=== PATIENT | female | born 1960 | race African-American/Black ===

== ENCOUNTER 2016-07-14 14:16 | Emergency (ER) | payer OTHER ==
[~2016-07-14] VITALS: Ht 154.9 cm; Wt 131.5 kg
[~2016-07-14 14:16] MED LIST: ACET500T68 PO; AMLO10TA2 PO; AMLO5TAB4 PO; ATOR20TA PO; CHOL10007 PO; CRESTOR5 MG PO; FERR-26 PO; FLUT16SP2 NS; HYDR-2666 PO; HYDR-971 PO; INSU100I17 SQ; INSU100I18 SQ; INSU100V13 SQ; LANS30CA PO; LANS30CA17 PO; LEVO500T38 PO; LORA10TA3 PO; METF500T4 PO; NAPR375T3 PO; NYST1POW5 MC; ONDA4TAB10 SL; OXYB5TAB7 PO; POTA10TA10 PO; SUCR1TAB PO; VALS160T3 PO
[2016-07-14 14:58] VITALS: BP 156/72
--- NOTE | 2016-07-14 15:16 | PHYS DOC ---
Past Medical History Past Medical History: Diabetes-Type II, Hypertension, Other Additional Past Medical Histor: Seasonal allergies Past Surgical History: Other Additional Past Surgical Histo: BLADDER SLING; ablasion to uterus; right knee, L lumpectomy Alcohol Use: None Drug Use: None Adult General Chief Complaint Chief Complaint: UPPER EXTREMITY PAIN [facility] HPI Patient is a 56 year old female presents to the emergency department by EMS with complaint of blurred vision and seeing spots in her eye. She states that she has a history of high blood pressure she does state she took her pressure medicine today. Patient states she has tenderness in her left upper chest area. She denies any shortness of air difficulty breathing. She does state that she has pain down into her left arm and states that she has increased pain with bending and straightening her elbow on the left. Patient states she is left-hand -dominant. Patient has a history of HTN and diabetes. Review of Systems Review of Systems Constitutional: Denies fever or chills [] Eyes: Denies change in visual acuity, redness, or eye pain [] HENT: Denies nasal congestion or sore throat [] Respiratory: Denies cough or shortness of breath [] Cardiovascular: No additional information not addressed in HPI [] GI: Denies abdominal pain, nausea, vomiting, bloody stools or diarrhea [] : Denies dysuria or hematuria [] Musculoskeletal: Denies back pain. C/o left arm and elbow pain Integument: Denies rash or skin lesions [] Neurologic: Denies headache, focal weakness or sensory changes [] Allergies Allergies Allergies Coded Allergies Type Severity Reaction Last Updated Verified Sulfa (Sulfonamide Antibiotics) Allergy Intermediate 01/05/16 No lisinopril Allergy Intermediate 01/05/16 Yes metoclopramide Allergy Intermediate 01/05/16 Yes pantoprazole Allergy Intermediate Unknown 01/05/16 No Physical Exam Physical Exam Constitutional: Well developed, well nourished, no acute distress, non-toxic appearance. [] HENT: Normocephalic, atraumatic, bilateral external ears normal, oropharynx moist, no oral exudates, nose normal. [] Eyes: PERRLA, EOMI, conjunctiva normal, no discharge. [] Neck: Normal range of motion, no tenderness, supple, no stridor. [] Cardiovascular:Heart rate regular rhythm, no murmur [] Lungs & Thorax: Bilateral breath sounds clear to auscultation. Patient with tenderness noted to the left upper chest with palpation. Skin: Warm, dry, no erythema, no rash. [] Back: No tenderness Extremities: Left elbow tenderness on palpation, no cyanosis, no clubbing, ROM intact, no edema. 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 Peripheral pulses 2+ cap refill brisk less than 2 seconds. Neurologic: Alert and oriented X 3, normal motor function, normal sensory function, no focal deficits noted. [] Psychologic: Affect normal, judgement normal, mood normal. [] Current Patient Data Vital Signs Vital Signs Date Time Temp Pulse Resp B/P Pulse Ox O2 Delivery O2 Flow Rate FiO2 07/14/16 14:58 97.9 73 20 100 Room Air 97.9 Lab Values Laboratory Tests Test 07/14/16 16:05 White Blood Count 8.0x10^3/uL (4.0-11.0) Red Blood Count 5.55x10^6/uL (3.50-5.40) H Hemoglobin 13.5g/dL (12.0-15.5) Hematocrit 42.4% (36.0-47.0) Mean Corpuscular Volume 76fL (79-100) L Mean Corpuscular Hemoglobin 24pg (25-35) L Mean Corpuscular Hemoglobin Concent 32g/dL (31-37) Red Cell Distribution Width 16.1% (11.5-14.5) H Platelet Count 340x10^3/uL (140-400) Neutrophils (%) (Auto) 70% (31-73) Lymphocytes (%) (Auto) 23% (24-48) L Monocytes (%) (Auto) 5% (0-9) Eosinophils (%) (Auto) 1% (0-3) Basophils (%) (Auto) 1% (0-3) Neutrophils # (Auto) 5.6x10^3uL (1.8-7.7) Lymphocytes # (Auto) 1.8x10^3/uL (1.0-4.8) Monocytes # (Auto) 0.4x10^3/uL (0.0-1.1) Eosinophils # (Auto) 0.1x10^3/uL (0.0-0.7) Basophils # (Auto) 0.1x10^3/uL (0.0-0.2) Sodium Level 141mmol/L (136-145) Potassium Level 3.9mmol/L (3.5-5.1) Chloride Level 104mmol/L (98-107) Carbon Dioxide Level 28mmol/L (21-32) Anion Gap 9 (6-14) Blood Urea Nitrogen 20mg/dL (7-20) Creatinine 1.0mg/dL (0.6-1.0) Estimated GFR (Cockcroft-Gault) 69.7 BUN/Creatinine Ratio 20 (6-20) Glucose Level 120mg/dL (70-99) H Calcium Level 9.7mg/dL (8.5-10.1) Total Bilirubin 0.4mg/dL (0.2-1.0) Aspartate Amino Transferase (AST) 18U/L (15-37) Alanine Aminotransferase (ALT) 23U/L (14-59) Alkaline Phosphatase 157U/L (46-116) H Troponin I Quantitative < 0.017ng/mL (0.000-0.055) Total Protein 9.0g/dL (6.4-8.2) H Albumin 3.9g/dL (3.4-5.0) Albumin/Globulin Ratio 0.8 (1.0-1.7) L Laboratory Tests 07/14/16 16:05 Laboratory Tests 07/14/16 16:05 EKG EKG EKG completed with a heart rate of 71. EKG was done at 1606 sinus rhythm no STEMI per Dr. Ramos [] Radiology/Procedures Radiology/Procedures [facility] [address] [facility] [place], [place] [id number] IMAGING REPORT Signed PATIENT: RUSLAN CALERO ACCOUNT: [id number] : 1960 LOCATION: ER AGE: 56 SEX: F EXAM STATUS: REG ER ORD. PHYSICIAN: MARIANNE MCCONNELL NP REASON: left upper chest tenderness on palpation PROCEDURE: CHEST PA & LATERAL EXAM: Chest 2 views. HISTORY: Chest tenderness on palpation. COMPARISON: 04/05/2016. FINDINGS: Frontal and lateral views of the chest are obtained. Prominence of the right paratracheal stripe appears to contain calcified lymph nodes. This is more prominent than previously, but there are projectional differences. The inspiration is small. There are no confluent infiltrates. There is no pneumothorax or pleural effusion. The heart is not enlarged. IMPRESSION: 1. Increased prominence of the right paratracheal stripe is likely a projectional difference. A follow-up upright 2 view radiograph is recommended. 2. Small inspiration. No confluent infiltrates. DICTATED and SIGNED BY: CORONA TONY MD DATE: 07/14/161556 CC: CAMILA KIRBY MD; MARIANNE MCCONNELL LINING MACHINE TENDER ~ [] [address] [id number] IMAGING REPORT Signed PATIENT: RUSLAN CALERO ACCOUNT: [id number] : 1960 LOCATION: ER AGE: 56 SEX: F EXAM STATUS: REG ER ORD. PHYSICIAN: MARIANNE MCCONNELL NP REASON: left upper chest tenderness on palpation PROCEDURE: ELBOW LEFT 3V Three-view left elbow radiographs 07/14/2016 Clinical history: Left elbow pain. AP, lateral and oblique digital radiographs of the left elbow were obtained. No fracture or dislocation of the left elbow is seen. Mild degenerative changes are seen involving the left elbow joint. There is no radiographic evidence of a joint effusion. Impression: Mild degenerative changes are seen involving the left elbow. No acute osseous abnormality is seen. DICTATED and SIGNED BY: WENDIE MCDONALD MD DATE: 07/14/161556 CC: CAMILA KIRBY MD; MARIANNE MCCONNELL LINING MACHINE TENDER ~ [address] [id number] IMAGING REPORT Signed PATIENT: RUSLAN CALERO ACCOUNT: [id number] : 1960 LOCATION: ER AGE: 56 SEX: F EXAM STATUS: REG ER ORD. PHYSICIAN: MARIANNE MCCONNELL NP REASON: blurred vison and spots PROCEDURE: HEAD WO CONTRAST CT scan of the head without contrast 07/14/2016 Clinical history: Blurred vision and headaches. Technique: Unenhanced, contiguous, 5 mm axial sections were obtained through the head. One or more of the following individualized dose reduction techniques were utilized for this study: 1. Automated exposure control. 2. Adjustment of the mA and/or kV according to patient size. 3. Use of iterative reconstruction technique. Findings: Comparison study is dated 12/24/2015. The ventricles and sulci are within normal limits in size and configuration. No acute parenchymal abnormality is seen. No extra-axial fluid collection is seen. No skull fracture is noted. Impression: No acute intracranial abnormality is seen. DICTATED and SIGNED BY: WENDIE MCDONALD MD DATE: 07/14/16 1557 CC: CAMILA KIRBY MD; MARIANNE MCCONNELL NP ~ Course & Med Decision Making Course & Med Decision Making Pertinent Labs and Imaging studies reviewed. (See chart for details) CT head, chest x-ray and left elbow x-ray negative for acute abnormality. Chest x-ray showed striking with recommendations for repeat chest x-ray in 1-2 weeks. Lab results negative with troponin negative. Patient with EKG completed and negative. Patient will be discharged home in stable condition. Recommended ibuprofen 600 mg every 8 hours with food stop taking if you develop upset stomach. Signs and symptoms to return to emergency department has been provided. Recommended followup with primary care provider in 5-7 days for repeat chest x-ray. Patient agrees with discharge instructions, treatment regimen and followup recommendations. [] Dragon Disclaimer Dragon Disclaimer This electronic medical record was generated, in whole or in part, using a voice recognition dictation system. Departure Departure Impression: Primary Impression: Left elbow pain Disposition: 01 HOME, SELF-CARE Referrals: CAMILA KIRBY MD (PCP) Patient Instructions: Elbow Injury-Brief Additional Instructions: You x-ray of your chest shows streaking and should be repeated in 1 week Activity as tolerated Ibuprofen 600 mg every 8 hours with food, stop taking if you develop upset stomach Ice packs on 20 minutes and off 20 minutes several times a day Tyler wrap to the left elbow for the next 5-7 days Followup with your primary care provider in 5-7 days for repeat chest x-ray Followup with orthopedic for your elbow pain in 5-7 days Return to emergency department as needed for signs and symptoms that become worse. MARIANNE MCCONNELL NP Jul 14, 2016 15:16
--- NOTE | 2016-07-14 16:01 | RAD ---
EXAM: Chest 2 views. HISTORY: Chest tenderness on palpation. COMPARISON: 04/05/2016. FINDINGS: Frontal and lateral views of the chest are obtained. Prominence of the right paratracheal stripe appears to contain calcified lymph nodes. This is more prominent than previously, but there are projectional differences. The inspiration is small. There are no confluent infiltrates. There is no pneumothorax or pleural effusion. The heart is not enlarged. IMPRESSION: 1. Increased prominence of the right paratracheal stripe is likely a projectional difference. A follow-up upright 2 view radiograph is recommended. 2. Small inspiration. No confluent infiltrates.
--- NOTE | 2016-07-14 16:01 | RAD ---
Three-view left elbow radiographs 07/14/2016 Clinical history: Left elbow pain. AP, lateral and oblique digital radiographs of the left elbow were obtained. No fracture or dislocation of the left elbow is seen. Mild degenerative changes are seen involving the left elbow joint. There is no radiographic evidence of a joint effusion. Impression: Mild degenerative changes are seen involving the left elbow. No acute osseous abnormality is seen.
--- NOTE | 2016-07-14 16:05 | RAD ---
CT scan of the head without contrast 07/14/2016 Clinical history: Blurred vision and headaches. Technique: Unenhanced, contiguous, 5 mm axial sections were obtained through the head. One or more of the following individualized dose reduction techniques were utilized for this study: 1. Automated exposure control. 2. Adjustment of the mA and/or kV according to patient size. 3. Use of iterative reconstruction technique. Findings: Comparison study is dated 12/24/2015. The ventricles and sulci are within normal limits in size and configuration. No acute parenchymal abnormality is seen. No extra-axial fluid collection is seen. No skull fracture is noted. Impression: No acute intracranial abnormality is seen.
[2016-07-14 16:17] LABS: BASO # 0.1 x10^3/uL (0.0-0.2); BASO % 1 % (0-3); EOS % 1 % (0-3); HEMATOCRIT 42.4 % (36.0-47.0); HEMOGLOBIN 13.5 g/dL (12.0-15.5); LYMPH # 1.8 x10^3/uL (1.0-4.8); LYMPH % 23 % (24-48); MEAN CORPUSCULAR HEMOGLOBIN 24 pg (25-35); MEAN CORPUSCULAR HGB CONC 32 g/dL (31-37); MEAN CORPUSCULAR VOLUME 76 fL (79-100); MONO % 5 % (0-9); NEUT % 70 % (31-73); PLATELET COUNT 340 x10^3/uL (140-400); RED BLOOD COUNT 5.55 x10^6/uL (3.50-5.40); RED CELL DISTRIBUTION WIDTH 16.1 % (11.5-14.5)
[2016-07-14 16:29] LABS: CALCIUM 9.7 mg/dL (8.5-10.1); GFR 69.7; POTASSIUM 3.9 mmol/L (3.5-5.1)
[2016-07-14 16:35] LABS: ALBUMIN 3.9 g/dL (3.4-5.0); ALBUMIN/GLOBULIN RATIO 0.8 (1.0-1.7); TOTAL BILIRUBIN 0.4 mg/dL (0.2-1.0)
--- NOTE | 2016-07-15 06:10 | EKG ---
[facility] [address] [place] [address] Test Date: 2016-07-14 Test Time: 16:06:55 Pat Name: RUSLAN CALERO Department: Room: Gender: F Talkback Host: : 1960 Requested By: MARIANNE MCCONNELL Order Number: [id number] Reading MD: Measurements Intervals [place] Rate: 71 P: 36 ND: 172 QRS: 6 QRSD: 80 T: 28 QT: 396 QTc: 435 Interpretive Statements SINUS RHYTHM R-S TRANSITION ZONE IN V LEADS DISPLACED TO THE LEFT OTHERWISE NORMAL ECG RI6.01 Unconfirmed report No previous ECG available for comparison
== END 2016-07-14 17:32 | disposition home or self-care (01) ==
LOC: ER 14:16
DX: M25.522 Pain in left elbow (principal); E11.9 Type 2 diabetes mellitus without complications; I10 Essential (primary) hypertension; Z88.2 Allergy status to sulfonamides; Z88.8 Allergy status to other drugs, medicaments and biological substances
CPT/HCPCS: 36415; 70450; 71020; 73080; 80053; 84484; 85027; 93005; 99285-25

== ENCOUNTER → 2016-08-25 | Outpatient (CLI) | payer OTHER ==
--- NOTE | 2016-08-25 14:52 | RAD ---
DATE: 08/25/2016 EXAM: DIGITAL SCREEN BILAT W/CAD HISTORY: Screening COMPARISON: 02/27/2015 This study was interpreted with the benefit of Computerized Aided Detection (CAD). FINDINGS: The breast parenchyma is primarily fatty replaced. Breast parenchyma level density A.. There has not been a significant change in the appearance of the breasts compared to the previous exam IMPRESSION: Benign findings BI-RADS CATEGORY: 2 BENIGN FINDING(S) RECOMMENDED FOLLOW-UP: 12M 12 MONTH FOLLOW-UP PQRS compliance statement: Patient information was entered into a reminder system with a target due date 08/25/2017 for the next mammogram. Mammography is a sensitive method for finding small breast cancers, but it does not detect them all and is not a substitute for careful clinical examination. A negative mammogram does not negate a clinically suspicious finding and should not result in delay in biopsying a clinically suspicious abnormality. "Our facility is accredited by the [employer] Mammography Program."
== END | disposition home or self-care (01) ==
LOC: MAMMO 13:24
PROVIDERS: ATTEND Family Medicine
DX: Z12.31 Encounter for screening mammogram for malignant neoplasm of breast (principal)
CPT/HCPCS: G0202; 77067

== ENCOUNTER 2016-09-14 12:40 | Emergency (ER) | payer OTHER ==
[~2016-09-14 12:40] MED LIST changes: -POTA10TA10 PO; +POTA10TA12 PO
[2016-09-14] MEDS ORDERED: DIPHTH,PERTUSS(ACELL),TET TOX 0.5 ML DISP.SYRIN. VAX IM ONE (13:15)
[2016-09-14] MEDS ORDERED: IV NORMAL SALINE 1000ML BAG 1,000 ML IV ONE (13:15)
--- NOTE | 2016-09-14 13:15 | PHYS DOC ---
Past Medical History Past Medical History: Diabetes-Type II, Hypertension, Other Additional Past Medical Histor: Seasonal allergies Past Surgical History: Other Additional Past Surgical Histo: BLADDER SLING; ablasion to uterus; right knee, L lumpectomy Alcohol Use: None Drug Use: None Adult General Chief Complaint Chief Complaint: OTHER COMPLAINTS [facility] HPI Patient is a 56 year old female with history of diabetes type 2, hypertension, who presents today with multiple complaints. Patient is complaining of a bite on the left buttock that she believes came from a mice. Patient states 2 weeks ago she was asleep and believes a mice bite her. Patient did not see them ice bite her. She is also complaining of nausea with no vomiting and a cough. She states the nausea with no vomiting and the cough began a couple days ago. She is also complaining of constipation. She states she has history of constipation and is supposed to be taking MiraLAX but does not take it. Patient denies any fever. She states she has noted some intermittent episodes of diarrhea. Denies any chest pain or shortness of breath. Review of Systems Review of Systems Constitutional: Denies fever or chills [] Eyes: Denies change in visual acuity, redness, or eye pain [] HENT: Denies nasal congestion or sore throat [] Respiratory: cough Cardiovascular: No additional information not addressed in HPI [] GI: nausea, and diarrhea [] : Denies dysuria or hematuria [] Musculoskeletal: Denies back pain or joint pain [] Integument: left buttock bite Neurologic: Denies headache, focal weakness or sensory changes [] Endocrine: Denies polyuria or polydipsia [] Current Medications Current Medications Current Medications Medications (Trade) Dose Ordered Sig/Ren Start Time Stop Time Status Last Admin Dose Admin Diphtheria/ Tetanus/Acell Pertussis (Boostrix) 0.5 ml ONCE ONCE 09/14/16 13:15 09/14/16 13:16 DC 09/14/16 13:28 0.5 ML Magnesium Citrate (Citroma) 296 ml 1X ONCE 09/14/16 15:15 09/14/16 15:16 DC Sodium Chloride 1,000 ml @ 1,000 mls/hr 1X ONCE 09/14/16 13:15 09/14/16 14:14 DC 09/14/16 13:26 1,000 MLS/HR Allergies Allergies Allergies Coded Allergies Type Severity Reaction Last Updated Verified Sulfa (Sulfonamide Antibiotics) Allergy Intermediate 01/05/16 No lisinopril Allergy Intermediate 01/05/16 Yes metoclopramide Allergy Intermediate 01/05/16 Yes pantoprazole Allergy Intermediate Unknown 01/05/16 No Physical Exam Physical Exam Constitutional: Well developed, well nourished, no acute distress, non-toxic appearance. [] HENT: Normocephalic, atraumatic, bilateral external ears normal, oropharynx moist, no oral exudates, nose normal. [] Eyes: PERRLA, EOMI, conjunctiva normal, no discharge. [] Neck: Normal range of motion, no tenderness, supple, no stridor. [] Cardiovascular:Heart rate regular rhythm, no murmur [] Lungs & Thorax: Bilateral breath sounds clear to auscultation [] Abdomen: Rounded abdomen. No tenderness on exam. Bowel sounds normal, soft, no masses, no pulsatile masses. [] Skin: No bite dai noted on bilateral buttocks. No erythema. Tenderness on palpation of the left upper mid buttock. Warm, dry, no erythema, no rash. [] Back: No tenderness, no CVA tenderness. [] Extremities: No tenderness, no cyanosis, no clubbing, ROM intact, no edema. [] Neurologic: Alert and oriented X 3, normal motor function, normal sensory function, no focal deficits noted. [] Psychologic: Affect normal, judgement normal, mood normal. [] Current Patient Data Vital Signs Vital Signs Date Time Temp Pulse Resp B/P (MAP) Pulse Ox O2 Delivery O2 Flow Rate FiO2 09/14/16 12:50 98.3 91 16 95 Room Air 98.3 Lab Values Laboratory Tests Test 09/14/16 13:25 09/14/16 13:55 White Blood Count 7.2 x10^3/uL (4.0-11.0) Red Blood Count 4.93 x10^6/uL (3.50-5.40) Hemoglobin 12.0 g/dL (12.0-15.5) Hematocrit 37.7 % (36.0-47.0) Mean Corpuscular Volume 77 fL (79-100) L Mean Corpuscular Hemoglobin 24 pg (25-35) L Mean Corpuscular Hemoglobin Concent 32 g/dL (31-37) Red Cell Distribution Width 16.4 % (11.5-14.5) H Platelet Count 304 x10^3/uL (140-400) Neutrophils (%) (Auto) 63 % (31-73) Lymphocytes (%) (Auto) 26 % (24-48) Monocytes (%) (Auto) 9 % (0-9) Eosinophils (%) (Auto) 1 % (0-3) Basophils (%) (Auto) 1 % (0-3) Neutrophils # (Auto) 4.5 x10^3uL (1.8-7.7) Lymphocytes # (Auto) 1.9 x10^3/uL (1.0-4.8) Monocytes # (Auto) 0.6 x10^3/uL (0.0-1.1) Eosinophils # (Auto) 0.1 x10^3/uL (0.0-0.7) Basophils # (Auto) 0.1 x10^3/uL (0.0-0.2) Sodium Level 140 mmol/L (136-145) Potassium Level 4.4 mmol/L (3.5-5.1) Chloride Level 103 mmol/L (98-107) Carbon Dioxide Level 27 mmol/L (21-32) Anion Gap 10 (6-14) Blood Urea Nitrogen 13 mg/dL (7-20) Creatinine 1.0 mg/dL (0.6-1.0) Estimated GFR (Cockcroft-Gault) 69.7 BUN/Creatinine Ratio 13 (6-20) Glucose Level 152 mg/dL (70-99) H Calcium Level 9.5 mg/dL (8.5-10.1) Total Bilirubin 0.4 mg/dL (0.2-1.0) Aspartate Amino Transferase (AST) 16 U/L (15-37) Alanine Aminotransferase (ALT) 22 U/L (14-59) Alkaline Phosphatase 133 U/L (46-116) H Total Protein 7.8 g/dL (6.4-8.2) Albumin 3.4 g/dL (3.4-5.0) Albumin/Globulin Ratio 0.8 (1.0-1.7) L Lipase 202 U/L (73-393) Urine Collection Type Unknown Urine Color Yellow Urine Clarity Clear Urine pH 6.5 Urine Specific [place] 1.020 Urine Protein Negative mg/dL (NEG-TRACE) Urine Glucose (UA) Negative mg/dL (NEG) Urine Ketones (Stick) Negative mg/dL (NEG) Urine Blood Negative (NEG) Urine Nitrite Negative (NEG) Urine Bilirubin Negative (NEG) Urine Urobilinogen Dipstick 0.2 mg/dL (0.2 mg/dL) Urine Leukocyte Esterase Negative (NEG) Urine RBC 0 /HPF (0-2) Urine WBC Occ /HPF (0-4) Urine Squamous Epithelial Cells Mod /LPF Urine Bacteria Few /HPF (0-FEW) Urine Mucus Mod /LPF Laboratory Tests 09/14/16 13:25 Laboratory Tests 09/14/16 13:25 EKG EKG [] Radiology/Procedures Radiology/Procedures []PROCEDURE: ACUTE ABDOMEN SERIES Indication: Abdominal pain and nausea. Time of exam 1316 hours. The lungs are clear. No free air is identified. The bowel gas pattern demonstrates mild gaseous distention of colonic bowel loops. The small bowel is nondilated. No bowel wall thickening or pneumatosis is seen. No pathologic calcifications are identified. Impression: No acute feature detected. DICTATED and SIGNED BY: CJ HILARIO MD DATE: 09/14/16 1327 CC: CAMILA KIRBY MD; BRENDAN BARNES CARBON CLEANER; NON,STAFF ~ Course & Med Decision Making Course & Med Decision Making Pertinent Labs and Imaging studies reviewed. (See chart for details) Patient is in the ED with multiple complaints including what she believes was a bite on her buttock when she was sleeping 2 weeks ago. There is no evidence of infection or bite dai on her buttocks. She is also complaining of cough, nausea vomiting diarrhea and constipation. She is also complaining of a cough. She was given tetanus injection. CBC CMP lipase with no acute findings. Acute abdominal series was negative for any acute findings but noted for constipation. She was discharged with mag citrate and MiraLAX. We talked about increasing dietary fiber intake. We talked about increasing water intake. I recommended following up with the primary care doctor in a week. Discharged with Franchesca Correa for cough. Dragon Disclaimer Dragon Disclaimer This electronic medical record was generated, in whole or in part, using a voice recognition dictation system. Departure Departure Impression: Primary Impression: Constipation Additional Impressions: Cough Insect bite of buttock Nausea Disposition: 01 HOME, SELF-CARE Condition: STABLE Referrals: CAMILA KIRBY MD (PCP) Follow-up with your own doctor in one week Patient Instructions: Constipation, Adult, Cough, Adult, Insect Bite, Nausea, Adult Additional Instructions: You were seen in the ED with multiple complaints including possibility of being bit by her mice. From the physical exam we did not see any bite dai on the area of concern. We gave you tetanus shot in the emergency room. Keep the area clean and dry. Apply the recommended cream to the area as needed. Your x-ray shows you constipated. Consider using MiraLAX every day. Use magnesium citrate daily until you have a good bowel movement. Come back to the ED at any point symptoms worsen. Take [id number]-ryksytv cough medicines for your cough. Please follow-up with your doctor in the next 7 days. Scripts Benzonatate (TESSALON PERLE) 100 Mg Capsule 1 CAP PO TID, #30 CAP Prov: BRENDAN BARNES APRN 09/14/16 Polyethylene Glycol 3350 (MIRALAX) 17 Gm Powd.pack 1 PACKET PO DAILY, #30 PACKET 3 Refills Prov: BRENDAN BARNES APRN 09/14/16 Triamcinolone Acetonide (TRIAMCINOLONE ACETONIDE 0.1% OINT) 15 Gm Oint...g. 1 PHONG TP BID for WOUND CARE, #1 TUBE MIX WITH EUCERIN DIRECTED BY PHYSICIAN Prov: BRENDAN BARNES APRN 09/14/16 Problem Qualifiers Primary Impression: Constipation Constipation type: unspecified constipation type Qualified Codes: K59.00 - Constipation, unspecified Additional Impressions: Insect bite of buttock Encounter type: initial encounter Qualified Codes: S30.860A - Insect bite ( nonvenomous) of lower back and pelvis, initial encounter; W57.XXXA - Bitten or stung by nonvenomous insect and other nonvenomous arthropods, initial encounter BRENDAN BARNES APRN September 14, 2016 13:15
--- NOTE | 2016-09-14 13:32 | RAD ---
Indication: Abdominal pain and nausea. Time of exam 1316 hours. The lungs are clear. No free air is identified. The bowel gas pattern demonstrates mild gaseous distention of colonic bowel loops. The small bowel is nondilated. No bowel wall thickening or pneumatosis is seen. No pathologic calcifications are identified. Impression: No acute feature detected.
[2016-09-14 13:42] LABS: BASO # 0.1 x10^3/uL (0.0-0.2); BASO % 1 % (0-3); EOS % 1 % (0-3); HEMATOCRIT 37.7 % (36.0-47.0); LYMPH # 1.9 x10^3/uL (1.0-4.8); LYMPH % 26 % (24-48); MEAN CORPUSCULAR HEMOGLOBIN 24 pg (25-35); MEAN CORPUSCULAR HGB CONC 32 g/dL (31-37); MEAN CORPUSCULAR VOLUME 77 fL (79-100); MONO % 9 % (0-9); NEUT % 63 % (31-73); PLATELET COUNT 304 x10^3/uL (140-400); RED BLOOD COUNT 4.93 x10^6/uL (3.50-5.40); RED CELL DISTRIBUTION WIDTH 16.4 % (11.5-14.5); WHITE BLOOD COUNT 7.2 x10^3/uL (4.0-11.0)
[2016-09-14 13:56] LABS: CALCIUM 9.5 mg/dL (8.5-10.1); GFR 69.7; POTASSIUM 4.4 mmol/L (3.5-5.1)
[2016-09-14 14:02] LABS: ALBUMIN 3.4 g/dL (3.4-5.0); ALBUMIN/GLOBULIN RATIO 0.8 (1.0-1.7); TOTAL BILIRUBIN 0.4 mg/dL (0.2-1.0); TOTAL PROTEIN 7.8 g/dL (6.4-8.2)
[2016-09-14 14:06] LABS: BILIRUBIN,URINE NEGATIVE (NEG); GLUCOSE,URINE NEGATIVE (NEG); NITRITE,URINE NEGATIVE (NEG); PH,URINE 6.5; PROTEIN,URINE NEGATIVE (NEG-TRACE); UROBILINOGEN,URINE 0.2 mg/dL (0.2 mg/dL)
[2016-09-14 14:28] VITALS: BP 176/78
[2016-09-14 14:31] LABS: BACTERIA,URINE FEW /HPF (0-FEW); RBC,URINE 0 /HPF (0-2); SQUAMOUS EPITHELIAL CELL,UR MOD /LPF; WBC,URINE OCC /HPF (0-4)
[2016-09-14] MEDS ORDERED: BENZ100C PO (15:07)
[2016-09-14] MEDS ORDERED: TRIA15OI TP (15:07)
[2016-09-14] MEDS ORDERED: POLY17PO29 PO (15:07)
[2016-09-14] MEDS ORDERED: MAGNESIUM CITRATE 296 ML SOLUTION. PO ONE (15:15)
== END 2016-09-14 15:32 | disposition home or self-care (01) ==
LOC: ER 12:40
DX: K59.00 Constipation, unspecified (principal); R05 Cough; S30.860A Insect bite (nonvenomous) of lower back and pelvis, initial encounter; R11.2 Nausea with vomiting, unspecified; I10 Essential (primary) hypertension; E11.9 Type 2 diabetes mellitus without complications; W57.XXXA Bitten or stung by nonvenomous insect and other nonvenomous arthropods, initial encounter; Y93.89 Activity, other specified; Y92.89 Other specified places as the place of occurrence of the external cause; Y99.8 Other external cause status; Z88.2 Allergy status to sulfonamides; Z88.8 Allergy status to other drugs, medicaments and biological substances
CPT/HCPCS: 36415; 74022; 80053; 81001; 83690; 85027; 90471; 90715; 96360; 99285; J7030

== ENCOUNTER 2016-12-22 15:05 | Emergency (ER) | payer OTHER ==
[~2016-12-22] VITALS: Ht 156.2 cm; Wt 131.5 kg
[~2016-12-22 15:05] MED LIST changes: +BENZ100C PO; +CHOL100014 PO; -CHOL10007 PO; -HYDR-2666 PO; +HYDR-2758 PO; -LANS30CA17 PO; +LANS30CA66 PO; -LEVO500T38 PO; +LEVO500T59 PO; +POLY17PO29 PO; +TRIA15OI TP
[2016-12-22 15:58] VITALS: BP 134/73
--- NOTE | 2016-12-22 16:19 | PHYS DOC ---
Past Medical History Past Medical History: Diabetes-Type II, Hypertension, Other Additional Past Medical Histor: Seasonal allergies Past Surgical History: Other Additional Past Surgical Histo: BLADDER SLING; ablasion to uterus; right knee, L lumpectomy Alcohol Use: None Drug Use: None Adult General Chief Complaint Chief Complaint: ANIMAL BITE [facility] HPI Patient is a 56 year old female presents to the emergency department stating that 4 days ago she believes she was bitten or scratched by a mouse or rat. She states that she believes that they're living in her mattress. Patient states that she's been cleaning the areas with soap and water and applying antibiotic ointment. Patient states that her tetanus immunization is not up-to-date. Patient states that she is concerned about rabies however at this incident happened over 4 days ago. Review of Systems Review of Systems Constitutional: Denies fever or chills [] Eyes: Denies change in visual acuity, redness, or eye pain [] HENT: Denies nasal congestion or sore throat [] Respiratory: Denies cough or shortness of breath [] Cardiovascular: No additional information not addressed in HPI [] GI: Denies abdominal pain, nausea, vomiting, bloody stools or diarrhea [] : Denies dysuria or hematuria [] Musculoskeletal: Denies back pain or joint pain [] Integument: Denies rash or skin lesions. Complaint of bites to the left upper buttocks area and right posterior thigh Neurologic: Denies headache, focal weakness or sensory changes [] Endocrine: Denies polyuria or polydipsia [] Allergies Allergies Allergies Coded Allergies Type Severity Reaction Last Updated Verified Sulfa (Sulfonamide Antibiotics) Allergy Intermediate 01/05/16 No lisinopril Allergy Intermediate 01/05/16 Yes metoclopramide Allergy Intermediate 01/05/16 Yes pantoprazole Allergy Intermediate Unknown 01/05/16 No Physical Exam Physical Exam Constitutional: Well developed, well nourished, no acute distress, non-toxic appearance. [] HENT: Normocephalic, atraumatic, bilateral external ears normal, oropharynx moist, no oral exudates, nose normal. [] Eyes: PERRLA, EOMI, conjunctiva normal, no discharge. [] Neck: Normal range of motion, no tenderness, supple, no stridor. [] Cardiovascular:Heart rate regular rhythm, no murmur [] Lungs & Thorax: Bilateral breath sounds clear to auscultation [] Skin: Warm, dry, no erythema, no rash. Left upper buttocks and right posterior thigh with no open wounds noted no redness no drainage no discharge noted. No scratches noted either. Back: No tenderness Extremities: No tenderness, no cyanosis, no clubbing, ROM intact, no edema. [] Neurologic: Alert and oriented X 3, normal motor function, normal sensory function, no focal deficits noted. [] Psychologic: Affect normal, judgement normal, mood normal. [] Current Patient Data Vital Signs Vital Signs Date Time Temp Pulse Resp B/P (MAP) Pulse Ox O2 Delivery O2 Flow Rate FiO2 12/22/16 15:58 98.3 89 20 98 Room Air 98.3 EKG EKG [] Radiology/Procedures Radiology/Procedures [] Course & Med Decision Making Course & Med Decision Making Pertinent Labs and Imaging studies reviewed. (See chart for details) Spoke with patient regards to using Benadryl for the burning and itching. Spoke with her about clean the site with soap and water and applying antibiotic ointment to the area. Patient will be updated with a tetanus immunization she' ll be discharged home in stable condition. Patient was provided with signs and symptoms to return back to emergency department. Recommended following up with her primary care physician within the next 3-5 days. Patient agrees with discharge instructions treatment regimens and follow-up recommendations. [] Dragon Disclaimer Dragon Disclaimer This electronic medical record was generated, in whole or in part, using a voice recognition dictation system. Departure Departure Impression: Primary Impression: Skin irritation Disposition: 01 HOME, SELF-CARE Condition: STABLE Referrals: CAMILA KIRBY MD (PCP) Patient Instructions: Rash, [id number] Additional Instructions: Activity as tolerated. Continue to use soap and water and apply antibiotic ointment to the area. Tylenol or ibuprofen for fever chills or generalized body aches and discomfort. Benadryl 25 mg every 6 hours will help with the itching and irritation. This medication will cause drowsiness do not take any be alert and oriented. Follow-up the primary care physician within the next 3-5 days. Return back to emergency prior signs symptoms of become worse. MARIANNE MCCONNELL APRN Dec 22, 2016 16:19
[2016-12-22] MEDS ORDERED: DIPHTH,PERTUSS(ACELL),TET TOX 0.5 ML DISP.SYRIN. VAX IM ONE (16:30)
== END 2016-12-22 16:40 | disposition home or self-care (01) ==
LOC: ER 15:05
DX: L98.9 Disorder of the skin and subcutaneous tissue, unspecified (principal); E11.9 Type 2 diabetes mellitus without complications; I10 Essential (primary) hypertension; Z88.2 Allergy status to sulfonamides; Z88.8 Allergy status to other drugs, medicaments and biological substances
CPT/HCPCS: 90471; 90715; 99283-25

== ENCOUNTER 2017-01-21 17:26 | Emergency (ER) | payer OTHER ==
[~2017-01-21] VITALS: Ht 152.4 cm; Wt 131.5 kg
[~2017-01-21 17:26] MED LIST changes: +NAPR-695 PO; -NAPR375T3 PO
--- NOTE | 2017-01-21 17:29 | PHYS DOC ---
Past Medical History Past Medical History: Diabetes-Type II, Hypertension, Other Additional Past Medical Histor: Seasonal allergies Past Surgical History: Other Additional Past Surgical Histo: BLADDER SLING; ablasion to uterus; right knee, L lumpectomy Alcohol Use: None Drug Use: None Adult General [facility] HPI Patient is a 56 year old female presenting to the emergency department for evaluation of dizziness and lightheadedness. She says that she was sitting at home on the couch when she felt warm dizzy and lightheaded and nauseated and became very frightened and called the ambulance. She describes it as a sensation as if she is going to pass out and not a room spinning sensation. She says that her bilateral lower extremities have been more swollen and that she thinks she got bit by a rat on her back and on her left leg. She says that she was seen by her primary care provider earlier in the week for this issue. Looking through the records it appears that she was seen on December 22 as well for concerns of being exposed to a rat bite. Patient denies any pain dizziness or nausea to me currently and she is not on any medications. She is in no obvious distress with normal vital signs. Review of Systems Review of Systems Constitutional: Denies fever or chills [] Respiratory: Denies cough or shortness of breath [] Cardiovascular: No additional information not addressed in HPI [] GI: Denies abdominal pain. + nausea. No vomiting, bloody stools or diarrhea [] : Denies dysuria or hematuria [] Musculoskeletal: Denies back pain or joint pain [] Integument: + abrasions Neurologic: Denies headache, focal weakness. + dizziness sensory changes [] Allergies Allergies Allergies Coded Allergies Type Severity Reaction Last Updated Verified Sulfa (Sulfonamide Antibiotics) Allergy Intermediate 01/05/16 No lisinopril Allergy Intermediate 01/05/16 Yes metoclopramide Allergy Intermediate 01/05/16 Yes pantoprazole Allergy Intermediate Unknown 01/05/16 No Physical Exam Physical Exam Constitutional: Well developed, well nourished, no acute distress, non-toxic appearance. [] HENT: Normocephalic, atraumatic, bilateral external ears normal, oropharynx moist, no oral exudates, nose normal. [] Eyes: PERRLA, EOMI, conjunctiva normal, no discharge. [] Neck: Normal range of motion, no tenderness, supple, no stridor. [] Cardiovascular:Heart rate regular rhythm, no murmur [] Lungs & Thorax: Bilateral breath sounds clear to auscultation [] Abdomen: Bowel sounds normal, soft, no tenderness, no masses, no pulsatile masses. [] Skin: Small abrasion to her right lower back that appears more like a scratch than a bite. Left inner mid calf with what appears to be to insect bites but no surrounding redness and tenderness drainage or signs of infection. Back: No tenderness, no CVA tenderness. [] Extremities: No tenderness, no cyanosis, no clubbing, ROM intact, 3+ edema BL. [ ] Neurologic: Alert and oriented X 3, normal motor function, normal sensory function, no focal deficits noted. Patient ambulates with a normal gait with her cane to and from the bathroom with no assistance. Current Patient Data Vital Signs Vital Signs Date Time Temp Pulse Resp B/P (MAP) Pulse Ox O2 Delivery O2 Flow Rate FiO2 01/21/17 17:30 98.2 93 18 187/84 (118) 97 Room Air 98.2 Lab Values Laboratory Tests Test 01/21/17 17:32 White Blood Count 6.8 x10^3/uL (4.0-11.0) Red Blood Count 4.96 x10^6/uL (3.50-5.40) Hemoglobin 12.3 g/dL (12.0-15.5) Hematocrit 38.3 % (36.0-47.0) Mean Corpuscular Volume 77 fL (79-100) L Mean Corpuscular Hemoglobin 25 pg (25-35) Mean Corpuscular Hemoglobin Concent 32 g/dL (31-37) Red Cell Distribution Width 16.0 % (11.5-14.5) H Platelet Count 320 x10^3/uL (140-400) Neutrophils (%) (Auto) 75 % (31-73) H Lymphocytes (%) (Auto) 18 % (24-48) L Monocytes (%) (Auto) 6 % (0-9) Eosinophils (%) (Auto) 1 % (0-3) Basophils (%) (Auto) 1 % (0-3) Neutrophils # (Auto) 5.1 x10^3uL (1.8-7.7) Lymphocytes # (Auto) 1.2 x10^3/uL (1.0-4.8) Monocytes # (Auto) 0.4 x10^3/uL (0.0-1.1) Eosinophils # (Auto) 0.0 x10^3/uL (0.0-0.7) Basophils # (Auto) 0.0 x10^3/uL (0.0-0.2) Urine Collection Type Unknown Urine Color Yellow Urine Clarity Clear Urine pH 7.0 Urine Specific [place] 1.010 Urine Protein Negative mg/dL (NEG-TRACE) Urine Glucose (UA) Negative mg/dL (NEG) Urine Ketones (Stick) Negative mg/dL (NEG) Urine Blood Negative (NEG) Urine Nitrite Negative (NEG) Urine Bilirubin Negative (NEG) Urine Urobilinogen Dipstick 0.2 mg/dL (0.2 mg/dL) Urine Leukocyte Esterase Negative (NEG) Urine RBC 0 /HPF (0-2) Urine WBC 0 /HPF (0-4) Urine Squamous Epithelial Cells Few /LPF Urine Bacteria Few /HPF (0-FEW) Sodium Level 138 mmol/L (136-145) Potassium Level 3.8 mmol/L (3.5-5.1) Chloride Level 103 mmol/L (98-107) Carbon Dioxide Level 28 mmol/L (21-32) Anion Gap 7 (6-14) Blood Urea Nitrogen 15 mg/dL (7-20) Creatinine 0.9 mg/dL (0.6-1.0) Estimated GFR (Cockcroft-Gault) 78.7 BUN/Creatinine Ratio 17 (6-20) Glucose Level 155 mg/dL (70-99) H Calcium Level 9.7 mg/dL (8.5-10.1) Magnesium Level 2.0 mg/dL (1.8-2.4) Total Bilirubin 0.4 mg/dL (0.2-1.0) Aspartate Amino Transferase (AST) 19 U/L (15-37) Alanine Aminotransferase (ALT) 19 U/L (14-59) Alkaline Phosphatase 125 U/L (46-116) H Troponin I Quantitative < 0.017 ng/mL (0.000-0.055) EX-[id number]-[id number]-Type Natriuretic Peptide 14 pg/mL (0-124) Total Protein 8.1 g/dL (6.4-8.2) Albumin 3.4 g/dL (3.4-5.0) Albumin/Globulin Ratio 0.7 (1.0-1.7) L Laboratory Tests 01/21/17 17:32 Laboratory Tests 01/21/17 17:32 EKG EKG Sinus rhythm at 95 beats per minutes with normal axis no obvious ST elevation or depression and normal T waves. Radiology/Procedures Radiology/Procedures Left lower extremity venous Doppler dated 01/21/2017. No comparison available. Clinical indication: Swelling for 2 days. FINDINGS: Grayscale, color-flow and spectral waveform analysis performed to include the deep venous system of the left lower extremity. Normal compressibility, phasicity and augmentation of flow throughout. No filling defects are seen. IMPRESSION: No evidence of left lower extremity deep vein thrombosis. Electronically signed by: Aung Hodge MD (01/21/2017 6:33 PM) [facility] DICTATED and SIGNED BY: AUNG HODGE MD DATE: 01/21/17 183 Course & Med Decision Making Course & Med Decision Making Patient with multiple nonspecific symptoms and now she is asymptomatic. She seems to be fixated on this rat bite that she may been exposed to. The edema she says is worse over the past 2-3 days so will check some screening labs ultrasound and reassess. Labs and ultrasound are normal. Patient is now asymptomatic and looks well with normal vital signs. Given patient appears well and is asking to go home with normal vital signs benign physical exam and workup she'll be discharged with instructions to elevate her legs were compression stockings follow with her primary care provider in the next 2-3 days and come back to the ED sooner with worsening pain shortness of breath or other general concerns. Patient aware and agreeable with plan for discharge and verbalized understanding of the need for short-term follow-up in the strict ED return precautions discussed as above. Dragon Disclaimer Dragon Disclaimer This electronic medical record was generated, in whole or in part, using a voice recognition dictation system. Departure Departure Impression: Primary Impression: Peripheral edema Additional Impressions: Abrasion Dizziness Disposition: 01 HOME, SELF-CARE Condition: STABLE Referrals: CAMILA KIRBY MD (PCP) Patient Instructions: Peripheral Edema Additional Instructions: WEAR COMPRESSION STOCKINGS, ELEVATE YOUR LEGS OFTEN POSSIBLE. FOLLOW WITH YOUR PCP AARTI. THANK YOU! Scripts Furosemide (LASIX) 20 Mg Tablet 1 TAB PO DAILY, #4 TAB 0 Refills Prov: JOSIAH,KULWINDER M DO 01/21/17 Problem Qualifiers KULWINDER RAHMAN DO Jan 21, 2017 17:29
[2017-01-21 18:13] LABS: BASO % 1 % (0-3); BILIRUBIN,URINE NEGATIVE (NEG); EOS % 1 % (0-3); GLUCOSE,URINE NEGATIVE (NEG); HEMATOCRIT 38.3 % (36.0-47.0); HEMOGLOBIN 12.3 g/dL (12.0-15.5); LYMPH # 1.2 x10^3/uL (1.0-4.8); LYMPH % 18 % (24-48); MEAN CORPUSCULAR HEMOGLOBIN 25 pg (25-35); MEAN CORPUSCULAR HGB CONC 32 g/dL (31-37); MEAN CORPUSCULAR VOLUME 77 fL (79-100); MONO % 6 % (0-9); NEUT % 75 % (31-73); NITRITE,URINE NEGATIVE (NEG); PLATELET COUNT 320 x10^3/uL (140-400); PROTEIN,URINE NEGATIVE (NEG-TRACE); RED BLOOD COUNT 4.96 x10^6/uL (3.50-5.40); UROBILINOGEN,URINE 0.2 mg/dL (0.2 mg/dL); WHITE BLOOD COUNT 6.8 x10^3/uL (4.0-11.0)
[2017-01-21 18:27] LABS: BACTERIA,URINE FEW /HPF (0-FEW); RBC,URINE 0 /HPF (0-2); SQUAMOUS EPITHELIAL CELL,UR FEW /LPF; WBC,URINE 0 /HPF (0-4)
[2017-01-21 18:34] LABS: CALCIUM 9.7 mg/dL (8.5-10.1); CREATININE 0.9 mg/dL (0.6-1.0); GFR 78.7; POTASSIUM 3.8 mmol/L (3.5-5.1)
--- NOTE | 2017-01-21 18:36 | RAD ---
Left lower extremity venous Doppler dated 01/21/2017. No comparison available. Clinical indication: Swelling for 2 days. FINDINGS: Grayscale, color-flow and spectral waveform analysis performed to include the deep venous system of the left lower extremity. Normal compressibility, phasicity and augmentation of flow throughout. No filling defects are seen. IMPRESSION: No evidence of left lower extremity deep vein thrombosis. Electronically signed by: Aung Hodge MD (01/21/2017 6:33 PM) [facility]
[2017-01-21 18:40] LABS: ALBUMIN 3.4 g/dL (3.4-5.0); ALBUMIN/GLOBULIN RATIO 0.7 (1.0-1.7); TOTAL BILIRUBIN 0.4 mg/dL (0.2-1.0); TOTAL PROTEIN 8.1 g/dL (6.4-8.2)
[2017-01-21] MEDS ORDERED: FURO-69 PO (19:27)
[2017-01-21] MEDS ORDERED: FUROSEMIDE 40 MG/4 ML VIAL. IVP ONE (19:30)
[2017-01-21 19:53] VITALS: BP 173/76
--- NOTE | 2017-01-22 07:57 | EKG ---
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
== END 2017-01-21 19:57 | disposition home or self-care (01) ==
LOC: ER 17:26
DX: S30.810A Abrasion of lower back and pelvis, initial encounter (principal); R42 Dizziness and giddiness; R11.0 Nausea; I10 Essential (primary) hypertension; R60.0 Localized edema; E11.9 Type 2 diabetes mellitus without complications; Z88.2 Allergy status to sulfonamides; Z88.8 Allergy status to other drugs, medicaments and biological substances; W53.11XA Bitten by rat, initial encounter; Y93.89 Activity, other specified; Y99.8 Other external cause status; Y92.89 Other specified places as the place of occurrence of the external cause
CPT/HCPCS: 36415; 80053; 81001; 83735; 83880; 84484; 85025; 93005; 93971; 96374; 99285; J1940

== ENCOUNTER 2017-03-26 01:08 | Emergency (ER) | payer OTHER ==
[~2017-03-26] VITALS: Ht 152.4 cm; Wt 131.5 kg
[~2017-03-26 01:08] MED LIST changes: +FURO-69 PO
[2017-03-26 01:23] VITALS: BP 147/68
[2017-03-26] MEDS ORDERED: CYCL10TA2 PO (01:46)
--- NOTE | 2017-03-26 01:46 | PHYS DOC ---
Past Medical History Past Medical History: Diabetes-Type II, GERD, Hypertension, Other Additional Past Medical Histor: Seasonal allergies, hiatal hernia Past Surgical History: Other Additional Past Surgical Histo: BLADDER SLING; ablasion to uterus; right knee, L lumpectomy Alcohol Use: None Drug Use: None Adult General Chief Complaint Chief Complaint: UPPER EXTREMITY PAIN [facility] HPI Patient is a 57 year old [f__sex] who presents with [] Review of Systems Review of Systems Constitutional: Denies fever or chills [] Eyes: Denies change in visual acuity, redness, or eye pain [] HENT: Denies nasal congestion or sore throat [] Respiratory: Denies cough or shortness of breath [] Cardiovascular: No additional information not addressed in HPI [] GI: Denies abdominal pain, nausea, vomiting, bloody stools or diarrhea [] : Denies dysuria or hematuria [] Musculoskeletal: Denies back pain or joint pain [] Integument: Denies rash or skin lesions [] Neurologic: Denies headache, focal weakness or sensory changes [] Endocrine: Denies polyuria or polydipsia [] All other systems were reviewed and found to be within normal limits, except as documented in this note. Allergies Allergies Allergies Coded Allergies Type Severity Reaction Last Updated Verified Sulfa (Sulfonamide Antibiotics) Allergy Intermediate 01/05/16 No lisinopril Allergy Intermediate 01/05/16 Yes metoclopramide Allergy Intermediate 01/05/16 Yes pantoprazole Allergy Intermediate Unknown 01/05/16 No Physical Exam Physical Exam Constitutional: Well developed, well nourished, no acute distress, non-toxic appearance. [] HENT: Normocephalic, atraumatic, bilateral external ears normal, oropharynx moist, no oral exudates, nose normal. [] Eyes: PERRLA, EOMI, conjunctiva normal, no discharge. [] Neck: Normal range of motion, no tenderness, supple, no stridor. [] Cardiovascular:Heart rate regular rhythm, no murmur [] Lungs & Thorax: Bilateral breath sounds clear to auscultation [] Abdomen: Bowel sounds normal, soft, no tenderness, no masses, no pulsatile masses. [] Skin: Warm, dry, no erythema, no rash. [] Back: No tenderness, no CVA tenderness. [] Extremities: No tenderness, no cyanosis, no clubbing, ROM intact, no edema. [] Neurologic: Alert and oriented X 3, normal motor function, normal sensory function, no focal deficits noted. [] Psychologic: Affect normal, judgement normal, mood normal. [] EKG EKG [] Radiology/Procedures Radiology/Procedures [] Course & Med Decision Making Course & Med Decision Making Pertinent Labs and Imaging studies reviewed. (See chart for details) [] Dragon Disclaimer Dragon Disclaimer This electronic medical record was generated, in whole or in part, using a voice recognition dictation system. Departure Departure Impression: Primary Impression: Pain, upper back Additional Impression: Strain, dorsal Disposition: HOME, SELF-CARE Condition: GOOD Referrals: CAMILA KIRBY MD (PCP) Patient Instructions: Back Pain, Adult Additional Instructions: The sore muscles of your right upper back are findings consistent with strain of those muscles. U also have some muscle spasm associated with this soreness. Take 800 mg of ibuprofen every 6 hours as needed for pain and Flexeril 3 times a day as needed for spasm. Apply warm compresses and do gentle stretches. Follow -up with your doctor in 1-2 days for reevaluation and further pain control as needed. Scripts Cyclobenzaprine Hcl (CYCLOBENZAPRINE HCL) 10 Mg Tablet 10 MG PO TID for MUSCLE SPASMS, #14 TAB Prov: NICOLE GASTON MD 03/26/17 Problem Qualifiers NICOLE GASTON MD Mar 26, 2017 01:46
[2017-03-26] MEDS ORDERED: KETOROLAC 30 MG/ML INJ. IM ONE (02:00)
== END 2017-03-26 02:34 | disposition home or self-care (01) ==
LOC: ER 01:08
DX: S46.911A Strain of unspecified muscle, fascia and tendon at shoulder and upper arm level, right arm, initial encounter (principal); M54.6 Pain in thoracic spine; I10 Essential (primary) hypertension; K21.9 Gastro-esophageal reflux disease without esophagitis; E11.9 Type 2 diabetes mellitus without complications; Z88.2 Allergy status to sulfonamides; Z88.8 Allergy status to other drugs, medicaments and biological substances; X58.XXXA Exposure to other specified factors, initial encounter; Y93.89 Activity, other specified; Y99.8 Other external cause status; Y92.89 Other specified places as the place of occurrence of the external cause
CPT/HCPCS: 96372; 99283; J1885

== ENCOUNTER 2017-05-22 19:00 | Emergency (ER) | payer OTHER | END 2017-05-22 20:49 | disposition home or self-care (01) | LOC: ER 19:00 | DX: M54.31 Sciatica, right side (principal); E11.40 Type 2 diabetes mellitus with diabetic neuropathy, unspecified; I10 Essential (primary) hypertension; K21.9 Gastro-esophageal reflux disease without esophagitis; Z88.2 Allergy status to sulfonamides; Z88.8 Allergy status to other drugs, medicaments and biological substances | CPT/HCPCS: 99283 ==

== ENCOUNTER 2017-06-23 22:41 | Inpatient (IN) | payer OTHER ==
[2017-06-23 23:24] LABS: ADD MAN DIFF? NO
[2017-06-23 23:28] LABS: BASO % 1 % (0-3); EOS # 0.2 x10^3/uL (0.0-0.7); EOS % 3 % (0-3); HEMATOCRIT 29.4 % (36.0-47.0); HEMOGLOBIN 9.4 g/dL (12.0-15.5); LYMPH # 1.6 x10^3/uL (1.0-4.8); LYMPH % 25 % (24-48); MEAN CORPUSCULAR HEMOGLOBIN 24 pg (25-35); MEAN CORPUSCULAR HGB CONC 32 g/dL (31-37); MEAN CORPUSCULAR VOLUME 74 fL (79-100); MONO # 0.8 x10^3/uL (0.0-1.1); MONO % 12 % (0-9); NEUT # 3.9 x10^3uL (1.8-7.7); NEUT % 61 % (31-73); PLATELET COUNT 340 x10^3/uL (140-400); RED BLOOD COUNT 3.95 x10^6/uL (3.50-5.40); RED CELL DISTRIBUTION WIDTH 16.7 % (11.5-14.5); WHITE BLOOD COUNT 6.4 x10^3/uL (4.0-11.0)
[2017-06-24] LABS: BILIRUBIN,URINE NEGATIVE (NEG); CLARITY,URINE CLEAR; COLOR,URINE YELLOW; GLUCOSE,URINE NEGATIVE (NEG); NITRITE,URINE NEGATIVE (NEG); PROTEIN,URINE NEGATIVE (NEG-TRACE)
[2017-06-24 00:12] LABS: BACTERIA,URINE MANY /HPF (0-FEW); RBC,URINE 0 /HPF (0-2); SQUAMOUS EPITHELIAL CELL,UR MANY /LPF
[2017-06-24 00:22] LABS: ANION GAP 8 (6-14); BLOOD UREA NITROGEN 20 mg/dL (7-20); BUN/CREATININE RATIO 20 (6-20); CALCIUM 9.1 mg/dL (8.5-10.1); CARBON DIOXIDE 30 mmol/L (21-32); CHLORIDE 107 mmol/L (98-107); GFR 69.4; GLUCOSE 129 mg/dL (70-99); POTASSIUM 4.1 mmol/L (3.5-5.1); SODIUM 145 mmol/L (136-145)
[2017-06-24 00:28] LABS: ALBUMIN 3.1 g/dL (3.4-5.0); ALBUMIN/GLOBULIN RATIO 0.7 (1.0-1.7); ALK PHOS 118 U/L (46-116); ALT (SGPT) 23 U/L (14-59); AST (SGOT) 14 U/L (15-37); C-REACTIVE PROTEIN 25.9 mg/L (0-3.3); TOTAL BILIRUBIN 0.3 mg/dL (0.2-1.0); TOTAL PROTEIN 7.5 g/dL (6.4-8.2)
[2017-06-24 00:34] LABS: NT-PRO BNP 86 pg/mL (0-124)
[2017-06-24] MEDS ORDERED: MORPHINE SULFATE 2 MG/ML DISP.SYRIN. IV (01:15)
[2017-06-24] MEDS ORDERED: ONDANSETRON PF 4 MG/2 ML VIAL. IV ×2 (01:15→09:15)
[2017-06-24] MEDS: VANCOMYCIN 2 GM in IV DEXTROSE 5 %-0.2 % NACL 500 ML IV (01:51)
[2017-06-24] MEDS: VANCOMYCIN PER PHARMACY MC ×2 (02:18→21:36)
[2017-06-24] MEDS ORDERED: INFLUENZA VAX SCREEN BY RX. MC (03:15)
[2017-06-24] MEDS: IV NORMAL SALINE 1000ML BAG 1,000 ML IV ×2 (05:32→15:20)
[2017-06-24 08:39] LABS: POC GLUCOSE 143 mg/dL (70-99)
[2017-06-24] MEDS ORDERED: HYDROcodone/APAP 5/325MG 1 TAB TABLET PO ×2 (09:15)
[2017-06-24] MEDS ORDERED: ACETAMINOPHEN 500 MG TABLET PO (09:15)
[2017-06-24] MEDS ORDERED: DEXTROSE 50% 25 GM / 50ML DISP.SYRIN. IV (09:15)
[2017-06-24] MEDS ORDERED: cloNIDine HCL 0.1 MG TABLET PO (09:15)
[2017-06-24] MEDS ORDERED: FUROSEMIDE 20 MG TABLET PO (10:00)
[2017-06-24] MEDS: CYCLOBENZAPRINE 10 MG TABLET. PO ×3 (10:54→21:23)
[2017-06-24] MEDS: BENZONATATE 100 MG CAPSULE. PO ×3 (10:55→21:23)
[2017-06-24] MEDS: SUCRALFATE 1 GM TABLET. PO ×4 (10:55→21:23)
[2017-06-24] MEDS: CHOLECALCIFEROL (VITAMIN D3) 1,000 UNIT TABLET PO (10:55)
[2017-06-24] MEDS: GABAPENTIN 300 MG CAPSULE. PO ×3 (10:55→21:22)
[2017-06-24] MEDS: LOSARTAN POTASSIUM 50 MG TABLET. PO (10:55)
[2017-06-24] MEDS: metFORMIN 500 MG TABLET PO ×2 (10:56→17:26)
[2017-06-24] MEDS: POTASSIUM CHLORIDE 10 MEQ TABLET.ER. PO (10:56)
[2017-06-24] MEDS: POLYETHYLENE GLYCOL 3350 17 GM PACKET. PO (10:56)
[2017-06-24] MEDS: LANSOPRAZOLE 30 MG TAB.RAP.DR PO (10:56)
[2017-06-24] MEDS: FERROUS SULFATE 325 MG TABLET. PO (10:56)
[2017-06-24] MEDS: FUROSEMIDE 40 MG/4 ML VIAL. IVP (10:57)
[2017-06-24] MEDS: NAPROXEN 250 MG TABLET PO ×2 (10:58→21:22)
[2017-06-24] MEDS: FLUTICASONE 50MCG/NASAL SPRAY 16GM BOTTLE. NS (11:00)
[2017-06-24] MEDS: FLU VACC QS2017-18 (36MOS+)/PF 0.5 ML SYRINGE. VAX IM (11:08)
[2017-06-24 11:43] LABS: POC GLUCOSE 182 mg/dL (70-99)
[2017-06-24] MEDS: INSULIN ASPART 300 UNITS/3 ML INSULN.PEN SQ ×2 (12:11→17:30)
[2017-06-24 12:24] LABS: SEDIMENTATION RATE 42 (0-25)
[2017-06-24] MEDS: VANCOMYCIN 1.5 GM in IV DEXTROSE 5 %-0.2 % NACL 500 ML IV (15:23)
[2017-06-24 16:44] LABS: POC GLUCOSE 165 mg/dL (70-99)
[2017-06-24] MEDS ORDERED: NON FORMULARY ITEM (Diclofenac Sodium 1 TAB) PO (21:00)
[2017-06-24] MEDS ORDERED: NYSTATIN MC (21:00)
[2017-06-24] MEDS ORDERED: INSULIN DETEMIR 300 UNITS/3 ML INSULN.PEN. SQ (21:00)
[2017-06-24] MEDS ORDERED: NON FORMULARY ITEM (Rosuvastatin Calcium (Crestor) 5 MG) PO (21:00)
[2017-06-24] MEDS ORDERED: TRIAMCINOLONE ACETONIDE 0.1% TOPICAL OINTMENT 15GM TUBE. TP (21:00)
[2017-06-24 21:13] LABS: POC GLUCOSE 222 mg/dL (70-99)
[2017-06-24] MEDS: ATORVASTATIN CALCIUM 20 MG TABLET PO (21:22)
[2017-06-24] MEDS: LACTOBACILLUS RHAMNOSUS GG 1 CAPSULE. PO (21:22)
[2017-06-24] MEDS: CETIRIZINE HCL 10 MG TABLET. PO (21:23)
[2017-06-24] MEDS: INSULIN DETEMIR 300 UNITS/3 ML INSULN.PEN. SQ (21:41)
[2017-06-25 04:14] LABS: ADD MAN DIFF? NO
[2017-06-25 04:19] LABS: BASO % 0 % (0-3); EOS # 0.3 x10^3/uL (0.0-0.7); EOS % 5 % (0-3); HEMATOCRIT 28.9 % (36.0-47.0); HEMOGLOBIN 9.3 g/dL (12.0-15.5); LYMPH # 1.3 x10^3/uL (1.0-4.8); LYMPH % 23 % (24-48); MEAN CORPUSCULAR HEMOGLOBIN 24 pg (25-35); MEAN CORPUSCULAR HGB CONC 32 g/dL (31-37); MEAN CORPUSCULAR VOLUME 74 fL (79-100); MONO # 0.6 x10^3/uL (0.0-1.1); MONO % 11 % (0-9); NEUT # 3.4 x10^3uL (1.8-7.7); NEUT % 61 % (31-73); PLATELET COUNT 296 x10^3/uL (140-400); RED CELL DISTRIBUTION WIDTH 16.6 % (11.5-14.5); WHITE BLOOD COUNT 5.6 x10^3/uL (4.0-11.0)
[2017-06-25 04:32] LABS: ANION GAP 5 (6-14); BLOOD UREA NITROGEN 18 mg/dL (7-20); CALCIUM 8.5 mg/dL (8.5-10.1); CARBON DIOXIDE 30 mmol/L (21-32); CHLORIDE 108 mmol/L (98-107); CREATININE 1.1 mg/dL (0.6-1.0); GFR 62.2; GLUCOSE 144 mg/dL (70-99); POTASSIUM 3.7 mmol/L (3.5-5.1); SODIUM 143 mmol/L (136-145)
[2017-06-25] MEDS: VANCOMYCIN 1.5 GM in IV DEXTROSE 5 %-0.2 % NACL 500 ML IV (05:32)
[2017-06-25] MEDS: INSULIN ASPART 300 UNITS/3 ML INSULN.PEN SQ ×3 (08:00→17:16)
[2017-06-25] MEDS: POTASSIUM CHLORIDE 10 MEQ TABLET.ER. PO (08:46)
[2017-06-25] MEDS: LANSOPRAZOLE 30 MG TAB.RAP.DR PO (08:46)
[2017-06-25] MEDS: metFORMIN 500 MG TABLET PO ×2 (08:46→17:12)
[2017-06-25] MEDS: GABAPENTIN 300 MG CAPSULE. PO ×3 (08:47→21:26)
[2017-06-25] MEDS: FERROUS SULFATE 325 MG TABLET. PO (08:47)
[2017-06-25] MEDS: SUCRALFATE 1 GM TABLET. PO ×4 (08:48→23:01)
[2017-06-25] MEDS: NAPROXEN 250 MG TABLET PO ×2 (08:48→21:25)
[2017-06-25] MEDS: LOSARTAN POTASSIUM 50 MG TABLET. PO (08:48)
[2017-06-25] MEDS: FLUTICASONE 50MCG/NASAL SPRAY 16GM BOTTLE. NS (08:49)
[2017-06-25] MEDS: FUROSEMIDE 20 MG/2 ML VIAL. IVP ×2 (08:49→14:12)
[2017-06-25] MEDS: LACTOBACILLUS RHAMNOSUS GG 1 CAPSULE. PO ×2 (08:49→21:27)
[2017-06-25] MEDS: CYCLOBENZAPRINE 10 MG TABLET. PO ×3 (08:50→21:27)
[2017-06-25] MEDS: POLYETHYLENE GLYCOL 3350 17 GM PACKET. PO (08:50)
[2017-06-25] MEDS: BENZONATATE 100 MG CAPSULE. PO ×3 (08:51→21:28)
[2017-06-25] MEDS: CHOLECALCIFEROL (VITAMIN D3) 1,000 UNIT TABLET PO (08:55)
[2017-06-25 11:37] LABS: POC GLUCOSE 124 mg/dL (70-99)
[2017-06-25] MEDS: diphenhydrAMINE HCL 25 MG CAPSULE PO (11:39)
[2017-06-25] MEDS: VANCOMYCIN PER PHARMACY MC ×2 (15:37→19:03)
[2017-06-25 16:14] LABS: POC GLUCOSE 151 mg/dL (70-99)
[2017-06-25 18:37] LABS: VANC TR 21.9 mcg/mL (10.0-20.0)
[2017-06-25] MEDS ORDERED: NON FORMULARY ITEM (Brimonidine Tartrate/Timolol (Combigan Eye Drops) 5 ML) OP (21:00)
[2017-06-25] MEDS: TIMOLOL 0.5% OPHTH SOLUTION 5ML BOTTLE. OU (21:00)
[2017-06-25] MEDS: FLUCONAZOLE 100 MG TABLET. PO (21:26)
[2017-06-25] MEDS: ENOXAPARIN 40 MG/0.4 ML SYRINGE. SQ (21:26)
[2017-06-25] MEDS: CETIRIZINE HCL 10 MG TABLET. PO (21:27)
[2017-06-25] MEDS: ATORVASTATIN CALCIUM 20 MG TABLET PO (21:28)
[2017-06-25] MEDS: LATANOPROST 0.005% OPHTH SOLUTION 2.5ML BOTTLE. OU (21:30)
[2017-06-25] MEDS: BRIMONIDINE 0.2% OPHTH SOLUTION 5ML BOTTLE. OU (21:31)
[2017-06-25] MEDS: INSULIN DETEMIR 300 UNITS/3 ML INSULN.PEN. SQ (21:40)
[2017-06-25 21:41] LABS: POC GLUCOSE 137 mg/dL (70-99)
[2017-06-26 06:55] LABS: POC GLUCOSE 140 mg/dL (70-99)
[2017-06-26 07:39] LABS: POC GLUCOSE 91 mg/dL (70-99)
[2017-06-26] MEDS: INSULIN ASPART 300 UNITS/3 ML INSULN.PEN SQ ×2 (08:00→11:43)
[2017-06-26] MEDS: VANCOMYCIN 1 GM in IV 1/2 NORMAL SALINE 250 ML IV (08:00)
[2017-06-26] MEDS: VANCOMYCIN PER PHARMACY MC (08:11)
[2017-06-26] MEDS: FLUTICASONE 50MCG/NASAL SPRAY 16GM BOTTLE. NS (08:48)
[2017-06-26] MEDS: metFORMIN 500 MG TABLET PO (08:49)
[2017-06-26] MEDS: NAPROXEN 250 MG TABLET PO (08:49)
[2017-06-26] MEDS: LANSOPRAZOLE 30 MG TAB.RAP.DR PO (08:50)
[2017-06-26] MEDS: CYCLOBENZAPRINE 10 MG TABLET. PO (08:51)
[2017-06-26] MEDS: LACTOBACILLUS RHAMNOSUS GG 1 CAPSULE. PO (08:51)
[2017-06-26] MEDS: POTASSIUM CHLORIDE 10 MEQ TABLET.ER. PO (08:51)
[2017-06-26] MEDS: FERROUS SULFATE 325 MG TABLET. PO (08:51)
[2017-06-26] MEDS: LOSARTAN POTASSIUM 50 MG TABLET. PO (08:52)
[2017-06-26] MEDS: CHOLECALCIFEROL (VITAMIN D3) 1,000 UNIT TABLET PO (08:52)
[2017-06-26] MEDS: GABAPENTIN 300 MG CAPSULE. PO (08:53)
[2017-06-26] MEDS: POLYETHYLENE GLYCOL 3350 17 GM PACKET. PO (08:54)
[2017-06-26] MEDS: FUROSEMIDE 20 MG/2 ML VIAL. IVP (08:54)
[2017-06-26] MEDS: BENZONATATE 100 MG CAPSULE. PO (08:55)
[2017-06-26] MEDS: BRIMONIDINE 0.2% OPHTH SOLUTION 5ML BOTTLE. OU (08:56)
[2017-06-26] MEDS: TIMOLOL 0.5% OPHTH SOLUTION 5ML BOTTLE. OU (08:56)
[2017-06-26] MEDS: SUCRALFATE 1 GM TABLET. PO (10:56)
[2017-06-26 11:30] LABS: POC GLUCOSE 91 mg/dL (70-99)
== END 2017-06-26 14:00 | disposition home or self-care (01) | DRG 603 ==
LOC: 5 SOUTH 06-24 01:00 → ER 22:41
DX: L03.116 Cellulitis of left lower limb (principal); E66.01 Morbid (severe) obesity due to excess calories; Z68.43 Body mass index [BMI] 50.0-59.9, adult; I89.0 Lymphedema, not elsewhere classified; E11.9 Type 2 diabetes mellitus without complications; E78.5 Hyperlipidemia, unspecified; H40.9 Unspecified glaucoma; I10 Essential (primary) hypertension; I87.302 Chronic venous hypertension (idiopathic) without complications of left lower extremity; F32.9 Major depressive disorder, single episode, unspecified; J30.2 Other seasonal allergic rhinitis; M19.90 Unspecified osteoarthritis, unspecified site; K21.9 Gastro-esophageal reflux disease without esophagitis; Z82.49 Family history of ischemic heart disease and other diseases of the circulatory system; Z83.3 Family history of diabetes mellitus; Z88.2 Allergy status to sulfonamides; Z88.8 Allergy status to other drugs, medicaments and biological substances
CPT/HCPCS: 36415; 80048; 80053; 80202; 81001; 82962; 83880; 85025; 85651; 86140; 87040; 87086; 90471; 90686; 93971; 96365; 96375; 97166-GO; 99285; 99285-25; J1650; J1815; J1940; J3370; J7030; Q0163

== ENCOUNTER 2017-07-22 16:47 | Inpatient (IN) | payer OTHER ==
[2017-07-22 18:24] LABS: ADD MAN DIFF? NO
[2017-07-22 18:27] LABS: BASO # 0.1 x10^3/uL (0.0-0.2); BASO % 1 % (0-3); EOS # 0.3 x10^3/uL (0.0-0.7); EOS % 4 % (0-3); HEMATOCRIT 34.5 % (36.0-47.0); HEMOGLOBIN 10.9 g/dL (12.0-15.5); LYMPH # 1.6 x10^3/uL (1.0-4.8); LYMPH % 23 % (24-48); MEAN CORPUSCULAR HEMOGLOBIN 23 pg (25-35); MEAN CORPUSCULAR HGB CONC 32 g/dL (31-37); MEAN CORPUSCULAR VOLUME 73 fL (79-100); MONO # 0.4 x10^3/uL (0.0-1.1); MONO % 6 % (0-9); NEUT # 4.7 x10^3uL (1.8-7.7); NEUT % 67 % (31-73); PLATELET COUNT 282 x10^3/uL (140-400); RED BLOOD COUNT 4.69 x10^6/uL (3.50-5.40); RED CELL DISTRIBUTION WIDTH 16.6 % (11.5-14.5); WHITE BLOOD COUNT 7.1 x10^3/uL (4.0-11.0)
[2017-07-22 18:44] LABS: ANION GAP 11 (6-14); BLOOD UREA NITROGEN 18 mg/dL (7-20); BUN/CREATININE RATIO 18 (6-20); CALCIUM 9.4 mg/dL (8.5-10.1); CARBON DIOXIDE 27 mmol/L (21-32); CHLORIDE 105 mmol/L (98-107); GFR 69.4; GLUCOSE 192 mg/dL (70-99); POTASSIUM 3.7 mmol/L (3.5-5.1); SODIUM 143 mmol/L (136-145)
[2017-07-22 18:50] LABS: TROPONINI < 0.017 ng/mL (0.000-0.055)
[2017-07-22 18:51] LABS: LACTIC ACID 1.6 mmol/L (0.4-2.0)
[2017-07-22 18:53] LABS: NT-PRO BNP 124 pg/mL (0-124)
[2017-07-22 18:58] LABS: ALBUMIN 3.4 g/dL (3.4-5.0); ALBUMIN/GLOBULIN RATIO 0.7 (1.0-1.7); ALK PHOS 125 U/L (46-116); ALT (SGPT) 44 U/L (14-59); AST (SGOT) 29 U/L (15-37); TOTAL BILIRUBIN 0.4 mg/dL (0.2-1.0); TOTAL PROTEIN 8.2 g/dL (6.4-8.2)
[2017-07-22] MEDS: CLINDAMYCIN 600MG PREMIX 50 ML IV (20:04)
[2017-07-22] MEDS ORDERED: ACETAMINOPHEN 325 MG TABLET. PO (20:15)
[2017-07-22] MEDS ORDERED: MORPHINE SULFATE 4 MG/ML DISP.SYRIN. IV (20:15)
[2017-07-22] MEDS ORDERED: ONDANSETRON PF 4 MG/2 ML VIAL. IV (20:15)
[2017-07-22] MEDS: VANCOMYCIN 2 GM in IV DEXTROSE 5 %-0.2 % NACL 500 ML IV (20:59)
[2017-07-22 21:27] LABS: POC GLUCOSE 162 mg/dL (70-99)
[2017-07-22] MEDS ORDERED: LABETALOL 20 MG/4 ML DISP.SYRIN. IVP (21:45)
[2017-07-22] MEDS: CETIRIZINE HCL 10 MG TABLET. PO ×2 (22:00→22:22)
[2017-07-22] MEDS: guaiFENesin DM 200MG/20MG 10 ML SYRUP PO ×2 (22:21→22:36)
[2017-07-22] MEDS: GABAPENTIN 300 MG CAPSULE. PO (22:22)
[2017-07-22] MEDS: ATORVASTATIN CALCIUM 20 MG TABLET PO (22:22)
[2017-07-22] MEDS: SUCRALFATE 1 GM TABLET. PO (22:22)
[2017-07-22] MEDS: TIMOLOL 0.5% OPHTH SOLUTION 5ML BOTTLE. OU (22:24)
[2017-07-22] MEDS: LATANOPROST 0.005% OPHTH SOLUTION 2.5ML BOTTLE. OU (22:24)
[2017-07-22] MEDS: BRIMONIDINE 0.2% OPHTH SOLUTION 5ML BOTTLE. OU (22:25)
[2017-07-22] MEDS: INSULIN DETEMIR 300 UNITS/3 ML INSULN.PEN. SQ (22:36)
[2017-07-23] MEDS: VANCOMYCIN PER PHARMACY MC (01:13)
[2017-07-23] MEDS ORDERED: C.DIFF MED SCREEN BY RX. MC (01:15)
[2017-07-23 03:23] LABS: POC GLUCOSE 231 mg/dL (70-99)
[2017-07-23] MEDS: CLINDAMYCIN 600MG PREMIX 50 ML IV ×3 (06:24→21:46)
[2017-07-23 08:09] LABS: POC GLUCOSE 185 mg/dL (70-99)
[2017-07-23] MEDS: LACTOBACILLUS RHAMNOSUS GG 1 CAPSULE. PO ×2 (08:51→21:46)
[2017-07-23] MEDS: SUCRALFATE 1 GM TABLET. PO ×4 (08:51→21:46)
[2017-07-23] MEDS: FERROUS SULFATE 325 MG TABLET. PO (08:51)
[2017-07-23] MEDS: VANCOMYCIN 2 GM in IV DEXTROSE 5 %-0.2 % NACL 500 ML IV (08:51)
[2017-07-23] MEDS: GABAPENTIN 300 MG CAPSULE. PO ×3 (08:51→21:47)
[2017-07-23] MEDS: FLUTICASONE 50MCG/NASAL SPRAY 16GM BOTTLE. NS (08:59)
[2017-07-23] MEDS: TIMOLOL 0.5% OPHTH SOLUTION 5ML BOTTLE. OU ×2 (08:59→21:45)
[2017-07-23] MEDS: BRIMONIDINE 0.2% OPHTH SOLUTION 5ML BOTTLE. OU ×2 (08:59→22:10)
[2017-07-23] MEDS ORDERED: DEXTROSE 50% 25 GM / 50ML DISP.SYRIN. IV ×2 (09:15→09:45)
[2017-07-23] MEDS: INSULIN ASPART 300 UNITS/3 ML INSULN.PEN SQ ×3 (09:35→17:15)
[2017-07-23] MEDS ORDERED: cloNIDine HCL 0.1 MG TABLET PO (09:45)
[2017-07-23] MEDS: POLYETHYLENE GLYCOL 3350 17 GM PACKET. PO (10:00)
[2017-07-23] MEDS: LOSARTAN POTASSIUM 50 MG TABLET. PO (10:57)
[2017-07-23] MEDS: POTASSIUM CHLORIDE 10 MEQ TABLET.ER. PO (10:58)
[2017-07-23] MEDS: metFORMIN 500 MG TABLET PO ×2 (10:58→17:09)
[2017-07-23] MEDS: CHOLECALCIFEROL (VITAMIN D3) 1,000 UNIT TABLET PO (10:58)
[2017-07-23] MEDS: LANSOPRAZOLE 30 MG TAB.RAP.DR PO (10:58)
[2017-07-23] MEDS: FUROSEMIDE 40 MG TABLET. PO (10:58)
[2017-07-23 11:28] LABS: POC GLUCOSE 248 mg/dL (70-99)
[2017-07-23] MEDS ORDERED: INSULIN ASPART 300 UNITS/3 ML INSULN.PEN SQ (12:00)
[2017-07-23] MEDS: FUROSEMIDE 40 MG/4 ML VIAL. IVP (12:05)
[2017-07-23] MEDS ORDERED: GABAPENTIN 100 MG CAPSULE. PO (14:00)
[2017-07-23 16:25] LABS: POC GLUCOSE 184 mg/dL (70-99)
[2017-07-23 20:53] LABS: POC GLUCOSE 161 mg/dL (70-99)
[2017-07-23] MEDS ORDERED: NON FORMULARY ITEM (Rosuvastatin Calcium (Crestor) 5 MG) PO (21:00)
[2017-07-23] MEDS: ATORVASTATIN CALCIUM 20 MG TABLET PO (21:46)
[2017-07-23] MEDS: CETIRIZINE HCL 10 MG TABLET. PO (21:47)
[2017-07-23] MEDS: LATANOPROST 0.005% OPHTH SOLUTION 2.5ML BOTTLE. OU (21:52)
[2017-07-23] MEDS: INSULIN DETEMIR 300 UNITS/3 ML INSULN.PEN. SQ (21:54)
[2017-07-23] MEDS: ACETAMINOPHEN 500 MG TABLET PO (22:11)
[2017-07-24] MEDS: CLINDAMYCIN 600MG PREMIX 50 ML IV ×3 (05:24→22:20)
[2017-07-24] MEDS: SUCRALFATE 1 GM TABLET. PO ×4 (07:57→22:16)
[2017-07-24] MEDS: GABAPENTIN 300 MG CAPSULE. PO ×3 (07:57→22:16)
[2017-07-24] MEDS: FERROUS SULFATE 325 MG TABLET. PO (07:57)
[2017-07-24 07:58] LABS: POC GLUCOSE 127 mg/dL (70-99)
[2017-07-24] MEDS: metFORMIN 500 MG TABLET PO ×2 (07:58→17:13)
[2017-07-24] MEDS: LANSOPRAZOLE 30 MG TAB.RAP.DR PO (07:58)
[2017-07-24] MEDS: FUROSEMIDE 40 MG/4 ML VIAL. IVP (07:58)
[2017-07-24] MEDS: LOSARTAN POTASSIUM 50 MG TABLET. PO (07:58)
[2017-07-24] MEDS: CHOLECALCIFEROL (VITAMIN D3) 1,000 UNIT TABLET PO (07:58)
[2017-07-24] MEDS: POTASSIUM CHLORIDE 10 MEQ TABLET.ER. PO (07:58)
[2017-07-24] MEDS: LACTOBACILLUS RHAMNOSUS GG 1 CAPSULE. PO ×2 (07:58→22:16)
[2017-07-24] MEDS: TIMOLOL 0.5% OPHTH SOLUTION 5ML BOTTLE. OU ×2 (08:00→22:16)
[2017-07-24] MEDS: FLUTICASONE 50MCG/NASAL SPRAY 16GM BOTTLE. NS (08:00)
[2017-07-24] MEDS: BRIMONIDINE 0.2% OPHTH SOLUTION 5ML BOTTLE. OU ×2 (08:00→22:15)
[2017-07-24] MEDS: INSULIN ASPART 300 UNITS/3 ML INSULN.PEN SQ ×3 (08:00→17:00)
[2017-07-24] MEDS: POLYETHYLENE GLYCOL 3350 17 GM PACKET. PO (08:01)
[2017-07-24] MEDS: FUROSEMIDE 40 MG TABLET. PO (08:01)
[2017-07-24 09:04] LABS: ANION GAP 9 (6-14); BLOOD UREA NITROGEN 18 mg/dL (7-20); CALCIUM 9.1 mg/dL (8.5-10.1); CARBON DIOXIDE 30 mmol/L (21-32); CHLORIDE 102 mmol/L (98-107); CREATININE 1.2 mg/dL (0.6-1.0); GFR 56.2; GLUCOSE 156 mg/dL (70-99); POTASSIUM 3.4 mmol/L (3.5-5.1); SODIUM 141 mmol/L (136-145)
[2017-07-24] MEDS: POTASSIUM CHLORIDE 20 MEQ TABLET.ER. PO (12:01)
[2017-07-24 12:07] LABS: POC GLUCOSE 224 mg/dL (70-99)
[2017-07-24 16:59] LABS: POC GLUCOSE 139 mg/dL (70-99)
[2017-07-24 21:07] LABS: POC GLUCOSE 196 mg/dL (70-99)
[2017-07-24] MEDS: LATANOPROST 0.005% OPHTH SOLUTION 2.5ML BOTTLE. OU (22:15)
[2017-07-24] MEDS: CETIRIZINE HCL 10 MG TABLET. PO (22:16)
[2017-07-24] MEDS: ATORVASTATIN CALCIUM 20 MG TABLET PO (22:16)
[2017-07-24] MEDS: INSULIN DETEMIR 300 UNITS/3 ML INSULN.PEN. SQ (22:25)
[2017-07-25] MEDS: CLINDAMYCIN 600MG PREMIX 50 ML IV ×3 (05:55→21:06)
[2017-07-25 06:12] LABS: ADD MAN DIFF? NO
[2017-07-25 06:33] LABS: ANION GAP 8 (6-14); BLOOD UREA NITROGEN 16 mg/dL (7-20); CALCIUM 8.6 mg/dL (8.5-10.1); CARBON DIOXIDE 29 mmol/L (21-32); CHLORIDE 103 mmol/L (98-107); GFR 69.4; GLUCOSE 164 mg/dL (70-99); POTASSIUM 3.4 mmol/L (3.5-5.1); SODIUM 140 mmol/L (136-145)
[2017-07-25 07:08] LABS: BASO % 0 % (0-3); EOS # 0.4 x10^3/uL (0.0-0.7); EOS % 6 % (0-3); HEMATOCRIT 30.9 % (36.0-47.0); HEMOGLOBIN 9.8 g/dL (12.0-15.5); LYMPH # 1.2 x10^3/uL (1.0-4.8); LYMPH % 18 % (24-48); MEAN CORPUSCULAR HEMOGLOBIN 23 pg (25-35); MEAN CORPUSCULAR HGB CONC 32 g/dL (31-37); MEAN CORPUSCULAR VOLUME 73 fL (79-100); MONO # 0.6 x10^3/uL (0.0-1.1); MONO % 9 % (0-9); NEUT # 4.3 x10^3uL (1.8-7.7); NEUT % 66 % (31-73); PLATELET COUNT 254 x10^3/uL (140-400); RED BLOOD COUNT 4.26 x10^6/uL (3.50-5.40); RED CELL DISTRIBUTION WIDTH 17.3 % (11.5-14.5); WHITE BLOOD COUNT 6.5 x10^3/uL (4.0-11.0)
[2017-07-25] MEDS: INSULIN ASPART 300 UNITS/3 ML INSULN.PEN SQ ×3 (08:00→17:00)
[2017-07-25 08:23] LABS: POC GLUCOSE 146 mg/dL (70-99)
[2017-07-25] MEDS: TIMOLOL 0.5% OPHTH SOLUTION 5ML BOTTLE. OU ×2 (08:36→21:04)
[2017-07-25] MEDS: metFORMIN 500 MG TABLET PO ×2 (08:36→17:26)
[2017-07-25] MEDS: BRIMONIDINE 0.2% OPHTH SOLUTION 5ML BOTTLE. OU ×2 (08:36→21:04)
[2017-07-25] MEDS: GABAPENTIN 300 MG CAPSULE. PO ×3 (08:37→21:03)
[2017-07-25] MEDS: POTASSIUM CHLORIDE 20 MEQ TABLET.ER. PO ×3 (08:37→17:28)
[2017-07-25] MEDS: CHOLECALCIFEROL (VITAMIN D3) 1,000 UNIT TABLET PO (08:37)
[2017-07-25] MEDS: LANSOPRAZOLE 30 MG TAB.RAP.DR PO (08:37)
[2017-07-25] MEDS: FERROUS SULFATE 325 MG TABLET. PO (08:37)
[2017-07-25] MEDS: SUCRALFATE 1 GM TABLET. PO ×4 (08:37→21:03)
[2017-07-25] MEDS: LACTOBACILLUS RHAMNOSUS GG 1 CAPSULE. PO ×2 (08:37→21:02)
[2017-07-25] MEDS: POLYETHYLENE GLYCOL 3350 17 GM PACKET. PO (08:38)
[2017-07-25] MEDS: LOSARTAN POTASSIUM 50 MG TABLET. PO (08:38)
[2017-07-25] MEDS: FLUTICASONE 50MCG/NASAL SPRAY 16GM BOTTLE. NS (08:38)
[2017-07-25] MEDS: FUROSEMIDE 40 MG/4 ML VIAL. IVP (08:43)
[2017-07-25 08:46] LABS: SEDIMENTATION RATE 49 (0-25)
[2017-07-25 09:42] LABS: HYPOCHROMIA PRESENT; MICROCYTOSIS PRESENT; OVALOCYTES PRESENT; PLT ESTIMATE ADEQUATE (ADEQUATE)
[2017-07-25 11:41] LABS: POC GLUCOSE 171 mg/dL (70-99)
[2017-07-25 17:13] LABS: POC GLUCOSE 150 mg/dL (70-99)
[2017-07-25 20:43] LABS: POC GLUCOSE 207 mg/dL (70-99)
[2017-07-25] MEDS: CETIRIZINE HCL 10 MG TABLET. PO (21:00)
[2017-07-25] MEDS: ATORVASTATIN CALCIUM 20 MG TABLET PO (21:03)
[2017-07-25] MEDS: LATANOPROST 0.005% OPHTH SOLUTION 2.5ML BOTTLE. OU (21:04)
[2017-07-25] MEDS: INSULIN DETEMIR 300 UNITS/3 ML INSULN.PEN. SQ (21:05)
[2017-07-26] MEDS: SUCRALFATE 1 GM TABLET. PO ×4 (05:36→20:22)
[2017-07-26] MEDS: CLINDAMYCIN 600MG PREMIX 50 ML IV ×3 (05:36→20:24)
[2017-07-26] MEDS: LANSOPRAZOLE 30 MG TAB.RAP.DR PO (05:37)
[2017-07-26] MEDS: INSULIN ASPART 300 UNITS/3 ML INSULN.PEN SQ ×3 (08:00→16:37)
[2017-07-26 08:14] LABS: POC GLUCOSE 133 mg/dL (70-99)
[2017-07-26] MEDS: TIMOLOL 0.5% OPHTH SOLUTION 5ML BOTTLE. OU ×2 (08:54→20:23)
[2017-07-26] MEDS: FLUTICASONE 50MCG/NASAL SPRAY 16GM BOTTLE. NS (08:54)
[2017-07-26] MEDS: BRIMONIDINE 0.2% OPHTH SOLUTION 5ML BOTTLE. OU ×2 (08:54→20:23)
[2017-07-26] MEDS: POLYETHYLENE GLYCOL 3350 17 GM PACKET. PO (08:56)
[2017-07-26] MEDS: FUROSEMIDE 40 MG/4 ML VIAL. IVP (08:57)
[2017-07-26] MEDS: FERROUS SULFATE 325 MG TABLET. PO (09:01)
[2017-07-26] MEDS: POTASSIUM CHLORIDE 20 MEQ TABLET.ER. PO ×2 (09:01→16:35)
[2017-07-26] MEDS: LACTOBACILLUS RHAMNOSUS GG 1 CAPSULE. PO ×2 (09:02→20:22)
[2017-07-26] MEDS: metFORMIN 500 MG TABLET PO ×2 (09:02→16:35)
[2017-07-26] MEDS: GABAPENTIN 300 MG CAPSULE. PO ×3 (09:02→20:23)
[2017-07-26] MEDS: CHOLECALCIFEROL (VITAMIN D3) 1,000 UNIT TABLET PO (09:02)
[2017-07-26] MEDS: LOSARTAN POTASSIUM 50 MG TABLET. PO (09:02)
[2017-07-26 11:41] LABS: POC GLUCOSE 174 mg/dL (70-99)
[2017-07-26 16:27] LABS: POC GLUCOSE 133 mg/dL (70-99)
[2017-07-26 16:57] LABS: C-REACTIVE PROTEIN 95.1 mg/L (0-3.3)
[2017-07-26 18:25] LABS: SEDIMENTATION RATE 89 (0-25)
[2017-07-26] MEDS: ATORVASTATIN CALCIUM 20 MG TABLET PO (20:23)
[2017-07-26] MEDS: LATANOPROST 0.005% OPHTH SOLUTION 2.5ML BOTTLE. OU (20:23)
[2017-07-26] MEDS: CETIRIZINE HCL 10 MG TABLET. PO (20:23)
[2017-07-26 20:42] LABS: POC GLUCOSE 167 mg/dL (70-99)
[2017-07-26] MEDS: INSULIN DETEMIR 300 UNITS/3 ML INSULN.PEN. SQ (21:13)
[2017-07-27] MEDS: CLINDAMYCIN 600MG PREMIX 50 ML IV (05:35)
[2017-07-27] MEDS: INSULIN ASPART 300 UNITS/3 ML INSULN.PEN SQ ×3 (08:00→17:43)
[2017-07-27] MEDS: SUCRALFATE 1 GM TABLET. PO ×4 (08:06→20:51)
[2017-07-27] MEDS: LANSOPRAZOLE 30 MG TAB.RAP.DR PO (08:07)
[2017-07-27] MEDS: metFORMIN 500 MG TABLET PO ×2 (08:07→17:26)
[2017-07-27] MEDS: POTASSIUM CHLORIDE 20 MEQ TABLET.ER. PO ×2 (08:07→17:27)
[2017-07-27 08:25] LABS: POC GLUCOSE 125 mg/dL (70-99)
[2017-07-27] MEDS: POLYETHYLENE GLYCOL 3350 17 GM PACKET. PO (09:00)
[2017-07-27 09:25] LABS: ADD MAN DIFF? NO
[2017-07-27] MEDS: FLUTICASONE 50MCG/NASAL SPRAY 16GM BOTTLE. NS (09:28)
[2017-07-27] MEDS: FUROSEMIDE 40 MG/4 ML VIAL. IVP (09:28)
[2017-07-27] MEDS: BRIMONIDINE 0.2% OPHTH SOLUTION 5ML BOTTLE. OU ×2 (09:29→21:58)
[2017-07-27] MEDS: TIMOLOL 0.5% OPHTH SOLUTION 5ML BOTTLE. OU ×2 (09:29→22:11)
[2017-07-27] MEDS: GABAPENTIN 300 MG CAPSULE. PO ×3 (09:29→20:51)
[2017-07-27] MEDS: CHOLECALCIFEROL (VITAMIN D3) 1,000 UNIT TABLET PO (09:29)
[2017-07-27] MEDS: LOSARTAN POTASSIUM 50 MG TABLET. PO (09:30)
[2017-07-27] MEDS: LACTOBACILLUS RHAMNOSUS GG 1 CAPSULE. PO ×2 (09:30→20:51)
[2017-07-27] MEDS: FERROUS SULFATE 325 MG TABLET. PO (09:31)
[2017-07-27 09:35] LABS: BASO % 1 % (0-3); EOS # 0.4 x10^3/uL (0.0-0.7); EOS % 7 % (0-3); HEMATOCRIT 33.6 % (36.0-47.0); HEMOGLOBIN 10.5 g/dL (12.0-15.5); LYMPH # 1.3 x10^3/uL (1.0-4.8); LYMPH % 22 % (24-48); MEAN CORPUSCULAR HEMOGLOBIN 23 pg (25-35); MEAN CORPUSCULAR HGB CONC 31 g/dL (31-37); MEAN CORPUSCULAR VOLUME 73 fL (79-100); MONO # 0.5 x10^3/uL (0.0-1.1); MONO % 9 % (0-9); NEUT # 3.5 x10^3uL (1.8-7.7); NEUT % 62 % (31-73); PLATELET COUNT 357 x10^3/uL (140-400); RED CELL DISTRIBUTION WIDTH 17.6 % (11.5-14.5); WHITE BLOOD COUNT 5.7 x10^3/uL (4.0-11.0)
[2017-07-27 09:41] LABS: ANION GAP 6 (6-14); BLOOD UREA NITROGEN 17 mg/dL (7-20); CALCIUM 9.3 mg/dL (8.5-10.1); CARBON DIOXIDE 32 mmol/L (21-32); CHLORIDE 102 mmol/L (98-107); CREATININE 1.1 mg/dL (0.6-1.0); GFR 62.2; GLUCOSE 173 mg/dL (70-99); POTASSIUM 4.1 mmol/L (3.5-5.1); SODIUM 140 mmol/L (136-145)
[2017-07-27 11:56] LABS: POC GLUCOSE 184 mg/dL (70-99)
[2017-07-27] MEDS ORDERED: ceFAZolin SODIUM 1 GM in IV DEXTROSE 5% 50 ML IV (14:00)
[2017-07-27] MEDS: FLUCONAZOLE 100 MG TABLET. PO (15:57)
[2017-07-27] MEDS: ceFAZolin SODIUM IV Push 1 GM VIAL. IVP ×2 (15:59→22:00)
[2017-07-27 17:16] LABS: POC GLUCOSE 157 mg/dL (70-99)
[2017-07-27 20:25] LABS: POC GLUCOSE 205 mg/dL (70-99)
[2017-07-27] MEDS: ATORVASTATIN CALCIUM 20 MG TABLET PO (20:51)
[2017-07-27] MEDS: CETIRIZINE HCL 10 MG TABLET. PO (20:51)
[2017-07-27] MEDS: INSULIN DETEMIR 300 UNITS/3 ML INSULN.PEN. SQ (20:58)
[2017-07-27] MEDS: LATANOPROST 0.005% OPHTH SOLUTION 2.5ML BOTTLE. OU (22:04)
[2017-07-28 01:14] LABS: HEMOGLOBIN A1C 7.8 % (4.8-5.6)
[2017-07-28] MEDS: LANSOPRAZOLE 30 MG TAB.RAP.DR PO (06:13)
[2017-07-28] MEDS: ceFAZolin SODIUM IV Push 1 GM VIAL. IVP ×3 (06:13→22:08)
[2017-07-28 07:38] LABS: POC GLUCOSE 139 mg/dL (70-99)
[2017-07-28] MEDS: INSULIN ASPART 300 UNITS/3 ML INSULN.PEN SQ ×3 (07:52→17:14)
[2017-07-28] MEDS: POTASSIUM CHLORIDE 20 MEQ TABLET.ER. PO ×2 (07:57→17:10)
[2017-07-28] MEDS: SUCRALFATE 1 GM TABLET. PO ×4 (07:57→20:53)
[2017-07-28] MEDS: metFORMIN 500 MG TABLET PO ×2 (07:57→17:10)
[2017-07-28] MEDS: FERROUS SULFATE 325 MG TABLET. PO (08:59)
[2017-07-28] MEDS: CHOLECALCIFEROL (VITAMIN D3) 1,000 UNIT TABLET PO (08:59)
[2017-07-28] MEDS: LACTOBACILLUS RHAMNOSUS GG 1 CAPSULE. PO ×2 (08:59→20:53)
[2017-07-28] MEDS: LOSARTAN POTASSIUM 50 MG TABLET. PO (08:59)
[2017-07-28] MEDS: FLUCONAZOLE 100 MG TABLET. PO (08:59)
[2017-07-28] MEDS: GABAPENTIN 300 MG CAPSULE. PO ×3 (08:59→20:53)
[2017-07-28] MEDS: BRIMONIDINE 0.2% OPHTH SOLUTION 5ML BOTTLE. OU ×2 (09:00→20:53)
[2017-07-28] MEDS: POLYETHYLENE GLYCOL 3350 17 GM PACKET. PO (09:00)
[2017-07-28] MEDS: TIMOLOL 0.5% OPHTH SOLUTION 5ML BOTTLE. OU ×2 (09:00→21:14)
[2017-07-28] MEDS: FUROSEMIDE 40 MG/4 ML VIAL. IVP (09:00)
[2017-07-28] MEDS: FLUTICASONE 50MCG/NASAL SPRAY 16GM BOTTLE. NS (09:00)
[2017-07-28 11:48] LABS: POC GLUCOSE 178 mg/dL (70-99)
[2017-07-28 16:01] LABS: ADD MAN DIFF? NO
[2017-07-28 16:07] LABS: BASO % 1 % (0-3); EOS # 0.4 x10^3/uL (0.0-0.7); EOS % 7 % (0-3); HEMATOCRIT 32.3 % (36.0-47.0); HEMOGLOBIN 10.3 g/dL (12.0-15.5); LYMPH # 1.5 x10^3/uL (1.0-4.8); LYMPH % 27 % (24-48); MEAN CORPUSCULAR HEMOGLOBIN 23 pg (25-35); MEAN CORPUSCULAR HGB CONC 32 g/dL (31-37); MEAN CORPUSCULAR VOLUME 73 fL (79-100); MONO # 0.4 x10^3/uL (0.0-1.1); MONO % 8 % (0-9); NEUT # 3.4 x10^3uL (1.8-7.7); NEUT % 59 % (31-73); PLATELET COUNT 353 x10^3/uL (140-400); RED BLOOD COUNT 4.44 x10^6/uL (3.50-5.40); RED CELL DISTRIBUTION WIDTH 17.2 % (11.5-14.5); WHITE BLOOD COUNT 5.8 x10^3/uL (4.0-11.0)
[2017-07-28 16:31] LABS: ALBUMIN 2.9 g/dL (3.4-5.0); ALBUMIN/GLOBULIN RATIO 0.6 (1.0-1.7); ALK PHOS 95 U/L (46-116); ALT (SGPT) 22 U/L (14-59); ANION GAP 9 (6-14); AST (SGOT) 15 U/L (15-37); BLOOD UREA NITROGEN 17 mg/dL (7-20); BUN/CREATININE RATIO 13 (6-20); CALCIUM 9.1 mg/dL (8.5-10.1); CARBON DIOXIDE 29 mmol/L (21-32); CHLORIDE 100 mmol/L (98-107); CREATININE 1.3 mg/dL (0.6-1.0); GFR 51.3; GLUCOSE 249 mg/dL (70-99); SODIUM 138 mmol/L (136-145); TOTAL BILIRUBIN 0.3 mg/dL (0.2-1.0)
[2017-07-28 17:02] LABS: POC GLUCOSE 215 mg/dL (70-99)
[2017-07-28 17:09] LABS: SEDIMENTATION RATE 45 (0-25)
[2017-07-28 20:36] LABS: POC GLUCOSE 198 mg/dL (70-99)
[2017-07-28] MEDS: CETIRIZINE HCL 10 MG TABLET. PO (20:53)
[2017-07-28] MEDS: ATORVASTATIN CALCIUM 20 MG TABLET PO (20:53)
[2017-07-28] MEDS: INSULIN DETEMIR 300 UNITS/3 ML INSULN.PEN. SQ (21:06)
[2017-07-28] MEDS: LATANOPROST 0.005% OPHTH SOLUTION 2.5ML BOTTLE. OU (21:14)
[2017-07-29] MEDS: ceFAZolin SODIUM IV Push 1 GM VIAL. IVP (05:53)
[2017-07-29] MEDS: LANSOPRAZOLE 30 MG TAB.RAP.DR PO (05:53)
[2017-07-29 07:57] LABS: POC GLUCOSE 143 mg/dL (70-99)
[2017-07-29] MEDS: SUCRALFATE 1 GM TABLET. PO ×2 (08:38→11:56)
[2017-07-29] MEDS: metFORMIN 500 MG TABLET PO (08:39)
[2017-07-29] MEDS: POTASSIUM CHLORIDE 20 MEQ TABLET.ER. PO (08:39)
[2017-07-29] MEDS: INSULIN ASPART 300 UNITS/3 ML INSULN.PEN SQ ×2 (08:40→12:02)
[2017-07-29] MEDS: FUROSEMIDE 40 MG/4 ML VIAL. IVP (08:41)
[2017-07-29] MEDS: FLUTICASONE 50MCG/NASAL SPRAY 16GM BOTTLE. NS (08:42)
[2017-07-29] MEDS: TIMOLOL 0.5% OPHTH SOLUTION 5ML BOTTLE. OU (08:42)
[2017-07-29] MEDS: BRIMONIDINE 0.2% OPHTH SOLUTION 5ML BOTTLE. OU (08:42)
[2017-07-29] MEDS: LOSARTAN POTASSIUM 50 MG TABLET. PO (08:44)
[2017-07-29] MEDS: LACTOBACILLUS RHAMNOSUS GG 1 CAPSULE. PO (08:47)
[2017-07-29] MEDS: FLUCONAZOLE 100 MG TABLET. PO (08:47)
[2017-07-29] MEDS: CHOLECALCIFEROL (VITAMIN D3) 1,000 UNIT TABLET PO (08:48)
[2017-07-29] MEDS: POLYETHYLENE GLYCOL 3350 17 GM PACKET. PO (08:48)
[2017-07-29] MEDS: GABAPENTIN 300 MG CAPSULE. PO ×2 (08:48→14:43)
[2017-07-29] MEDS: FERROUS SULFATE 325 MG TABLET. PO (08:48)
[2017-07-29 11:38] LABS: POC GLUCOSE 219 mg/dL (70-99)
[2017-07-29] MEDS: CEPHALEXIN 250 MG CAPSULE. PO (14:43)
[2017-08-01 18:12] LABS: ANA INTERP Negative (.)
== END 2017-07-29 15:55 | disposition home or self-care (01) | DRG 872 ==
LOC: ER 16:47 → 5 NORTH 19:48
DX: A41.9 Sepsis, unspecified organism (principal); E11.22 Type 2 diabetes mellitus with diabetic chronic kidney disease; K76.0 Fatty (change of) liver, not elsewhere classified; L03.116 Cellulitis of left lower limb; Z68.43 Body mass index [BMI] 50.0-59.9, adult; E66.01 Morbid (severe) obesity due to excess calories; K21.9 Gastro-esophageal reflux disease without esophagitis; B35.9 Dermatophytosis, unspecified; D50.9 Iron deficiency anemia, unspecified; E78.5 Hyperlipidemia, unspecified; H40.9 Unspecified glaucoma; I12.9 Hypertensive chronic kidney disease with stage 1 through stage 4 chronic kidney disease, or unspecified chronic kidney disease; I87.2 Venous insufficiency (chronic) (peripheral); I89.0 Lymphedema, not elsewhere classified; M17.12 Unilateral primary osteoarthritis, left knee; N18.2 Chronic kidney disease, stage 2 (mild); Z82.49 Family history of ischemic heart disease and other diseases of the circulatory system; Z83.3 Family history of diabetes mellitus; Z98.84 Bariatric surgery status; F32.9 Major depressive disorder, single episode, unspecified; Z88.2 Allergy status to sulfonamides; Z88.8 Allergy status to other drugs, medicaments and biological substances; Z71.89 Other specified counseling
CPT/HCPCS: 36415; 73700; 74018; 80048; 80053; 82962; 83036; 83605; 83880; 84484; 85025; 85379; 85651; 86038; 86140; 87040; 93005; 93306; 93971; 96365; 97110-GO; 97110-GP; 97116-GP; 97161-GP; 97165-GO; 97168-GO; 97530-GO; 97535-GO; 99285; 99285-25; J0690; J1815; J1940; J3370; J3490

== ENCOUNTER 2017-08-28 16:31 | Emergency (ER) | payer OTHER ==
[2017-08-28 18:34] LABS: POC GLUCOSE 53 mg/dL (70-99)
[2017-08-28 19:47] LABS: POC GLUCOSE 126 mg/dL (70-99)
== END 2017-08-28 19:46 | disposition home or self-care (01) ==
LOC: ER 16:31
DX: S46.811A Strain of other muscles, fascia and tendons at shoulder and upper arm level, right arm, initial encounter (principal); K21.9 Gastro-esophageal reflux disease without esophagitis; I10 Essential (primary) hypertension; E11.40 Type 2 diabetes mellitus with diabetic neuropathy, unspecified; Z79.4 Long term (current) use of insulin; Z88.2 Allergy status to sulfonamides; Z88.6 Allergy status to analgesic agent; Z88.8 Allergy status to other drugs, medicaments and biological substances; X58.XXXA Exposure to other specified factors, initial encounter; Y93.89 Activity, other specified; Y99.8 Other external cause status; Y92.89 Other specified places as the place of occurrence of the external cause
CPT/HCPCS: 71045; 73030; 82962; 93005; 99284; 99285

== ENCOUNTER 2017-09-01 20:22 | Emergency (ER) | payer OTHER ==
[2017-09-01] MEDS: IV NORMAL SALINE 1000ML BAG 1,000 ML IV (21:45)
[2017-09-01 22:12] LABS: ADD MAN DIFF? NO
[2017-09-01 22:15] LABS: BASO # 0.1 x10^3/uL (0.0-0.2); BASO % 1 % (0-3); EOS # 0.2 x10^3/uL (0.0-0.7); EOS % 2 % (0-3); HEMATOCRIT 37.2 % (36.0-47.0); LYMPH # 2.3 x10^3/uL (1.0-4.8); LYMPH % 32 % (24-48); MEAN CORPUSCULAR HEMOGLOBIN 24 pg (25-35); MEAN CORPUSCULAR HGB CONC 32 g/dL (31-37); MEAN CORPUSCULAR VOLUME 75 fL (79-100); MONO # 0.5 x10^3/uL (0.0-1.1); MONO % 7 % (0-9); NEUT % 57 % (31-73); PLATELET COUNT 315 x10^3/uL (140-400); RED BLOOD COUNT 4.98 x10^6/uL (3.50-5.40); RED CELL DISTRIBUTION WIDTH 19.3 % (11.5-14.5); WHITE BLOOD COUNT 7.1 x10^3/uL (4.0-11.0)
[2017-09-01 22:23] LABS: ANION GAP 7 (6-14); BLOOD UREA NITROGEN 19 mg/dL (7-20); BUN/CREATININE RATIO 17 (6-20); CALCIUM 9.9 mg/dL (8.5-10.1); CARBON DIOXIDE 29 mmol/L (21-32); CHLORIDE 102 mmol/L (98-107); CREATININE 1.1 mg/dL (0.6-1.0); GFR 62.2; GLUCOSE 178 mg/dL (70-99); POTASSIUM 4.1 mmol/L (3.5-5.1); SODIUM 138 mmol/L (136-145)
[2017-09-01 22:29] LABS: ALBUMIN 3.5 g/dL (3.4-5.0); ALBUMIN/GLOBULIN RATIO 0.7 (1.0-1.7); ALK PHOS 129 U/L (46-116); ALT (SGPT) 24 U/L (14-59); AST (SGOT) 22 U/L (15-37); TOTAL BILIRUBIN 0.5 mg/dL (0.2-1.0); TOTAL PROTEIN 8.7 g/dL (6.4-8.2)
[2017-09-01] MEDS: DOXYCYCLINE HYCLATE 100 MG TABLET PO (23:30)
[2017-09-01] MEDS: CEPHALEXIN 250 MG CAPSULE. PO (23:30)
== END 2017-09-01 23:40 | disposition home or self-care (01) ==
LOC: ER 20:22
DX: L03.116 Cellulitis of left lower limb (principal); E11.39 Type 2 diabetes mellitus with other diabetic ophthalmic complication; H40.9 Unspecified glaucoma; K21.9 Gastro-esophageal reflux disease without esophagitis; I10 Essential (primary) hypertension; Z98.890 Other specified postprocedural states; Z88.2 Allergy status to sulfonamides; Z88.8 Allergy status to other drugs, medicaments and biological substances
CPT/HCPCS: 36415; 80053; 85025; 93971; 96360; 96361; 99285-25; J7030

== ENCOUNTER 2017-10-24 15:45 | Emergency (ER) | payer OTHER ==
[2017-10-24 16:05] LABS: POC GLUCOSE 98 mg/dL (70-99)
[2017-10-24] MEDS: cloNIDine HCL 0.1 MG TABLET PO (16:20)
[2017-10-24] MEDS: ACETAMINOPHEN 500 MG TABLET PO (16:21)
== END 2017-10-24 17:16 | disposition home or self-care (01) ==
LOC: ER 15:45
DX: I10 Essential (primary) hypertension (principal); R51 Headache; R22.31 Localized swelling, mass and lump, right upper limb; E11.9 Type 2 diabetes mellitus without complications; K21.9 Gastro-esophageal reflux disease without esophagitis; Z98.890 Other specified postprocedural states; Z88.2 Allergy status to sulfonamides; Z88.8 Allergy status to other drugs, medicaments and biological substances
CPT/HCPCS: 82962; 99284

== ENCOUNTER → 2017-11-28 | Outpatient (CLI) | payer OTHER | END | disposition home or self-care (01) | LOC: MAMMO 13:30 | DX: Z12.31 Encounter for screening mammogram for malignant neoplasm of breast (principal); I12.9 Hypertensive chronic kidney disease with stage 1 through stage 4 chronic kidney disease, or unspecified chronic kidney disease; E11.22 Type 2 diabetes mellitus with diabetic chronic kidney disease; I50.9 Heart failure, unspecified; N18.2 Chronic kidney disease, stage 2 (mild); E78.5 Hyperlipidemia, unspecified; E78.00 Pure hypercholesterolemia, unspecified; D64.9 Anemia, unspecified; K21.9 Gastro-esophageal reflux disease without esophagitis; Z79.4 Long term (current) use of insulin | CPT/HCPCS: 77067 ==

== ENCOUNTER 2017-12-25 14:47 | Emergency (ER) | payer OTHER ==
[~2017-12-25] VITALS: Ht 154.9 cm; Wt 127.0 kg
[~2017-12-25 14:47] MED LIST changes: +BRIM5DRO2 OP; +CEPH-264 PO; +CLIN300C8 PO; +CYCL10TA2 PO; +DICL50TA4 PO; +DOXY100C2 PO; -FERR-26 PO; +FERR325T14 PO; +FLUC100T4 PO; +FURO-68 PO; +GABA-586 PO; +LACT1CAP19 PO; +LATA2.5D3 EACHEYE; -METF500T4 PO; +METF500T5 PO
--- NOTE | 2017-12-25 15:23 | PHYS DOC ---
Past Medical History Past Medical History: Bronchitis, Diabetes-Type II, GERD, Glaucoma, Hypertension, Other Additional Past Medical Histor: Seasonal allergies, hiatal hernia, LOW KIDNEY FUNCTION, headaches Past Surgical History: , Other Additional Past Surgical Histo: BLADDER SLING; ablasion to uterus; right knee, L lumpectomy Alcohol Use: None Drug Use: None Adult General Chief Complaint Chief Complaint: HEADACHE HPI HPI 57-year-old female presents to ER via POV. She has complaints of 2 week history of intermittent posterior headache. Patient states she has had a history of headaches in the past and she reports this feels similar to previous ones she has had- denying this is the worse ZAMARRIPA she has experienced. She reports ZAMARRIPA usually starts when she wakes up and as the day goes on her ZAMARRIPA improves. She reports she has had intermittent nausea but was able to eat breakfast without increased nausea or vomiting episodes. Pt reports ZAMARRIPA this morning improved after eating breakfast and she currently rates at 4/10. She reports she took an aspirin 325mg this morning but no other OTC medications. Pt denies dizziness/ lightheadedness and reports she drove self to ER. She reports she has had "flashes of light" with mild bilat. eye pain- she reports she has had these sxs with previous HAs. She denies photosensitivity. She denies sore throat, earache/ pressure, or sinus congestion/drainage. She reports she has felt warm but denies fever. She reports she was seen by her integrity specialist on Tuesday and was told "something was going on with her urine" but she denies being started on any medications. She also has c/o rt arm stiffness which has also been going on for past 2 wks- voicing concerns that she may be sleeping in the wrong position. She reports pain increases with movement of rt upper extremity or palp. of upper arm into shoulder. Stating as she is up for awhile her rt arm stiffness/ZAMARRIPA both improve with activity. She denies injury, swelling, or inability to move upper rt extremity. She reports she has intermittent tingling in rt fingers- denying difficulty gripping items. She has hx of DM 1 and this morning her BS was 188 after eating breakfast and then after her morning dose of insulin BS was 148. She does wear corrective lenses and reports hx of Glaucoma. Review of Systems Review of Systems Constitutional: Reports chills denying fever Eyes: Denies change in visual acuity, redness, or photosensitivity. Reports mild bilat. eye pain denying increased pain w/eye movement. HENT: Denies nasal congestion or sore throat. Denies tinnitus, ear ache or pressure. Respiratory: Denies cough or shortness of breath [] Cardiovascular: Denies CP/palpitations GI: Denies abdominal pain, vomiting, bloody stools or diarrhea : Denies dysuria or hematuria. Denies any urinary sxs Musculoskeletal: Denies back pain. Reports rt shoulder pain with increased pain with movement/ROM of shoulder Integument: Denies rash or skin lesions. Denies swelling Neurologic: Denies focal weakness or sensory changes. Reports posterior/frontal headache and intermittent "flashes of light". Denies dizziness/lightheadedness. Denies confusion Endocrine: Denies polyuria or polydipsia [] All other systems were reviewed and found to be within normal limits, except as documented in this note. Current Medications Current Medications Current Medications Medications (Trade) Dose Ordered Sig/Ren Start Time Stop Time Status Last Admin Dose Admin Acetaminophen (Tylenol) 650 mg 1X ONCE 12/25/17 15:30 12/25/17 15:31 DC 12/25/17 15:58 650 MG Ibuprofen (Motrin) 600 mg 1X ONCE 12/25/17 17:00 12/25/17 17:01 DC 12/25/17 16:50 600 MG Allergies Allergies Allergies Coded Allergies Type Severity Reaction Last Updated Verified Sulfa (Sulfonamide Antibiotics) Allergy Intermediate 07/28/17 Yes lisinopril Allergy Intermediate 01/05/16 Yes metoclopramide Allergy Intermediate 01/05/16 Yes pantoprazole Allergy Intermediate 07/28/17 Yes Physical Exam Physical Exam Constitutional: Well developed, well nourished, no acute distress, non-toxic appearance. [] HENT: Normocephalic, atraumatic, bilateral ears normal, mucous membranes pink/ moist, no oral exudates, nose normal. No facial swelling. No sinus tenderness Eyes: 3mm PERRLA, EOMI w/no c/o increased eye pain with movement, no nystagmus conjunctiva normal, no discharge. No temporal tenderness/swelling Neck: Normal range of motion, supple, no stridor. No gross adenopathy. Tender in rt lateral neck which is reproducible with movement/palp. No crepitus/ deformity. Tenderness extends into rt shoulder Cardiovascular:Heart rate regular rhythm, no murmur [] Lungs & Thorax: Bilateral breath sounds clear to auscultation. Resp. equal/ nonlabored Abdomen: Bowel sounds normal, soft, no tenderness, no masses, no pulsatile masses. [] Skin: Warm, dry, no erythema, no rash. [] Back: No tenderness, no CVA tenderness. [] Extremities: Tender to palp. rt lateral shoulder into rt upper arm- no swelling/ full ROM with no visible injury- other extremities NL on exam, no cyanosis, no clubbing, ROM intact, no edema. [] Neurologic: Alert and oriented X 3, normal motor function, normal sensory function, no focal deficits noted. [] Psychologic: Affect normal, judgement normal, mood normal. [] Current Patient Data Vital Signs Vital Signs Date Time Temp Pulse Resp B/P (MAP) Pulse Ox O2 Delivery O2 Flow Rate FiO2 12/25/17 15:01 98.1 74 24 199/89 (125) 98 Room Air 98.1 Lab Values Laboratory Tests Test 12/25/17 15:25 12/25/17 15:50 White Blood Count 6.4 x10^3/uL (4.0-11.0) Red Blood Count 5.06 x10^6/uL (3.50-5.40) Hemoglobin 12.6 g/dL (12.0-15.5) Hematocrit 38.9 % (36.0-47.0) Mean Corpuscular Volume 77 fL (79-100) L Mean Corpuscular Hemoglobin 25 pg (25-35) Mean Corpuscular Hemoglobin Concent 33 g/dL (31-37) Red Cell Distribution Width 15.5 % (11.5-14.5) H Platelet Count 302 x10^3/uL (140-400) Neutrophils (%) (Auto) 62 % (31-73) Lymphocytes (%) (Auto) 28 % (24-48) Monocytes (%) (Auto) 8 % (0-9) Eosinophils (%) (Auto) 1 % (0-3) Basophils (%) (Auto) 1 % (0-3) Neutrophils # (Auto) 4.0 x10^3uL (1.8-7.7) Lymphocytes # (Auto) 1.8 x10^3/uL (1.0-4.8) Monocytes # (Auto) 0.5 x10^3/uL (0.0-1.1) Eosinophils # (Auto) 0.1 x10^3/uL (0.0-0.7) Basophils # (Auto) 0.1 x10^3/uL (0.0-0.2) Sodium Level 143 mmol/L (136-145) Potassium Level 4.2 mmol/L (3.5-5.1) Chloride Level 105 mmol/L (98-107) Carbon Dioxide Level 28 mmol/L (21-32) Anion Gap 10 (6-14) Blood Urea Nitrogen 19 mg/dL (7-20) Creatinine 1.0 mg/dL (0.6-1.0) Estimated GFR (Cockcroft-Gault) 69.4 Glucose Level 95 mg/dL (70-99) Calcium Level 9.5 mg/dL (8.5-10.1) Magnesium Level 1.9 mg/dL (1.8-2.4) Urine Collection Type Unknown Urine Color Yellow Urine Clarity Clear Urine pH 5.5 Urine Specific [place] 1.020 Urine Protein Negative mg/dL (NEG-TRACE) Urine Glucose (UA) Negative mg/dL (NEG) Urine Ketones (Stick) Negative mg/dL (NEG) Urine Blood Negative (NEG) Urine Nitrite Negative (NEG) Urine Bilirubin Negative (NEG) Urine Urobilinogen Dipstick 0.2 mg/dL (0.2 mg/dL) Urine Leukocyte Esterase Negative (NEG) Urine RBC 0 /HPF (0-2) Urine WBC 1-4 /HPF (0-4) Urine Squamous Epithelial Cells Mod /LPF Urine Bacteria Many /HPF (0-FEW) Urine Mucus Slight /LPF Laboratory Tests 12/25/17 15:25 Laboratory Tests 12/25/17 15:25 EKG EKG [] Radiology/Procedures Radiology/Procedures [] Course & Med Decision Making Course & Med Decision Making Pertinent Labs (See chart for details) 1620: On reevaluation patient reports her symptoms have improved since receiving dose of Tylenol and eating snacks. Patient is in no visible distress remained alert and oriented at this time with no focal neuro deficits. Discussed test results with CBC and BMP unremarkable patient's blood glucose was 95 and her renal functions were normal limits. Discussed options for additional treatment as patient had reported she could get a ride if medications were administered. Following discussion patient prefers oral dose of ibuprofen as she is wanting to drive home. UA is pending. 1632: Discussed UA results which was NL. Pt reports she has had improved sxs and at this time feels comfortable with home discharge with plans to keep appt with PCP tomorrow to discuss HAs. During this discussion pt reports she has also been under increased stress as one of her good friends has been actively dying over the past couple of months. Patient denies any anxiety or depression. She denies any SI. She reports she also feels like sxs could be r/t mattress she has at home as it is uncomfortable. Discussed if headaches persist f/u with neurology advised. Pt is in no visible distress at this time. She has been A& Ox3 with no change in MS/neuro exam. Discharge instructions were discussed and education provided on s&s to return to ER for. Pt is agreeable with discharge plan. BP with triage was elevated at 199/89 with hx of HTN- at time of discharge pt had improved BP 158/74. Discussed pt's case and plan of care with Dr. Herrmann. Vladimir Disclaimer Vladimir Disclaimer This electronic medical record was generated, in whole or in part, using a voice recognition dictation system. Departure Departure Impression: Primary Impression: Headache Additional Impression: Shoulder pain, right Disposition: 01 HOME, SELF-CARE Condition: STABLE Referrals: CAMILA KIRBY MD (PCP) Patient Instructions: Cluster Headache, Shoulder Pain Additional Instructions: You should keep your appointment with your primary doctor tomorrow and discuss your Emergency Department visit. Your labs were all normal limits including your renal functions. You received tylenol and ibuprofen. You should eat well balanced meals and drink adequate fluids. Problem Qualifiers LIONEL CASTANEDA PUBLIC AFFAIRS DIRECTOR Dec 25, 2017 15:23
[2017-12-25] MEDS ORDERED: ACETAMINOPHEN 325 MG TABLET. PO ONE (15:30)
[2017-12-25 15:41] LABS: BASO # 0.1 x10^3/uL (0.0-0.2); BASO % 1 % (0-3); EOS # 0.1 x10^3/uL (0.0-0.7); EOS % 1 % (0-3); HEMATOCRIT 38.9 % (36.0-47.0); HEMOGLOBIN 12.6 g/dL (12.0-15.5); LYMPH # 1.8 x10^3/uL (1.0-4.8); LYMPH % 28 % (24-48); MEAN CORPUSCULAR HEMOGLOBIN 25 pg (25-35); MEAN CORPUSCULAR HGB CONC 33 g/dL (31-37); MEAN CORPUSCULAR VOLUME 77 fL (79-100); MONO # 0.5 x10^3/uL (0.0-1.1); MONO % 8 % (0-9); NEUT % 62 % (31-73); PLATELET COUNT 302 x10^3/uL (140-400); RED BLOOD COUNT 5.06 x10^6/uL (3.50-5.40); RED CELL DISTRIBUTION WIDTH 15.5 % (11.5-14.5); WHITE BLOOD COUNT 6.4 x10^3/uL (4.0-11.0)
[2017-12-25 15:48] LABS: CALCIUM 9.5 mg/dL (8.5-10.1); GFR 69.4; POTASSIUM 4.2 mmol/L (3.5-5.1)
[2017-12-25 16:14] LABS: BILIRUBIN,URINE NEGATIVE (NEG); CLARITY,URINE CLEAR; COLOR,URINE YELLOW; NITRITE,URINE NEGATIVE (NEG); PH,URINE 5.5; PROTEIN,URINE NEGATIVE (NEG-TRACE); UROBILINOGEN,URINE 0.2 mg/dL (0.2 mg/dL)
[2017-12-25 16:24] LABS: BACTERIA,URINE MANY /HPF (0-FEW); RBC,URINE 0 /HPF (0-2); SQUAMOUS EPITHELIAL CELL,UR MOD /LPF
[2017-12-25 17:00] VITALS: BP 150/74
[2017-12-25] MEDS ORDERED: IBUPROFEN 600 MG TABLET. PO ONE (17:00)
== END 2017-12-25 17:14 | disposition home or self-care (01) ==
LOC: ER 14:47
DX: R51 Headache (principal); M25.511 Pain in right shoulder; R11.0 Nausea; H92.03 Otalgia, bilateral; E11.39 Type 2 diabetes mellitus with other diabetic ophthalmic complication; I10 Essential (primary) hypertension; H40.9 Unspecified glaucoma; K21.9 Gastro-esophageal reflux disease without esophagitis; Z88.2 Allergy status to sulfonamides; Z88.8 Allergy status to other drugs, medicaments and biological substances
CPT/HCPCS: 36415; 80048; 81001; 83735; 85025; 87086; 99284

== ENCOUNTER 2017-12-29 17:48 | Emergency (ER) | payer OTHER ==
[~2017-12-29] VITALS: Ht 154.9 cm; Wt 125.2 kg
--- NOTE | 2017-12-29 18:35 | PHYS DOC ---
Past Medical History Past Medical History: Bronchitis, Diabetes-Type II, GERD, Glaucoma, Hypertension, Other Additional Past Medical Histor: Seasonal allergies, hiatal hernia, LOW KIDNEY FUNCTION, headaches Past Surgical History: , Other Additional Past Surgical Histo: BLADDER SLING; ablasion to uterus; right knee, L lumpectomy Alcohol Use: None Drug Use: None Adult General Chief Complaint Chief Complaint: HEADACHE HPI HPI Patient is a 57-year-old female who presents via EMS with complaint of headache as well as pain in her right upper back and neck. Patient indicates that she has been having problems with her back for quite some time and thinks that that may be part of the reason for her headache. She also indicates that her blood pressures been elevated recently. She saw her primary care provider on Tuesday who had changed her prescriptions for blood pressure medicine as well as done refills. Patient states that the refills are ready but she just has not gone in to fill them. She states that she has not taken any of her blood pressure medicine today. Patient rates her pain at a 5 out of 10. She denies any nausea, vomiting or photophobia. She describes the pain in her head as an ache. She denies any chest pain or shortness of breath. She states that nothing worsens or improves her symptoms. Review of Systems Review of Systems Constitutional: Denies fever or chills [] Eyes: Denies change in visual acuity [] Respiratory: Denies cough or shortness of breath [] Cardiovascular: Denies chest pain[] GI: Denies abdominal pain, nausea, vomiting or diarrhea [] Musculoskeletal: Complains of neck and upper back pain[] Neurologic: Complaints of headache[] All other systems were reviewed and found to be within normal limits, except as documented in this note. Current Medications Current Medications Current Medications Medications (Trade) Dose Ordered Sig/Ren Start Time Stop Time Status Last Admin Dose Admin Clonidine HCl (Catapres) 0.2 mg 1X ONCE 12/29/17 18:45 12/29/17 18:46 DC 12/29/17 18:55 0.2 MG Allergies Allergies Allergies Coded Allergies Type Severity Reaction Last Updated Verified Sulfa (Sulfonamide Antibiotics) Allergy Intermediate 07/28/17 Yes lisinopril Allergy Intermediate 01/05/16 Yes metoclopramide Allergy Intermediate 01/05/16 Yes pantoprazole Allergy Intermediate 3/22/18 Yes Physical Exam Physical Exam Constitutional: Well developed, well nourished, no acute distress, non-toxic appearance. [] HENT: Normocephalic, atraumatic, bilateral external ears normal, oropharynx moist, no oral exudates, nose normal. [] Eyes: PERRLA, EOMI, conjunctiva normal, no discharge. [] Neck: Normal range of motion, no tenderness, supple, no stridor. [] Cardiovascular:Heart rate regular rhythm [] Lungs & Thorax: Bilateral breath sounds clear to auscultation [] Abdomen: Bowel sounds normal, soft, no tenderness. [] Skin: Warm, dry, no erythema, no rash. [] Back: There is tenderness to palpation in the right levator scapula as well as trapezius musculature. There is also tenderness to palpation in patient's bilateral suboccipital and cervical strap musculature. [] Extremities: No tenderness, no cyanosis, no clubbing, ROM intact, no edema. [] Neurologic: Alert and oriented X 3, normal motor function, normal sensory function, no focal deficits noted. [] Current Patient Data Vital Signs Vital Signs Date Time Temp Pulse Resp B/P (MAP) Pulse Ox O2 Delivery O2 Flow Rate FiO2 12/29/17 18:55 76 164/79 12/29/17 17:48 97.1 18 99 Room Air 97.1 EKG EKG [] Radiology/Procedures Radiology/Procedures [] Course & Med Decision Making Course & Med Decision Making Pertinent Labs and Imaging studies reviewed. (See chart for details) Patient given 0.2 of clonidine and repeat blood pressure approximately 30 minutes later is 164/79. He does report to some improvement in symptoms at this time. Dragon Disclaimer Dragon Disclaimer This electronic medical record was generated, in whole or in part, using a voice recognition dictation system. Departure Departure Impression: Primary Impression: Tension headache Additional Impressions: Pain, upper back Neck pain Hypertension Disposition: 01 HOME, SELF-CARE Condition: STABLE Referrals: CAMILA KIRBY MD (PCP) Patient Instructions: Back Pain, Adult, Hypertension, Tension Headache Additional Instructions: Take prescribed medications as directed and follow-up with your primary care provider in the next few days. Problem Qualifiers Additional Impressions: Hypertension Hypertension type: essential hypertension Qualified Codes: I10 - Essential ( primary) hypertension HEATHER SALEH Jr. DO Dec 29, 2017 18:35
[2017-12-29] MEDS ORDERED: cloNIDine HCL 0.1 MG TABLET PO ONE (18:45)
[2017-12-29 19:15] VITALS: BP 164/79
== END 2017-12-29 19:39 | disposition home or self-care (01) ==
LOC: ER 17:48
DX: G44.209 Tension-type headache, unspecified, not intractable (principal); M54.6 Pain in thoracic spine; M54.2 Cervicalgia; I10 Essential (primary) hypertension; E11.9 Type 2 diabetes mellitus without complications; K21.9 Gastro-esophageal reflux disease without esophagitis; E11.39 Type 2 diabetes mellitus with other diabetic ophthalmic complication; H42 Glaucoma in diseases classified elsewhere; Z98.890 Other specified postprocedural states; Z88.2 Allergy status to sulfonamides; Z88.8 Allergy status to other drugs, medicaments and biological substances
CPT/HCPCS: 99284

== ENCOUNTER 2018-02-06 12:06 | Emergency (ER) | payer OTHER ==
[~2018-02-06] VITALS: Ht 154.9 cm; Wt 125.2 kg
[~2018-02-06 12:06] MED LIST changes: -AMLO10TA2 PO; +AMLO10TA6 PO; +METF500T16 PO; -METF500T5 PO
[2018-02-06 12:34] VITALS: BP 186/89
--- NOTE | 2018-02-06 12:40 | PHYS DOC ---
Past Medical History Past Medical History: Bronchitis, Diabetes-Type II, GERD, Glaucoma, Hypertension, Other Additional Past Medical Histor: Seasonal allergies, hiatal hernia, LOW KIDNEY FUNCTION, headaches Past Surgical History: , Other Additional Past Surgical Histo: BLADDER SLING; ablasion to uterus; right knee, L lumpectomy Alcohol Use: None Drug Use: None Adult General Chief Complaint Chief Complaint: LOWER EXT PAIN HPI HPI Patient is a 58 year old female with history of hypertension, glaucoma, diabetes type 2, who presents today complaining of 9 out of 10 chronic left knee pain and right shoulder pain that has been going on for months. Patient states she went for physical therapy last week and was informed she needs to call the PCP and get x-rays. Patient states she showed up at the PCPs office today for the walk-in clinic and they told her she cannot be seen today. Patient denies any injuries. She is requesting x-rays of her left knee and right shoulder. She states she's had this pain for months. She describes the pain as sharp and constant. Review of Systems Review of Systems Constitutional: Denies fever or chills [] Musculoskeletal: Reports left knee pain and right shoulder pain Integument: Denies rash or skin lesions [] Neurologic: Denies headache, focal weakness or sensory changes [] All other systems were reviewed and found to be within normal limits, except as documented in this note. Allergies Allergies Allergies Coded Allergies Type Severity Reaction Last Updated Verified Sulfa (Sulfonamide Antibiotics) Allergy Intermediate 07/28/17 Yes lisinopril Allergy Intermediate 01/05/16 Yes metoclopramide Allergy Intermediate 01/05/16 Yes pantoprazole Allergy Intermediate 07/28/17 Yes Physical Exam Physical Exam Constitutional: Well developed, well nourished, no acute distress, non-toxic appearance. [] Skin: Warm, dry, no erythema, no rash. [] Back: No tenderness, no CVA tenderness. [] Extremities: Overweight patient. Left knee with no obvious deformity. Limited range of motion to the left knee due to pain. +2 left pedal pulse. Right shoulder with no obvious deformity. Full range of motion to the right shoulder. Adequate radial medial and ulnar sensation to the right upper extremity. +2 right radial pulse. Cap refill less than 2 seconds the right upper extremity. Neurologic: Alert and oriented X 3, normal motor function, normal sensory function, no focal deficits noted. [] Psychologic: Affect normal, judgement normal, mood normal. [] Current Patient Data Vital Signs Vital Signs Date Time Temp Pulse Resp B/P (MAP) Pulse Ox O2 Delivery O2 Flow Rate FiO2 02/06/18 12:34 98.1 100 20 186/89 (121) 97 Room Air 98.1 EKG EKG [] Radiology/Procedures Radiology/Procedures []PROCEDURE: KNEE LEFT 4V EXAM: Left knee, 4 views; left shoulder, 4 views. HISTORY: Pain. COMPARISON: None. FINDINGS: Left knee: 4 views of the left knee are obtained. There is severe medial compartment joint space narrowing with subchondral sclerosis, marginal osteophytosis and bony remodeling. There is associated genu varus. There is moderate lateral and patellofemoral compartment spurring. There is no joint effusion. Left shoulder: 3 views left shoulder obtained. There is no acute fracture, dislocation or subluxation. There is a small ossicle along the greater tuberosity at the rotator cuff insertion. IMPRESSION: 1. Severe medial and moderate lateral and patellofemoral compartment osteoarthritis of the left knee with genu varus and medial compartment bony remodeling. 2. Mild degenerative change at the left rotator cuff insertion. Electronically signed by: Asya Boudreaux MD (02/06/2018 1:30 PM) [id number] DICTATED and SIGNED BY: ASYA BOUDREAUX MD DATE: 02/06/18 1328 Course & Med Decision Making Course & Med Decision Making Pertinent Labs and Imaging studies reviewed. (See chart for details) This is a 58-year-old female patient presenting to the ED today with complaints of left knee pain and right shoulder pain for her chronic. Left knee x-rays and right shoulder x-rays are negative for any acute findings, noted for arthritis. Patient was discharged with Voltaren cream. Ice elevation encouraged. Follow-up with orthopedic doctor in one week. Dragon Disclaimer Dragon Disclaimer This electronic medical record was generated, in whole or in part, using a voice recognition dictation system. Departure Departure Impression: Primary Impression: Left knee DJD Additional Impression: DJD of right shoulder Disposition: 01 HOME, SELF-CARE Condition: STABLE Referrals: CAMILA KIRBY MD (PCP) Follow-up in one week KARTHIKEYAN JAUREGUI II, MD Follow-up in one week Patient Instructions: Arthritis, Degenerative-Brief Additional Instructions: You were evaluated in the emergency room for knee pain and shoulder pain,you were noted to have arthritis in her left knee and right shoulder. Please follow- up with your primary care doctor as well as the orthopedic doctor. Come back to the ED at any point symptoms worsen. Scripts Diclofenac Sodium (DICLOFENAC SODIUM) 50 Mg Tablet.dr 1 TAB PO BID, #20 TAB 0 Refills Prov: BRENDAN BARNES APRN 02/06/18 Problem Qualifiers Primary Impression: Left knee DJD Osteoarthritis type: primary Qualified Codes: M17.12 - Unilateral primary osteoarthritis, left knee Additional Impression: DJD of right shoulder Osteoarthritis type: primary Qualified Codes: M19.011 - Primary osteoarthritis, right shoulder BRENDAN BARNES APRN Feb 06, 2018 12:40
--- NOTE | 2018-02-06 13:33 | RAD ---
EXAM: Left knee, 4 views; left shoulder, 4 views. HISTORY: Pain. COMPARISON: None. FINDINGS: Left knee: 4 views of the left knee are obtained. There is severe medial compartment joint space narrowing with subchondral sclerosis, marginal osteophytosis and bony remodeling. There is associated genu varus. There is moderate lateral and patellofemoral compartment spurring. There is no joint effusion. Left shoulder: 3 views left shoulder obtained. There is no acute fracture, dislocation or subluxation. There is a small ossicle along the greater tuberosity at the rotator cuff insertion. IMPRESSION: 1. Severe medial and moderate lateral and patellofemoral compartment osteoarthritis of the left knee with genu varus and medial compartment bony remodeling. 2. Mild degenerative change at the left rotator cuff insertion. Electronically signed by: Asya Snow MD (02/06/2018 1:30 PM) [id number]
[2018-02-06] MEDS ORDERED: DICL50TA4 PO (14:28)
== END 2018-02-06 14:34 | disposition home or self-care (01) ==
LOC: ER 12:06
DX: M17.12 Unilateral primary osteoarthritis, left knee (principal); M19.011 Primary osteoarthritis, right shoulder; E11.9 Type 2 diabetes mellitus without complications; K21.9 Gastro-esophageal reflux disease without esophagitis; E11.39 Type 2 diabetes mellitus with other diabetic ophthalmic complication; H40.9 Unspecified glaucoma; I10 Essential (primary) hypertension; Z88.2 Allergy status to sulfonamides; Z88.8 Allergy status to other drugs, medicaments and biological substances
CPT/HCPCS: 73030; 73564; 99284

== ENCOUNTER 2018-02-25 10:55 | Emergency (ER) | payer OTHER ==
[~2018-02-25] VITALS: Ht 154.9 cm; Wt 125.2 kg
[2018-02-25] MEDS ORDERED: CARVEDILOL 12.5 MG TABLET. PO ONE (11:30)
--- NOTE | 2018-02-25 11:37 | PHYS DOC ---
Past Medical History Past Medical History: Bronchitis, Diabetes-Type II, GERD, Glaucoma, Hypertension, Other Additional Past Medical Histor: Seasonal allergies, hiatal hernia, LOW KIDNEY FUNCTION, headaches Past Surgical History: , Other Additional Past Surgical Histo: BLADDER SLING; ablasion to uterus; right knee, L lumpectomy, L TIB/FIB FX Alcohol Use: None Drug Use: None Adult General Chief Complaint Chief Complaint: HYPERTENSION HPI HPI Patient is a 58 year old female who presents with concerns about her blood pressure. The patient is known to have high blood pressure. She is supposed to be on dual therapy with Corag and hydralazine but the patient states she is unable tolerate the hydralazine. She has only been taking coronary but did miss her dose today. The patient checked her blood pressure yesterday and found it to be in the 180s. She checked it many additional times in the pressure did not come down. Because of this, the patient states she was anxious all night and did not get any sleep. She denies chest pain or shortness of breath. No orthopnea. No dyspnea with exertion. No lower extremity edema. The patient does state she had a generalized headache yesterday that was short lived lasting only a few minutes and then resolved without intervention. The patient denies any focal neurologic complaints or vision changes. Review of Systems Review of Systems Constitutional: Denies fever or chills Eyes: Denies change in visual acuity, redness, or eye pain HENT: Denies nasal congestion or sore throat Respiratory: Denies cough Cardiovascular: No additional information not addressed in HPI GI: Denies abdominal pain : Denies dysuria Musculoskeletal: Denies back pain Integument: Denies rash Neurologic: Denies focal weakness or sensory changes All other systems were reviewed and found to be within normal limits, except as documented in this note. Current Medications Current Medications Current Medications Medications (Trade) Dose Ordered Sig/Ren Start Time Stop Time Status Last Admin Dose Admin Carvedilol (Coreg) 25 mg 1X ONCE 02/25/18 11:30 02/25/18 11:31 DC 02/25/18 11:40 25 MG Allergies Allergies Allergies Coded Allergies Type Severity Reaction Last Updated Verified Sulfa (Sulfonamide Antibiotics) Allergy Intermediate 07/28/17 Yes lisinopril Allergy Intermediate 01/05/16 Yes metoclopramide Allergy Intermediate 01/05/16 Yes pantoprazole Allergy Intermediate 07/28/17 Yes Physical Exam Physical Exam Constitutional: Well developed, well nourished, no acute distress, non-toxic appearance HENT: Normocephalic, atraumatic, bilateral external ears normal, oropharynx moist Eyes: PERRLA, EOMI, conjunctiva normal Neck: Normal range of motion, no tenderness Cardiovascular:Heart rate regular rhythm, no murmur Lungs & Thorax: Bilateral breath sounds clear to auscultation Skin: Warm, dry, no erythema Extremities: trace edema bilat LE which patient states is normal Neurologic: Alert and oriented X 3 Current Patient Data Vital Signs Vital Signs Date Time Temp Pulse Resp B/P (MAP) Pulse Ox O2 Delivery O2 Flow Rate FiO2 02/25/18 11:40 66 157/77 02/25/18 11:05 97.9 18 97 Room Air 97.9 Lab Values Laboratory Tests Test 02/25/18 11:25 02/25/18 11:30 Urine Collection Type Void Urine Color Yellow Urine Clarity Clear Urine pH 6.5 Urine Specific [place]o 1.015 Urine Protein Negative mg/dL (NEG-TRACE) Urine Glucose (UA) Negative mg/dL (NEG) Urine Ketones (Stick) Negative mg/dL (NEG) Urine Blood Negative (NEG) Urine Nitrite Negative (NEG) Urine Bilirubin Negative (NEG) Urine Urobilinogen Dipstick 0.2 mg/dL (0.2 mg/dL) Urine Leukocyte Esterase Negative (NEG) Urine RBC 0 /HPF (0-2) Urine WBC 5-10 /HPF (0-4) Urine Squamous Epithelial Cells Few /LPF Urine Bacteria Mod /HPF (0-FEW) Urine Mucus Slight /LPF Sodium Level 143 mmol/L (136-145) Potassium Level 3.8 mmol/L (3.5-5.1) Chloride Level 104 mmol/L (98-107) Carbon Dioxide Level 29 mmol/L (21-32) Anion Gap 10 (6-14) Blood Urea Nitrogen 16 mg/dL (7-20) Creatinine 1.0 mg/dL (0.6-1.0) Estimated GFR (Cockcroft-Gault) 69.1 Glucose Level 105 mg/dL (70-99) H Calcium Level 9.5 mg/dL (8.5-10.1) Laboratory Tests 02/25/18 11:30 EKG EKG [] Radiology/Procedures Radiology/Procedures [] Course & Med Decision Making Course & Med Decision Making Pertinent Labs and Imaging studies reviewed. (See chart for details) Patient is seen and examined for concerns about her blood pressure. In the emergency Department her highest systolic blood pressure was in the 150s. Will check urinalysis and BMP. The patient's daily dose of Coreg is also ordered. 12:15: All results are reviewed. There are no acute findings on her urine or BMP. The patient continues to have mild hypertension. She is currently having no additional symptoms. Plan is for discharge home. She is provided a list of [place] physicians to arrange a new PCP per her request. She is discharged home from the ER today with instructions to establish care or follow up with her primary care and to return to the ER for any new or worsening symptoms. Patient is agreeable to the plan of care. Dragon Disclaimer Dragon Disclaimer This electronic medical record was generated, in whole or in part, using a voice recognition dictation system. Departure Departure Referrals: CAMILA KIRBY MD (PCP) GALILEA REES DO Feb 25, 2018 11:37
[2018-02-25 11:53] LABS: BILIRUBIN,URINE NEGATIVE (NEG); CLARITY,URINE CLEAR; COLOR,URINE YELLOW; NITRITE,URINE NEGATIVE (NEG); PH,URINE 6.5; PROTEIN,URINE NEGATIVE (NEG-TRACE); UROBILINOGEN,URINE 0.2 mg/dL (0.2 mg/dL)
[2018-02-25 12:02] VITALS: BP 162/72
[2018-02-25 12:06] LABS: CALCIUM 9.5 mg/dL (8.5-10.1); GFR 69.1; POTASSIUM 3.8 mmol/L (3.5-5.1)
[2018-02-25 12:12] LABS: RBC,URINE 0 /HPF (0-2)
[2018-02-25 12:13] LABS: BACTERIA,URINE MOD /HPF (0-FEW); SQUAMOUS EPITHELIAL CELL,UR FEW /LPF
== END 2018-02-25 12:31 | disposition home or self-care (01) ==
LOC: ER 10:55
DX: I10 Essential (primary) hypertension (principal); K21.9 Gastro-esophageal reflux disease without esophagitis; E11.39 Type 2 diabetes mellitus with other diabetic ophthalmic complication; H42 Glaucoma in diseases classified elsewhere; Z98.890 Other specified postprocedural states; Z88.2 Allergy status to sulfonamides; Z88.8 Allergy status to other drugs, medicaments and biological substances
CPT/HCPCS: 36415; 80048; 81001; 99284

== ENCOUNTER 2018-03-13 11:25 | Emergency (ER) | payer OTHER ==
[~2018-03-13] VITALS: Ht 165.1 cm; Wt 125.2 kg
[2018-03-13] MEDS ORDERED: IBUPROFEN 600 MG TABLET. PO ONE (12:15)
--- NOTE | 2018-03-13 13:07 | EKG ---
[facility] [address] [place] [address] Test Date: 2018-03-13 Test Time: 12:39:07 Pat Name: RUSLAN CALERO Department: Room: Gender: F [employer]: : 1960 Requested By: MARC OH Order Number: [id number] Reading MD: Rafa Ames MD Measurements Intervals [place] Rate: 59 P: 48 ID: [id number] QRS: 6 QRSD: 84 T: 39 QT: 424 QTc: 420 Interpretive Statements SINUS RHYTHM Electronically Signed On 03-13-2018 15:35:16 [employer]MING [employer]ACHINE by Rafa Ames MD
--- NOTE | 2018-03-13 13:12 | RAD ---
4 views right shoulder 03/13/2018 12:47 PM Indication: PAIN RIGHT SHOULDER, NO KNOWN INJURY Comparison: Right shoulder radiographs February 06, 2018 Findings: No fracture or dislocation is identified. Similar degenerative changes of the acromioclavicular joint are seen. Possible degenerative change the insertion of the rotator cuff, humerus again noted. No acute soft tissue changes are noted in the interim. IMPRESSION: Stable degenerative changes of the right shoulder without evidence of acute osseous abnormality. If pain persists consider MRI evaluation. Electronically signed by: Javier Hardin MD (03/13/2018 1:09 PM) [id number]
[2018-03-13 14:00] VITALS: BP 168/77
--- NOTE | 2018-03-13 14:54 | PHYS DOC ---
Past Medical History Past Medical History: Bronchitis, Diabetes-Type II, GERD, Glaucoma, Hypertension, Other Additional Past Medical Histor: Seasonal allergies, hiatal hernia, LOW KIDNEY FUNCTION, headaches Past Surgical History: , Other Additional Past Surgical Histo: BLADDER SLING; ablasion to uterus; right knee, L lumpectomy, L TIB/FIB FX Alcohol Use: None Drug Use: None Adult General Chief Complaint Chief Complaint: MULTIPLE COMPLAINTS HPI HPI Patient is a 58 year old female presenting with chief complaint of shoulder pain. She's had this for 8 days. She does note that there is some swelling to the right trapezius area and some right shoulder area swelling. No fever no direct trauma she said she has had shoulder pain in the past but did seem to flare up over the last week or so she was worried about her heart so she came to the emergency room for evaluation she is not having any chest pain or exertional symptoms it is worse with palpation and she also noticed that her right shoulder did look swelling and she was worried about that. No fever no shortness of breath no pleuritic pain no abdominal pain no vomiting she has been using her usual pain regimen with minimal relief. Review of Systems Review of Systems Constitutional: Denies fever or chills [] Eyes: Denies change in visual acuity, redness, or eye pain [] HENT: Denies nasal congestion or sore throat [] Respiratory: Denies cough or shortness of breath [] Cardiovascular: No additional information not addressed in HPI [] Integument: Denies rash or skin lesions [] Neurologic: Denies headache, focal weakness or sensory changes [] Endocrine: Denies polyuria or polydipsia [] All other systems were reviewed and found to be within normal limits, except as documented in this note. Current Medications Current Medications Current Medications Medications (Trade) Dose Ordered Sig/Ren Start Time Stop Time Status Last Admin Dose Admin Ibuprofen (Motrin) 600 mg 1X ONCE 03/13/18 12:15 03/13/18 12:17 DC 03/13/18 12:52 600 MG Allergies Allergies Allergies Coded Allergies Type Severity Reaction Last Updated Verified Sulfa (Sulfonamide Antibiotics) Allergy Intermediate 07/28/17 Yes lisinopril Allergy Intermediate 01/05/16 Yes metoclopramide Allergy Intermediate 01/05/16 Yes pantoprazole Allergy Intermediate 07/28/17 Yes Physical Exam Physical Exam Constitutional: Well developed, well nourished, obese HENT: Normocephalic, atraumatic, bilateral external ears normal, oropharynx moist, no oral exudates, nose normal. [] Eyes: PERRLA, EOMI, conjunctiva normal, no discharge. [] Neck: Normal range of motion, no tenderness, supple, no stridor. [] Cardiovascular:Heart rate regular rhythm, no murmur [] Lungs & Thorax: Bilateral breath sounds clear to auscultation [] Abdomen: Bowel sounds normal, soft, no tenderness, no masses, no pulsatile masses. [] Skin: Warm, dry, no erythema, no rash. [] Back: No tenderness, no CVA tenderness. [] Extremities: There is mild tenderness to the right shoulder at the right humeral head there is mild swelling in this area potentially there is also tenderness over the right trapezius area. There is no bony tenderness of the cervical spine. There is also some right pectoralis muscle tenderness on the right upper area at his upper lateral insertion that does cause some mild tenderness as well. Neurologic: Alert and oriented X 3, normal motor function, normal sensory function, no focal deficits noted. [] Psychologic: Affect normal, judgement normal, mood normal. [] Current Patient Data Vital Signs Vital Signs Date Time Temp Pulse Resp B/P (MAP) Pulse Ox O2 Delivery O2 Flow Rate FiO2 03/13/18 14:00 56 16 168/77 (107) Room Air 03/13/18 12:09 98.1 98.1 Lab Values Laboratory Tests Test 03/13/18 14:05 POC Troponin I 0.00 ng/ml (<0.08) EKG EKG [] Interpretation Time: EKG shows a normal sinus rhythm with rate of 59 there are no acute ischemic changes noted this is interpreted by me the time of encounter. No STEMI was seen. Radiology/Procedures Radiology/Procedures [] Impressions: Shoulder x-ray was negative acute see final report. Course & Med Decision Making Course & Med Decision Making Pertinent Labs and Imaging studies reviewed. (See chart for details) []58-year-old female presenting with shoulder pain she noticed some subjective swelling. Not much appreciated on examination may be just a little bit there. There is no erythema no fluctuance she is able to range the shoulder with only minimal difficulty there is no fever patient was reassured I suspect this is an acute exacerbation of her chronic shoulder pain recommended follow-up with primary care doctor for further evaluation. EKG was done as well as an i-STAT troponin both of which were within normal limits this does not sound cardiac at all not even in the slightest. Dragon Disclaimer Dragon Disclaimer This electronic medical record was generated, in whole or in part, using a voice recognition dictation system. Departure Departure Impression: Primary Impression: Elevated blood pressure reading Additional Impression: Shoulder pain, right Disposition: 01 HOME, SELF-CARE Condition: STABLE Patient Instructions: Arthralgia Additional Instructions: GET YOUR BLOOD PRESSURE CHECKED WITHIN SEVEN DAYS. Problem Qualifiers MARC OH MD Mar 13, 2018 14:54
== END 2018-03-13 14:32 | disposition home or self-care (01) ==
LOC: ER 11:25
DX: M25.511 Pain in right shoulder (principal); I10 Essential (primary) hypertension; E11.39 Type 2 diabetes mellitus with other diabetic ophthalmic complication; K21.9 Gastro-esophageal reflux disease without esophagitis; Z88.2 Allergy status to sulfonamides; Z88.8 Allergy status to other drugs, medicaments and biological substances
CPT/HCPCS: 73030; 84484; 93005; 99284-25

== ENCOUNTER 2018-07-14 13:44 | Emergency (ER) | payer MEDICAID, OTHER ==
[~2018-07-14] VITALS: Ht 154.9 cm; Wt 126.1 kg
[~2018-07-14 13:44] MED LIST changes: -AMLO10TA6 PO; +AMLO10TA8 PO; -GABA-586 PO; +GABA300C18 PO; -HYDR-2758 PO; +HYDR-2761 PO; +HYDR-3164 PO; -HYDR-971 PO; +METH-38 PO; +NITR100C62 PO; +TRAM50TA PO
[2018-07-14] MEDS ORDERED: KETOROLAC 15 MG/ML VIAL. IV ONE (14:15)
[2018-07-14 14:42] LABS: BASO % 1 % (0-3); EOS # 0.1 x10^3/uL (0.0-0.7); EOS % 2 % (0-3); HEMATOCRIT 40.9 % (36.0-47.0); LYMPH # 1.6 x10^3/uL (1.0-4.8); LYMPH % 26 % (24-48); MEAN CORPUSCULAR HEMOGLOBIN 25 pg (25-35); MEAN CORPUSCULAR HGB CONC 32 g/dL (31-37); MEAN CORPUSCULAR VOLUME 79 fL (79-100); MONO # 0.3 x10^3/uL (0.0-1.1); MONO % 5 % (0-9); NEUT % 66 % (31-73); PLATELET COUNT 294 x10^3/uL (140-400); RED BLOOD COUNT 5.16 x10^6/uL (3.50-5.40); RED CELL DISTRIBUTION WIDTH 15.3 % (11.5-14.5); WHITE BLOOD COUNT 6.1 x10^3/uL (4.0-11.0)
[2018-07-14 14:50] LABS: CALCIUM 9.5 mg/dL (8.5-10.1); GFR 69.1; POTASSIUM 3.9 mmol/L (3.5-5.1)
[2018-07-14 14:55] LABS: PROTHROMBIN TIME PATIENT 13.3 SEC (11.7-14.0)
[2018-07-14 14:56] LABS: ALBUMIN 3.4 g/dL (3.4-5.0); ALBUMIN/GLOBULIN RATIO 0.7 (1.0-1.7); TOTAL BILIRUBIN 0.5 mg/dL (0.2-1.0); TOTAL PROTEIN 8.3 g/dL (6.4-8.2)
[2018-07-14 16:04] VITALS: BP 187/88
--- NOTE | 2018-07-14 16:09 | RAD ---
Ultrasound venous Doppler INDICATION:Right lower extremity pain, swelling and burning sensation. TECHNIQUE: Grayscale, color Doppler and spectral waveform ultrasound images of the right lower extremity deep veins obtained. COMPARISON: None FINDINGS: The interrogated deep veins are compressible and demonstrate evidence of blood flow with normal respiratory variation and response to augmentation. IMPRESSION: No sonographic evidence of acute DVT of the right lower extremity deep veins. Electronically signed by: Thuan Tejada DO (07/14/2018 4:06 PM) [id number]
[2018-07-14] MEDS ORDERED: CLIN150C14 PO (16:48)
[2018-07-14] MEDS ORDERED: HYDR25TA PO (16:48)
[2018-07-14] MEDS ORDERED: MELO7.5T29 PO (16:48)
--- NOTE | 2018-07-14 16:48 | PHYS DOC ---
Past Medical History Past Medical History: Bronchitis, Diabetes-Type II, GERD, Glaucoma, Hypertension, Other Additional Past Medical Histor: Seasonal allergies, hiatal hernia, LOW KIDNEY FUNCTION, headaches Past Surgical History: , Other Additional Past Surgical Histo: BLADDER SLING; ablasion to uterus; right knee, L lumpectomy, L TIB/FIB FX Alcohol Use: None Drug Use: None Adult General Chief Complaint Chief Complaint: LOWER EXTREMITY SWELLING HPI HPI Patient is a 58 year old right lower extremity pain and swelling for the past several days. Patient is concerned that she may have been bitten by insects were rats. Patient was seen at an urgent care facility that does not have ultrasound capability nor laboratory capability so she was sent to the emergency department. She denies any fevers. Denies any drainage. Notes that there is some redness. No relief with topical antibiotic creams. Nothing seems to make the discomfort better or worse. She describes it as a burning sensation. [] Review of Systems Review of Systems Constitutional: Denies fever or chills [] Eyes: Denies change in visual acuity, redness, or eye pain [] HENT: Denies nasal congestion or sore throat [] Respiratory: Denies cough or shortness of breath [] Cardiovascular: No chest pain or palpitations[] GI: Denies abdominal pain, nausea, vomiting, bloody stools or diarrhea [] : Denies dysuria or hematuria [] Musculoskeletal: Denies back pain or joint pain [] Integument: Denies rash or skin lesions [] Neurologic: Denies headache, focal weakness or sensory changes [] Endocrine: Denies polyuria or polydipsia [] All other systems were reviewed and found to be within normal limits, except as documented in this note. Current Medications Current Medications Current Medications Medications (Trade) Dose Ordered Sig/Ren Start Time Stop Time Status Last Admin Dose Admin Ketorolac Tromethamine (Toradol 15mg Vial) 15 mg 1X ONCE 07/14/18 14:15 07/14/18 14:20 DC 07/14/18 14:33 15 MG Allergies Allergies Allergies Coded Allergies Type Severity Reaction Last Updated Verified Sulfa (Sulfonamide Antibiotics) Allergy Intermediate 07/28/17 Yes lisinopril Allergy Intermediate 01/05/16 Yes metoclopramide Allergy Intermediate 01/05/16 Yes pantoprazole Allergy Intermediate 07/28/17 Yes Physical Exam Physical Exam Constitutional: Well developed, well nourished, no acute distress, non-toxic appearance. [] HENT: Normocephalic, atraumatic, bilateral external ears normal, oropharynx moist, no oral exudates, nose normal. [] Eyes: PERRLA, EOMI, conjunctiva normal, no discharge. [] Neck: Normal range of motion, no tenderness, supple, no stridor. [] Cardiovascular:Heart rate regular rhythm, no murmur [] Lungs & Thorax: Bilateral breath sounds clear to auscultation [] Abdomen: Bowel sounds normal, soft, no tenderness, no masses, no pulsatile masses. [] Skin: Warm, dry, questionable erythema in an female of her right lower extremity, no rash. [] Back: No tenderness, no CVA tenderness. [] Extremities: No tenderness, no cyanosis, no clubbing, ROM intact, no edema. [] Neurologic: Alert and oriented X 3, normal motor function, normal sensory function, no focal deficits noted. [] Psychologic: Affect normal, judgement normal, mood normal. [] Current Patient Data Vital Signs Vital Signs Date Time Temp Pulse Resp B/P (MAP) Pulse Ox O2 Delivery O2 Flow Rate FiO2 07/14/18 15:30 72 19 178/91 (120) 98 Room Air 07/14/18 13:50 98.3 98.3 Lab Values Laboratory Tests Test 07/14/18 14:35 White Blood Count 6.1 x10^3/uL (4.0-11.0) Red Blood Count 5.16 x10^6/uL (3.50-5.40) Hemoglobin 13.0 g/dL (12.0-15.5) Hematocrit 40.9 % (36.0-47.0) Mean Corpuscular Volume 79 fL (79-100) Mean Corpuscular Hemoglobin 25 pg (25-35) Mean Corpuscular Hemoglobin Concent 32 g/dL (31-37) Red Cell Distribution Width 15.3 % (11.5-14.5) H Platelet Count 294 x10^3/uL (140-400) Neutrophils (%) (Auto) 66 % (31-73) Lymphocytes (%) (Auto) 26 % (24-48) Monocytes (%) (Auto) 5 % (0-9) Eosinophils (%) (Auto) 2 % (0-3) Basophils (%) (Auto) 1 % (0-3) Neutrophils # (Auto) 4.0 x10^3uL (1.8-7.7) Lymphocytes # (Auto) 1.6 x10^3/uL (1.0-4.8) Monocytes # (Auto) 0.3 x10^3/uL (0.0-1.1) Eosinophils # (Auto) 0.1 x10^3/uL (0.0-0.7) Basophils # (Auto) 0.0 x10^3/uL (0.0-0.2) Prothrombin Time 13.3 SEC (11.7-14.0) Prothrombin Time INR 1.0 (0.8-1.1) Sodium Level 140 mmol/L (136-145) Potassium Level 3.9 mmol/L (3.5-5.1) Chloride Level 103 mmol/L (98-107) Carbon Dioxide Level 30 mmol/L (21-32) Anion Gap 7 (6-14) Blood Urea Nitrogen 12 mg/dL (7-20) Creatinine 1.0 mg/dL (0.6-1.0) Estimated GFR (Cockcroft-Gault) 69.1 BUN/Creatinine Ratio 12 (6-20) Glucose Level 275 mg/dL (70-99) H Calcium Level 9.5 mg/dL (8.5-10.1) Total Bilirubin 0.5 mg/dL (0.2-1.0) Aspartate Amino Transferase (AST) 17 U/L (15-37) Alanine Aminotransferase (ALT) 21 U/L (14-59) Alkaline Phosphatase 130 U/L (46-116) H Total Protein 8.3 g/dL (6.4-8.2) H Albumin 3.4 g/dL (3.4-5.0) Albumin/Globulin Ratio 0.7 (1.0-1.7) L Laboratory Tests 07/14/18 14:35 Laboratory Tests 07/14/18 14:35 EKG EKG [] Radiology/Procedures Radiology/Procedures [] Course & Med Decision Making Course & Med Decision Making Pertinent Labs and Imaging studies reviewed. (See chart for details) Medical decision making: There is no evidence of a DVT, patient's white count is normal, this may be a mild cellulitis. We'll cover her with oral outpatient antibiotics as well as discussion with regards to apply warm compresses. Is no evidence of congestive heart failure, phlegmasia cerulea dolens nor Alba dolens. D course: Patient arrived, was placed in bed, in tolerated exam well. She achieve some relief the discomfort with the medications administered. Patient was discharged after laboratory and imaging findings were discussed with her. All questions were answered. She was discharged in improved condition.[] Dragon Disclaimer Dragon Disclaimer This electronic medical record was generated, in whole or in part, using a voice recognition dictation system. Departure Departure Impression: Primary Impression: Cellulitis of right leg Disposition: HOME, SELF-CARE Condition: IMPROVED Referrals: DAWIT OWENS JR, MD (PCP) Follow-up in 2 days Patient Instructions: Cellulitis Additional Instructions: Follow-up with your regular doctor in 2 days. Apply warm compresses for 15 minutes at a time at least 4 times a day. Take the medication as prescribed. Return to the ER if worsening discomfort, you develop a fever of more than 101 , or any other concerns. Scripts Meloxicam (MELOXICAM) 7.5 Mg Tablet 7.5 MG PO DAILY, #20 TAB Prov: IAN LEONARD DO 07/14/18 Hydroxyzine Hcl (HYDROXYZINE HCL) 25 Mg Tablet 25 MG PO QID, #30 TAB Prov: IAN LEONARD DO 07/14/18 Clindamycin Hcl (CLINDAMYCIN HCL) 150 Mg Capsule 300 MG PO QID for 10 Days, #80 CAP Prov: IAN LEONARD DO 07/14/18 IAN LEONARD DO Jul 14, 2018 16:48
== END 2018-07-14 17:15 | disposition home or self-care (01) ==
LOC: ER 13:44
DX: L03.115 Cellulitis of right lower limb (principal); I10 Essential (primary) hypertension; K21.9 Gastro-esophageal reflux disease without esophagitis; E11.39 Type 2 diabetes mellitus with other diabetic ophthalmic complication; H40.9 Unspecified glaucoma; Z98.890 Other specified postprocedural states; Z88.2 Allergy status to sulfonamides; Z88.8 Allergy status to other drugs, medicaments and biological substances
CPT/HCPCS: 36415; 80053; 85025; 85610; 87040; 93971; 96374; 99284; J1885

== ENCOUNTER 2018-07-16 20:28 | Emergency (ER) | payer OTHER ==
[~2018-07-16 20:28] MED LIST changes: +CLIN150C14 PO; +HYDR25TA PO; +MELO7.5T29 PO
== END 2018-07-16 22:39 | disposition left against medical advice (07) ==
LOC: ER 20:28
DX: R19.7 Diarrhea, unspecified (principal); Z53.21 Procedure and treatment not carried out due to patient leaving prior to being seen by health care provider

== ENCOUNTER 2018-08-23 13:44 | Emergency (ER) | payer OTHER ==
[~2018-08-23] VITALS: Ht 154.9 cm; Wt 126.1 kg
[2018-08-23 13:52] VITALS: BP 127/72
--- NOTE | 2018-08-23 13:58 | PHYS DOC ---
Past Medical History Past Medical History: Bronchitis, Diabetes-Type II, GERD, Glaucoma, Hypertension, Other Additional Past Medical Histor: Seasonal allergies, hiatal hernia, LOW KIDNEY FUNCTION, headaches (BRENDAN BARNES APRN) Past Surgical History: , Other Additional Past Surgical Histo: BLADDER SLING; ablasion to uterus; right knee, L lumpectomy, L TIB/FIB FX (BRENDAN BARNES APRN) Alcohol Use: None Drug Use: None (BRENDAN BARNES APRN) Adult General Chief Complaint Chief Complaint: LOWER EXT PAIN HPI HPI Patient is a 58 year old female with history of diabetes, hypertension, who presents to the ED today complaining of scratch/bite to the right lower extremity, patient states she has moist living in her house and believes he scratched or bit her couple days ago. Patient states her leg feels warm. She states she has previous history of cellulitis from mice bites. (BRENDAN BARNES APRN) Review of Systems Review of Systems Constitutional: Denies fever or chills [] Eyes: Denies change in visual acuity, redness, or eye pain [] HENT: Denies nasal congestion or sore throat [] Respiratory: Denies cough or shortness of breath [] Cardiovascular: No additional information not addressed in HPI [] GI: Denies abdominal pain, nausea, vomiting, bloody stools or diarrhea [] : Denies dysuria or hematuria [] Musculoskeletal: Denies back pain or joint pain [] Integument: Right lower extremity bite/scratch, swelling. Neurologic: Denies headache, focal weakness or sensory changes [] Endocrine: Denies polyuria or polydipsia [] All other systems were reviewed and found to be within normal limits, except as documented in this note. (BRENDAN BARNES APRN) Allergies Allergies Allergies Coded Allergies Type Severity Reaction Last Updated Verified Sulfa (Sulfonamide Antibiotics) Allergy Intermediate 07/28/17 Yes lisinopril Allergy Intermediate 01/05/16 Yes metoclopramide Allergy Intermediate 01/05/16 Yes pantoprazole Allergy Intermediate 07/28/17 Yes (NICOLE CARDENAS DO) Physical Exam Physical Exam Constitutional: Well developed, well nourished, no acute distress, non-toxic appearance. [] HENT: Normocephalic, atraumatic, bilateral external ears normal, oropharynx moist, no oral exudates, nose normal. [] Eyes: PERRLA, EOMI, conjunctiva normal, no discharge. [] Neck: Normal range of motion, no tenderness, supple, no stridor. [] Cardiovascular:Heart rate regular rhythm, no murmur [] Lungs & Thorax: Bilateral breath sounds clear to auscultation [] Abdomen: Bowel sounds normal, soft, no tenderness, no masses, no pulsatile masses. [] Skin: Warm, dry, no erythema, no rash. [] Back: No tenderness, no CVA tenderness. [] Extremities: Obese patient. Chronically edematous BLE. NO redness, no scratches , negative Homans sign bilaterally. Neurologic: Alert and oriented X 3, normal motor function, normal sensory function, no focal deficits noted. [] Psychologic: Affect normal, judgement normal, mood normal. [] (BRENDAN BARNES APRN) Current Patient Data Vital Signs Vital Signs Date Time Temp Pulse Resp B/P (MAP) Pulse Ox O2 Delivery O2 Flow Rate FiO2 08/23/18 13:52 97.9 82 18 127/72 (90) 97 Room Air 97.9 (NICOLE CARDENAS DO) EKG EKG [] (BRENDAN BARNES APRN) Radiology/Procedures Radiology/Procedures [] (BRENDAN BARNES APRN) Course & Med Decision Making Course & Med Decision Making Pertinent Labs and Imaging studies reviewed. (See chart for details) This is a 58 year old female presenting to the Ed with complaints of mice/rat scratch, patient is obese, no obvious scratches noted. She has history of cellulitis. We have seen her in the ED with this similar complaint of multiple times. Venous Doppler of the right lower extremity is negative. We put her on clindamycin. Tetanus is up-to-date. Talked to her to consider cleaning up the house to get rid of the right mice and rats. (BRENDAN BARNES APRN) Dragon Disclaimer Dragon Disclaimer This electronic medical record was generated, in whole or in part, using a voice recognition dictation system. (BRENDAN BARNES APRN) Departure Departure Impression: Primary Impression: Animal bite Disposition: 01 HOME, SELF-CARE Condition: STABLE Referrals: DAWIT OWENS JR, MD (PCP) follow with your doctor in 2 weeks Patient Instructions: Animal Bite, [id number] Additional Instructions: Please consider cleaning your house to get rid of mice/rats, complete your antibiotics. Scripts Clindamycin Hcl (CLINDAMYCIN HCL) 150 Mg Capsule 3 CAP PO TID, #90 CAP Prov: BRENDAN BARNES APRN 08/23/18 Attending Signature Attending Signature I have reviewed the PA/GRAPHIC USER INTERFACE DESIGNER's note and plan of care. I was available for consultation as needed during the patient's visit in the emergency department. I agree with the clinical impression, plan, and disposition. (NICOLE CARDENAS DO) BRENDAN BARNES APRN Aug 23, 2018 13:58 NICOLE CARDENAS DO Aug 24, 2018 10:39
--- NOTE | 2018-08-23 14:58 | RAD ---
Right leg venous Doppler study: Clinical indications: Right leg swelling and pain from a rodent bite. Findings: Duplex sonography (including jensen scale evaluation and color flow and waveform spectral analysis) of the proximal aspect of the greater saphenous vein and proximal aspect of the profunda femoral vein and the entire length of the common femoral and superficial femoral and popliteal veins and the tibioperoneal trunk and the proximal aspect of the posterior tibial and peroneal veins of the right leg was performed. Normal compressibility, augmentation of color Doppler flow after calf compression, and respiratory variation of Doppler flow is seen. Thus, there are no sonographic findings of deep venous thrombosis within these veins. Impression: There are no sonographic findings of deep venous thrombosis within the veins discussed above of the right lower extremity. Electronically signed by: Olivier Brian MD (08/23/2018 2:55 PM) [id number]
[2018-08-23] MEDS ORDERED: CLIN150C14 PO (15:15)
== END 2018-08-23 15:25 | disposition home or self-care (01) ==
LOC: ER 13:44
DX: S80.871A Other superficial bite, right lower leg, initial encounter (principal); S80.811A Abrasion, right lower leg, initial encounter; E11.39 Type 2 diabetes mellitus with other diabetic ophthalmic complication; H42 Glaucoma in diseases classified elsewhere; E66.9 Obesity, unspecified; K21.9 Gastro-esophageal reflux disease without esophagitis; I10 Essential (primary) hypertension; Z98.890 Other specified postprocedural states; Z88.2 Allergy status to sulfonamides; Z88.8 Allergy status to other drugs, medicaments and biological substances; W53.11XA Bitten by rat, initial encounter; Y93.89 Activity, other specified; Y92.89 Other specified places as the place of occurrence of the external cause; Y99.8 Other external cause status
CPT/HCPCS: 93971; 99284-25

== ENCOUNTER 2018-09-11 04:38 | Emergency (ER) | payer OTHER ==
[~2018-09-11] VITALS: Ht 152.4 cm; Wt 126.1 kg
[2018-09-11 05:53] LABS: BASO % 1 % (0-3); EOS # 0.1 x10^3/uL (0.0-0.7); EOS % 2 % (0-3); HEMATOCRIT 34.8 % (36.0-47.0); HEMOGLOBIN 11.3 g/dL (12.0-15.5); LYMPH # 1.9 x10^3/uL (1.0-4.8); LYMPH % 31 % (24-48); MEAN CORPUSCULAR HEMOGLOBIN 26 pg (25-35); MEAN CORPUSCULAR HGB CONC 32 g/dL (31-37); MEAN CORPUSCULAR VOLUME 80 fL (79-100); MONO # 0.5 x10^3/uL (0.0-1.1); MONO % 9 % (0-9); NEUT # 3.5 x10^3uL (1.8-7.7); NEUT % 58 % (31-73); PLATELET COUNT 280 x10^3/uL (140-400); RED BLOOD COUNT 4.35 x10^6/uL (3.50-5.40); RED CELL DISTRIBUTION WIDTH 15.2 % (11.5-14.5); WHITE BLOOD COUNT 6.1 x10^3/uL (4.0-11.0)
--- NOTE | 2018-09-11 05:57 | PHYS DOC ---
Past Medical History Past Medical History: Bronchitis, Diabetes-Type II, GERD, Glaucoma, Hypertension, Other Additional Past Medical Histor: Seasonal allergies, hiatal hernia, LOW KIDNEY FUNCTION, headaches (MARC OH MD) Past Surgical History: , Other Additional Past Surgical Histo: BLADDER SLING; ablasion to uterus; right knee, L lumpectomy, L TIB/FIB FX (MARC OH MD) Alcohol Use: None Drug Use: None (MARC OH MD) Adult General Chief Complaint Chief Complaint: LOWER EXTREMITY EDEMA HPI HPI Patient is a 58 year old f p/w leg swelling. onset a few days. thinks got bit by a mouse some itchiness no chest pain or shortness of breath also felt soem swelling to the trapezius muscle on the left. no fever was on clindamycin in august but did not comlpete the course (MARC OH MD) Review of Systems Review of Systems Constitutional: Denies fever or chills [] Eyes: Denies change in visual acuity, redness, or eye pain [] HENT: Denies nasal congestion or sore throat [] Respiratory: Denies cough or shortness of breath [] Cardiovascular: No additional information not addressed in HPI [] GI: Denies abdominal pain, nausea, vomiting, bloody stools or diarrhea [] : Denies dysuria or hematuria [] Musculoskeletal: Denies back pain or joint pain [] Integument: Denies rash or skin lesions [] Neurologic: Denies headache, focal weakness or sensory changes [] Endocrine: Denies polyuria or polydipsia [] All other systems were reviewed and found to be within normal limits, except as documented in this note. (MARC OH MD) Allergies Allergies Allergies Coded Allergies Type Severity Reaction Last Updated Verified Sulfa (Sulfonamide Antibiotics) Allergy Intermediate 07/28/17 Yes lisinopril Allergy Intermediate 01/05/16 Yes metoclopramide Allergy Intermediate 01/05/16 Yes pantoprazole Allergy Intermediate 07/28/17 Yes (GO DUFFY MD) Physical Exam Physical Exam Constitutional: Well developed, obese, no acute distress, non-toxic appearance. [] HENT: Normocephalic, atraumatic, bilateral external ears normal, oropharynx moist, no oral exudates, nose normal. [] Eyes: PERRLA, EOMI, conjunctiva normal, no discharge. [] Neck: Normal range of motion, no tenderness, supple, no stridor. [] Cardiovascular:Heart rate regular rhythm, no murmur [] Lungs & Thorax: decreased braeth sounds at both bases Abdomen: Bowel sounds normal, soft, no tenderness, no masses, no pulsatile masses. [] Skin: mild erythema noted to the anterior peter Extremities: moderate swelling noted to the left lower ext greater than right. Neurologic: Alert and oriented X 3, normal motor function, normal sensory function, no focal deficits noted. [] Psychologic: Affect normal, judgement normal, mood normal. [] (MARC OH MD) Current Patient Data Vital Signs Vital Signs Date Time Temp Pulse Resp B/P (MAP) Pulse Ox O2 Delivery O2 Flow Rate FiO2 09/11/18 06:15 70 25 141/69 (93) 95 Room Air 09/11/18 04:55 98.0 98.0 (GO DUFFY MD) Lab Values Laboratory Tests Test 09/11/18 05:35 09/11/18 06:10 White Blood Count 6.1 x10^3/uL (4.0-11.0) Red Blood Count 4.35 x10^6/uL (3.50-5.40) Hemoglobin 11.3 g/dL (12.0-15.5) L Hematocrit 34.8 % (36.0-47.0) L Mean Corpuscular Volume 80 fL (79-100) Mean Corpuscular Hemoglobin 26 pg (25-35) Mean Corpuscular Hemoglobin Concent 32 g/dL (31-37) Red Cell Distribution Width 15.2 % (11.5-14.5) H Platelet Count 280 x10^3/uL (140-400) Neutrophils (%) (Auto) 58 % (31-73) Lymphocytes (%) (Auto) 31 % (24-48) Monocytes (%) (Auto) 9 % (0-9) Eosinophils (%) (Auto) 2 % (0-3) Basophils (%) (Auto) 1 % (0-3) Neutrophils # (Auto) 3.5 x10^3uL (1.8-7.7) Lymphocytes # (Auto) 1.9 x10^3/uL (1.0-4.8) Monocytes # (Auto) 0.5 x10^3/uL (0.0-1.1) Eosinophils # (Auto) 0.1 x10^3/uL (0.0-0.7) Basophils # (Auto) 0.0 x10^3/uL (0.0-0.2) Sodium Level 141 mmol/L (136-145) Potassium Level 3.8 mmol/L (3.5-5.1) Chloride Level 105 mmol/L (98-107) Carbon Dioxide Level 27 mmol/L (21-32) Anion Gap 9 (6-14) Blood Urea Nitrogen 19 mg/dL (7-20) Creatinine 1.2 mg/dL (0.6-1.0) H Estimated GFR (Cockcroft-Gault) 56.0 BUN/Creatinine Ratio 16 (6-20) Glucose Level 136 mg/dL (70-99) H Calcium Level 9.4 mg/dL (8.5-10.1) Total Bilirubin 0.3 mg/dL (0.2-1.0) Aspartate Amino Transferase (AST) 15 U/L (15-37) Alanine Aminotransferase (ALT) 19 U/L (14-59) Alkaline Phosphatase 120 U/L (46-116) H Troponin I Quantitative < 0.017 ng/mL (0.000-0.055) PQ-Pvg-J-Type Natriuretic Peptide 25 pg/mL (0-124) Total Protein 7.8 g/dL (6.4-8.2) Albumin 3.4 g/dL (3.4-5.0) Albumin/Globulin Ratio 0.8 (1.0-1.7) L Laboratory Tests 09/11/18 05:35 Laboratory Tests 09/11/18 06:10 (GO DUFFY MD) Lab Values Laboratory Tests Test 09/11/18 05:35 09/11/18 06:10 White Blood Count 6.1 x10^3/uL (4.0-11.0) Red Blood Count 4.35 x10^6/uL (3.50-5.40) Hemoglobin 11.3 g/dL (12.0-15.5) L Hematocrit 34.8 % (36.0-47.0) L Mean Corpuscular Volume 80 fL (79-100) Mean Corpuscular Hemoglobin 26 pg (25-35) Mean Corpuscular Hemoglobin Concent 32 g/dL (31-37) Red Cell Distribution Width 15.2 % (11.5-14.5) H Platelet Count 280 x10^3/uL (140-400) Neutrophils (%) (Auto) 58 % (31-73) Lymphocytes (%) (Auto) 31 % (24-48) Monocytes (%) (Auto) 9 % (0-9) Eosinophils (%) (Auto) 2 % (0-3) Basophils (%) (Auto) 1 % (0-3) Neutrophils # (Auto) 3.5 x10^3uL (1.8-7.7) Lymphocytes # (Auto) 1.9 x10^3/uL (1.0-4.8) Monocytes # (Auto) 0.5 x10^3/uL (0.0-1.1) Eosinophils # (Auto) 0.1 x10^3/uL (0.0-0.7) Basophils # (Auto) 0.0 x10^3/uL (0.0-0.2) Sodium Level 141 mmol/L (136-145) Potassium Level 3.8 mmol/L (3.5-5.1) Chloride Level 105 mmol/L (98-107) Carbon Dioxide Level 27 mmol/L (21-32) Anion Gap 9 (6-14) Blood Urea Nitrogen 19 mg/dL (7-20) Creatinine 1.2 mg/dL (0.6-1.0) H Estimated GFR (Cockcroft-Gault) 56.0 BUN/Creatinine Ratio 16 (6-20) Glucose Level 136 mg/dL (70-99) H Calcium Level 9.4 mg/dL (8.5-10.1) Total Bilirubin 0.3 mg/dL (0.2-1.0) Aspartate Amino Transferase (AST) 15 U/L (15-37) Alanine Aminotransferase (ALT) 19 U/L (14-59) Alkaline Phosphatase 120 U/L (46-116) H Troponin I Quantitative < 0.017 ng/mL (0.000-0.055) ST-Opb-E-Type Natriuretic Peptide 25 pg/mL (0-124) Total Protein 7.8 g/dL (6.4-8.2) Albumin 3.4 g/dL (3.4-5.0) Albumin/Globulin Ratio 0.8 (1.0-1.7) L Laboratory Tests 09/11/18 05:35 Laboratory Tests 09/11/18 06:10 (MARC OH MD) EKG EKG []nsr rate72 no acute ischemic changes noted (MARC OH MD) Radiology/Procedures Radiology/Procedures [] (MARC OH MD) Radiology/Procedures [facility] [address] [place] [address] IMAGING REPORT Signed PATIENT: RUSLAN CALERO ACCOUNT: [id number] : 1960 LOCATION: ER AGE: 58 SEX: F EXAM STATUS: REG ER ORD. PHYSICIAN: MARC OH MD REASON: swelling PROCEDURE: VENOUS LOWER EXTREMITY LEFT Examination: Left Extremity Venous Doppler Ultrasound History: Lower extremity swelling Comparison: None Procedure: Paredes scale, color flow 2D and spectal waveform analysis images are obtained with and without compression in the area of the common femoral vein, superficial femoral vein - femoral vein junction, main femoral vein (superficial femoral vein) and popliteal vein. Veins of the proximal calf are also imaged. Findings: There is normal duplex flow, color flow and compressibility of all visualized vein segments. No evidence of deep venous thrombus is present. Soft tissue edema identified in the left lower leg. Limited visualization of the posterior tibialis vein and peroneal vein due to patient body habitus. Impression: No evidence of DVT in the visualized left lower extremity venous system. Electronically signed by: Ascencion Viveros MD (09/11/2018 6:34 AM) [facility] DICTATED and SIGNED BY: ASCENCION VIVEROS MD DATE: 09/11/18633 (GO DUFFY MD) Course & Med Decision Making Course & Med Decision Making Pertinent Labs and Imaging studies reviewed. (See chart for details) []58 yo f multiple medical problems p/w left greater than right swelling of lower ext ddx mild cellulitis (incomlete clindamycin course in august) v. dvt u/s , labs, cxr pending. reported some mild left upper shoulder area swelling but no obvious deformity identified there s/o to karen pending above workup (MARC OH MD) Course & Med Decision Making Patient had unremarkable labs except for creatinine of 1.2 and mild elevation of blood sugar with history of diabetes. Ultrasound of lower extremity did not show sign of DVT. Patient informed about this result and plan to discharge her home with diagnose of left lower extremity cellulitis and prescription of Augmentin. I've spoken with the patient and/or caregivers. I've explained the patient's condition, diagnosis and treatment plan based on information available to me at this time. I've answered the patient's and/or caregivers questions and addressed any concerns. The patient and/or caregivers have a good understanding the patient's diagnosis, condition and treatment plan as can be expected at this point. Vital signs have been stabilized. The patient's condition is stable for discharge from the emergency department. The patient will pursue further outpatient evaluation with her primary care provider or other designated consulting physician as outlined in the discharge instructions. Patient and/or caregivers are agreeable to this plan of care and follow-up instructions have been explained in detail. The patient and/or caregivers have received these instructions in written format and expressed understanding of these discharge instructions. The patient and her caregivers are aware that if any significant change in condition or worsening of symptoms should prompt him to immediately return to this of the closest emergency department. If an emergent department is not readily available I would encourage him to call 911. (GO DUFFY MD) Dragon Disclaimer Dragon Disclaimer This electronic medical record was generated, in whole or in part, using a voice recognition dictation system. (MARC OH MD) Departure Departure Impression: Primary Impression: Lower extremity cellulitis Disposition: HOME, SELF-CARE (at 0656) Condition: STABLE Referrals: DAWIT OWENS JR, MD (PCP) Patient Instructions: Cellulitis Additional Instructions: Drink plenty of liquids Follow-up with your primary care physician in 3-5 days Return to ER if not getting better Scripts [Percogesic] No Conflict Check 1 TAB PO QID PRN for PAIN, #10 TAB Prov: GO DUFFY MD 09/11/18 Amoxicillin/Potassium Clav (AUGMENTIN 875-125 TABLET) 1 Each Tablet 1 TAB PO Q12HR, #20 TAB Prov: GO DUFFY MD 09/11/18 MARC OH MD September 11, 2018 05:57 GO DUFFY MD September 11, 2018 06:58
[2018-09-11 06:15] VITALS: BP 141/69
[2018-09-11 06:33] LABS: CALCIUM 9.4 mg/dL (8.5-10.1); CREATININE 1.2 mg/dL (0.6-1.0); POTASSIUM 3.8 mmol/L (3.5-5.1)
--- NOTE | 2018-09-11 06:35 | EKG ---
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
--- NOTE | 2018-09-11 06:37 | RAD ---
Examination: Left Extremity Venous Doppler Ultrasound History: Lower extremity swelling Comparison: None Procedure: Paredes scale, color flow 2D and spectal waveform analysis images are obtained with and without compression in the area of the common femoral vein, superficial femoral vein - femoral vein junction, main femoral vein (superficial femoral vein) and popliteal vein. Veins of the proximal calf are also imaged. Findings: There is normal duplex flow, color flow and compressibility of all visualized vein segments. No evidence of deep venous thrombus is present. Soft tissue edema identified in the left lower leg. Limited visualization of the posterior tibialis vein and peroneal vein due to patient body habitus. Impression: No evidence of DVT in the visualized left lower extremity venous system. Electronically signed by: Ascencion West MD (09/11/2018 6:34 AM) [facility]
[2018-09-11 06:39] LABS: ALBUMIN 3.4 g/dL (3.4-5.0); ALBUMIN/GLOBULIN RATIO 0.8 (1.0-1.7); TOTAL BILIRUBIN 0.3 mg/dL (0.2-1.0); TOTAL PROTEIN 7.8 g/dL (6.4-8.2)
[2018-09-11] MEDS ORDERED: Percogesic PO (06:58)
[2018-09-11] MEDS ORDERED: AMOX1TAB61 PO (06:58)
[2018-09-11] MEDS ORDERED: ACETAMINOPHEN 500 MG TABLET PO ONE (07:00)
--- NOTE | 2018-09-11 07:50 | RAD ---
Portable chest, 09/11/2018: HISTORY: Leg swelling Comparison is made to a study from 08/28/2017. The depth of inspiration is suboptimal. The heart is enlarged. No pulmonary infiltrate is seen. There is no evidence of pleural fluid. IMPRESSION: 1. Cardiomegaly. 2. No acute infiltrates. Electronically signed by: Dex Casey MD (09/11/2018 7:47 AM) [facility]
== END 2018-09-11 07:25 | disposition home or self-care (01) ==
LOC: ER 04:38
DX: L03.116 Cellulitis of left lower limb (principal); I51.7 Cardiomegaly; E11.39 Type 2 diabetes mellitus with other diabetic ophthalmic complication; H40.9 Unspecified glaucoma; K21.9 Gastro-esophageal reflux disease without esophagitis; I10 Essential (primary) hypertension; Z88.2 Allergy status to sulfonamides; Z88.8 Allergy status to other drugs, medicaments and biological substances
CPT/HCPCS: 36415; 71045; 80053; 83880; 84484; 85025; 93005; 93971; 99285-25

== ENCOUNTER → 2019-01-10 | Outpatient (CLI) | payer OTHER ==
[~2019-01-10] MED LIST changes: +AMOX1TAB61 PO; +Percogesic PO
--- NOTE | 2019-01-10 16:53 | RAD ---
DATE: 01/10/2019 EXAM: DIGITAL SCREEN BILAT W/CAD HISTORY: Asymptomatic screening mammogram COMPARISON: 11/28/2017 08/25/2016 This study was interpreted with the benefit of Computerized Aided Detection (CAD). Breast Density: FATTY The breast parenchyma is primarily fatty replaced. Breast parenchyma level density A. FINDINGS: 2-D CC and MLO views are provided. Right breast: There are no suspicious microcalcifications, masses or areas of architectural distortion. Left breast: There are no suspicious microcalcifications, masses or areas of architectural distortion. Bilateral mammograms compared to prior examinations and appears unchanged. IMPRESSION: Negative bilateral mammogram. BI-RADS CATEGORY: 1 NEGATIVE RECOMMENDED FOLLOW-UP: 12M 12 MONTH FOLLOW-UP PQRS compliance statement: Patient information was entered into a reminder system with a target due date 01/11/2020 for the next mammogram. Mammography is a sensitive method for finding small breast cancers, but it does not detect them all and is not a substitute for careful clinical examination. A negative mammogram does not negate a clinically suspicious finding and should not result in delay in biopsying a clinically suspicious abnormality. "Our facility is accredited by the [employer] [place] Mammography Program."
== END | disposition home or self-care (01) ==
LOC: MAMMO 11:23
PROVIDERS: ATTEND Family Medicine
DX: N64.89 Other specified disorders of breast (principal); Z12.31 Encounter for screening mammogram for malignant neoplasm of breast
CPT/HCPCS: 77067

== ENCOUNTER 2019-03-16 20:38 | Emergency (ER) | payer OTHER ==
[~2019-03-16] VITALS: Ht 152.4 cm; Wt 127.0 kg
[~2019-03-16 20:38] MED LIST changes: +OXYB5TAB10 PO; -OXYB5TAB7 PO
--- NOTE | 2019-03-16 21:16 | PHYS DOC ---
Past Medical History Past Medical History: Bronchitis, Diabetes-Type II, GERD, Glaucoma, Hypertension, Other Additional Past Medical Histor: Seasonal allergies, hiatal hernia, LOW KIDNEY FUNCTION, headaches Past Surgical History: , Other Additional Past Surgical Histo: BLADDER SLING; ablasion to uterus; right knee, L lumpectomy, L TIB/FIB FX Alcohol Use: None Drug Use: None Adult General Chief Complaint Chief Complaint: HYPERTENSION HPI HPI 59-year-old female presents emergency Department complaints of hypertension. Patient states she took her coreg at a different time than usual. She is currently on clonidine patch as well. She presents to the ER secondary to blood pressure systolically in the 200s. She describes right shoulder swelling however no injury. Patient denies chest pain, SOB, nausea, vomiting, headache or visual changes. Nothing makes her BP worse, nothing makes it better. She was told by her PCP to come to the ER for further evaluation. Review of Systems Review of Systems Constitutional: Denies fever or chills [] Respiratory: Denies cough or shortness of breath [] Cardiovascular: No additional information not addressed in HPI [] GI: Denies abdominal pain, nausea, vomiting, bloody stools or diarrhea [] : Denies dysuria or hematuria [] Integument: Denies rash or skin lesions [] Neurologic: Denies headache, focal weakness or sensory changes [] All other systems were reviewed and found to be within normal limits, except as documented in this note. Current Medications Current Medications Current Medications Medications (Trade) Dose Ordered Sig/Ren Start Time Stop Time Status Last Admin Dose Admin Hydralazine HCl (Apresoline Inj) 10 mg 1X ONCE 03/16/19 21:45 03/16/19 21:46 DC 03/16/19 21:37 10 MG Allergies Allergies Allergies Coded Allergies Type Severity Reaction Last Updated Verified Sulfa (Sulfonamide Antibiotics) Allergy Intermediate 07/28/17 Yes lisinopril Allergy Intermediate 01/05/16 Yes metoclopramide Allergy Intermediate 01/05/16 Yes pantoprazole Allergy Intermediate 07/28/17 Yes Physical Exam Physical Exam Constitutional: Well developed, well nourished, no acute distress, non-toxic appearance. [] HENT: Normocephalic, atraumatic, bilateral external ears normal, oropharynx moist, no oral exudates, nose normal. [] Eyes: PERRLA, EOMI, conjunctiva normal, no discharge. [] Neck: Normal range of motion, no tenderness, supple, no stridor. [] Cardiovascular:Heart rate regular rhythm, no murmur [] Lungs & Thorax: Bilateral breath sounds clear to auscultation [] Abdomen: Bowel sounds normal, soft, no tenderness, no masses, no pulsatile masses. [] Skin: Warm, dry, no erythema, no rash. [] Back: No tenderness, no CVA tenderness. [] Extremities: No tenderness, no cyanosis, no clubbing, ROM intact, no edema. [] Neurologic: Alert and oriented X 3, no focal deficits noted. [] Psychologic: Affect normal, judgement normal, mood normal. [] Current Patient Data Vital Signs Vital Signs Date Time Temp Pulse Resp B/P (MAP) Pulse Ox O2 Delivery O2 Flow Rate FiO2 03/16/19 21:37 66 187/83 03/16/19 20:58 98.1 20 97 Room Air 98.1 Lab Values Laboratory Tests Test 03/16/19 20:48 03/16/19 21:20 Urine Collection Type Unknown Urine Color Yellow Urine Clarity Cloudy Urine pH 6.5 Urine Specific [place] 1.020 Urine Protein Negative mg/dL (NEG-TRACE) Urine Glucose (UA) Negative mg/dL (NEG) Urine Ketones (Stick) Negative mg/dL (NEG) Urine Blood Negative (NEG) Urine Nitrite Negative (NEG) Urine Bilirubin Negative (NEG) Urine Urobilinogen Dipstick 0.2 mg/dL (0.2 mg/dL) Urine Leukocyte Esterase Negative (NEG) Urine RBC 0 /HPF (0-2) Urine WBC 0 /HPF (0-4) Urine Squamous Epithelial Cells Mod /LPF Urine Bacteria Many /HPF (0-FEW) Urine Mucus Mod /LPF White Blood Count 7.6 x10^3/uL (4.0-11.0) Red Blood Count 4.91 x10^6/uL (3.50-5.40) Hemoglobin 12.5 g/dL (12.0-15.5) Hematocrit 38.5 % (36.0-47.0) Mean Corpuscular Volume 79 fL (79-100) Mean Corpuscular Hemoglobin 26 pg (25-35) Mean Corpuscular Hemoglobin Concent 33 g/dL (31-37) Red Cell Distribution Width 15.9 % (11.5-14.5) H Platelet Count 280 x10^3/uL (140-400) Neutrophils (%) (Auto) 51 % (31-73) Lymphocytes (%) (Auto) 36 % (24-48) Monocytes (%) (Auto) 9 % (0-9) Eosinophils (%) (Auto) 3 % (0-3) Basophils (%) (Auto) 1 % (0-3) Neutrophils # (Auto) 3.9 x10^3/uL (1.8-7.7) Lymphocytes # (Auto) 2.8 x10^3/uL (1.0-4.8) Monocytes # (Auto) 0.7 x10^3/uL (0.0-1.1) Eosinophils # (Auto) 0.2 x10^3/uL (0.0-0.7) Basophils # (Auto) 0.1 x10^3/uL (0.0-0.2) Sodium Level 138 mmol/L (136-145) Potassium Level 4.3 mmol/L (3.5-5.1) Chloride Level 103 mmol/L (98-107) Carbon Dioxide Level 28 mmol/L (21-32) Anion Gap 7 (6-14) Blood Urea Nitrogen 18 mg/dL (7-20) Creatinine 1.0 mg/dL (0.6-1.0) Estimated GFR (Cockcroft-Gault) 68.9 BUN/Creatinine Ratio 18 (6-20) Glucose Level 113 mg/dL (70-99) H Calcium Level 9.4 mg/dL (8.5-10.1) Total Bilirubin 0.3 mg/dL (0.2-1.0) Aspartate Amino Transferase (AST) 20 U/L (15-37) Alanine Aminotransferase (ALT) 20 U/L (14-59) Alkaline Phosphatase 130 U/L (46-116) H Total Protein 8.4 g/dL (6.4-8.2) H Albumin 3.5 g/dL (3.4-5.0) Albumin/Globulin Ratio 0.7 (1.0-1.7) L Laboratory Tests 03/16/19 21:20 Laboratory Tests 03/16/19 21:20 EKG EKG EKG reviewed, normal sinus rhythm, heart rate 74, left axis deviation no evidence of acute ST elevation MO appreciated nonurgent EKG interpreted by [id number][] Radiology/Procedures Radiology/Procedures [] Course & Med Decision Making Course & Med Decision Making Pertinent Labs and Imaging studies reviewed. (See chart for details) []59-year-old female presents emergency Department complaints of hypertension. Patient states she took her coreg at a different time than usual. She is currently on clonidine patch as well. She presents to the ER secondary to blood pressure systolically in the 200s. She describes right shoulder swelling however no injury. Patient denies chest pain, SOB, nausea, vomiting, headache or visual changes. Nothing makes her BP worse, nothing makes it better. She was told by her PCP to come to the ER for further evaluation. BP 200/100's upon arrival Hydralazine 10mg IVP x 1 - BP improved 187/83 Repeat Hydralazine 10mg IVP x 1 Plan dc home Abx for insect bite and mild cellulitis appreciated to posterior right leg - no systemic symptoms at this time Dragon Disclaimer Dragon Disclaimer This electronic medical record was generated, in whole or in part, using a voice recognition dictation system. Departure Departure Impression: Primary Impression: Hypertension Additional Impression: Insect bite Disposition: HOME, SELF-CARE Condition: IMPROVED Referrals: DAWIT OWENS JR, MD (PCP) Patient Instructions: Hypertension, Insect Bite Additional Instructions: Recommend follow up with PCP 3 - 5 days Return to the ER with worsening symptoms, intractable pain, fever, altered mental status Tylenol/Motrin as needed for pain Take antibiotics as directed Scripts Cephalexin (KEFLEX) 500 Mg Capsule 2 CAP PO Q12HR for 5 Days, #20 CAP Prov: PEBBLES THOMPSON MD 03/16/19 Problem Qualifiers Primary Impression: Hypertension Hypertension type: essential hypertension Qualified Codes: I10 - Essential (primary) hypertension Additional Impression: Insect bite Encounter type: initial encounter Site of insect bite: lower leg Laterality: right Qualified Codes: S80.861A - Insect bite (nonvenomous), right lower leg, initial encounter; W57.XXXA - Bitten or stung by nonvenomous insect and other nonvenomous arthropods, initial encounter PEBBLES THOMPSON MD Mar 16, 2019 21:15
[2019-03-16 21:28] LABS: BASO # 0.1 x10^3/uL (0.0-0.2); BASO % 1 % (0-3); EOS # 0.2 x10^3/uL (0.0-0.7); EOS % 3 % (0-3); HEMATOCRIT 38.5 % (36.0-47.0); HEMOGLOBIN 12.5 g/dL (12.0-15.5); LYMPH # 2.8 x10^3/uL (1.0-4.8); LYMPH % 36 % (24-48); MEAN CORPUSCULAR HEMOGLOBIN 26 pg (25-35); MEAN CORPUSCULAR HGB CONC 33 g/dL (31-37); MEAN CORPUSCULAR VOLUME 79 fL (79-100); MONO # 0.7 x10^3/uL (0.0-1.1); MONO % 9 % (0-9); NEUT # 3.9 x10^3/uL (1.8-7.7); NEUT % 51 % (31-73); PLATELET COUNT 280 x10^3/uL (140-400); RED BLOOD COUNT 4.91 x10^6/uL (3.50-5.40); RED CELL DISTRIBUTION WIDTH 15.9 % (11.5-14.5); WHITE BLOOD COUNT 7.6 x10^3/uL (4.0-11.0)
[2019-03-16 21:30] LABS: BILIRUBIN,URINE NEGATIVE (NEG); CLARITY,URINE CLOUDY; COLOR,URINE YELLOW; NITRITE,URINE NEGATIVE (NEG); PH,URINE 6.5; PROTEIN,URINE NEGATIVE (NEG-TRACE); UROBILINOGEN,URINE 0.2 mg/dL (0.2 mg/dL)
[2019-03-16 21:36] LABS: CALCIUM 9.4 mg/dL (8.5-10.1); GFR 68.9; POTASSIUM 4.3 mmol/L (3.5-5.1)
[2019-03-16 21:36] LABS: BACTERIA,URINE MANY /HPF (0-FEW); RBC,URINE 0 /HPF (0-2); SQUAMOUS EPITHELIAL CELL,UR MOD /LPF; WBC,URINE 0 /HPF (0-4)
[2019-03-16 21:42] LABS: ALBUMIN 3.5 g/dL (3.4-5.0); ALBUMIN/GLOBULIN RATIO 0.7 (1.0-1.7); TOTAL BILIRUBIN 0.3 mg/dL (0.2-1.0); TOTAL PROTEIN 8.4 g/dL (6.4-8.2)
[2019-03-16] MEDS ORDERED: hydrALAZINE 20 MG/ML VIAL. IVP ONE ×2 (21:45→22:15)
[2019-03-16] MEDS ORDERED: CEPH-264 PO (21:56)
[2019-03-16 22:11] VITALS: BP 170/77
--- NOTE | 2019-03-17 04:32 | EKG ---
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
== END 2019-03-16 22:58 | disposition home or self-care (01) ==
LOC: ER 20:38
DX: S80.861A Insect bite (nonvenomous), right lower leg, initial encounter (principal); I10 Essential (primary) hypertension; E11.39 Type 2 diabetes mellitus with other diabetic ophthalmic complication; H40.9 Unspecified glaucoma; K21.9 Gastro-esophageal reflux disease without esophagitis; Z88.2 Allergy status to sulfonamides; Z88.8 Allergy status to other drugs, medicaments and biological substances; W57.XXXA Bitten or stung by nonvenomous insect and other nonvenomous arthropods, initial encounter; Y93.89 Activity, other specified; Y92.89 Other specified places as the place of occurrence of the external cause; Y99.8 Other external cause status
CPT/HCPCS: 36415; 80053; 81001; 82962; 85025; 87086; 93005; 96374; 96376; 99285; J0360

== ENCOUNTER 2019-07-24 11:30 | Emergency (ER) | payer OTHER ==
[~2019-07-24] VITALS: Ht 154.9 cm; Wt 131.8 kg
[~2019-07-24 11:30] MED LIST changes: -POTA10TA12 PO; +POTASSIUM CHLO10 ME1 PO
[2019-07-24 12:09] VITALS: BP 185/77
[2019-07-24] MEDS ORDERED: NEOMY/BACITR/POLYMYXIN OINT PACKET. TP ONE (12:30)
[2019-07-24] MEDS ORDERED: CEPH-264 PO (12:33)
--- NOTE | 2019-07-24 12:34 | PHYS DOC ---
Past Medical History Past Medical History: Bronchitis, Diabetes-Type II, GERD, Glaucoma, Hyper tension, Other Additional Past Medical Histor: Seasonal allergies, hiatal hernia, LOW KIDNEY FUNCTION, headaches Past Surgical History: , Other Additional Past Surgical Histo: BLADDER SLING; ablasion to uterus; right knee, L TIB/FIB FX Smoking Status: Never Smoker Alcohol Use: None Drug Use: None Adult General Chief Complaint Chief Complaint: CELLULITIS HPI HPI Patient is a 59 year old female who presents with a small micro-abrasion that is on the posterior side of her right ankle. The patient states that she cut herself sometime the last several days and has been burning. The patient is concerned that she might develop cellulitis as she has had this in the past. Patient is afebrile on arrival and has no streaking or redness around the site. Patient does have a history of diabetes. Complete ROS were reviewed and found to be within normal limits, except as documented in the [facility] Allergies Allergies Allergies Coded Allergies Type Severity Reaction Last Updated Verified Sulfa (Sulfonamide Antibiotics) Allergy Intermediate 07/28/17 Yes lisinopril Allergy Intermediate 01/05/16 Yes metoclopramide Allergy Intermediate 01/05/16 Yes pantoprazole Allergy Intermediate 07/28/17 Yes Physical Exam Physical Exam Constitutional: Well developed, well nourished, no acute distress, non-toxic appearance. [] HENT: Normocephalic, atraumatic, bilateral external ears normal, oropharynx moist, no oral exudates, nose normal. [] Skin: small microabrasion posterior R ankle. No erythema or streaking. Neurologic: Alert and oriented X 3, normal motor function, normal sensory function, no focal deficits noted. [] Psychologic: Affect normal, judgement normal, mood normal. [] EKG EKG [] Radiology/Procedures Radiology/Procedures [] Course & Med Decision Making Course & Med Decision Making Pertinent Labs and Imaging studies reviewed. (See chart for details) Will place the patient prophylactically on Keflex. We will also have the nursing staff dressed the wound and put Neosporin on the wound. Dragon Disclaimer Dragon Disclaimer This electronic medical record was generated, in whole or in part, using a voice recognition dictation system. Departure Departure Impression: Primary Impression: Wound of left leg Disposition: 01 HOME, SELF-CARE Condition: STABLE Referrals: DAWIT OWENS JR, MD (PCP) Patient Instructions: Cellulitis Additional Instructions: Thank you for visiting [facility]. We appreciate you trusting us with your care. If any additional problems come up don't hesitate to return to visit us. Please follow up with your primary care provider so they can plan additional care if needed and know about the problem that you had. If symptoms worsen come back to the Emergency Department. Any concerning symptoms that start such as chest pain, shortness of air, weakness or numbness on one side of the body, running high fevers or any other concerning symptoms return to the ER. You have been prescribed an antibiotic today to help fight your infection. Please take all of the antibiotic as directed. If after 48 hours the infection is not improving, please return for more care. If the infection worsens, return to ER for additional care. Scripts Cephalexin (KEFLEX) 500 Mg Capsule 1 CAP PO QID for 5 Days, #20 CAP 0 Refills Prov: NICOLE ARCEO APRN 07/24/19 Problem Qualifiers Primary Impression: Wound of left leg Encounter type: initial encounter Qualified Codes: S81.802A - Unspecified open wound, left lower leg, initial encounter NICOLE ARCEO APRN Jul 24, 2019 12:34
== END 2019-07-24 13:10 | disposition home or self-care (01) ==
LOC: ER 11:30
DX: S90.512A Abrasion, left ankle, initial encounter (principal); K21.9 Gastro-esophageal reflux disease without esophagitis; I10 Essential (primary) hypertension; E11.39 Type 2 diabetes mellitus with other diabetic ophthalmic complication; H40.9 Unspecified glaucoma; Z98.890 Other specified postprocedural states; Z88.2 Allergy status to sulfonamides; Z88.8 Allergy status to other drugs, medicaments and biological substances; X78.8XXA Intentional self-harm by other sharp object, initial encounter; Y93.89 Activity, other specified; Y92.89 Other specified places as the place of occurrence of the external cause; Y99.8 Other external cause status
CPT/HCPCS: 99284

== ENCOUNTER 2019-09-16 13:35 | Emergency (ER) | payer OTHER ==
[~2019-09-16] VITALS: Ht 152.4 cm; Wt 131.0 kg
[2019-09-16 13:42] VITALS: BP 168/79
--- NOTE | 2019-09-16 14:14 | PHYS DOC ---
Past Medical History Past Medical History: Bronchitis, Diabetes-Type II, GERD, Glaucoma, Hyper tension, Other Additional Past Medical Histor: Seasonal allergies,hiatal hernia,LOW KIDNEY FUNCTION,H/A,CELLULITIS Past Surgical History: , Other Additional Past Surgical Histo: BLADDER SLING; ablasion to uterus; right knee, L TIB/FIB FX Smoking Status: Never Smoker Alcohol Use: None Drug Use: None General Adult EDM: Chief Complaint: HAND PROBLEM HPI: HPI: 59-year-old female presents with a variety of complaints most of which she says have improved throughout the day. She states today when she was sitting in a chair she felt some hand numbness. When she moved her arms to a different position that seemed to get better. She also said she had some right shoulder pain this morning which is now resolved she also had some nausea today which is also better. She denies any fever chills or sweats. [] Review of Systems: Review of Systems: Constitutional: Denies fever or chills. [] Eyes: Denies change in visual acuity. [] HENT: Denies nasal congestion or sore throat. [] Respiratory: Denies cough or shortness of breath. [] Cardiovascular: Denies chest pain or edema. [] GI: Per HPI [] : Denies dysuria. [] Musculoskeletal: Per HPI [] Integument: Denies rash. [] Neurologic: Per HPI [] Endocrine: Denies polyuria or polydipsia. [] Lymphatic: Denies swollen glands. [] Psychiatric: Denies depression or anxiety. [] Heart Score: Risk Factors: Risk Factors: DM, Current or recent (<one month) smoker, HTN, HLP, family history of CAD, obesity. Risk Scores: Score 0 - 3: 2.5% MACE over next 6 weeks - Discharge Home Score 4 - 6: 20.3% MACE over next 6 weeks - Admit for Clinical Observation Score 7 - 10: 72.7% MACE over next 6 weeks - Early Invasive Strategies Allergies: Allergies: Allergies Coded Allergies Type Severity Reaction Last Updated Verified Sulfa (Sulfonamide Antibiotics) Allergy Intermediate 07/28/17 Yes lisinopril Allergy Intermediate 01/05/16 Yes metoclopramide Allergy Intermediate 01/05/16 Yes pantoprazole Allergy Intermediate 07/28/17 Yes Physical Exam: PE: Constitutional: Well developed, well nourished, no acute distress, non-toxic appearance. [] HENT: Normocephalic, atraumatic, bilateral external ears normal, oropharynx moist, no oral exudates, nose normal. [] Eyes: PERRLA, EOMI, conjunctiva normal, no discharge. [] Neck: Normal range of motion, no tenderness, supple, no stridor. [] Cardiovascular:Heart rate regular rhythm, no murmur [] Lungs & Thorax: Bilateral breath sounds clear to auscultation [] Abdomen: Morbidly obese otherwise benign bowel sounds normal, soft, no tenderness, no masses, no pulsatile masses. [] Skin: Warm, dry, no erythema, no rash. [] Back: No tenderness, no CVA tenderness. [] Extremities: No tenderness, no cyanosis, no clubbing, ROM intact, no edema. [] Neurologic: Alert and oriented X 3, normal motor function, normal sensory function, no focal deficits noted. [] Psychologic: Depressed affect [] Current Patient Data: Vital Signs: Vital Signs Date Time Temp Pulse Resp B/P (MAP) Pulse Ox O2 Delivery O2 Flow Rate FiO2 09/16/19 13:42 98.2 87 18 168/79 (108) 99 Room Air 98.2 EKG: EKG: [] Radiology/Procedures: Radiology/Procedures: [] Course & Med Decision Making: Course & Med Decision Making Pertinent Labs and Imaging studies reviewed. (See chart for details) [] Dragon Disclaimer: Dragon Disclaimer: This electronic medical record was generated, in whole or in part, using a voice recognition dictation system. Departure Departure Impression: Primary Impression: Paresthesias Disposition: HOME, SELF-CARE Condition: STABLE Referrals: DAWIT OWENS JR, MD (PCP) Patient Instructions: Paresthesia Additional Instructions: You need to follow with your primary care physician this week for recheck. FAROOQ DELGADO DO September 16, 2019 14:14
== END 2019-09-16 14:28 | disposition home or self-care (01) ==
LOC: ER 13:35
DX: R20.0 Anesthesia of skin (principal); R20.2 Paresthesia of skin; M25.511 Pain in right shoulder; R11.0 Nausea; K21.9 Gastro-esophageal reflux disease without esophagitis; I10 Essential (primary) hypertension; J30.2 Other seasonal allergic rhinitis; Z98.890 Other specified postprocedural states; E11.39 Type 2 diabetes mellitus with other diabetic ophthalmic complication; E66.01 Morbid (severe) obesity due to excess calories; Z68.43 Body mass index [BMI] 50.0-59.9, adult; Z88.2 Allergy status to sulfonamides; Z88.8 Allergy status to other drugs, medicaments and biological substances
CPT/HCPCS: 99281

== ENCOUNTER 2020-03-09 20:57 | Inpatient (IN) | payer OTHER ==
[~2020-03-09] VITALS: Ht 152.4 cm; Wt 128.0 kg
[~2020-03-09 20:57] MED LIST changes: +AMLO-187 PO; -AMLO10TA8 PO
--- NOTE | 2020-03-09 21:28 | ED.ADGEN ---
Past Medical History Past Medical History: Bronchitis, Diabetes-Type II, GERD, Glaucoma, Hypertension, Other Additional Past Medical Histor: Seasonal allergies,hiatal hernia,LOW KIDNEY FUNCTION,H/A,CELLULITIS Past Surgical History: , Other Additional Past Surgical Histo: BLADDER SLING; ablasion to uterus; right knee, L TIB/FIB FX Smoking Status: Never Smoker Alcohol Use: None Drug Use: None General Adult EDM: Chief Complaint: SYNCOPE HPI: HPI: Patient is a 60 year old female brought in by EMS after syncopal episode. Patient states that she was feeling unwell and checked her blood sugar which was 73. Patient states her blood sugar usually runs in the 200-300's. Went to try to eat some food and was sitting there went to get up and thinks is when she syncopized. Says when she was on the floor she felt sweaty. Patient also states that she thinks she might had a heart attack 9 days ago but was not seen for it. Patient states she was having chest pain, back pain, jaw pain, right arm and finger tingling. She denies any chest pain at this time. Bit but did have pain in her back and right arm. Denies any prior history of AK, but had a scan that showed some plaques on some of her vessels.. Was alone unsure how long she was passed out. Denies any pain does not think she hit her head on anything. Review of Systems: Review of Systems: Constitutional: Denies fever or chills. [] But states she feels unwell and fatigued Eyes: Denies change in visual acuity. [] HENT: Denies nasal congestion or sore throat. [] Respiratory: Denies cough or shortness of breath. [] Cardiovascular: Denies chest pain or edema. [] GI: Denies abdominal pain, nausea, vomiting, bloody stools or diarrhea. [] : Denies dysuria. [] Musculoskeletal: Denies back pain or joint pain. [] Integument: Denies rash. [] Neurologic: Denies headache, focal weakness or sensory changes. [] Endocrine: Denies polyuria or polydipsia. [] Lymphatic: Denies swollen glands. [] Psychiatric: Denies depression or anxiety. [] Current Medications: Current Medications Medications (Trade) Dose Ordered Sig/Ren Start Time Stop Time Status Last Admin Dose Admin Info (CONTRAST GIVEN -- Rx MONITORING) 1 each PRN DAILY PRN 03/10/20 00:15 03/12/20 00:14 Iohexol (Omnipaque 350 Mg/ml) 75 ml 1X ONCE 03/10/20 00:15 03/10/20 00:16 DC 03/10/20 00:44 75 ML Allergies: Allergies: Allergies Coded Allergies Type Severity Reaction Last Updated Verified Sulfa (Sulfonamide Antibiotics) Allergy Intermediate 07/28/17 Yes lisinopril Allergy Intermediate 01/05/16 Yes metoclopramide Allergy Intermediate 01/05/16 Yes pantoprazole Allergy Intermediate 07/28/17 Yes Physical Exam: PE: Constitutional: Well developed, well nourished, no acute distress, non-toxic appearance. [] HENT: Normocephalic, atraumatic, bilateral external ears normal, oropharynx moist, no oral exudates, nose normal. [] Eyes: PERRLA, EOMI, conjunctiva normal, no discharge. [] Neck: Normal range of motion, no tenderness, supple, no stridor. [] Cardiovascular:Heart rate regular rhythm, no murmur [] Lungs & Thorax: Bilateral breath sounds clear to auscultation [] Abdomen: Bowel sounds normal, soft, no tenderness, no masses, no pulsatile masses. [] Skin: Warm, dry, no erythema, no rash. [] Back: No tenderness, no CVA tenderness. [] Extremities: No tenderness, no cyanosis, no clubbing, ROM intact, bilateral lower extremity edema. [] Neurologic: Alert and oriented X 3, normal motor function, normal sensory function, no focal deficits noted. [] Psychologic: Affect normal, judgement normal, mood normal. [] Current Patient Data: Labs: Laboratory Tests Test 03/09/20 21:26 03/10/20 00:10 White Blood Count 9.9 x10^3/uL (4.0-11.0) Red Blood Count 4.80 x10^6/uL (3.50-5.40) Hemoglobin 11.9 g/dL (12.0-15.5) L Hematocrit 37.0 % (36.0-47.0) Mean Corpuscular Volume 77 fL (79-100) L Mean Corpuscular Hemoglobin 25 pg (25-35) Mean Corpuscular Hemoglobin Concent 32 g/dL (31-37) Red Cell Distribution Width 16.4 % (11.5-14.5) H Platelet Count 297 x10^3/uL (140-400) Neutrophils (%) (Auto) 50 % (31-73) Lymphocytes (%) (Auto) 41 % (24-48) Monocytes (%) (Auto) 8 % (0-9) Eosinophils (%) (Auto) 1 % (0-3) Basophils (%) (Auto) 1 % (0-3) Neutrophils # (Auto) 4.9 x10^3/uL (1.8-7.7) Lymphocytes # (Auto) 4.0 x10^3/uL (1.0-4.8) Monocytes # (Auto) 0.8 x10^3/uL (0.0-1.1) Eosinophils # (Auto) 0.1 x10^3/uL (0.0-0.7) Basophils # (Auto) 0.1 x10^3/uL (0.0-0.2) Prothrombin Time 13.9 SEC (11.7-14.0) Prothrombin Time INR 1.1 (0.8-1.1) D-Dimer (Bernadette) 1.68 ug/mlFEU (0.00-0.50) H Sodium Level 143 mmol/L (136-145) Potassium Level 3.7 mmol/L (3.5-5.1) Chloride Level 107 mmol/L (98-107) Carbon Dioxide Level 28 mmol/L (21-32) Anion Gap 8 (6-14) Blood Urea Nitrogen 25 mg/dL (7-20) H Creatinine 1.2 mg/dL (0.6-1.0) H Estimated GFR (Cockcroft-Gault) 55.6 BUN/Creatinine Ratio 21 (6-20) H Glucose Level 88 mg/dL (70-99) Calcium Level 9.0 mg/dL (8.5-10.1) Magnesium Level 2.3 mg/dL (1.8-2.4) Total Bilirubin 0.3 mg/dL (0.2-1.0) Aspartate Amino Transferase (AST) 23 U/L (15-37) Alanine Aminotransferase (ALT) 40 U/L (14-59) Alkaline Phosphatase 134 U/L (46-116) H Troponin I Quantitative < 0.017 ng/mL (0.000-0.055) YO-Vwl-N-Type Natriuretic Peptide 62 pg/mL (0-124) Total Protein 7.7 g/dL (6.4-8.2) Albumin 3.4 g/dL (3.4-5.0) Albumin/Globulin Ratio 0.8 (1.0-1.7) L Urine Collection Type Unknown Urine Color Yellow Urine Clarity Clear Urine pH 5.5 (<5.0-8.0) Urine Specific [place] 1.025 (1.000-1.030) Urine Protein Negative mg/dL (NEG-TRACE) Urine Glucose (UA) Negative mg/dL (NEG) Urine Ketones (Stick) Negative mg/dL (NEG) Urine Blood Negative (NEG) Urine Nitrite Negative (NEG) Urine Bilirubin Negative (NEG) Urine Urobilinogen Dipstick 0.2 mg/dL (0.2 mg/dL) Urine Leukocyte Esterase Negative (NEG) Urine RBC Occ /HPF (0-2) Urine WBC 5-10 /HPF (0-4) Urine Squamous Epithelial Cells Mod /LPF Urine Bacteria Many /HPF (0-FEW) Urine Hyaline Casts Few /HPF Urine Mucus Marked /LPF Laboratory Tests 03/09/20 21:26 Laboratory Tests 03/09/20 21:26 Vital Signs: Vital Signs Date Time Temp Pulse Resp B/P (MAP) Pulse Ox O2 Delivery O2 Flow Rate FiO2 03/09/20 23:07 18 167/72 (103) 98 Room Air 03/09/20 22:37 56 03/09/20 21:03 97.7 97.7 EKG: EKG: Normal sinus rhythm, heart rate 50 bpm. Normal axis, no ST elevation depression, no ectopy, normal intervals [] Heart Score: Risk Factors: Risk Factors: DM, Current or recent (<one month) smoker, HTN, HLP, family history of CAD, obesity. Risk Scores: Score 0 - 3: 2.5% MACE over next 6 weeks - Discharge Home Score 4 - 6: 20.3% MACE over next 6 weeks - Admit for Clinical Observation Score 7 - 10: 72.7% MACE over next 6 weeks - Early Invasive Strategies Radiology/Procedures: Radiology/Procedures: EXAM: CT Head without IV contrast INDICATION: Reason: fall/syncope / Spl. Instructions: / History: TECHNIQUE: Multi-detector row CT images were obtained of the head without the use of IV contrast. All CT scans performed at this facility utilize dose optimization techniques as appropriate to the exam, including the following: Automated exposure control and adjustment of the mA and/or KV according to patient size (this includes techniques or standardized protocols for targeted exams where dose is indication/reason for exam). COMPARISON: None FINDINGS: BRAIN PARENCHYMA: No evidence of acute intraparenchymal hemorrhage or infarct. There are scattered areas of white matter hypoattenuation compatible chronic ischemic microvascular change. VENTRICLES & EXTRA-AXIAL SPACES: Ventricles are within normal limits. Basilar cisterns are patent. No pathologic extra-axial fluid collection or mass. ORBITS: Orbital contents are unremarkable. SINUSES: Visualized paranasal sinuses and mastoid air cells are clear. OSSEOUS & SOFT TISSUES: Calvarium and skull base are intact. IMPRESSION: No acute intracranial pathology. EXAM: CT Cervical Spine without IV contrast INDICATION: Reason: fall/syncope / Spl. Instructions: / History: TECHNIQUE: Multi-detector row CT images were obtained through the cervical spine without the use of IV contrast. Post-processing sagittal and coronal reconstructed images were obtained for interpretation. All CT scans performed at this facility utilize dose optimization techniques as appropriate to the exam, including the following: Automated exposure control and adjustment of the mA and/or KV according to patient size (this includes techniques or standardized protocols for targeted exams where dose is indication/reason for exam). COMPARISON: Earlier same day chest x-ray FINDINGS: CRANIOCERVICAL JUNCTION: Unremarkable. ALIGNMENT: Alignment is within normal limits. OSSEOUS: No evidence of fracture or bone destruction. DISC SPACES: Unremarkable. FACET JOINTS: Mild hypertrophic change in the left facet joints, most conspicuously at C2-C3 is noted. No malalignment. SPINAL CANAL: Unremarkable. NEUROFORAMINA: Unremarkable. SOFT TISSUES: Included upper chest shows soft tissue fullness in the right paratracheal region only partially imaged that correlates to the area of masslike fullness seen on earlier same day chest x-ray. IMPRESSION: 1. No acute traumatic findings in the cervical spine. 2. Masslike fullness in the right superior paratracheal mediastinum, recommended for additional imaging evaluation with dedicated chest CT, preferably with IV contrast. EXAM: CHEST AP ONLY INDICATION: Reason: syncope / Spl. Instructions: / History: . TECHNIQUE: Single view COMPARISON: None FINDINGS: The heart size is normal. The great vessels appear unremarkable. There is a 5.7 cm right paratracheal mass in the superior mediastinum. No hilar mass or adenopathy is apparent. The lungs are clear. There is no pleural effusion or pneumothorax. There are no significant osseous abnormalities. IMPRESSION: Right superior mediastinal mass. Recommend further evaluation with chest CT preferably with IV contrast. [] Course & Med Decision Making: Course & Med Decision Making Pertinent Labs and Imaging studies reviewed. (See chart for details) [] Dragon Disclaimer: Dragon Disclaimer: This electronic medical record was generated, in whole or in part, using a voice recognition dictation system. Departure Departure Impression: Primary Impression: Syncope Additional Impression: Mediastinal mass Disposition: 09 ADMITTED INPT THIS HOSP Admitting Physician: AKI Condition: STABLE Referrals: DAWIT OWENS JR, MD (PCP) Problem Qualifiers AURORA BAUTISTA MD Mar 09, 2020 21:28
[2020-03-09 21:36] LABS: BASO # 0.1 x10^3/uL (0.0-0.2); BASO % 1 % (0-3); EOS # 0.1 x10^3/uL (0.0-0.7); EOS % 1 % (0-3); HEMOGLOBIN 11.9 g/dL (12.0-15.5); LYMPH % 41 % (24-48); MEAN CORPUSCULAR HEMOGLOBIN 25 pg (25-35); MEAN CORPUSCULAR HGB CONC 32 g/dL (31-37); MEAN CORPUSCULAR VOLUME 77 fL (79-100); MONO # 0.8 x10^3/uL (0.0-1.1); MONO % 8 % (0-9); NEUT # 4.9 x10^3/uL (1.8-7.7); NEUT % 50 % (31-73); PLATELET COUNT 297 x10^3/uL (140-400); RED CELL DISTRIBUTION WIDTH 16.4 % (11.5-14.5); WHITE BLOOD COUNT 9.9 x10^3/uL (4.0-11.0)
[2020-03-09 21:43] LABS: PROTHROMBIN TIME PATIENT 13.9 SEC (11.7-14.0)
[2020-03-09 21:46] LABS: CREATININE 1.2 mg/dL (0.6-1.0); GFR 55.6; POTASSIUM 3.7 mmol/L (3.5-5.1)
[2020-03-09 21:49] LABS: D-DIMER 1.68 ug/mlFEU (0.00-0.50)
--- NOTE | 2020-03-09 21:50 | RAD ---
EXAM: CHEST AP ONLY INDICATION: Reason: syncope / Spl. Instructions: / History: . TECHNIQUE: Single view COMPARISON: None FINDINGS: The heart size is normal. The great vessels appear unremarkable. There is a 5.7 cm right paratracheal mass in the superior mediastinum. No hilar mass or adenopathy is apparent. The lungs are clear. There is no pleural effusion or pneumothorax. There are no significant osseous abnormalities. IMPRESSION: Right superior mediastinal mass. Recommend further evaluation with chest CT preferably with IV contrast. Electronically signed by: Akila Banerjee MD (03/09/2020 9:47 PM) [facility] [place]
[2020-03-09 21:51] LABS: ALBUMIN 3.4 g/dL (3.4-5.0); ALBUMIN/GLOBULIN RATIO 0.8 (1.0-1.7); MAGNESIUM 2.3 mg/dL (1.8-2.4); TOTAL BILIRUBIN 0.3 mg/dL (0.2-1.0); TOTAL PROTEIN 7.7 g/dL (6.4-8.2)
--- NOTE | 2020-03-09 23:46 | RAD ---
EXAM: CT Head without IV contrast INDICATION: Reason: fall/syncope / Spl. Instructions: / History: TECHNIQUE: Multi-detector row CT images were obtained of the head without the use of IV contrast. All CT scans performed at this facility utilize dose optimization techniques as appropriate to the exam, including the following: Automated exposure control and adjustment of the mA and/or KV according to patient size (this includes techniques or standardized protocols for targeted exams where dose is indication/reason for exam). COMPARISON: None FINDINGS: BRAIN PARENCHYMA: No evidence of acute intraparenchymal hemorrhage or infarct. There are scattered areas of white matter hypoattenuation compatible chronic ischemic microvascular change. VENTRICLES & EXTRA-AXIAL SPACES: Ventricles are within normal limits. Basilar cisterns are patent. No pathologic extra-axial fluid collection or mass. ORBITS: Orbital contents are unremarkable. SINUSES: Visualized paranasal sinuses and mastoid air cells are clear. OSSEOUS & SOFT TISSUES: Calvarium and skull base are intact. IMPRESSION: No acute intracranial pathology. EXAM: CT Cervical Spine without IV contrast INDICATION: Reason: fall/syncope / Spl. Instructions: / History: TECHNIQUE: Multi-detector row CT images were obtained through the cervical spine without the use of IV contrast. Post-processing sagittal and coronal reconstructed images were obtained for interpretation. All CT scans performed at this facility utilize dose optimization techniques as appropriate to the exam, including the following: Automated exposure control and adjustment of the mA and/or KV according to patient size (this includes techniques or standardized protocols for targeted exams where dose is indication/reason for exam). COMPARISON: Earlier same day chest x-ray FINDINGS: CRANIOCERVICAL JUNCTION: Unremarkable. ALIGNMENT: Alignment is within normal limits. OSSEOUS: No evidence of fracture or bone destruction. DISC SPACES: Unremarkable. FACET JOINTS: Mild hypertrophic change in the left facet joints, most conspicuously at C2-C3 is noted. No malalignment. SPINAL CANAL: Unremarkable. NEUROFORAMINA: Unremarkable. SOFT TISSUES: Included upper chest shows soft tissue fullness in the right paratracheal region only partially imaged that correlates to the area of masslike fullness seen on earlier same day chest x-ray. IMPRESSION: 1. No acute traumatic findings in the cervical spine. 2. Masslike fullness in the right superior paratracheal mediastinum, recommended for additional imaging evaluation with dedicated chest CT, preferably with IV contrast. Electronically signed by: Akila Banerjee MD (03/09/2020 11:44 PM) [facility] – [place]
[2020-03-10] VITALS (8 sets, daily range): BP systolic 131–220; BP diastolic 56–110
[2020-03-10] MEDS ORDERED: CONTRAST GIVEN. MC PRN (00:15)
[2020-03-10] MEDS ORDERED: IOHEXOL 350 MG/ML 100 ML VIAL. IV ONE (00:15)
[2020-03-10 00:19] LABS: BILIRUBIN,URINE NEGATIVE (NEG); CLARITY,URINE CLEAR; COLOR,URINE YELLOW; NITRITE,URINE NEGATIVE (NEG); PH,URINE 5.5 (<5.0-8.0); PROTEIN,URINE NEGATIVE (NEG-TRACE); UROBILINOGEN,URINE 0.2 mg/dL (0.2 mg/dL)
[2020-03-10 00:26] LABS: RBC,URINE OCC /HPF (0-2)
[2020-03-10 00:27] LABS: BACTERIA,URINE MANY /HPF (0-FEW); HYALINE CASTS, URINE FEW /HPF
--- NOTE | 2020-03-10 01:35 | RAD ---
EXAM: CT ANGIOGRAPHY OF THE CHEST WITH AND WITHOUT CONTRAST. HISTORY: Syncope, elevated d-dimer. TECHNIQUE: Computed tomographic angiography of the chest was performed before and after the intravenous administration of iodinated contrast. 3-D maximum intensity projections were also performed. One or more of the following individualized dose reduction techniques were utilized for this examination: 1. Automated exposure control. 2. Adjustment of the mA and/or kV according to patient size. 3. Use of iterative reconstruction technique. COMPARISON: 12/06/2013. FINDINGS: Images of the upper abdomen reveal no acute abnormality. Bone windows reveal no suspicious lesions. No pulmonary emboli are identified. There is no aortic dissection or aneurysm. There is a normal variant origin of the left vertebral artery directly from the aortic arch. There are bulky calcified lymph nodes throughout the right paratracheal station. An uncalcified soft tissue component has developed along its lateral periphery since the prior study. The entire process now measures 5.8 x 4.6 cm transaxially as compared with 4.7 x 4.3 cm on prior studies. There is no pleural or pericardial effusion. The heart is mildly enlarged. An uncalcified nodule in the right middle lobe measures 12 x 8 mm on image 65. This may represent only atelectasis but is indeterminate. Another calcified granuloma is noted on the right. IMPRESSION: 1. Soft tissue density right paratracheal lymphadenopathy has developed superimposed on pre-existing calcified lymph nodes. Correlate to exclude lymphoma or metastatic disease. 2. 12 mm right middle lobe nodule versus atelectasis. PET/CT or three-month follow-up is suggested. 3. Mild cardiomegaly. 4. No pulmonary embolism. Electronically signed by: Percy Lee MD (03/10/2020 1:32 AM) [facility]
[2020-03-10] MEDS ORDERED: fentaNYL PF VIAL 100 MCG/2 ML VIAL IV PRN (02:00)
[2020-03-10] MEDS ORDERED: ONDANSETRON PF 4 MG/2 ML VIAL. IV PRN (02:00)
[2020-03-10] MEDS ORDERED: IV NORMAL SALINE 1000ML BAG 1,000 ML IV SCH (02:30)
[2020-03-10] MEDS ORDERED: LIRA0.6P2 SQ (03:22)
[2020-03-10] MEDS ORDERED: AMLO-187 PO (03:22)
[2020-03-10] MEDS ORDERED: ALBU2.5V8 IH (03:22)
[2020-03-10] MEDS ORDERED: MELO15TA23 PO (03:22)
[2020-03-10] MEDS ORDERED: CARV6.253 PO (03:22)
[2020-03-10] MEDS ORDERED: CLON0.2T PO (03:22)
--- NOTE | 2020-03-10 11:24 | PDOC2 ---
CARDIAC CONSULT DATE OF CONSULT Date of Consult DATE: 03/10/20 TIME: 11:19 REASON FOR CONSULT Reason for Consult: syncope REFERRING PHYSICIAN Referring Physician: Dr. Hudson SOURCE Source: Chart review, Patient HISTORY OF PRESENT ILLNESS HISTORY OF PRESENT ILLNESS This is a 60 yo female who presented to syncopal episode. Patient reports she was sitting up in the chair and began feeling lightheaded. Blood sugar was 73 so she ate something to bring it up. Reports the next thing she knew she was no the floor. Unsure how long she was out. Reports blood sugar normally runs in the 200-300 ranges. Is feeling well this am. No dizziness, diaphoresis, palpitations, diaphoresis, or nausea/vomiting. Does reports right-sided chest pain lat week. Pain resolved without intervention, but right chest remaned PAST MEDICAL HISTORY Cardiovascular: HTN, Hyperlipidemia CENTRAL NERVOUS SYSTEM: Periperal neuropathy GI: GERD Heme/Onc: Anemia NOS Psych: Anxiety Renal/: Chronic renal insuff Endocrine: Diabetes PAST SURGICAL HISTORY Past Surgical History: Total hip replacement (right), Other (right shoulder surgery, bladder sling) FAMILY HISTORY Family History: Heart Disease SOCIAL HISTORY Smoke: No ALCOHOL: none Drugs: None CURRENT MEDICATIONS CURRENT MEDICATIONS Current Medications Medications (Trade) Dose Ordered Sig/Ren Route PRN Reason Start Time Stop Time Status Last Admin Dose Admin Iohexol (Omnipaque 350 Mg/ml) 75 ml 1X ONCE IV 03/10/20 00:15 03/10/20 00:16 DC 03/10/20 00:44 Sodium Chloride 1,000 ml @ 100 mls/hr Q10H IV 03/10/20 02:30 03/10/20 03:05 ALLERGIES ALLERGIES: Coded Allergies: Sulfa (Sulfonamide Antibiotics) (Verified Allergy, Intermediate, 07/28/17) lisinopril (Verified Allergy, Intermediate, 01/05/16) metoclopramide (Verified Allergy, Intermediate, 01/05/16) pantoprazole (Verified Allergy, Intermediate, 07/28/17) " pt reports I don't know, I'm just supposed to not take it" ROS Review of System 14 point ROS conducted with pertinent positives noted above in HPI PHYSICAL EXAM General: Alert, Oriented X3, Cooperative, No acute distress, Other HEENT: Atraumatic Lungs: Clear to auscultation, Normal air movement Heart: Regular rate Abdomen: Soft, Other (obese) Extremities: Normal pulses, Other (1+ bilateral LE edema ) Skin: No significant lesion Neuro: Sensation intact Psych/Mental Status: Mental status NL, Mood NL MUSCULOSKELETAL: Osteoarthritic changes both hands VITALS/I&O VITALS/I&O: Vital Signs Date Time Temp Pulse Resp B/P (MAP) Pulse Ox O2 Delivery O2 Flow Rate FiO2 03/10/20 11:00 98.1 61 20 151/73 (99) 100 Room Air 98.1 I & O 03/09/20 03/09/20 03/10/20 15:00 23:00 07:00 Intake Total 200 ml Output Total 400 ml Balance -200 ml LABS Lab: Laboratory Tests Test 03/09/20 21:26 03/10/20 00:10 03/10/20 01:40 03/10/20 05:06 White Blood Count 9.9 x10^3/uL (4.0-11.0) Red Blood Count 4.80 x10^6/uL (3.50-5.40) Hemoglobin 11.9 g/dL (12.0-15.5) L Hematocrit 37.0 % (36.0-47.0) Mean Corpuscular Volume 77 fL (79-100) L Mean Corpuscular Hemoglobin 25 pg (25-35) Mean Corpuscular Hemoglobin Concent 32 g/dL (31-37) Red Cell Distribution Width 16.4 % (11.5-14.5) H Platelet Count 297 x10^3/uL (140-400) Neutrophils (%) (Auto) 50 % (31-73) Lymphocytes (%) (Auto) 41 % (24-48) Monocytes (%) (Auto) 8 % (0-9) Eosinophils (%) (Auto) 1 % (0-3) Basophils (%) (Auto) 1 % (0-3) Neutrophils # (Auto) 4.9 x10^3/uL (1.8-7.7) Lymphocytes # (Auto) 4.0 x10^3/uL (1.0-4.8) Monocytes # (Auto) 0.8 x10^3/uL (0.0-1.1) Eosinophils # (Auto) 0.1 x10^3/uL (0.0-0.7) Basophils # (Auto) 0.1 x10^3/uL (0.0-0.2) Prothrombin Time 13.9 SEC (11.7-14.0) Prothrombin Time INR 1.1 (0.8-1.1) D-Dimer (Bernadette) 1.68 ug/mlFEU (0.00-0.50) H Sodium Level 143 mmol/L (136-145) Potassium Level 3.7 mmol/L (3.5-5.1) Chloride Level 107 mmol/L (98-107) Carbon Dioxide Level 28 mmol/L (21-32) Anion Gap 8 (6-14) Blood Urea Nitrogen 25 mg/dL (7-20) H Creatinine 1.2 mg/dL (0.6-1.0) H Estimated GFR (Cockcroft-Gault) 55.6 BUN/Creatinine Ratio 21 (6-20) H Glucose Level 88 mg/dL (70-99) Calcium Level 9.0 mg/dL (8.5-10.1) Magnesium Level 2.3 mg/dL (1.8-2.4) Total Bilirubin 0.3 mg/dL (0.2-1.0) Aspartate Amino Transferase (AST) 23 U/L (15-37) Alanine Aminotransferase (ALT) 40 U/L (14-59) Alkaline Phosphatase 134 U/L (46-116) H Troponin I Quantitative < 0.017 ng/mL (0.000-0.055) < 0.017 ng/mL (0.000-0.055) BC-Vtb-U-Type Natriuretic Peptide 62 pg/mL (0-124) Total Protein 7.7 g/dL (6.4-8.2) Albumin 3.4 g/dL (3.4-5.0) Albumin/Globulin Ratio 0.8 (1.0-1.7) L Urine Collection Type Unknown Urine Color Yellow Urine Clarity Clear Urine pH 5.5 (<5.0-8.0) Urine Specific [place] 1.025 (1.000-1.030) Urine Protein Negative mg/dL (NEG-TRACE) Urine Glucose (UA) Negative mg/dL (NEG) Urine Ketones (Stick) Negative mg/dL (NEG) Urine Blood Negative (NEG) Urine Nitrite Negative (NEG) Urine Bilirubin Negative (NEG) Urine Urobilinogen Dipstick 0.2 mg/dL (0.2 mg/dL) Urine Leukocyte Esterase Negative (NEG) Urine RBC Occ /HPF (0-2) Urine WBC 5-10 /HPF (0-4) Urine Squamous Epithelial Cells Mod /LPF Urine Bacteria Many /HPF (0-FEW) Urine Hyaline Casts Few /HPF Urine Mucus Marked /LPF Lactic Acid Level 2.7 mmol/L (0.4-2.0) H Test 03/10/20 07:45 03/10/20 08:06 Lactic Acid Level 2.3 mmol/L (0.4-2.0) H Troponin I Quantitative < 0.017 ng/mL (0.000-0.055) Glucose (Fingerstick) 235 mg/dL (70-99) H Laboratory Tests 03/09/20 21:26 Laboratory Tests 03/09/20 21:26 ASSESSMENT/PLAN ASSESSMENT/PLAN 1. Syncope; No acute events on tele Most probable secondary to hypoglycemia 2. Chest pain; atypical. AMI rule out. 3. CKD; CR stable 4. Mediastinal mass 5. Hypertension; controlled 5. Hyperlipidemia Recommendations ASA Lipids, TSH Echo to assess LV systolic function Monitor tele Consider outpatient event monitor. JONG ERIC APRN Mar 10, 2020 11:24
--- NOTE | 2020-03-10 11:29 | PDOC1 ---
History and Physical Date of Admission Date of Admission DATE: 03/10/20 TIME: 11:26 Identification/Chief Complaint Chief Complaint seen in er with syncpe 60 year old female brought in by EMS after syncopal episode. Patient states that she was feeling unwell and checked her blood sugar which was 73. Patient states her blood sugar usually runs in the 200-300's. Went to try to eat some food and was sitting there went to get up and thinks is when she syncopized. Says when she was on the floor she felt sweaty. Patient also states that she thinks she might had a heart attack 9 days ago but was not seen for it. Patient states she was having chest pain, back pain, jaw pain, right arm and finger tingling. She denies any chest pain at this time. Bit but did have pain in her back and right arm. Denies any prior history of [place], but had a scan that showed some plaques on some of her vessels.. Was alone unsure how long she was passed out. Past Medical History Past Medical History Past Medical History Past Medical History: Bronchitis, Diabetes-Type II, GERD, Glaucoma, Hypertension, Other Additional Past Medical Histor: Seasonal allergies,hiatal hernia,LOW KIDNEY FUNCTION,H/A,CELLULITIS Past Surgical History: , Other Additional Past Surgical Histo: BLADDER SLING; ablasion to uterus; right knee, L TIB/FIB FX Smoking Status: Never Smoker Alcohol Use: None Drug Use: None fhx obesity Cardiovascular: HTN, Hyperlipidemia Pulmonary: No pertinent hx CENTRAL NERVOUS SYSTEM: Periperal neuropathy GI: GERD Heme/Onc: Anemia NOS Hepatobiliary: No pertinent hx Psych: Anxiety Musculoskeletal: Osteoarthritis, Other Renal/: Chronic renal insuff Endocrine: Diabetes Past Surgical History Past Surgical History: No pertinent history Family History Family History: Diabetes, Hypertension Social History Smoke: No ALCOHOL: none Drugs: None Current Problem List Problem List Problems Medical Problems: (1) Mediastinal mass Status: Acute (2) Syncope Status: Acute Current Medications Current Medications Current Medications Iohexol (Omnipaque 350 Mg/ml) 75 ml 1X ONCE IV Last administered on 03/10/20at 00:44; Start 03/10/20 at 00:15; Stop 03/10/20 at 00:16; Status DC Info (CONTRAST GIVEN -- Rx MONITORING) 1 each PRN DAILY PRN MC SEE COMMENTS; Start 03/10/20 at 00:15; Stop 03/12/20 at 00:14 Ondansetron HCl (Zofran) 4 mg PRN Q8HRS PRN IV NAUSEA/VOMITING; Start 03/10/20 at 02:00; Stop 03/11/20 at 01:59 Fentanyl Citrate (Fentanyl 2ml Vial) 50 mcg PRN Q1HR PRN IV PAIN; Start 03/10/20 at 02:00; Stop 03/11/20 at 01:59 Sodium Chloride 1,000 ml @ 100 mls/hr Q10H IV Last administered on 03/10/20at 03:05; Start 03/10/20 at 02:30 Active Scripts Active Lasix (Furosemide) 40 Mg Tablet 1 Tab PO DAILY 14 Days Miralax (Polyethylene Glycol 3350) 17 Gm Powd.pack 1 Packet PO DAILY Reported Proair Hfa Inhaler (Albuterol Sulfate) 8.5 Gm Hfa.aer.ad 2 Puff IH PRN Q4-6HRS PRN 21 Days Meloxicam 15 Mg Tablet 1 Tab PO DAILY Amlodipine Besylate 10 Mg Tablet 1 Tab PO DAILY Victoza 3-Johnson (Liraglutide) 0.6 Mg/0.1 Ml Pen.injctr 0.6 Mg SQ DAILY Carvedilol 6.25 Mg Tablet 1 Tab PO BID Clonidine Hcl 0.2 Mg Tablet 0.2 Mg PO TID Combigan Eye Drops (Brimonidine Tartrate/Timolol) 5 Ml Drops 5 Ml OP BID Latanoprost 2.5 Ml Drops 1 Drop EACHEYE QHS Levemir (Insulin Detemir) 100 Unit/1 Ml Vial 45 Unit SQ HS Lipitor (Atorvastatin Calcium) 20 Mg Tablet 20 Mg PO HS Potassium Chloride 10 Meq Tablet.er 10 Meq PO DAILY Sucralfate 1 Gm Tablet 1 Gm PO QID Flonase (Fluticasone Propionate) 16 Gm Brohard.susp 2 Brohard NS DAILY Acetaminophen 500 Mg Tablet 500 Mg PO PRN TID PRN Prevacid (Lansoprazole) 30 Mg Capsule.dr 30 Mg PO DAILY Metformin Hcl 500 Mg Tablet 1,000 Mg PO BIDWMEALS Novolog Flexpen (Insulin Aspart) 100 Unit/1 Ml Insuln.pen 8 Unit SQ TIDAC Allergies Allergies: Coded Allergies: Sulfa (Sulfonamide Antibiotics) (Verified Allergy, Intermediate, 07/28/17) lisinopril (Verified Allergy, Intermediate, 01/05/16) metoclopramide (Verified Allergy, Intermediate, 01/05/16) pantoprazole (Verified Allergy, Intermediate, 07/28/17) " pt reports I don't know, I'm just supposed to not take it" ROS Review of System Review of Systems: Review of Systems: Constitutional: Denies fever or chills. [] But states she feels unwell and fatigued Eyes: Denies change in visual acuity. [] HENT: Denies nasal congestion or sore throat. [] Respiratory: Denies cough or shortness of breath. [] Cardiovascular: Denies chest pain or edema. [] GI: Denies abdominal pain, nausea, vomiting, bloody stools or diarrhea. [] : Denies dysuria. [] Musculoskeletal: Denies back pain or joint pain. [] Integument: Denies rash. [] Neurologic: Denies headache, focal weakness or sensory changes. [] Endocrine: Denies polyuria or polydipsia. [] Lymphatic: Denies swollen glands. [] Psychiatric: Denies depression or anxiety. [] 14 PT ROS OTHERWISE NEG General: YES: Fatigue Hematological and Lymphatic: No: Bleeding Problems, Blood Clots, Blood Transfusions, Brusing, Night Sweats, Pallor, Swollen Lymph Nodes, Other Physical Exam Physical Exam Constitutional: Well developed, well nourished, no acute distress, non-toxic appearance. [] HENT: Normocephalic, atraumatic, bilateral external ears normal, oropharynx moist, no oral exudates, nose normal. [] Eyes: PERRLA, EOMI, conjunctiva normal, no discharge. [] Neck: Normal range of motion, no tenderness, supple, no stridor. [] Cardiovascular:Heart rate regular rhythm, no murmur [] Lungs & Thorax: Bilateral breath sounds clear to auscultation [] Abdomen: Bowel sounds normal, soft, no tenderness, no masses, no pulsatile masses. [] Skin: Warm, dry, no erythema, no rash. [] Back: No tenderness, no CVA tenderness. [] Extremities: No tenderness, no cyanosis, no clubbing, ROM intact, bilateral lower extremity edema. [] Neurologic: Alert and oriented X 3, normal motor function, normal sensory function, no focal deficits noted. [] Psychologic: Affect normal, judgment normal, mood normal. [] General: Alert, Oriented X3, Cooperative, No acute distress HEENT: Atraumatic Lungs: Clear to auscultation Heart: RRR, no thrills Breasts: Not examined Abdomen: Normal bowel sounds, Soft Rectal Exam: not examined PELVIC: Examination not indicated Extremities: No cyanosis, No edema Neuro: Normal speech, Cranial nerves 3-12 NL Psych/Mental Status: Mental status NL, Mood NL Vitals Vitals Vital Signs Date Time Temp Pulse Resp B/P (MAP) Pulse Ox O2 Delivery O2 Flow Rate FiO2 03/10/20 11:00 98.1 61 20 151/73 (99) 100 Room Air 98.1 Labs Labs Laboratory Tests Test 03/09/20 21:26 03/10/20 00:10 03/10/20 01:40 03/10/20 05:06 White Blood Count 9.9 x10^3/uL (4.0-11.0) Red Blood Count 4.80 x10^6/uL (3.50-5.40) Hemoglobin 11.9 g/dL (12.0-15.5) Hematocrit 37.0 % (36.0-47.0) Mean Corpuscular Volume 77 fL (79-100) Mean Corpuscular Hemoglobin 25 pg (25-35) Mean Corpuscular Hemoglobin Concent 32 g/dL (31-37) Red Cell Distribution Width 16.4 % (11.5-14.5) Platelet Count 297 x10^3/uL (140-400) Neutrophils (%) (Auto) 50 % (31-73) Lymphocytes (%) (Auto) 41 % (24-48) Monocytes (%) (Auto) 8 % (0-9) Eosinophils (%) (Auto) 1 % (0-3) Basophils (%) (Auto) 1 % (0-3) Neutrophils # (Auto) 4.9 x10^3/uL (1.8-7.7) Lymphocytes # (Auto) 4.0 x10^3/uL (1.0-4.8) Monocytes # (Auto) 0.8 x10^3/uL (0.0-1.1) Eosinophils # (Auto) 0.1 x10^3/uL (0.0-0.7) Basophils # (Auto) 0.1 x10^3/uL (0.0-0.2) Prothrombin Time 13.9 SEC (11.7-14.0) Prothromb Time International Ratio 1.1 (0.8-1.1) D-Dimer (Bernadette) 1.68 ug/mlFEU (0.00-0.50) Sodium Level 143 mmol/L (136-145) Potassium Level 3.7 mmol/L (3.5-5.1) Chloride Level 107 mmol/L (98-107) Carbon Dioxide Level 28 mmol/L (21-32) Anion Gap 8 (6-14) Blood Urea Nitrogen 25 mg/dL (7-20) Creatinine 1.2 mg/dL (0.6-1.0) Estimated GFR (Cockcroft-Gault) 55.6 BUN/Creatinine Ratio 21 (6-20) Glucose Level 88 mg/dL (70-99) Calcium Level 9.0 mg/dL (8.5-10.1) Magnesium Level 2.3 mg/dL (1.8-2.4) Total Bilirubin 0.3 mg/dL (0.2-1.0) Aspartate Amino Transf (AST/SGOT) 23 U/L (15-37) Alanine Aminotransferase (ALT/SGPT) 40 U/L (14-59) Alkaline Phosphatase 134 U/L (46-116) Troponin I Quantitative < 0.017 ng/mL (0.000-0.055) < 0.017 ng/mL (0.000-0.055) KP-Gew-G-Type Natriuretic Peptide 62 pg/mL (0-124) Total Protein 7.7 g/dL (6.4-8.2) Albumin 3.4 g/dL (3.4-5.0) Albumin/Globulin Ratio 0.8 (1.0-1.7) Urine Collection Type Unknown Urine Color Yellow Urine Clarity Clear Urine pH 5.5 (<5.0-8.0) Urine Specific [place] 1.025 (1.000-1.030) Urine Protein Negative mg/dL (NEG-TRACE) Urine Glucose (UA) Negative mg/dL (NEG) Urine Ketones (Stick) Negative mg/dL (NEG) Urine Blood Negative (NEG) Urine Nitrite Negative (NEG) Urine Bilirubin Negative (NEG) Urine Urobilinogen Dipstick 0.2 mg/dL (0.2 mg/dL) Urine Leukocyte Esterase Negative (NEG) Urine RBC Occ /HPF (0-2) Urine WBC 5-10 /HPF (0-4) Urine Squamous Epithelial Cells Mod /LPF Urine Bacteria Many /HPF (0-FEW) Urine Hyaline Casts Few /HPF Urine Mucus Marked /LPF Lactic Acid Level 2.7 mmol/L (0.4-2.0) Test 03/10/20 07:45 03/10/20 08:06 Lactic Acid Level 2.3 mmol/L (0.4-2.0) Troponin I Quantitative < 0.017 ng/mL (0.000-0.055) Glucose (Fingerstick) 235 mg/dL (70-99) Laboratory Tests Test 03/09/20 21:26 03/10/20 00:10 03/10/20 01:40 03/10/20 05:06 White Blood Count 9.9 x10^3/uL (4.0-11.0) Red Blood Count 4.80 x10^6/uL (3.50-5.40) Hemoglobin 11.9 g/dL (12.0-15.5) Hematocrit 37.0 % (36.0-47.0) Mean Corpuscular Volume 77 fL (79-100) Mean Corpuscular Hemoglobin 25 pg (25-35) Mean Corpuscular Hemoglobin Concent 32 g/dL (31-37) Red Cell Distribution Width 16.4 % (11.5-14.5) Platelet Count 297 x10^3/uL (140-400) Neutrophils (%) (Auto) 50 % (31-73) Lymphocytes (%) (Auto) 41 % (24-48) Monocytes (%) (Auto) 8 % (0-9) Eosinophils (%) (Auto) 1 % (0-3) Basophils (%) (Auto) 1 % (0-3) Neutrophils # (Auto) 4.9 x10^3/uL (1.8-7.7) Lymphocytes # (Auto) 4.0 x10^3/uL (1.0-4.8) Monocytes # (Auto) 0.8 x10^3/uL (0.0-1.1) Eosinophils # (Auto) 0.1 x10^3/uL (0.0-0.7) Basophils # (Auto) 0.1 x10^3/uL (0.0-0.2) Prothrombin Time 13.9 SEC (11.7-14.0) Prothromb Time International Ratio 1.1 (0.8-1.1) D-Dimer (Bernadette) 1.68 ug/mlFEU (0.00-0.50) Sodium Level 143 mmol/L (136-145) Potassium Level 3.7 mmol/L (3.5-5.1) Chloride Level 107 mmol/L (98-107) Carbon Dioxide Level 28 mmol/L (21-32) Anion Gap 8 (6-14) Blood Urea Nitrogen 25 mg/dL (7-20) Creatinine 1.2 mg/dL (0.6-1.0) Estimated GFR (Cockcroft-Gault) 55.6 BUN/Creatinine Ratio 21 (6-20) Glucose Level 88 mg/dL (70-99) Calcium Level 9.0 mg/dL (8.5-10.1) Magnesium Level 2.3 mg/dL (1.8-2.4) Total Bilirubin 0.3 mg/dL (0.2-1.0) Aspartate Amino Transf (AST/SGOT) 23 U/L (15-37) Alanine Aminotransferase (ALT/SGPT) 40 U/L (14-59) Alkaline Phosphatase 134 U/L (46-116) Troponin I Quantitative < 0.017 ng/mL (0.000-0.055) < 0.017 ng/mL (0.000-0.055) XA-Qhn-E-Type Natriuretic Peptide 62 pg/mL (0-124) Total Protein 7.7 g/dL (6.4-8.2) Albumin 3.4 g/dL (3.4-5.0) Albumin/Globulin Ratio 0.8 (1.0-1.7) Urine Collection Type Unknown Urine Color Yellow Urine Clarity Clear Urine pH 5.5 (<5.0-8.0) Urine Specific [place] 1.025 (1.000-1.030) Urine Protein Negative mg/dL (NEG-TRACE) Urine Glucose (UA) Negative mg/dL (NEG) Urine Ketones (Stick) Negative mg/dL (NEG) Urine Blood Negative (NEG) Urine Nitrite Negative (NEG) Urine Bilirubin Negative (NEG) Urine Urobilinogen Dipstick 0.2 mg/dL (0.2 mg/dL) Urine Leukocyte Esterase Negative (NEG) Urine RBC Occ /HPF (0-2) Urine WBC 5-10 /HPF (0-4) Urine Squamous Epithelial Cells Mod /LPF Urine Bacteria Many /HPF (0-FEW) Urine Hyaline Casts Few /HPF Urine Mucus Marked /LPF Lactic Acid Level 2.7 mmol/L (0.4-2.0) Test 03/10/20 07:45 03/10/20 08:06 Lactic Acid Level 2.3 mmol/L (0.4-2.0) Troponin I Quantitative < 0.017 ng/mL (0.000-0.055) Glucose (Fingerstick) 235 mg/dL (70-99) Images Images IMPRESSION: No acute intracranial pathology. EXAM: CT Cervical Spine without IV contrast INDICATION: Reason: fall/syncope / Spl. Instructions: / History: TECHNIQUE: Multi-detector row CT images were obtained through the cervical spine without the use of IV contrast. Post-processing sagittal and coronal reconstructed images were obtained for interpretation. All CT scans performed at this facility utilize dose optimization techniques as appropriate to the exam, including the following: Automated exposure control and adjustment of the mA and/or KV according to patient size (this includes techniques or standardized protocols for targeted exams where dose is indication/reason for exam). COMPARISON: Earlier same day chest x-ray FINDINGS: CRANIOCERVICAL JUNCTION: Unremarkable. ALIGNMENT: Alignment is within normal limits. OSSEOUS: No evidence of fracture or bone destruction. DISC SPACES: Unremarkable. FACET JOINTS: Mild hypertrophic change in the left facet joints, most conspicuously at C2-C3 is noted. No malalignment. SPINAL CANAL: Unremarkable. NEUROFORAMINA: Unremarkable. SOFT TISSUES: Included upper chest shows soft tissue fullness in the right paratracheal region only partially imaged that correlates to the area of masslike fullness seen on earlier same day chest x-ray. IMPRESSION: 1. No acute traumatic findings in the cervical spine. 2. Masslike fullness in the right superior paratracheal mediastinum, recommended for additional imaging evaluation with dedicated chest CT, preferably with IV contrast. Electronically signed by: Akila Banerjee MD (03/09/2020 11:44 PM) [facility] EXAM: CT ANGIOGRAPHY OF THE CHEST WITH AND WITHOUT CONTRAST. HISTORY: Syncope, elevated d-dimer. TECHNIQUE: Computed tomographic angiography of the chest was performed before and after the intravenous administration of iodinated contrast. 3-D maximum intensity projections were also performed. One or more of the following individualized dose reduction techniques were utilized for this examination: 1. Automated exposure control. 2. Adjustment of the mA and/or kV according to patient size. 3. Use of iterative reconstruction technique. COMPARISON: 12/06/2013. FINDINGS: Images of the upper abdomen reveal no acute abnormality. Bone windows reveal no suspicious lesions. No pulmonary emboli are identified. There is no aortic dissection or aneurysm. There is a normal variant origin of the left vertebral artery directly from the aortic arch. There are bulky calcified lymph nodes throughout the right paratracheal station. An uncalcified soft tissue component has developed along its lateral periphery since the prior study. The entire process now measures 5.8 x 4.6 cm transaxially as compared with 4.7 x 4.3 cm on prior studies. There is no pleural or pericardial effusion. The heart is mildly enlarged. An uncalcified nodule in the right middle lobe measures 12 x 8 mm on image 65. This may represent only atelectasis but is indeterminate. Another calcified granuloma is noted on the right. IMPRESSION: 1. Soft tissue density right paratracheal lymphadenopathy has developed superimposed on pre-existing calcified lymph nodes. Correlate to exclude lymphoma or metastatic disease. 2. 12 mm right middle lobe nodule versus atelectasis. PET/CT or three-month follow-up is suggested. 3. Mild cardiomegaly. 4. No pulmonary embolism. Electronically signed by: Percy Lee MD (03/10/2020 1:32 AM) [facility] DICTATED and SIGNED BY: CORONA LEE MD VTE Prophylaxis Ordered VTE Prophylaxis Devices: Contraindicated VTE Pharmacological Prophylaxi: Yes Assessment/Plan Assessment/Plan Impression: Syncope, UNWITNESSED No acute intracranial pathology. BY CT HEAD SUPER MORBID OBESITY Mediastinal mass right paratracheal lymphadenopathy has developed superimposed on pre- existing calcified lymph nodes. Correlate to exclude lymphoma or metastatic disease. by CTA CHEST 03-09 plan ADMITTED CVC BED Cardiology consult PULM CONSULT NEUROCHECKS Q 4 HRS DVT prophylaxis ECHO ASA Neurology consult orthostatic bp tid D/W RN Justifications for Admission Other Justification TESFAYE BRUNO MD Mar 10, 2020 11:29
[2020-03-10] MEDS ORDERED: ACETAMINOPHEN 500 MG TABLET PO PRN (12:00)
[2020-03-10] MEDS ORDERED: ALBUTEROL SULFATE 2.5 MG/3 ML NEBU. NEB PRN (12:00)
[2020-03-10 12:32] LABS: CHOLESTEROL/HDL RATIO 2.5
[2020-03-10] MEDS: SUCRALFATE 1 GM TABLET. PO SCH ×3 (13:00→22:06)
--- NOTE | 2020-03-10 14:15 | NUR ---
SS following for discharge planning. SS reviewed pt chart and discussed with pt RN. Pt is from home and is currently on room air. SS will continue to follow for discharge planning
--- NOTE | 2020-03-10 15:18 | PDOC ---
PULMONARY PROGRESS NOTES DATE: 03/10/20 TIME: 15:17 Vitals Vital Signs Date Time Temp Pulse Resp B/P (MAP) Pulse Ox O2 Delivery O2 Flow Rate FiO2 03/10/20 15:00 98.0 69 20 139/56 (83) 98 Room Air 98.0 Lungs: Clear Cardiovascular: S1, S2 Labs Laboratory Tests Test 03/09/20 21:26 03/10/20 00:10 03/10/20 01:40 03/10/20 05:06 White Blood Count 9.9 x10^3/uL (4.0-11.0) Red Blood Count 4.80 x10^6/uL (3.50-5.40) Hemoglobin 11.9 g/dL (12.0-15.5) Hematocrit 37.0 % (36.0-47.0) Mean Corpuscular Volume 77 fL (79-100) Mean Corpuscular Hemoglobin 25 pg (25-35) Mean Corpuscular Hemoglobin Concent 32 g/dL (31-37) Red Cell Distribution Width 16.4 % (11.5-14.5) Platelet Count 297 x10^3/uL (140-400) Neutrophils (%) (Auto) 50 % (31-73) Lymphocytes (%) (Auto) 41 % (24-48) Monocytes (%) (Auto) 8 % (0-9) Eosinophils (%) (Auto) 1 % (0-3) Basophils (%) (Auto) 1 % (0-3) Neutrophils # (Auto) 4.9 x10^3/uL (1.8-7.7) Lymphocytes # (Auto) 4.0 x10^3/uL (1.0-4.8) Monocytes # (Auto) 0.8 x10^3/uL (0.0-1.1) Eosinophils # (Auto) 0.1 x10^3/uL (0.0-0.7) Basophils # (Auto) 0.1 x10^3/uL (0.0-0.2) Prothrombin Time 13.9 SEC (11.7-14.0) Prothromb Time International Ratio 1.1 (0.8-1.1) D-Dimer (Bernadette) 1.68 ug/mlFEU (0.00-0.50) Sodium Level 143 mmol/L (136-145) Potassium Level 3.7 mmol/L (3.5-5.1) Chloride Level 107 mmol/L (98-107) Carbon Dioxide Level 28 mmol/L (21-32) Anion Gap 8 (6-14) Blood Urea Nitrogen 25 mg/dL (7-20) Creatinine 1.2 mg/dL (0.6-1.0) Estimated GFR (Cockcroft-Gault) 55.6 BUN/Creatinine Ratio 21 (6-20) Glucose Level 88 mg/dL (70-99) Calcium Level 9.0 mg/dL (8.5-10.1) Magnesium Level 2.3 mg/dL (1.8-2.4) Total Bilirubin 0.3 mg/dL (0.2-1.0) Aspartate Amino Transf (AST/SGOT) 23 U/L (15-37) Alanine Aminotransferase (ALT/SGPT) 40 U/L (14-59) Alkaline Phosphatase 134 U/L (46-116) Troponin I Quantitative < 0.017 ng/mL (0.000-0.055) < 0.017 ng/mL (0.000-0.055) TJ-Pxx-B-Type Natriuretic Peptide 62 pg/mL (0-124) Total Protein 7.7 g/dL (6.4-8.2) Albumin 3.4 g/dL (3.4-5.0) Albumin/Globulin Ratio 0.8 (1.0-1.7) Urine Collection Type Unknown Urine Color Yellow Urine Clarity Clear Urine pH 5.5 (<5.0-8.0) Urine Specific [place] 1.025 (1.000-1.030) Urine Protein Negative mg/dL (NEG-TRACE) Urine Glucose (UA) Negative mg/dL (NEG) Urine Ketones (Stick) Negative mg/dL (NEG) Urine Blood Negative (NEG) Urine Nitrite Negative (NEG) Urine Bilirubin Negative (NEG) Urine Urobilinogen Dipstick 0.2 mg/dL (0.2 mg/dL) Urine Leukocyte Esterase Negative (NEG) Urine RBC Occ /HPF (0-2) Urine WBC 5-10 /HPF (0-4) Urine Squamous Epithelial Cells Mod /LPF Urine Bacteria Many /HPF (0-FEW) Urine Hyaline Casts Few /HPF Urine Mucus Marked /LPF Lactic Acid Level 2.7 mmol/L (0.4-2.0) Test 03/10/20 07:45 03/10/20 08:06 03/10/20 11:26 Lactic Acid Level 2.3 mmol/L (0.4-2.0) Troponin I Quantitative < 0.017 ng/mL (0.000-0.055) Triglycerides Level 170 mg/dL (0-150) Cholesterol Level 152 mg/dL (0-200) LDL Cholesterol, Calculated 57 mg/dL (0-100) VLDL Cholesterol, Calculated 34 mg/dL (0-40) Non-HDL Cholesterol Calculated 91 mg/dL (0-129) HDL Cholesterol 61 mg/dL (40-60) Cholesterol/HDL Ratio 2.5 Thyroid Stimulating Hormone (TSH) 1.413 uIU/mL (0.358-3.74) Glucose (Fingerstick) 235 mg/dL (70-99) 252 mg/dL (70-99) Laboratory Tests Test 03/09/20 21:26 03/10/20 00:10 03/10/20 01:40 03/10/20 05:06 White Blood Count 9.9 x10^3/uL (4.0-11.0) Red Blood Count 4.80 x10^6/uL (3.50-5.40) Hemoglobin 11.9 g/dL (12.0-15.5) Hematocrit 37.0 % (36.0-47.0) Mean Corpuscular Volume 77 fL (79-100) Mean Corpuscular Hemoglobin 25 pg (25-35) Mean Corpuscular Hemoglobin Concent 32 g/dL (31-37) Red Cell Distribution Width 16.4 % (11.5-14.5) Platelet Count 297 x10^3/uL (140-400) Neutrophils (%) (Auto) 50 % (31-73) Lymphocytes (%) (Auto) 41 % (24-48) Monocytes (%) (Auto) 8 % (0-9) Eosinophils (%) (Auto) 1 % (0-3) Basophils (%) (Auto) 1 % (0-3) Neutrophils # (Auto) 4.9 x10^3/uL (1.8-7.7) Lymphocytes # (Auto) 4.0 x10^3/uL (1.0-4.8) Monocytes # (Auto) 0.8 x10^3/uL (0.0-1.1) Eosinophils # (Auto) 0.1 x10^3/uL (0.0-0.7) Basophils # (Auto) 0.1 x10^3/uL (0.0-0.2) Prothrombin Time 13.9 SEC (11.7-14.0) Prothromb Time International Ratio 1.1 (0.8-1.1) D-Dimer (Bernadette) 1.68 ug/mlFEU (0.00-0.50) Sodium Level 143 mmol/L (136-145) Potassium Level 3.7 mmol/L (3.5-5.1) Chloride Level 107 mmol/L (98-107) Carbon Dioxide Level 28 mmol/L (21-32) Anion Gap 8 (6-14) Blood Urea Nitrogen 25 mg/dL (7-20) Creatinine 1.2 mg/dL (0.6-1.0) Estimated GFR (Cockcroft-Gault) 55.6 BUN/Creatinine Ratio 21 (6-20) Glucose Level 88 mg/dL (70-99) Calcium Level 9.0 mg/dL (8.5-10.1) Magnesium Level 2.3 mg/dL (1.8-2.4) Total Bilirubin 0.3 mg/dL (0.2-1.0) Aspartate Amino Transf (AST/SGOT) 23 U/L (15-37) Alanine Aminotransferase (ALT/SGPT) 40 U/L (14-59) Alkaline Phosphatase 134 U/L (46-116) Troponin I Quantitative < 0.017 ng/mL (0.000-0.055) < 0.017 ng/mL (0.000-0.055) GB-Igp-I-Type Natriuretic Peptide 62 pg/mL (0-124) Total Protein 7.7 g/dL (6.4-8.2) Albumin 3.4 g/dL (3.4-5.0) Albumin/Globulin Ratio 0.8 (1.0-1.7) Urine Collection Type Unknown Urine Color Yellow Urine Clarity Clear Urine pH 5.5 (<5.0-8.0) Urine Specific [place] 1.025 (1.000-1.030) Urine Protein Negative mg/dL (NEG-TRACE) Urine Glucose (UA) Negative mg/dL (NEG) Urine Ketones (Stick) Negative mg/dL (NEG) Urine Blood Negative (NEG) Urine Nitrite Negative (NEG) Urine Bilirubin Negative (NEG) Urine Urobilinogen Dipstick 0.2 mg/dL (0.2 mg/dL) Urine Leukocyte Esterase Negative (NEG) Urine RBC Occ /HPF (0-2) Urine WBC 5-10 /HPF (0-4) Urine Squamous Epithelial Cells Mod /LPF Urine Bacteria Many /HPF (0-FEW) Urine Hyaline Casts Few /HPF Urine Mucus Marked /LPF Lactic Acid Level 2.7 mmol/L (0.4-2.0) Test 03/10/20 07:45 03/10/20 08:06 03/10/20 11:26 Lactic Acid Level 2.3 mmol/L (0.4-2.0) Troponin I Quantitative < 0.017 ng/mL (0.000-0.055) Triglycerides Level 170 mg/dL (0-150) Cholesterol Level 152 mg/dL (0-200) LDL Cholesterol, Calculated 57 mg/dL (0-100) VLDL Cholesterol, Calculated 34 mg/dL (0-40) Non-HDL Cholesterol Calculated 91 mg/dL (0-129) HDL Cholesterol 61 mg/dL (40-60) Cholesterol/HDL Ratio 2.5 Thyroid Stimulating Hormone (TSH) 1.413 uIU/mL (0.358-3.74) Glucose (Fingerstick) 235 mg/dL (70-99) 252 mg/dL (70-99) Medications Active Scripts Medications Dose Route/Sig Max Daily Dose Days Date Category Proair Hfa Inhaler (Albuterol Sulfate) 8.5 Gm Hfa.aer.ad 2 Puff IH PRN Q4-6HRS PRN 21 03/10/20 Reported Meloxicam 15 Mg Tablet 1 Tab PO DAILY 03/10/20 Reported Amlodipine Besylate 10 Mg Tablet 1 Tab PO DAILY 03/10/20 Reported Victoza 3-Johnson (Liraglutide) 0.6 Mg/0.1 Ml Pen.injctr 0.6 Mg SQ DAILY 03/10/20 Reported Carvedilol 6.25 Mg Tablet 1 Tab PO BID 03/10/20 Reported Clonidine Hcl 0.2 Mg Tablet 0.2 Mg PO TID 03/10/20 Reported Lasix (Furosemide) 40 Mg Tablet 1 Tab PO DAILY 14 06/26/17 Rx Combigan Eye Drops (Brimonidine Tartrate/Timolol) 5 Ml Drops 5 Ml OP BID 06/25/17 Reported Latanoprost 2.5 Ml Drops 1 Drop EACHEYE QHS 06/25/17 Reported Miralax (Polyethylene Glycol 3350) 17 Gm Powd.pack 1 Packet PO DAILY 09/14/16 Rx Levemir (Insulin Detemir) 100 Unit/1 Ml Vial 45 Unit SQ HS 01/05/16 Reported Lipitor (Atorvastatin Calcium) 20 Mg Tablet 20 Mg PO HS 01/05/16 Reported Potassium Chloride 10 Meq Tablet.er 10 Meq PO DAILY 12/05/13 Reported Sucralfate 1 Gm Tablet 1 Gm PO QID 12/05/13 Reported Flonase (Fluticasone Propionate) [address] NS DAILY 12/05/13 Reported Acetaminophen 500 Mg Tablet 500 Mg PO PRN TID PRN 12/05/13 Reported Prevacid (Lansoprazole) 30 Mg Capsule.dr 30 Mg PO DAILY 12/05/13 Reported Metformin Hcl 500 Mg Tablet 1,000 Mg PO BIDWMEALS 12/05/13 Reported Novolog Flexpen (Insulin Aspart) 100 Unit/1 Ml Insuln.pen 8 Unit SQ TIDAC 12/05/13 Reported Impression . Full consult dictated CT reviewed, no pulmonary embolism, large Tracheal adenopathy Will discuss with interventional bronchoscopist , may require EBUS as an outpatient JUSTUS GRAYSON MD Mar 10, 2020 15:18
--- NOTE | 2020-03-10 16:31 | PDOC2 ---
NEUROLOGY CONSULT Date of Service DOS: DATE: 03/10/20 TIME: 16:23 Reason for Consult Reason for Consult: Syncope Referring Physician Referring Physician: Dr. Higginbotham PCP: Dr. Singh Source Source: Chart review, Patient History of Present Illness History of Present Illness The patient is a 60-year-old right-handed female who fainted early yesterday evening. She was feeling lightheaded and dizzy and checked her sugar and it was 73, she is used to having sugars in the 200-300 range. She went to the kitchen to get some the eat and then lost consciousness for about 20 minutes. There was no tongue biting, incontinence, soreness, or postictal confusion. She has no history of stroke, seizure, or head injury. She generally gets around with a walker following a tibia/fibula fracture several years ago. She also had some chest pain about a week ago. Past Medical History Cardiovascular: HTN, Hyperlipidemia Pulmonary: Bronchitis CENTRAL NERVOUS SYSTEM: Periperal neuropathy GI: GERD Heme/Onc: Anemia NOS Psych: Anxiety Musculoskeletal: Osteoarthritis ENT: Allergic Rhinitis, Other (glaucoma) Renal/: Chronic renal insuff, Urinary Incontinence Endocrine: Diabetes, Other (Vitamin D deficiency) Dermatology: Cellulitis Past Surgical History Past Surgical History: Other (Breast lumpectomy, bladder sling, leg fracture) Family History Family History: Other (COPD) Social History Social History Single, unemployed, no alcohol or tobacco, lives alone Current Medications Current Medications Current Medications Iohexol (Omnipaque 350 Mg/ml) 75 ml 1X ONCE IV Last administered on 03/10/20at 00:44; Start 03/10/20 at 00:15; Stop 03/10/20 at 00:16; Status DC Info (CONTRAST GIVEN -- Rx MONITORING) 1 each PRN DAILY PRN MC SEE COMMENTS; Start 03/10/20 at 00:15; Stop 03/12/20 at 00:14 Ondansetron HCl (Zofran) 4 mg PRN Q8HRS PRN IV NAUSEA/VOMITING; Start 03/10/20 at 02:00; Stop 03/11/20 at 01:59 Fentanyl Citrate (Fentanyl 2ml Vial) 50 mcg PRN Q1HR PRN IV PAIN; Start 03/10/20 at 02:00; Stop 03/11/20 at 01:59 Sodium Chloride 1,000 ml @ 100 mls/hr Q10H IV Last administered on 03/10/20at 03:05; Start 03/10/20 at 02:30 Aspirin (Ecotrin) 81 mg DAILYWBKFT PO ; Start 03/11/20 at 08:00 Acetaminophen (Tylenol) 500 mg PRN TID PRN PO PAIN; Start 03/10/20 at 12:00 Albuterol Sulfate (Ventolin Neb Soln) 2.5 mg PRN Q4HRS PRN NEB wheezing; Start 03/10/20 at 12:00 Amlodipine Besylate (Norvasc) 10 mg DAILY PO ; Start 03/10/20 at 13:00 Atorvastatin Calcium (Lipitor) 20 mg HS PO ; Start 03/10/20 at 21:00 Carvedilol (Coreg) 6.25 mg BID PO ; Start 03/10/20 at 21:00 Clonidine HCl (Catapres) 0.2 mg TID PO ; Start 03/10/20 at 14:00 Fluticasone Propionate (Flonase) 2 spray DAILY NS ; Start 03/11/20 at 09:00 Furosemide (Lasix) 40 mg DAILY PO ; Start 03/10/20 at 13:00 Latanoprost (Xalatan) 1 drop QHS OU ; Start 03/10/20 at 21:00 Metformin HCl (Glucophage) 1,000 mg BIDWMEALS PO ; Start 03/10/20 at 17:00 Polyethylene Glycol (miraLAX PACKET) 17 gm DAILY PO ; Start 03/10/20 at 13:00 Sucralfate (Carafate) 1 gm QID PO ; Start 03/10/20 at 13:00 Brimonidine Tartrate (Alphagan) 1 drop BID OU ; Start 03/10/20 at 21:00 Insulin Human Lispro (HumaLOG) 8 units TIDWMEALS SQ ; Start 03/10/20 at 17:00 Insulin Glargine (Lantus Syringe) 45 unit QHS SQ ; Start 03/10/20 at 21:00 Lansoprazole (Prevacid) 30 mg DAILY PO ; Start 03/10/20 at 13:00 Potassium Chloride (Klor-Con) 10 meq DAILYWBKFT PO ; Start 03/10/20 at 13:00 Timolol Maleate (Timoptic 0.5% [facility]) 1 drop BID OU ; Start 03/10/20 at 21:00 Active Scripts Active Lasix (Furosemide) 40 Mg Tablet 1 Tab PO DAILY 14 Days Miralax (Polyethylene Glycol 3350) 17 Gm Powd.pack 1 Packet PO DAILY Reported Proair Hfa Inhaler (Albuterol Sulfate) 8.5 Gm Hfa.aer.ad 2 Puff IH PRN Q4-6HRS PRN 21 Days Meloxicam 15 Mg Tablet 1 Tab PO DAILY Amlodipine Besylate 10 Mg Tablet 1 Tab PO DAILY Victoza 3-Johnson (Liraglutide) 0.6 Mg/0.1 Ml Pen.injctr 0.6 Mg SQ DAILY Carvedilol 6.25 Mg Tablet 1 Tab PO BID Clonidine Hcl 0.2 Mg Tablet 0.2 Mg PO TID Combigan Eye Drops (Brimonidine Tartrate/Timolol) 5 Ml Drops 5 Ml OP BID Latanoprost 2.5 Ml Drops 1 Drop EACHEYE QHS Levemir (Insulin Detemir) 100 Unit/1 Ml Vial 45 Unit SQ HS Lipitor (Atorvastatin Calcium) 20 Mg Tablet 20 Mg PO HS Potassium Chloride 10 Meq Tablet.er 10 Meq PO DAILY Sucralfate 1 Gm Tablet 1 Gm PO QID Flonase (Fluticasone Propionate) 16 Gm [place].susp 2 [place] NS DAILY Acetaminophen 500 Mg Tablet 500 Mg PO PRN TID PRN Prevacid (Lansoprazole) 30 Mg Capsule.dr 30 Mg PO DAILY Metformin Hcl 500 Mg Tablet 1,000 Mg PO BIDWMEALS Novolog Flexpen (Insulin Aspart) 100 Unit/1 Ml Insuln.pen 8 Unit SQ TIDAC Allergies Allergies: Coded Allergies: Sulfa (Sulfonamide Antibiotics) (Verified Allergy, Intermediate, 07/28/17) lisinopril (Verified Allergy, Intermediate, 01/05/16) metoclopramide (Verified Allergy, Intermediate, 01/05/16) pantoprazole (Verified Allergy, Intermediate, 07/28/17) " pt reports I don't know, I'm just supposed to not take it" ROS Review of System Negative for fever, chills, weight loss, shortness of breath, chest pain, indigestion, hematochezia, melena, and dysuria. Full 14-point review of systems is negative. Physical Exam Physical Examination General: Well-developed, well-nourished black female in no acute distress HEENT: Normocephalic andatraumatic. Temporal arteriespulsatile and nontender. Neck: Supple without bruit, no meningismus Musculoskeletal: Stability:see neurologic. Gait exam:see neurologic. Tone:see neurologic.Strength:see neurologic. Neurological: Mental Status:intact, orientation, memory, attention span/concentration, language, fund of knowledge normal. Cranial Nerves:Pupils equal and reactive to light, extraocular movements areintact, visual [place] are full to confrontation. Facial sensation is normal. There is no facial asymmetry. Vestibulo-ocular reflex is intact. Palate elevates and tongue protrudes in midline. All other cranial related problems are negative except as mentioned before.Reflexes:1+ and symmetric with flexor plantar responses. Motor:5/5 st rength with normal tone and bulk. Coordination:Finger-nose finger and moxn-ft-finc testing are normal. Rapid alternating movements and fine finger movements are intact. Gait: Not tested. Sensory:Stocking loss. Vitals VITALS Vital Signs Date Time Temp Pulse Resp B/P (MAP) Pulse Ox O2 Delivery O2 Flow Rate FiO2 03/10/20 15:00 98.0 69 20 139/56 (83) 98 Room Air 98.0 Labs Labs Laboratory Tests Test 03/09/20 21:26 03/10/20 00:10 03/10/20 01:40 03/10/20 05:06 White Blood Count 9.9 x10^3/uL (4.0-11.0) Red Blood Count 4.80 x10^6/uL (3.50-5.40) Hemoglobin 11.9 g/dL (12.0-15.5) Hematocrit 37.0 % (36.0-47.0) Mean Corpuscular Volume 77 fL (79-100) Mean Corpuscular Hemoglobin 25 pg (25-35) Mean Corpuscular Hemoglobin Concent 32 g/dL (31-37) Red Cell Distribution Width 16.4 % (11.5-14.5) Platelet Count 297 x10^3/uL (140-400) Neutrophils (%) (Auto) 50 % (31-73) Lymphocytes (%) (Auto) 41 % (24-48) Monocytes (%) (Auto) 8 % (0-9) Eosinophils (%) (Auto) 1 % (0-3) Basophils (%) (Auto) 1 % (0-3) Neutrophils # (Auto) 4.9 x10^3/uL (1.8-7.7) Lymphocytes # (Auto) 4.0 x10^3/uL (1.0-4.8) Monocytes # (Auto) 0.8 x10^3/uL (0.0-1.1) Eosinophils # (Auto) 0.1 x10^3/uL (0.0-0.7) Basophils # (Auto) 0.1 x10^3/uL (0.0-0.2) Prothrombin Time 13.9 SEC (11.7-14.0) Prothromb Time International Ratio 1.1 (0.8-1.1) D-Dimer (Bernadette) 1.68 ug/mlFEU (0.00-0.50) Sodium Level 143 mmol/L (136-145) Potassium Level 3.7 mmol/L (3.5-5.1) Chloride Level 107 mmol/L (98-107) Carbon Dioxide Level 28 mmol/L (21-32) Anion Gap 8 (6-14) Blood Urea Nitrogen 25 mg/dL (7-20) Creatinine 1.2 mg/dL (0.6-1.0) Estimated GFR (Cockcroft-Gault) 55.6 BUN/Creatinine Ratio 21 (6-20) Glucose Level 88 mg/dL (70-99) Calcium Level 9.0 mg/dL (8.5-10.1) Magnesium Level 2.3 mg/dL (1.8-2.4) Total Bilirubin 0.3 mg/dL (0.2-1.0) Aspartate Amino Transf (AST/SGOT) 23 U/L (15-37) Alanine Aminotransferase (ALT/SGPT) 40 U/L (14-59) Alkaline Phosphatase 134 U/L (46-116) Troponin I Quantitative < 0.017 ng/mL (0.000-0.055) < 0.017 ng/mL (0.000-0.055) IB-Dsb-Z-Type Natriuretic Peptide 62 pg/mL (0-124) Total Protein 7.7 g/dL (6.4-8.2) Albumin 3.4 g/dL (3.4-5.0) Albumin/Globulin Ratio 0.8 (1.0-1.7) Urine Collection Type Unknown Urine Color Yellow Urine Clarity Clear Urine pH 5.5 (<5.0-8.0) Urine Specific [place] 1.025 (1.000-1.030) Urine Protein Negative mg/dL (NEG-TRACE) Urine Glucose (UA) Negative mg/dL (NEG) Urine Ketones (Stick) Negative mg/dL (NEG) Urine Blood Negative (NEG) Urine Nitrite Negative (NEG) Urine Bilirubin Negative (NEG) Urine Urobilinogen Dipstick 0.2 mg/dL (0.2 mg/dL) Urine Leukocyte Esterase Negative (NEG) Urine RBC Occ /HPF (0-2) Urine WBC 5-10 /HPF (0-4) Urine Squamous Epithelial Cells Mod /LPF Urine Bacteria Many /HPF (0-FEW) Urine Hyaline Casts Few /HPF Urine Mucus Marked /LPF Lactic Acid Level 2.7 mmol/L (0.4-2.0) Test 03/10/20 07:45 03/10/20 08:06 03/10/20 11:26 Lactic Acid Level 2.3 mmol/L (0.4-2.0) Troponin I Quantitative < 0.017 ng/mL (0.000-0.055) Triglycerides Level 170 mg/dL (0-150) Cholesterol Level 152 mg/dL (0-200) LDL Cholesterol, Calculated 57 mg/dL (0-100) VLDL Cholesterol, Calculated 34 mg/dL (0-40) Non-HDL Cholesterol Calculated 91 mg/dL (0-129) HDL Cholesterol 61 mg/dL (40-60) Cholesterol/HDL Ratio 2.5 Thyroid Stimulating Hormone (TSH) 1.413 uIU/mL (0.358-3.74) Glucose (Fingerstick) 235 mg/dL (70-99) 252 mg/dL (70-99) Laboratory Tests Test 03/09/20 21:26 03/10/20 00:10 03/10/20 01:40 03/10/20 05:06 White Blood Count 9.9 x10^3/uL (4.0-11.0) Red Blood Count 4.80 x10^6/uL (3.50-5.40) Hemoglobin 11.9 g/dL (12.0-15.5) Hematocrit 37.0 % (36.0-47.0) Mean Corpuscular Volume 77 fL (79-100) Mean Corpuscular Hemoglobin 25 pg (25-35) Mean Corpuscular Hemoglobin Concent 32 g/dL (31-37) Red Cell Distribution Width 16.4 % (11.5-14.5) Platelet Count 297 x10^3/uL (140-400) Neutrophils (%) (Auto) 50 % (31-73) Lymphocytes (%) (Auto) 41 % (24-48) Monocytes (%) (Auto) 8 % (0-9) Eosinophils (%) (Auto) 1 % (0-3) Basophils (%) (Auto) 1 % (0-3) Neutrophils # (Auto) 4.9 x10^3/uL (1.8-7.7) Lymphocytes # (Auto) 4.0 x10^3/uL (1.0-4.8) Monocytes # (Auto) 0.8 x10^3/uL (0.0-1.1) Eosinophils # (Auto) 0.1 x10^3/uL (0.0-0.7) Basophils # (Auto) 0.1 x10^3/uL (0.0-0.2) Prothrombin Time 13.9 SEC (11.7-14.0) Prothromb Time International Ratio 1.1 (0.8-1.1) D-Dimer (Bernadette) 1.68 ug/mlFEU (0.00-0.50) Sodium Level 143 mmol/L (136-145) Potassium Level 3.7 mmol/L (3.5-5.1) Chloride Level 107 mmol/L (98-107) Carbon Dioxide Level 28 mmol/L (21-32) Anion Gap 8 (6-14) Blood Urea Nitrogen 25 mg/dL (7-20) Creatinine 1.2 mg/dL (0.6-1.0) Estimated GFR (Cockcroft-Gault) 55.6 BUN/Creatinine Ratio 21 (6-20) Glucose Level 88 mg/dL (70-99) Calcium Level 9.0 mg/dL (8.5-10.1) Magnesium Level 2.3 mg/dL (1.8-2.4) Total Bilirubin 0.3 mg/dL (0.2-1.0) Aspartate Amino Transf (AST/SGOT) 23 U/L (15-37) Alanine Aminotransferase (ALT/SGPT) 40 U/L (14-59) Alkaline Phosphatase 134 U/L (46-116) Troponin I Quantitative < 0.017 ng/mL (0.000-0.055) < 0.017 ng/mL (0.000-0.055) KU-Fqt-G-Type Natriuretic Peptide 62 pg/mL (0-124) Total Protein 7.7 g/dL (6.4-8.2) Albumin 3.4 g/dL (3.4-5.0) Albumin/Globulin Ratio 0.8 (1.0-1.7) Urine Collection Type Unknown Urine Color Yellow Urine Clarity Clear Urine pH 5.5 (<5.0-8.0) Urine Specific [place] 1.025 (1.000-1.030) Urine Protein Negative mg/dL (NEG-TRACE) Urine Glucose (UA) Negative mg/dL (NEG) Urine Ketones (Stick) Negative mg/dL (NEG) Urine Blood Negative (NEG) Urine Nitrite Negative (NEG) Urine Bilirubin Negative (NEG) Urine Urobilinogen Dipstick 0.2 mg/dL (0.2 mg/dL) Urine Leukocyte Esterase Negative (NEG) Urine RBC Occ /HPF (0-2) Urine WBC 5-10 /HPF (0-4) Urine Squamous Epithelial Cells Mod /LPF Urine Bacteria Many /HPF (0-FEW) Urine Hyaline Casts Few /HPF Urine Mucus Marked /LPF Lactic Acid Level 2.7 mmol/L (0.4-2.0) Test 03/10/20 07:45 03/10/20 08:06 03/10/20 11:26 Lactic Acid Level 2.3 mmol/L (0.4-2.0) Troponin I Quantitative < 0.017 ng/mL (0.000-0.055) Triglycerides Level 170 mg/dL (0-150) Cholesterol Level 152 mg/dL (0-200) LDL Cholesterol, Calculated 57 mg/dL (0-100) VLDL Cholesterol, Calculated 34 mg/dL (0-40) Non-HDL Cholesterol Calculated 91 mg/dL (0-129) HDL Cholesterol 61 mg/dL (40-60) Cholesterol/HDL Ratio 2.5 Thyroid Stimulating Hormone (TSH) 1.413 uIU/mL (0.358-3.74) Glucose (Fingerstick) 235 mg/dL (70-99) 252 mg/dL (70-99) Images Images CT Head without IV contrast INDICATION: Reason: fall/syncope / Spl. Instructions: / History: TECHNIQUE: Multi-detector row CT images were obtained of the head without the use of IV contrast. All CT scans performed at this facility utilize dose optimization techniques as appropriate to the exam, including the following: Automated exposure control and adjustment of the mA and/or KV according to patient size (this includes techniques or standardized protocols for targeted exams where dose is indication/reason for exam). COMPARISON: None FINDINGS: BRAIN PARENCHYMA: No evidence of acute intraparenchymal hemorrhage or infarct. There are scattered areas of white matter hypoattenuation compatible chronic ischemic microvascular change. VENTRICLES & EXTRA-AXIAL SPACES: Ventricles are within normal limits. Basilar cisterns are patent. No pathologic extra-axial fluid collection or mass. ORBITS: Orbital contents are unremarkable. SINUSES: Visualized paranasal sinuses and mastoid air cells are clear. OSSEOUS & SOFT TISSUES: Calvarium and skull base are intact. IMPRESSION: No acute intracranial pathology. EXAM: CT Cervical Spine without IV contrast INDICATION: Reason: fall/syncope / Spl. Instructions: / History: TECHNIQUE: Multi-detector row CT images were obtained through the cervical spine without the use of IV contrast. Post-processing sagittal and coronal reconstructed images were obtained for interpretation. All CT scans performed at this facility utilize dose optimization techniques as appropriate to the exam, including the following: Automated exposure control and adjustment of the mA and/or KV according to patient size (this includes techniques or standardized protocols for targeted exams where dose is indication/reason for exam). COMPARISON: Earlier same day chest x-ray FINDINGS: CRANIOCERVICAL JUNCTION: Unremarkable. ALIGNMENT: Alignment is within normal limits. OSSEOUS: No evidence of fracture or bone destruction. DISC SPACES: Unremarkable. FACET JOINTS: Mild hypertrophic change in the left facet joints, most conspicuously at C2-C3 is noted. No malalignment. SPINAL CANAL: Unremarkable. NEUROFORAMINA: Unremarkable. SOFT TISSUES: Included upper chest shows soft tissue fullness in the right paratracheal region only partially imaged that correlates to the area of masslike fullness seen on earlier same day chest x-ray. IMPRESSION: 1. No acute traumatic findings in the cervical spine. 2. Masslike fullness in the right superior paratracheal mediastinum, recommended for additional imaging evaluation with dedicated chest CT, preferably with IV contrast. Assessment/Plan Assessment/Plan Impression: Syncope probably related to relative hypoglycemia, no evidence of a primary neurological issue. Diabetic peripheral neuropathy Longstanding gait disorder New mediastinal mass Recommendations: No additional neurological studies or treatments required Neurology signed off. Thank you for letting me help with the patient's care. RAVINDER PAUL MD Mar 10, 2020 16:31
[2020-03-10] MEDS: metFORMIN 500 MG TABLET PO SCH (16:46)
[2020-03-10] MEDS: amLODIPine BESYLATE 10 MG TABLET PO SCH (16:47)
[2020-03-10] MEDS: POTASSIUM CHLORIDE 10 MEQ TABLET.ER. PO SCH (16:48)
[2020-03-10] MEDS: cloNIDine HCL 0.2 MG TABLET PO SCH ×2 (16:48→22:07)
[2020-03-10] MEDS: POLYETHYLENE GLYCOL 3350 17 GM PACKET. PO SCH (16:48)
[2020-03-10] MEDS: LANSOPRAZOLE 30 MG TAB.RAP.DR PO SCH (16:48)
[2020-03-10] MEDS: FUROSEMIDE 40 MG TABLET. PO SCH (16:49)
[2020-03-10] MEDS: INSULIN LISPRO 300 UNITS/3 ML VIAL. SQ SCH (18:24)
[2020-03-10] MEDS ORDERED: ZOLPIDEM 5 MG TABLET. PO PRN (18:45)
[2020-03-10] MEDS: CARVEDILOL 6.25 MG TABLET. PO SCH (22:06)
[2020-03-10] MEDS: ATORVASTATIN CALCIUM 20 MG TABLET PO SCH (22:06)
[2020-03-10] MEDS: TIMOLOL 0.5% OPHTH SOLUTION 5ML BOTTLE. OU SCH (22:07)
[2020-03-10] MEDS: LATANOPROST 0.005% OPHTH SOLUTION 2.5ML BOTTLE. OU SCH (22:08)
[2020-03-10] MEDS: BRIMONIDINE 0.2% OPHTH SOLUTION 5ML BOTTLE. OU SCH (22:08)
[2020-03-10] MEDS: INSULIN GLARGINE SYRINGE. SQ SCH (22:17)
[2020-03-11 02:51] VITALS: BP 124/62
--- NOTE | 2020-03-11 03:27 | CONS ---
DATE OF CONSULTATION: 03/10/2020 ATTENDING PHYSICIAN: Dr. Jerome. REASON FOR CONSULTATION: The patient is seen in pulmonary consultation at the request of Dr. Higginbotham for abnormal CT chest. HISTORY OF PRESENT ILLNESS: The patient is a 60-year-old that has a history of diabetes, presented with a syncopal episode at home. She thinks it was related to low blood sugar. Part of her workup included CT angiogram for PE protocol. I reviewed the CT. There is no evidence of pulmonary emboli. There were several findings including soft tissue density paratracheal region. There was lymphadenopathy that had developed on superimposed preexisting calcified nodes. There was also a 12 mm right middle lobe nodule. The patient reports no progressive dyspnea, tachypnea. She has never smoked. She denies any hemoptysis. No prior history of sarcoid. No family history of sarcoid. The patient denies having any difficulty with her lungs in the past. She has never seen a radio antenna installer. PAST MEDICAL HISTORY: Type 2 diabetes, gastroesophageal reflux, glaucoma, hypertension, chronic bronchitis, seasonal allergies, chronic cellulitis, morbid obesity. PAST SURGICAL HISTORY: She has had previous bladder surgery, ablation of the uterus, right knee surgery. SOCIAL HISTORY: She has never smoked. Lives on her own. She uses a walker to get around. REVIEW OF SYSTEMS: CONSTITUTIONAL: No fever or chills. No significant weight loss. EYES: No change in visual acuity. HENT: No nasal congestion or sore throat. PULMONARY: As indicated above. CARDIOVASCULAR: No chest pain. No pressure. GASTROINTESTINAL: No nausea, vomiting, diarrhea. GENITOURINARY: No dysuria or frequency. NEUROMUSCULAR: No localized muscle aches or joint pains. SKIN: No new skin rashes. NEUROLOGIC: No headaches, diplopia, or blurred vision. FAMILY HISTORY: No family history of sarcoid. ALLERGIES: No known drug allergies. CURRENT MEDICATION: List was reviewed. PHYSICAL EXAMINATION: VITAL SIGNS: Stable. O2 saturation greater than 92%. Currently, the patient is on room air. HEENT: Eyes: The sclerae were nonicteric. NECK: Jugular venous distention was not elevated. No lymphadenopathy. CHEST: Full expansion. LUNGS: Adequate flow, no wheezes. CARDIOVASCULAR: Regular rate and rhythm with S1, S2, no S3. ABDOMEN: Soft, nontender. EXTREMITIES: No clubbing, cyanosis. Some edema. Some changes compatible with venous insufficiency. LABORATORY DATA: White count was 9.9, hemoglobin 11, hematocrit of 37. Electrolytes were noted. Blood sugar was elevated. BUN was elevated, creatinine was elevated. INR was 1.1. IMPRESSION: 1. Abnormal CT chest revealing calcified paratracheal and mediastinal adenopathy. 2. Right middle lobe pulmonary nodule measuring 12 x 8 mm. 3. Morbid obesity. 4. Type 2 diabetes. 5. Syncopal episode, per primary care physician. 6. Hypertension. 7. Hyperlipidemia. PLAN: We will review films with interventional bronchoscopist, recommend outpatient EBUS versus the possibility of a mediastinoscopy. We will discuss case and make further recommendations. I do appreciate the privilege in sharing the patient's care. JUSTUS GRAYSON MD DR: THAI/gauri JOB#: [id number] / [id number]
[2020-03-11 07:00] VITALS: BP_SYST 127; BP_SYST 132; BP_SYST 133; BP_DIAS 60; BP_DIAS 79; BP_DIAS 93
[2020-03-11 07:36] LABS: BASO # 0.1 x10^3/uL (0.0-0.2); BASO % 1 % (0-3); EOS # 0.3 x10^3/uL (0.0-0.7); EOS % 4 % (0-3); HEMATOCRIT 37.1 % (36.0-47.0); LYMPH # 2.9 x10^3/uL (1.0-4.8); LYMPH % 40 % (24-48); MEAN CORPUSCULAR HEMOGLOBIN 25 pg (25-35); MEAN CORPUSCULAR HGB CONC 32 g/dL (31-37); MEAN CORPUSCULAR VOLUME 77 fL (79-100); MONO # 0.5 x10^3/uL (0.0-1.1); MONO % 7 % (0-9); NEUT # 3.5 x10^3/uL (1.8-7.7); NEUT % 48 % (31-73); PLATELET COUNT 281 x10^3/uL (140-400); RED BLOOD COUNT 4.82 x10^6/uL (3.50-5.40); RED CELL DISTRIBUTION WIDTH 16.5 % (11.5-14.5); WHITE BLOOD COUNT 7.3 x10^3/uL (4.0-11.0)
[2020-03-11 07:58] LABS: CALCIUM 9.1 mg/dL (8.5-10.1); CREATININE 1.1 mg/dL (0.6-1.0); GFR 61.5; POTASSIUM 3.8 mmol/L (3.5-5.1)
--- NOTE | 2020-03-11 08:26 | PDOC ---
PULMONARY PROGRESS NOTES DATE: 03/11/20 TIME: 08:26 Subjective Patient not more short of air. Vitals Vital Signs Date Time Temp Pulse Resp B/P (MAP) Pulse Ox O2 Delivery O2 Flow Rate FiO2 03/11/20 02:51 97.4 62 18 124/62 (82) 96 Room Air 97.4 ROS: No Nausea, No Chest Pain, No Abdominal Pain, No Increase Cough General: Alert Lungs: Clear Cardiovascular: S1, S2 Abdomen: Soft Neuro Exam: Alert Extremities: No Edema Skin: Warm Labs Laboratory Tests Test 03/09/20 21:26 03/10/20 00:10 03/10/20 01:40 03/10/20 05:06 White Blood Count 9.9 x10^3/uL (4.0-11.0) Red Blood Count 4.80 x10^6/uL (3.50-5.40) Hemoglobin 11.9 g/dL (12.0-15.5) Hematocrit 37.0 % (36.0-47.0) Mean Corpuscular Volume 77 fL (79-100) Mean Corpuscular Hemoglobin 25 pg (25-35) Mean Corpuscular Hemoglobin Concent 32 g/dL (31-37) Red Cell Distribution Width 16.4 % (11.5-14.5) Platelet Count 297 x10^3/uL (140-400) Neutrophils (%) (Auto) 50 % (31-73) Lymphocytes (%) (Auto) 41 % (24-48) Monocytes (%) (Auto) 8 % (0-9) Eosinophils (%) (Auto) 1 % (0-3) Basophils (%) (Auto) 1 % (0-3) Neutrophils # (Auto) 4.9 x10^3/uL (1.8-7.7) Lymphocytes # (Auto) 4.0 x10^3/uL (1.0-4.8) Monocytes # (Auto) 0.8 x10^3/uL (0.0-1.1) Eosinophils # (Auto) 0.1 x10^3/uL (0.0-0.7) Basophils # (Auto) 0.1 x10^3/uL (0.0-0.2) Prothrombin Time 13.9 SEC (11.7-14.0) Prothromb Time International Ratio 1.1 (0.8-1.1) D-Dimer (Bernadette) 1.68 ug/mlFEU (0.00-0.50) Sodium Level 143 mmol/L (136-145) Potassium Level 3.7 mmol/L (3.5-5.1) Chloride Level 107 mmol/L (98-107) Carbon Dioxide Level 28 mmol/L (21-32) Anion Gap 8 (6-14) Blood Urea Nitrogen 25 mg/dL (7-20) Creatinine 1.2 mg/dL (0.6-1.0) Estimated GFR (Cockcroft-Gault) 55.6 BUN/Creatinine Ratio 21 (6-20) Glucose Level 88 mg/dL (70-99) Calcium Level 9.0 mg/dL (8.5-10.1) Magnesium Level 2.3 mg/dL (1.8-2.4) Total Bilirubin 0.3 mg/dL (0.2-1.0) Aspartate Amino Transf (AST/SGOT) 23 U/L (15-37) Alanine Aminotransferase (ALT/SGPT) 40 U/L (14-59) Alkaline Phosphatase 134 U/L (46-116) Troponin I Quantitative < 0.017 ng/mL (0.000-0.055) < 0.017 ng/mL (0.000-0.055) YI-Vxt-D-Type Natriuretic Peptide 62 pg/mL (0-124) Total Protein 7.7 g/dL (6.4-8.2) Albumin 3.4 g/dL (3.4-5.0) Albumin/Globulin Ratio 0.8 (1.0-1.7) Urine Collection Type Unknown Urine Color Yellow Urine Clarity Clear Urine pH 5.5 (<5.0-8.0) Urine Specific [place] 1.025 (1.000-1.030) Urine Protein Negative mg/dL (NEG-TRACE) Urine Glucose (UA) Negative mg/dL (NEG) Urine Ketones (Stick) Negative mg/dL (NEG) Urine Blood Negative (NEG) Urine Nitrite Negative (NEG) Urine Bilirubin Negative (NEG) Urine Urobilinogen Dipstick 0.2 mg/dL (0.2 mg/dL) Urine Leukocyte Esterase Negative (NEG) Urine RBC Occ /HPF (0-2) Urine WBC 5-10 /HPF (0-4) Urine Squamous Epithelial Cells Mod /LPF Urine Bacteria Many /HPF (0-FEW) Urine Hyaline Casts Few /HPF Urine Mucus Marked /LPF Lactic Acid Level 2.7 mmol/L (0.4-2.0) Test 03/10/20 07:45 03/10/20 08:06 03/10/20 11:26 03/10/20 16:40 Lactic Acid Level 2.3 mmol/L (0.4-2.0) Troponin I Quantitative < 0.017 ng/mL (0.000-0.055) Triglycerides Level 170 mg/dL (0-150) Cholesterol Level 152 mg/dL (0-200) LDL Cholesterol, Calculated 57 mg/dL (0-100) VLDL Cholesterol, Calculated 34 mg/dL (0-40) Non-HDL Cholesterol Calculated 91 mg/dL (0-129) HDL Cholesterol 61 mg/dL (40-60) Cholesterol/HDL Ratio 2.5 Thyroid Stimulating Hormone (TSH) 1.413 uIU/mL (0.358-3.74) Glucose (Fingerstick) 235 mg/dL (70-99) 252 mg/dL (70-99) 261 mg/dL (70-99) Test 03/10/20 20:53 03/11/20 07:19 03/11/20 07:20 Glucose (Fingerstick) 187 mg/dL (70-99) 147 mg/dL (70-99) White Blood Count 7.3 x10^3/uL (4.0-11.0) Red Blood Count 4.82 x10^6/uL (3.50-5.40) Hemoglobin 12.0 g/dL (12.0-15.5) Hematocrit 37.1 % (36.0-47.0) Mean Corpuscular Volume 77 fL (79-100) Mean Corpuscular Hemoglobin 25 pg (25-35) Mean Corpuscular Hemoglobin Concent 32 g/dL (31-37) Red Cell Distribution Width 16.5 % (11.5-14.5) Platelet Count 281 x10^3/uL (140-400) Neutrophils (%) (Auto) 48 % (31-73) Lymphocytes (%) (Auto) 40 % (24-48) Monocytes (%) (Auto) 7 % (0-9) Eosinophils (%) (Auto) 4 % (0-3) Basophils (%) (Auto) 1 % (0-3) Neutrophils # (Auto) 3.5 x10^3/uL (1.8-7.7) Lymphocytes # (Auto) 2.9 x10^3/uL (1.0-4.8) Monocytes # (Auto) 0.5 x10^3/uL (0.0-1.1) Eosinophils # (Auto) 0.3 x10^3/uL (0.0-0.7) Basophils # (Auto) 0.1 x10^3/uL (0.0-0.2) Sodium Level 143 mmol/L (136-145) Potassium Level 3.8 mmol/L (3.5-5.1) Chloride Level 104 mmol/L (98-107) Carbon Dioxide Level 29 mmol/L (21-32) Anion Gap 10 (6-14) Blood Urea Nitrogen 19 mg/dL (7-20) Creatinine 1.1 mg/dL (0.6-1.0) Estimated GFR (Cockcroft-Gault) 61.5 Glucose Level 146 mg/dL (70-99) Calcium Level 9.1 mg/dL (8.5-10.1) Laboratory Tests Test 03/10/20 11:26 03/10/20 16:40 03/10/20 20:53 03/11/20 07:19 Glucose (Fingerstick) 252 mg/dL (70-99) 261 mg/dL (70-99) 187 mg/dL (70-99) 147 mg/dL (70-99) Test 03/11/20 07:20 White Blood Count 7.3 x10^3/uL (4.0-11.0) Red Blood Count 4.82 x10^6/uL (3.50-5.40) Hemoglobin 12.0 g/dL (12.0-15.5) Hematocrit 37.1 % (36.0-47.0) Mean Corpuscular Volume 77 fL (79-100) Mean Corpuscular Hemoglobin 25 pg (25-35) Mean Corpuscular Hemoglobin Concent 32 g/dL (31-37) Red Cell Distribution Width 16.5 % (11.5-14.5) Platelet Count 281 x10^3/uL (140-400) Neutrophils (%) (Auto) 48 % (31-73) Lymphocytes (%) (Auto) 40 % (24-48) Monocytes (%) (Auto) 7 % (0-9) Eosinophils (%) (Auto) 4 % (0-3) Basophils (%) (Auto) 1 % (0-3) Neutrophils # (Auto) 3.5 x10^3/uL (1.8-7.7) Lymphocytes # (Auto) 2.9 x10^3/uL (1.0-4.8) Monocytes # (Auto) 0.5 x10^3/uL (0.0-1.1) Eosinophils # (Auto) 0.3 x10^3/uL (0.0-0.7) Basophils # (Auto) 0.1 x10^3/uL (0.0-0.2) Sodium Level 143 mmol/L (136-145) Potassium Level 3.8 mmol/L (3.5-5.1) Chloride Level 104 mmol/L (98-107) Carbon Dioxide Level 29 mmol/L (21-32) Anion Gap 10 (6-14) Blood Urea Nitrogen 19 mg/dL (7-20) Creatinine 1.1 mg/dL (0.6-1.0) Estimated GFR (Cockcroft-Gault) 61.5 Glucose Level 146 mg/dL (70-99) Calcium Level 9.1 mg/dL (8.5-10.1) Medications Active Scripts Medications Dose Route/Sig Max Daily Dose Days Date Category Proair Hfa Inhaler (Albuterol Sulfate) 8.5 Gm Hfa.aer.ad 2 Puff IH PRN Q4-6HRS PRN 21 03/10/20 Reported Meloxicam 15 Mg Tablet 1 Tab PO DAILY 03/10/20 Reported Amlodipine Besylate 10 Mg Tablet 1 Tab PO DAILY 03/10/20 Reported Victoza 3-Johnson (Liraglutide) 0.6 Mg/0.1 Ml Pen.injctr 0.6 Mg SQ DAILY 03/10/20 Reported Carvedilol 6.25 Mg Tablet 1 Tab PO BID 03/10/20 Reported Clonidine Hcl 0.2 Mg Tablet 0.2 Mg PO TID 03/10/20 Reported Lasix (Furosemide) 40 Mg Tablet 1 Tab PO DAILY 14 06/26/17 Rx Combigan Eye Drops (Brimonidine Tartrate/Timolol) 5 Ml Drops 5 Ml OP BID 06/25/17 Reported Latanoprost 2.5 Ml Drops 1 Drop EACHEYE QHS 06/25/17 Reported Miralax (Polyethylene Glycol 3350) 17 Gm Powd.pack 1 Packet PO DAILY 09/14/16 Rx Levemir (Insulin Detemir) 100 Unit/1 Ml Vial 45 Unit SQ HS 01/05/16 Reported Lipitor (Atorvastatin Calcium) 20 Mg Tablet 20 Mg PO HS 01/05/16 Reported Potassium Chloride 10 Meq Tablet.er 10 Meq PO DAILY 12/05/13 Reported Sucralfate 1 Gm Tablet 1 Gm PO QID 12/05/13 Reported Flonase (Fluticasone Propionate) 16 Gm [place].susp 2 [place] NS DAILY 12/05/13 Reported Acetaminophen 500 Mg Tablet 500 Mg PO PRN TID PRN 12/05/13 Reported Prevacid (Lansoprazole) 30 Mg Capsule.dr 30 Mg PO DAILY 12/05/13 Reported Metformin Hcl 500 Mg Tablet 1,000 Mg PO BIDWMEALS 12/05/13 Reported Novolog Flexpen (Insulin Aspart) 100 Unit/1 Ml Insuln.pen 8 Unit SQ TIDAC 12/05/13 Reported Impression . IMPRESSION: 1. Abnormal CT chest revealing calcified paratracheal and mediastinal adenopathy. 2. Right middle lobe pulmonary nodule measuring 12 x 8 mm. 3. Morbid obesity. 4. Type 2 diabetes. 5. Syncopal episode, per primary care physician. 6. Hypertension. 7. Hyperlipidemia. Differential diagnosis includes sarcoid, lymphoma, or other malignancy Plan . Awaiting input from Dr. Zee at [facility] From a pulmonary standpoint of view patient could be discharged anytime, follow- up with me in the office, I will arrange further diagnostic testing JUSTUS GRAYSON MD Mar 11, 2020 08:26
[2020-03-11] MEDS: POLYETHYLENE GLYCOL 3350 17 GM PACKET. PO SCH (09:00)
[2020-03-11] MEDS: cloNIDine HCL 0.2 MG TABLET PO SCH ×3 (09:33→21:26)
[2020-03-11] MEDS: ASPIRIN ENTERIC COATED 81 MG TABLET.DR. PO SCH (09:33)
[2020-03-11] MEDS: CARVEDILOL 6.25 MG TABLET. PO SCH ×2 (09:33→21:26)
[2020-03-11] MEDS: metFORMIN 500 MG TABLET PO SCH ×2 (09:34→17:50)
[2020-03-11] MEDS: SUCRALFATE 1 GM TABLET. PO SCH ×4 (09:34→21:27)
[2020-03-11] MEDS: FUROSEMIDE 40 MG TABLET. PO SCH (09:34)
[2020-03-11] MEDS: POTASSIUM CHLORIDE 10 MEQ TABLET.ER. PO SCH (09:34)
[2020-03-11] MEDS: amLODIPine BESYLATE 10 MG TABLET PO SCH (09:34)
[2020-03-11] MEDS: LANSOPRAZOLE 30 MG TAB.RAP.DR PO SCH (09:34)
[2020-03-11] MEDS: TIMOLOL 0.5% OPHTH SOLUTION 5ML BOTTLE. OU SCH ×2 (09:38→21:26)
[2020-03-11] MEDS: BRIMONIDINE 0.2% OPHTH SOLUTION 5ML BOTTLE. OU SCH ×2 (09:38→21:25)
[2020-03-11] MEDS: FLUTICASONE 50MCG/NASAL SPRAY 16GM BOTTLE. NS SCH (09:38)
[2020-03-11] MEDS: INSULIN LISPRO 300 UNITS/3 ML VIAL. SQ SCH ×3 (09:42→17:56)
--- NOTE | 2020-03-11 10:09 | PDOC ---
PROGRESS NOTES Date of Service: DATE: 03/11/20 TIME: 10:09 Chief Complaint Chief Complaint IMPRESSION: 1. Soft tissue density right paratracheal lymphadenopathy has developed superimposed on pre-existing calcified lymph nodes. Correlate to exclude lymphoma or metastatic disease. 2. 12 mm right middle lobe nodule versus atelectasis. PET/CT or three-month follow-up is suggested. 3. Mild cardiomegaly. 4. No pulmonary embolism. Electronically signed by: Percy Lee MD (03/10/2020 1:32 AM) [facility] DICTATED and SIGNED BY: CORONA LEE MD VTE Prophylaxis Ordered VTE Prophylaxis Devices: Contraindicated VTE Pharmacological Prophylaxi: Yes impression Assessment/Plan Impression: Syncope, UNWITNESSED No acute intracranial pathology. BY CT HEAD SUPER MORBID OBESITY Mediastinal mass right paratracheal lymphadenopathy has developed superimposed on pre- existing calcified lymph nodes. Correlate to exclude lymphoma or metastatic disease. by CTA CHEST 03-09 Syncope probably related to relative hypoglycemia, no evidence of a primary neurological issue. Diabetic peripheral neuropathy Longstanding gait disorder New mediastinal mass plan ADMITTED CVC BED Cardiology consult PULM CONSULT NEUROCHECKS Q 4 HRS DVT prophylaxis ECHO ASA Neurology consult orthostatic bp tid PT/OT D/W RN Justifications for Admission Other Justification TESFAYE BRUNO MD Mar 10, 2020 11:29 may require EBUS as an outpatient History of Present Illness History of Present Illness Identification/Chief Complaint Chief Complaint seen in er with syncpe 60 year old female brought in by EMS after syncopal episode. Patient states that she was feeling unwell and checked her blood sugar which was 73. Patient states her blood sugar usually runs in the 200-300's. Went to try to eat some food and was sitting there went to get up and thinks is when she syncopized. Says when she was on the floor she felt sweaty. Patient also states that she thinks she might had a heart attack 9 days ago but was not seen for it. Patient states she was having chest pain, back pain, jaw pain, right arm and finger tingling. She denies any chest pain at this time. Bit but did have pain in her back and right arm. Denies any prior history of [place], but had a scan that showed some plaques on some of her vessels.. Was alone unsure how long she was passed out. Past Medical History Past Medical History Past Medical History Past Medical History: Bronchitis, Diabetes-Type II, GERD, Glaucoma, Hypertension, Other Additional Past Medical Histor: Seasonal allergies,hiatal hernia,LOW KIDNEY FUNCTION,H/A,CELLULITIS Past Surgical History: , Other Additional Past Surgical Histo: BLADDER SLING; ablasion to uterus; right knee, L TIB/FIB FX Smoking Status: Never Smoker Alcohol Use: None Drug Use: None fhx obesity Cardiovascular: HTN, Hyperlipidemia Pulmonary: No pertinent hx CENTRAL NERVOUS SYSTEM: Periperal neuropathy GI: GERD Heme/Onc: Anemia NOS Hepatobiliary: No pertinent hx Psych: Anxiety Musculoskeletal: Osteoarthritis, Other Renal/: Chronic renal insuff Endocrine: Diabetes Past Surgical History Past Surgical History: No pertinent history Family History Family History: Diabetes, Hypertension Social History Smoke: No ALCOHOL: none Drugs: None Current Problem List Problem List Problems Medical Problems: (1) Mediastinal mass Status: Acute (2) Syncope Vitals Vitals Vital Signs Date Time Temp Pulse Resp B/P (MAP) Pulse Ox O2 Delivery O2 Flow Rate FiO2 03/11/20 09:34 76 127/93 03/11/20 07:00 98.0 20 100 Room Air 98.0 Physical Exam General: Alert, Oriented X3, Cooperative, No acute distress, Other Heart: Regular rate, Normal S1 Lungs: Clear Abdomen: Normal bowel sounds, Soft, No tenderness, Other (obese) Extremities: No clubbing, No cyanosis, Normal pulses, Other (1+ bilateral LE edema ) Skin: No significant lesion Labs LABS Laboratory Tests Test 03/10/20 11:26 03/10/20 16:40 03/10/20 20:53 03/11/20 07:19 Glucose (Fingerstick) 252 mg/dL (70-99) 261 mg/dL (70-99) 187 mg/dL (70-99) 147 mg/dL (70-99) Test 03/11/20 07:20 White Blood Count 7.3 x10^3/uL (4.0-11.0) Red Blood Count 4.82 x10^6/uL (3.50-5.40) Hemoglobin 12.0 g/dL (12.0-15.5) Hematocrit 37.1 % (36.0-47.0) Mean Corpuscular Volume 77 fL (79-100) Mean Corpuscular Hemoglobin 25 pg (25-35) Mean Corpuscular Hemoglobin Concent 32 g/dL (31-37) Red Cell Distribution Width 16.5 % (11.5-14.5) Platelet Count 281 x10^3/uL (140-400) Neutrophils (%) (Auto) 48 % (31-73) Lymphocytes (%) (Auto) 40 % (24-48) Monocytes (%) (Auto) 7 % (0-9) Eosinophils (%) (Auto) 4 % (0-3) Basophils (%) (Auto) 1 % (0-3) Neutrophils # (Auto) 3.5 x10^3/uL (1.8-7.7) Lymphocytes # (Auto) 2.9 x10^3/uL (1.0-4.8) Monocytes # (Auto) 0.5 x10^3/uL (0.0-1.1) Eosinophils # (Auto) 0.3 x10^3/uL (0.0-0.7) Basophils # (Auto) 0.1 x10^3/uL (0.0-0.2) Sodium Level 143 mmol/L (136-145) Potassium Level 3.8 mmol/L (3.5-5.1) Chloride Level 104 mmol/L (98-107) Carbon Dioxide Level 29 mmol/L (21-32) Anion Gap 10 (6-14) Blood Urea Nitrogen 19 mg/dL (7-20) Creatinine 1.1 mg/dL (0.6-1.0) Estimated GFR (Cockcroft-Gault) 61.5 Glucose Level 146 mg/dL (70-99) Calcium Level 9.1 mg/dL (8.5-10.1) Assessment and Plan Assessmemt and Plan Problems Medical Problems: (1) Mediastinal mass Status: Acute (2) Syncope Status: Acute Comment Review of Relevant I have reviewed the following items oh (where applicable) has been applied. Labs Laboratory Tests Test 03/09/20 21:26 03/10/20 00:10 03/10/20 01:40 03/10/20 05:06 White Blood Count 9.9 x10^3/uL (4.0-11.0) Red Blood Count 4.80 x10^6/uL (3.50-5.40) Hemoglobin 11.9 g/dL (12.0-15.5) Hematocrit 37.0 % (36.0-47.0) Mean Corpuscular Volume 77 fL (79-100) Mean Corpuscular Hemoglobin 25 pg (25-35) Mean Corpuscular Hemoglobin Concent 32 g/dL (31-37) Red Cell Distribution Width 16.4 % (11.5-14.5) Platelet Count 297 x10^3/uL (140-400) Neutrophils (%) (Auto) 50 % (31-73) Lymphocytes (%) (Auto) 41 % (24-48) Monocytes (%) (Auto) 8 % (0-9) Eosinophils (%) (Auto) 1 % (0-3) Basophils (%) (Auto) 1 % (0-3) Neutrophils # (Auto) 4.9 x10^3/uL (1.8-7.7) Lymphocytes # (Auto) 4.0 x10^3/uL (1.0-4.8) Monocytes # (Auto) 0.8 x10^3/uL (0.0-1.1) Eosinophils # (Auto) 0.1 x10^3/uL (0.0-0.7) Basophils # (Auto) 0.1 x10^3/uL (0.0-0.2) Prothrombin Time 13.9 SEC (11.7-14.0) Prothromb Time International Ratio 1.1 (0.8-1.1) D-Dimer (Bernadette) 1.68 ug/mlFEU (0.00-0.50) Sodium Level 143 mmol/L (136-145) Potassium Level 3.7 mmol/L (3.5-5.1) Chloride Level 107 mmol/L (98-107) Carbon Dioxide Level 28 mmol/L (21-32) Anion Gap 8 (6-14) Blood Urea Nitrogen 25 mg/dL (7-20) Creatinine 1.2 mg/dL (0.6-1.0) Estimated GFR (Cockcroft-Gault) 55.6 BUN/Creatinine Ratio 21 (6-20) Glucose Level 88 mg/dL (70-99) Calcium Level 9.0 mg/dL (8.5-10.1) Magnesium Level 2.3 mg/dL (1.8-2.4) Total Bilirubin 0.3 mg/dL (0.2-1.0) Aspartate Amino Transf (AST/SGOT) 23 U/L (15-37) Alanine Aminotransferase (ALT/SGPT) 40 U/L (14-59) Alkaline Phosphatase 134 U/L (46-116) Troponin I Quantitative < 0.017 ng/mL (0.000-0.055) < 0.017 ng/mL (0.000-0.055) XV-Hzi-K-Type Natriuretic Peptide 62 pg/mL (0-124) Total Protein 7.7 g/dL (6.4-8.2) Albumin 3.4 g/dL (3.4-5.0) Albumin/Globulin Ratio 0.8 (1.0-1.7) Urine Collection Type Unknown Urine Color Yellow Urine Clarity Clear Urine pH 5.5 (<5.0-8.0) Urine Specific [place] 1.025 (1.000-1.030) Urine Protein Negative mg/dL (NEG-TRACE) Urine Glucose (UA) Negative mg/dL (NEG) Urine Ketones (Stick) Negative mg/dL (NEG) Urine Blood Negative (NEG) Urine Nitrite Negative (NEG) Urine Bilirubin Negative (NEG) Urine Urobilinogen Dipstick 0.2 mg/dL (0.2 mg/dL) Urine Leukocyte Esterase Negative (NEG) Urine RBC Occ /HPF (0-2) Urine WBC 5-10 /HPF (0-4) Urine Squamous Epithelial Cells Mod /LPF Urine Bacteria Many /HPF (0-FEW) Urine Hyaline Casts Few /HPF Urine Mucus Marked /LPF Lactic Acid Level 2.7 mmol/L (0.4-2.0) Test 03/10/20 07:45 03/10/20 08:06 03/10/20 11:26 03/10/20 16:40 Lactic Acid Level 2.3 mmol/L (0.4-2.0) Troponin I Quantitative < 0.017 ng/mL (0.000-0.055) Triglycerides Level 170 mg/dL (0-150) Cholesterol Level 152 mg/dL (0-200) LDL Cholesterol, Calculated 57 mg/dL (0-100) VLDL Cholesterol, Calculated 34 mg/dL (0-40) Non-HDL Cholesterol Calculated 91 mg/dL (0-129) HDL Cholesterol 61 mg/dL (40-60) Cholesterol/HDL Ratio 2.5 Thyroid Stimulating Hormone (TSH) 1.413 uIU/mL (0.358-3.74) Glucose (Fingerstick) 235 mg/dL (70-99) 252 mg/dL (70-99) 261 mg/dL (70-99) Test 03/10/20 20:53 03/11/20 07:19 03/11/20 07:20 Glucose (Fingerstick) 187 mg/dL (70-99) 147 mg/dL (70-99) White Blood Count 7.3 x10^3/uL (4.0-11.0) Red Blood Count 4.82 x10^6/uL (3.50-5.40) Hemoglobin 12.0 g/dL (12.0-15.5) Hematocrit 37.1 % (36.0-47.0) Mean Corpuscular Volume 77 fL (79-100) Mean Corpuscular Hemoglobin 25 pg (25-35) Mean Corpuscular Hemoglobin Concent 32 g/dL (31-37) Red Cell Distribution Width 16.5 % (11.5-14.5) Platelet Count 281 x10^3/uL (140-400) Neutrophils (%) (Auto) 48 % (31-73) Lymphocytes (%) (Auto) 40 % (24-48) Monocytes (%) (Auto) 7 % (0-9) Eosinophils (%) (Auto) 4 % (0-3) Basophils (%) (Auto) 1 % (0-3) Neutrophils # (Auto) 3.5 x10^3/uL (1.8-7.7) Lymphocytes # (Auto) 2.9 x10^3/uL (1.0-4.8) Monocytes # (Auto) 0.5 x10^3/uL (0.0-1.1) Eosinophils # (Auto) 0.3 x10^3/uL (0.0-0.7) Basophils # (Auto) 0.1 x10^3/uL (0.0-0.2) Sodium Level 143 mmol/L (136-145) Potassium Level 3.8 mmol/L (3.5-5.1) Chloride Level 104 mmol/L (98-107) Carbon Dioxide Level 29 mmol/L (21-32) Anion Gap 10 (6-14) Blood Urea Nitrogen 19 mg/dL (7-20) Creatinine 1.1 mg/dL (0.6-1.0) Estimated GFR (Cockcroft-Gault) 61.5 Glucose Level 146 mg/dL (70-99) Calcium Level 9.1 mg/dL (8.5-10.1) Laboratory Tests Test 03/10/20 11:26 03/10/20 16:40 03/10/20 20:53 03/11/20 07:19 Glucose (Fingerstick) 252 mg/dL (70-99) 261 mg/dL (70-99) 187 mg/dL (70-99) 147 mg/dL (70-99) Test 03/11/20 07:20 White Blood Count 7.3 x10^3/uL (4.0-11.0) Red Blood Count 4.82 x10^6/uL (3.50-5.40) Hemoglobin 12.0 g/dL (12.0-15.5) Hematocrit 37.1 % (36.0-47.0) Mean Corpuscular Volume 77 fL (79-100) Mean Corpuscular Hemoglobin 25 pg (25-35) Mean Corpuscular Hemoglobin Concent 32 g/dL (31-37) Red Cell Distribution Width 16.5 % (11.5-14.5) Platelet Count 281 x10^3/uL (140-400) Neutrophils (%) (Auto) 48 % (31-73) Lymphocytes (%) (Auto) 40 % (24-48) Monocytes (%) (Auto) 7 % (0-9) Eosinophils (%) (Auto) 4 % (0-3) Basophils (%) (Auto) 1 % (0-3) Neutrophils # (Auto) 3.5 x10^3/uL (1.8-7.7) Lymphocytes # (Auto) 2.9 x10^3/uL (1.0-4.8) Monocytes # (Auto) 0.5 x10^3/uL (0.0-1.1) Eosinophils # (Auto) 0.3 x10^3/uL (0.0-0.7) Basophils # (Auto) 0.1 x10^3/uL (0.0-0.2) Sodium Level 143 mmol/L (136-145) Potassium Level 3.8 mmol/L (3.5-5.1) Chloride Level 104 mmol/L (98-107) Carbon Dioxide Level 29 mmol/L (21-32) Anion Gap 10 (6-14) Blood Urea Nitrogen 19 mg/dL (7-20) Creatinine 1.1 mg/dL (0.6-1.0) Estimated GFR (Cockcroft-Gault) 61.5 Glucose Level 146 mg/dL (70-99) Calcium Level 9.1 mg/dL (8.5-10.1) Microbiology 03/10/20 Urine Culture - Final, Complete Medications Current Medications Iohexol (Omnipaque 350 Mg/ml) 75 ml 1X ONCE IV Last administered on 03/10/20at 00:44; Start 03/10/20 at 00:15; Stop 03/10/20 at 00:16; Status DC Info (CONTRAST GIVEN -- Rx MONITORING) 1 each PRN DAILY PRN MC SEE COMMENTS; Start 03/10/20 at 00:15; Stop 03/12/20 at 00:14 Ondansetron HCl (Zofran) 4 mg PRN Q8HRS PRN IV NAUSEA/VOMITING; Start 03/10/20 at 02:00; Stop 03/11/20 at 01:59; Status DC Fentanyl Citrate (Fentanyl 2ml Vial) 50 mcg PRN Q1HR PRN IV PAIN; Start 03/10/20 at 02:00; Stop 03/11/20 at 01:59; Status DC Sodium Chloride 1,000 ml @ 100 mls/hr Q10H IV Last administered on 03/10/20at 03:05; Start 03/10/20 at 02:30; Stop 03/10/20 at 18:40; Status DC Aspirin (Ecotrin) 81 mg DAILYWBKFT PO Last administered on 03/11/20at 09:33; Start 03/11/20 at 08:00 Acetaminophen (Tylenol) 500 mg PRN TID PRN PO PAIN; Start 03/10/20 at 12:00 Albuterol Sulfate (Ventolin Neb Soln) 2.5 mg PRN Q4HRS PRN NEB wheezing; Start 03/10/20 at 12:00 Amlodipine Besylate (Norvasc) 10 mg DAILY PO Last administered on 03/11/20 09:34; Start 03/10/20 at 13:00 Atorvastatin Calcium (Lipitor) 20 mg HS PO Last administered on 03/10/20 22:06; Start 03/10/20 at 21:00 Carvedilol (Coreg) 6.25 mg BID PO Last administered on 03/11/20 09:33; Start 03/10/20 at 21:00 Clonidine HCl (Catapres) 0.2 mg TID PO Last administered on 03/11/20 09:33; Start 03/10/20 at 14:00 Fluticasone Propionate (Flonase) 2 spray DAILY NS Last administered on 03/11/20 09:38; Start 03/11/20 at 09:00 Furosemide (Lasix) 40 mg DAILY PO Last administered on 03/11/20 09:34; Start 03/10/20 at 13:00 Latanoprost (Xalatan) 1 drop QHS OU Last administered on 03/10/20 22:08; Start 03/10/20 at 21:00 Metformin HCl (Glucophage) 1,000 mg BIDWMEALS PO Last administered on 03/11/20 09:34; Start 03/10/20 at 17:00 Polyethylene Glycol (miraLAX PACKET) 17 gm DAILY PO Last administered on 03/10/20 16:48; Start 03/10/20 at 13:00 Sucralfate (Carafate) 1 gm QID PO Last administered on 03/11/20 09:34; Start 03/10/20 at 13:00 Brimonidine Tartrate (Alphagan) 1 drop BID OU Last administered on 03/11/20 09:38; Start 03/10/20 at 21:00 Insulin Human Lispro (HumaLOG) 8 units TIDWMEALS SQ Last administered on 03/11/20 09:42; Start 03/10/20 at 17:00 Insulin Glargine (Lantus Syringe) 45 unit QHS SQ Last administered on 03/10/20 22:17; Start 03/10/20 at 21:00 Lansoprazole (Prevacid) 30 mg DAILY PO Last administered on 11/3/20at 09:34; Start 03/10/20 at 13:00 Potassium Chloride (Klor-Con) 10 meq DAILYWBKFT PO Last administered on 03/11/20at 09:34; Start 03/10/20 at 13:00 Timolol Maleate (Timoptic 0.5% Ophth) 1 drop BID OU Last administered on 03/11/20at 09:38; Start 03/10/20 at 21:00 Zolpidem Tartrate (Ambien) 5 mg PRN QHS PRN PO INSOMNIA Last administered on 03/10/20at 22:06; Start 03/10/20 at 18:45 Active Scripts Active Lasix (Furosemide) 40 Mg Tablet 1 Tab PO DAILY 14 Days Miralax (Polyethylene Glycol 3350) 17 Gm Powd.pack 1 Packet PO DAILY Reported Proair Hfa Inhaler (Albuterol Sulfate) 8.5 Gm Hfa.aer.ad 2 Puff IH PRN Q4-6HRS PRN 21 Days Meloxicam 15 Mg Tablet 1 Tab PO DAILY Amlodipine Besylate 10 Mg Tablet 1 Tab PO DAILY Victoza 3-Johnson (Liraglutide) 0.6 Mg/0.1 Ml Pen.injctr 0.6 Mg SQ DAILY Carvedilol 6.25 Mg Tablet 1 Tab PO BID Clonidine Hcl 0.2 Mg Tablet 0.2 Mg PO TID Combigan Eye Drops (Brimonidine Tartrate/Timolol) 5 Ml Drops 5 Ml OP BID Latanoprost 2.5 Ml Drops 1 Drop EACHEYE QHS Levemir (Insulin Detemir) 100 Unit/1 Ml Vial 45 Unit SQ HS Lipitor (Atorvastatin Calcium) 20 Mg Tablet 20 Mg PO HS Potassium Chloride 10 Meq Tablet.er 10 Meq PO DAILY Sucralfate 1 Gm Tablet 1 Gm PO QID Flonase (Fluticasone Propionate) 16 Gm Cuney.susp 2 Cuney NS DAILY Acetaminophen 500 Mg Tablet 500 Mg PO PRN TID PRN Prevacid (Lansoprazole) 30 Mg Capsule.dr 30 Mg PO DAILY Metformin Hcl 500 Mg Tablet 1,000 Mg PO BIDWMEALS Novolog Flexpen (Insulin Aspart) 100 Unit/1 Ml Insuln.pen 8 Unit SQ TIDAC Vitals/I & O Vital Sign - Last 24 Hours 03/10/20 03/10/20 03/10/20 03/10/20 11:00 15:00 16:47 16:48 Temp 98.1 98.0 98.1 98.0 Pulse 61 69 69 69 Resp 20 20 B/P (MAP) 151/73 (99) 139/56 (83) 139/56 139/56 Pulse Ox 100 98 O2 Delivery Room Air Room Air 03/10/20 03/10/20 03/10/20 03/10/20 19:40 19:42 19:44 20:00 Temp 97.6 97.6 Pulse 62 80 96 Resp 18 B/P (MAP) 151/68 (95) 148/83 (104) 220/110 (146) Pulse Ox 96 O2 Delivery Room Air Room Air 03/10/20 03/10/20 03/10/20 03/11/20 22:06 22:07 22:52 02:51 Temp 97.5 97.4 97.5 97.4 Pulse 96 96 67 62 Resp 18 18 B/P (MAP) 220/110 220/110 132/62 (85) 124/62 (82) Pulse Ox 98 96 O2 Delivery Room Air Room Air 03/11/20 03/11/20 03/11/20 03/11/20 07:00 07:00 07:00 09:33 Temp 98.0 98.0 Pulse 60 60 76 76 Resp 20 B/P (MAP) 133/79 (97) 132/60 (84) 127/93 (104) 127/93 Pulse Ox 100 O2 Delivery Room Air 03/11/20 03/11/20 09:33 09:34 Pulse 76 76 B/P (MAP) 127/93 127/93 Intake and Output 03/10/20 03/10/20 03/11/20 15:00 23:00 07:00 Intake Total 550 ml 400 ml Output Total 850 ml 850 ml 1200 ml Balance -300 ml -450 ml -1200 ml Justicifation of Admission Dx: Justifications for Admission: Justification of Admission Dx: Yes Altered Mental Status: Altered Mental Status Comments: syncope TESFAYE BRUNO MD Mar 11, 2020 10:09
[2020-03-11 11:00] VITALS: BP 148/64
--- NOTE | 2020-03-11 11:46 | PDOC ---
CARDIO Progress Notes Date and Time Date of Service 03/11/20 Time of Evaluation 1140 Subjective Subjective: No Chest Pain, No shortness of breath, No Palpitations Vitals Vitals Vital Signs Date Time Temp Pulse Resp B/P (MAP) Pulse Ox O2 Delivery O2 Flow Rate FiO2 03/11/20 11:00 98.1 64 20 148/64 (92) 100 Room Air 98.1 Weight Weight [ ] Input and Output Intake and Output Intake and Output 03/11/20 07:00 Intake Total 950 ml Output Total 2900 ml Balance -1950 ml Intake Oral 950 ml Output Urine Total 2900 ml # Bowel Movements 1 Laboratory Labs Laboratory Tests Test 03/10/20 16:40 03/10/20 20:53 03/11/20 07:19 03/11/20 07:20 Glucose (Fingerstick) 261 mg/dL (70-99) 187 mg/dL (70-99) 147 mg/dL (70-99) White Blood Count 7.3 x10^3/uL (4.0-11.0) Red Blood Count 4.82 x10^6/uL (3.50-5.40) Hemoglobin 12.0 g/dL (12.0-15.5) Hematocrit 37.1 % (36.0-47.0) Mean Corpuscular Volume 77 fL (79-100) Mean Corpuscular Hemoglobin 25 pg (25-35) Mean Corpuscular Hemoglobin Concent 32 g/dL (31-37) Red Cell Distribution Width 16.5 % (11.5-14.5) Platelet Count 281 x10^3/uL (140-400) Neutrophils (%) (Auto) 48 % (31-73) Lymphocytes (%) (Auto) 40 % (24-48) Monocytes (%) (Auto) 7 % (0-9) Eosinophils (%) (Auto) 4 % (0-3) Basophils (%) (Auto) 1 % (0-3) Neutrophils # (Auto) 3.5 x10^3/uL (1.8-7.7) Lymphocytes # (Auto) 2.9 x10^3/uL (1.0-4.8) Monocytes # (Auto) 0.5 x10^3/uL (0.0-1.1) Eosinophils # (Auto) 0.3 x10^3/uL (0.0-0.7) Basophils # (Auto) 0.1 x10^3/uL (0.0-0.2) Sodium Level 143 mmol/L (136-145) Potassium Level 3.8 mmol/L (3.5-5.1) Chloride Level 104 mmol/L (98-107) Carbon Dioxide Level 29 mmol/L (21-32) Anion Gap 10 (6-14) Blood Urea Nitrogen 19 mg/dL (7-20) Creatinine 1.1 mg/dL (0.6-1.0) Estimated GFR (Cockcroft-Gault) 61.5 Glucose Level 146 mg/dL (70-99) Calcium Level 9.1 mg/dL (8.5-10.1) Test 03/11/20 11:39 Glucose (Fingerstick) 190 mg/dL (70-99) Microbiology Micro Microbiology 03/10/20 Urine Culture - Final, Complete Physical Exam HEENT: Neck Supple W Full Motion Chest: Symmetric LUNGS: Clear to Auscultation Heart: RRR, no thrills Abdomen: Soft N/T Extremities: No Edema Neurology: alert, oriented, follow commands Assessment Assessment 1. Syncope; No acute events on tele Most probable secondary to hypoglycemia. No acute arrhythmias noted on tele overnight 2. Chest pain; atypical. AMI rule out. Echo with preserved LV systolic function, no WMA. Left atrium is mildly dilated. 3. CKD; CR stable 4. Mediastinal mass; new finding 5. Hypertension; controlled 5. Hyperlipidemia Recommendations ASA, statin, BB Consider outpatient event monitor and ischemic evaluation Outpatient w/u of medialstinal mass Supportive care Justicifation of Admission Dx: Justifications for Admission: Justification of Admission Dx: Yes JONG ERIC APRN Mar 11, 2020 11:46
--- NOTE | 2020-03-11 13:26 | CARD ---
MR#: [id number] Date of Study: 03/11/2020 Ordering Physician: JONG ERIC, Referring Physician: JONG ERIC, Tech: Miesha Da Silva CARMEN APPROVED REPORT EXAM: Two-dimensional and M-mode echocardiogram with Doppler and color Doppler. Other Information Quality : Good INDICATION Syncope Morbid Obesity 2D DIMENSIONS RVDd2.3 (2.9-3.5cm)Left Atrium(2D)4.0 (1.6-4.0cm) IVSd0.9 (0.7-1.1cm)Aortic Root(2D)2.6 (2.0-3.7cm) LVDd4.8 (3.9-5.9cm)LVOT Diameter2.0 (1.8-2.4cm) PWd0.9 (0.7-1.1cm)LVDs3.5 (2.5-4.0cm) FS (%) 27.2 %SV57.6 ml LVEF(%)55.0 (>50%) Aortic Valve AoV Peak Charly.160.3cm/sAoV VTI30.6cm AO Peak GR.10.3mmHgLVOT Peak Charly.101.0cm/s AO Mean GR.6mmHgAVA (VMAX)1.98cm2 RITA (VTI)2.30cm2 Mitral Valve MV E Dcpcfupm40.5cm/sMV DECEL NYMV676mn MV A Pcgpblxi60.8cm/sE/A Ratio0.8 Pulmonary Vein S1 Cytydlbh57.3cm/sD2 Qmqfricr56.9cm/s LEFT VENTRICLE The left ventricle is normal size. There is normal left ventricular wall thickness. The left ventricu lar systolic function is normal and the ejection fraction is within normal range. The Ejection Fracti on is 55-60%. There is normal LV segmental wall motion. Transmitral Doppler flow pattern is Grade I-a bnormal relaxation pattern. RIGHT VENTRICLE The right ventricle is normal size. The right ventricular systolic function is normal. ATRIA The left atrium is mildly dilated. The right atrium size is normal. The interatrial septum is intact with no evidence for an atrial septal defect or patent foramen ovale as noted on 2-D or Doppler imagi ng. AORTIC VALVE The aortic valve is calcified but opens well. Doppler and Color Flow revealed no significant aortic r egurgitation. There is no significant aortic valvular stenosis. MITRAL VALVE The mitral valve is normal in structure and function. There is no evidence of mitral valve prolapse. There is no mitral valve stenosis. Doppler and Color Flow revealed no mitral valve regurgitation note d. TRICUSPID VALVE The tricuspid valve is normal in structure and function. Doppler and Color Flow revealed no tricuspid valve regurgitation noted. There is no tricuspid valve stenosis. PULMONIC VALVE The pulmonic valve is not well visualized. Doppler and Color Flow revealed trace pulmonic valvular re gurgitation. There is no pulmonic valvular stenosis. GREAT VESSELS The aortic root is normal in size. The ascending aorta is not well seen. The IVC was not visualized. PERICARDIAL EFFUSION There is no evidence of significant pericardial effusion. Critical Notification Critical Value: No <Conclusion> The left ventricle is normal size. The left ventricular systolic function is normal and the ejection fraction is within normal range. The Ejection Fraction is 55-60%. Doppler and Color Flow revealed no significant aortic regurgitation. There is no significant aortic valvular stenosis. Doppler and Color Flow revealed no mitral valve regurgitation noted. Doppler and Color Flow revealed no tricuspid valve regurgitation noted. Doppler and Color Flow revealed trace pulmonic valvular regurgitation. Signed by : Denver Yeager MD Electronically Approved : 03/11/2020 13:26:06
[2020-03-11 15:00] VITALS: BP 124/55
--- NOTE | 2020-03-11 15:08 | NUR ---
SS following up with discharge planning. Pt is currently on room air. COVID19 test pending. PT/OT ordered. Possible need for inpatient rehabilitation. SS will continue to follow for discharge planning.
--- NOTE | 2020-03-11 17:04 | NUR ---
Have reviewed and agree with documentation completed by [employer] and made changes as needed
[2020-03-11 19:43] VITALS: BP 122/66
[2020-03-11] MEDS: LATANOPROST 0.005% OPHTH SOLUTION 2.5ML BOTTLE. OU SCH (21:25)
[2020-03-11] MEDS: ATORVASTATIN CALCIUM 20 MG TABLET PO SCH (21:26)
[2020-03-11] MEDS: INSULIN GLARGINE SYRINGE. SQ SCH (21:49)
[2020-03-11 22:57] VITALS: BP 114/64
[2020-03-12 02:57] VITALS: BP 100/43
[2020-03-12 07:28] VITALS: BP 136/55
--- NOTE | 2020-03-12 08:15 | PDOC ---
PULMONARY PROGRESS NOTES DATE: 03/12/20 TIME: 08:15 Subjective No new complaints normal not more short of Vitals Vital Signs Date Time Temp Pulse Resp B/P (MAP) Pulse Ox O2 Delivery O2 Flow Rate FiO2 03/12/20 07:28 98.0 61 18 136/55 (82) 97 Room Air 98.0 ROS: No Nausea, No Chest Pain, No Abdominal Pain, No Increase Cough General: Alert Lungs: Clear Cardiovascular: S1, S2 Abdomen: Soft Neuro Exam: Alert Extremities: No Edema Skin: Warm Labs Laboratory Tests Test 03/10/20 11:26 03/10/20 16:40 03/10/20 20:53 03/11/20 07:19 Glucose (Fingerstick) 252 mg/dL (70-99) 261 mg/dL (70-99) 187 mg/dL (70-99) 147 mg/dL (70-99) Test 03/11/20 07:20 03/11/20 11:39 03/11/20 16:49 03/11/20 18:57 White Blood Count 7.3 x10^3/uL (4.0-11.0) Red Blood Count 4.82 x10^6/uL (3.50-5.40) Hemoglobin 12.0 g/dL (12.0-15.5) Hematocrit 37.1 % (36.0-47.0) Mean Corpuscular Volume 77 fL (79-100) Mean Corpuscular Hemoglobin 25 pg (25-35) Mean Corpuscular Hemoglobin Concent 32 g/dL (31-37) Red Cell Distribution Width 16.5 % (11.5-14.5) Platelet Count 281 x10^3/uL (140-400) Neutrophils (%) (Auto) 48 % (31-73) Lymphocytes (%) (Auto) 40 % (24-48) Monocytes (%) (Auto) 7 % (0-9) Eosinophils (%) (Auto) 4 % (0-3) Basophils (%) (Auto) 1 % (0-3) Neutrophils # (Auto) 3.5 x10^3/uL (1.8-7.7) Lymphocytes # (Auto) 2.9 x10^3/uL (1.0-4.8) Monocytes # (Auto) 0.5 x10^3/uL (0.0-1.1) Eosinophils # (Auto) 0.3 x10^3/uL (0.0-0.7) Basophils # (Auto) 0.1 x10^3/uL (0.0-0.2) Sodium Level 143 mmol/L (136-145) Potassium Level 3.8 mmol/L (3.5-5.1) Chloride Level 104 mmol/L (98-107) Carbon Dioxide Level 29 mmol/L (21-32) Anion Gap 10 (6-14) Blood Urea Nitrogen 19 mg/dL (7-20) Creatinine 1.1 mg/dL (0.6-1.0) Estimated GFR (Cockcroft-Gault) 61.5 Glucose Level 146 mg/dL (70-99) Calcium Level 9.1 mg/dL (8.5-10.1) Glucose (Fingerstick) 190 mg/dL (70-99) 99 mg/dL (70-99) 110 mg/dL (70-99) Test 03/11/20 21:04 03/12/20 07:18 Glucose (Fingerstick) 122 mg/dL (70-99) 136 mg/dL (70-99) Laboratory Tests Test 03/11/20 11:39 03/11/20 16:49 03/11/20 18:57 03/11/20 21:04 Glucose (Fingerstick) 190 mg/dL (70-99) 99 mg/dL (70-99) 110 mg/dL (70-99) 122 mg/dL (70-99) Test 03/12/20 07:18 Glucose (Fingerstick) 136 mg/dL (70-99) Medications Active Scripts Medications Dose Route/Sig Max Daily Dose Days Date Category Proair Hfa Inhaler (Albuterol Sulfate) 8.5 Gm Hfa.aer.ad 2 Puff IH PRN Q4-6HRS PRN 21 03/10/20 Reported Meloxicam 15 Mg Tablet 1 Tab PO DAILY 03/10/20 Reported Amlodipine Besylate 10 Mg Tablet 1 Tab PO DAILY 03/10/20 Reported Victoza 3-Johnson (Liraglutide) 0.6 Mg/0.1 Ml Pen.injctr 0.6 Mg SQ DAILY 03/10/20 Reported Carvedilol 6.25 Mg Tablet 1 Tab PO BID 03/10/20 Reported Clonidine Hcl 0.2 Mg Tablet 0.2 Mg PO TID 03/10/20 Reported Lasix (Furosemide) 40 Mg Tablet 1 Tab PO DAILY 14 06/26/17 Rx Combigan Eye Drops (Brimonidine Tartrate/Timolol) 5 Ml Drops 5 Ml OP BID 06/25/17 Reported Latanoprost 2.5 Ml Drops 1 Drop EACHEYE QHS 06/25/17 Reported Miralax (Polyethylene Glycol 3350) 17 Gm Powd.pack 1 Packet PO DAILY 09/14/16 Rx Levemir (Insulin Detemir) 100 Unit/1 Ml Vial 45 Unit SQ HS 01/05/16 Reported Lipitor (Atorvastatin Calcium) 20 Mg Tablet 20 Mg PO HS 01/05/16 Reported Potassium Chloride 10 Meq Tablet.er 10 Meq PO DAILY 12/05/13 Reported Sucralfate 1 Gm Tablet 1 Gm PO QID 12/05/13 Reported Flonase (Fluticasone Propionate) 16 Gm [place].susp 2 Tripp NS DAILY 12/05/13 Reported Acetaminophen 500 Mg Tablet 500 Mg PO PRN TID PRN 12/05/13 Reported Prevacid (Lansoprazole) 30 Mg Capsule.dr 30 Mg PO DAILY 12/05/13 Reported Metformin Hcl 500 Mg Tablet 1,000 Mg PO BIDWMEALS 12/05/13 Reported Novolog Flexpen (Insulin Aspart) 100 Unit/1 Ml Insuln.pen 8 Unit SQ TIDAC 12/05/13 Reported Impression . IMPRESSION: 1. Abnormal CT chest revealing calcified paratracheal and mediastinal adenopathy. 2. Right middle lobe pulmonary nodule measuring 12 x 8 mm. 3. Morbid obesity. 4. Type 2 diabetes. 5. Syncopal episode, per primary care physician. 6. Hypertension. 7. Hyperlipidemia. Differential diagnosis includes old histoplasmosis, sarcoid, lymphoma, or other malignancy Plan . Reviewed with Dr. Zee, discharge sure he does not recommend biopsy, will p roceed with repeating CT in 2 months More than likely this is old granulomatous disease. JUSTUS GRAYSON MD Mar 12, 2020 08:15
[2020-03-12] MEDS: POLYETHYLENE GLYCOL 3350 17 GM PACKET. PO SCH (08:22)
[2020-03-12] MEDS: SUCRALFATE 1 GM TABLET. PO SCH ×2 (08:23→12:25)
[2020-03-12] MEDS: cloNIDine HCL 0.2 MG TABLET PO SCH ×2 (08:23→14:00)
[2020-03-12] MEDS: metFORMIN 500 MG TABLET PO SCH (08:23)
[2020-03-12] MEDS: FUROSEMIDE 40 MG TABLET. PO SCH (08:24)
[2020-03-12] MEDS: LANSOPRAZOLE 30 MG TAB.RAP.DR PO SCH (08:24)
[2020-03-12] MEDS: ASPIRIN ENTERIC COATED 81 MG TABLET.DR. PO SCH (08:24)
[2020-03-12] MEDS: amLODIPine BESYLATE 10 MG TABLET PO SCH (08:24)
[2020-03-12] MEDS: CARVEDILOL 6.25 MG TABLET. PO SCH (08:24)
[2020-03-12] MEDS: POTASSIUM CHLORIDE 10 MEQ TABLET.ER. PO SCH (08:25)
[2020-03-12] MEDS: BRIMONIDINE 0.2% OPHTH SOLUTION 5ML BOTTLE. OU SCH (08:26)
[2020-03-12] MEDS: TIMOLOL 0.5% OPHTH SOLUTION 5ML BOTTLE. OU SCH (08:26)
[2020-03-12] MEDS: FLUTICASONE 50MCG/NASAL SPRAY 16GM BOTTLE. NS SCH (08:26)
[2020-03-12] MEDS: INSULIN LISPRO 300 UNITS/3 ML VIAL. SQ SCH ×2 (08:35→12:30)
--- NOTE | 2020-03-12 09:44 | PDOC ---
PROGRESS NOTES Date of Service: DATE: 03/12/20 TIME: 09:44 Chief Complaint Chief Complaint IMPRESSION: 1. Soft tissue density right paratracheal lymphadenopathy has developed superimposed on pre-existing calcified lymph nodes. Correlate to exclude lymphoma or metastatic disease. 2. 12 mm right middle lobe nodule versus atelectasis. PET/CT or three-month follow-up is suggested. 3. Mild cardiomegaly. 4. No pulmonary embolism. Electronically signed by: Percy Lee MD (03/10/2020 1:32 AM) [facility] DICTATED and SIGNED BY: CORONA LEE MD VTE Prophylaxis Ordered VTE Prophylaxis Devices: Contraindicated VTE Pharmacological Prophylaxi: Yes DISCHARGE DX Assessment/Plan Impression: Syncope, UNWITNESSED , LIKELY SEC TO HYPOGLYCEMIA No acute intracranial pathology. BY CT HEAD SUPER MORBID OBESITY Mediastinal mass right paratracheal lymphadenopathy has developed superimposed on pre- existing calcified lymph nodes. Correlate to exclude lymphoma or metastatic disease. by CTA CHEST 03-09 Syncope probably related to relative hypoglycemia, no evidence of a primary neurological issue. Diabetic peripheral neuropathy Longstanding gait disorder New mediastinal mass, dr givens with address as out patient plan ADMITTED [facility] BED Cardiology consult PULM CONSULT NEUROCHECKS Q 4 HRS DVT prophylaxis ECHO ASA Neurology consult orthostatic bp tid PT/OT D/W RN D/C WITH [facility] TODAY D/C PLANNING 35 MIN Justifications for Admission Other Justification TESFAYE BRUNO MD Mar 10, 2020 11:29 may require EBUS as an outpatient History of Present Illness History of Present Illness Identification/Chief Complaint Chief Complaint seen in er with syncpe 60 year old female brought in by EMS after syncopal e pisode. Patient states that she was feeling unwell and checked her blood sugar which was 73. Patient states her blood sugar usually runs in the 200-300's. Went to try to eat some food and was sitting there went to get up and thinks is when she syncopized. Says when she was on the floor she felt sweaty. Patient also states that she thinks she might had a heart attack 9 days ago but was not seen for it. Patient states she was having chest pain, back pain, jaw pain, right arm and finger tingling. She denies any chest pain at this time. Bit but did have pain in her back and right arm. Denies any prior history of [place], but had a scan that showed some plaques on some of her vessels.. Was alone unsure how long she was passed out. Past Medical History Past Medical History Past Medical History Past Medical History: Bronchitis, Diabetes-Type II, GERD, Glaucoma, Hypertension, Other Additional Past Medical Histor: Seasonal allergies,hiatal hernia,LOW KIDNEY FUNCTION,H/A,CELLULITIS Past Surgical History: , Other Additional Past Surgical Histo: BLADDER SLING; ablasion to uterus; right knee, L TIB/FIB FX Smoking Status: Never Smoker Alcohol Use: None Drug Use: None fhx obesity Cardiovascular: HTN, Hyperlipidemia Pulmonary: No pertinent hx CENTRAL NERVOUS SYSTEM: Periperal neuropathy GI: GERD Heme/Onc: Anemia NOS Hepatobiliary: No pertinent hx Psych: Anxiety Musculoskeletal: Osteoarthritis, Other Renal/: Chronic renal insuff Endocrine: Diabetes Past Surgical History Past Surgical History: No pertinent history Family History Family History: Diabetes, Hypertension Social History Smoke: No ALCOHOL: none Drugs: None Current Problem List Problem List Problems Medical Problems: (1) Mediastinal mass Status: Acute (2) Syncope Vitals Vitals Vital Signs Date Time Temp Pulse Resp B/P (MAP) Pulse Ox O2 Delivery O2 Flow Rate FiO2 03/12/20 08:24 61 136/55 03/12/20 08:00 Room Air 03/12/20 07:28 98.0 18 97 98.0 Physical Exam General: Alert, Oriented X3, Cooperative, No acute distress, Other Heart: Regular rate, Normal S1 Lungs: Clear Abdomen: Normal bowel sounds, Soft, No tenderness, Other (obese) Extremities: No clubbing, No cyanosis, Normal pulses, Other (1+ bilateral LE edema ) Skin: No significant lesion Labs LABS Laboratory Tests Test 03/11/20 11:39 03/11/20 16:49 03/11/20 18:57 03/11/20 21:04 Glucose (Fingerstick) 190 mg/dL (70-99) 99 mg/dL (70-99) 110 mg/dL (70-99) 122 mg/dL (70-99) Test 03/12/20 07:18 Glucose (Fingerstick) 136 mg/dL (70-99) Assessment and Plan Assessmemt and Plan Problems Medical Problems: (1) Mediastinal mass Status: Acute (2) Syncope Status: Acute Comment Review of Relevant I have reviewed the following items oh (where applicable) has been applied. Labs Laboratory Tests Test 03/10/20 11:26 03/10/20 16:40 03/10/20 20:53 03/11/20 07:19 Glucose (Fingerstick) 252 mg/dL (70-99) 261 mg/dL (70-99) 187 mg/dL (70-99) 147 mg/dL (70-99) Test 03/11/20 07:20 03/11/20 11:39 03/11/20 16:49 03/11/20 18:57 White Blood Count 7.3 x10^3/uL (4.0-11.0) Red Blood Count 4.82 x10^6/uL (3.50-5.40) Hemoglobin 12.0 g/dL (12.0-15.5) Hematocrit 37.1 % (36.0-47.0) Mean Corpuscular Volume 77 fL (79-100) Mean Corpuscular Hemoglobin 25 pg (25-35) Mean Corpuscular Hemoglobin Concent 32 g/dL (31-37) Red Cell Distribution Width 16.5 % (11.5-14.5) Platelet Count 281 x10^3/uL (140-400) Neutrophils (%) (Auto) 48 % (31-73) Lymphocytes (%) (Auto) 40 % (24-48) Monocytes (%) (Auto) 7 % (0-9) Eosinophils (%) (Auto) 4 % (0-3) Basophils (%) (Auto) 1 % (0-3) Neutrophils # (Auto) 3.5 x10^3/uL (1.8-7.7) Lymphocytes # (Auto) 2.9 x10^3/uL (1.0-4.8) Monocytes # (Auto) 0.5 x10^3/uL (0.0-1.1) Eosinophils # (Auto) 0.3 x10^3/uL (0.0-0.7) Basophils # (Auto) 0.1 x10^3/uL (0.0-0.2) Sodium Level 143 mmol/L (136-145) Potassium Level 3.8 mmol/L (3.5-5.1) Chloride Level 104 mmol/L (98-107) Carbon Dioxide Level 29 mmol/L (21-32) Anion Gap 10 (6-14) Blood Urea Nitrogen 19 mg/dL (7-20) Creatinine 1.1 mg/dL (0.6-1.0) Estimated GFR (Cockcroft-Gault) 61.5 Glucose Level 146 mg/dL (70-99) Calcium Level 9.1 mg/dL (8.5-10.1) Glucose (Fingerstick) 190 mg/dL (70-99) 99 mg/dL (70-99) 110 mg/dL (70-99) Test 03/11/20 21:04 03/12/20 07:18 Glucose (Fingerstick) 122 mg/dL (70-99) 136 mg/dL (70-99) Laboratory Tests Test 03/11/20 11:39 03/11/20 16:49 03/11/20 18:57 03/11/20 21:04 Glucose (Fingerstick) 190 mg/dL (70-99) 99 mg/dL (70-99) 110 mg/dL (70-99) 122 mg/dL (70-99) Test 03/12/20 07:18 Glucose (Fingerstick) 136 mg/dL (70-99) Microbiology 03/10/20 Urine Culture - Final, Complete Medications Current Medications Iohexol (Omnipaque 350 Mg/ml) 75 ml 1X ONCE IV Last administered on 03/10/20at 00:44; Start 03/10/20 at 00:15; Stop 03/10/20 at 00:16; Status DC Info (CONTRAST GIVEN -- Rx MONITORING) 1 each PRN DAILY PRN MC SEE COMMENTS; Start 03/10/20 at 00:15; Stop 03/12/20 at 00:14; Status DC Ondansetron HCl (Zofran) 4 mg PRN Q8HRS PRN IV NAUSEA/VOMITING; Start 03/10/20 at 02:00; Stop 03/11/20 at 01:59; Status DC Fentanyl Citrate (Fentanyl 2ml Vial) 50 mcg PRN Q1HR PRN IV PAIN; Start 03/10/20 at 02:00; Stop 03/11/20 at 01:59; Status DC Sodium Chloride 1,000 ml @ 100 mls/hr Q10H IV Last administered on 03/10/20 03:05; Start 03/10/20 at 02:30; Stop 03/10/20 at 18:40; Status DC Aspirin (Ecotrin) 81 mg DAILYWBKFT PO Last administered on 03/12/20 08:24; Start 03/11/20 at 08:00 Acetaminophen (Tylenol) 500 mg PRN TID PRN PO PAIN; Start 03/10/20 at 12:00 Albuterol Sulfate (Ventolin Neb Soln) 2.5 mg PRN Q4HRS PRN NEB wheezing; Start 03/10/20 at 12:00 Amlodipine Besylate (Norvasc) 10 mg DAILY PO Last administered on 03/12/20 08:24; Start 03/10/20 at 13:00 Atorvastatin Calcium (Lipitor) 20 mg HS PO Last administered on 03/11/20 21:26; Start 03/10/20 at 21:00 Carvedilol (Coreg) 6.25 mg BID PO Last administered on 03/12/20 08:24; Start 03/10/20 at 21:00 Clonidine HCl (Catapres) 0.2 mg TID PO Last administered on 03/12/20 08:23; Start 03/10/20 at 14:00 Fluticasone Propionate (Flonase) 2 spray DAILY NS Last administered on 03/12/20 08:26; Start 03/11/20 at 09:00 Furosemide (Lasix) 40 mg DAILY PO Last administered on 03/12/20 08:24; Start 03/10/20 at 13:00 Latanoprost (Xalatan) 1 drop QHS OU Last administered on 03/11/20 21:25; Start 03/10/20 at 21:00 Metformin HCl (Glucophage) 1,000 mg BIDWMEALS PO Last administered on 03/12/20 08:23; Start 03/10/20 at 17:00 Polyethylene Glycol (miraLAX PACKET) 17 gm DAILY PO Last administered on 03/12/20 08:22; Start 03/10/20 at 13:00 Sucralfate (Carafate) 1 gm QID PO Last administered on 03/12/20 08:23; Start 03/10/20 at 13:00 Brimonidine Tartrate (Alphagan) 1 drop BID OU Last administered on 03/12/20 08:26; Start 03/10/20 at 21:00 Insulin Human Lispro (HumaLOG) 8 units TIDWMEALS SQ Last administered on 03/12/20 08:35; Start 03/10/20 at 17:00 Insulin Glargine (Lantus Syringe) 45 unit QHS SQ Last administered on 03/11/20 21:49; Start 03/10/20 at 21:00 Lansoprazole (Prevacid) 30 mg DAILY PO Last administered on 03/12/20 08:24; Start 03/10/20 at 13:00 Potassium Chloride (Klor-Con) 10 meq DAILYWBKFT PO Last administered on 03/12/20 08:25; Start 03/10/20 at 13:00 Timolol Maleate (Timoptic 0.5% [facility]) 1 drop BID OU Last administered on 03/12/20 08:26; Start 03/10/20 at 21:00 Zolpidem Tartrate (Ambien) 5 mg PRN QHS PRN PO INSOMNIA Last administered on 03/10/20 22:06; Start 03/10/20 at 18:45 Active Scripts Active Lasix (Furosemide) 40 Mg Tablet 1 Tab PO DAILY 14 Days Miralax (Polyethylene Glycol 3350) 17 Gm Powd.pack 1 Packet PO DAILY Reported Proair Hfa Inhaler (Albuterol Sulfate) 8.5 Gm Hfa.aer.ad 2 Puff IH PRN Q4-6HRS PRN 21 Days Meloxicam 15 Mg Tablet 1 Tab PO DAILY Amlodipine Besylate 10 Mg Tablet 1 Tab PO DAILY Victoza 3-Johnson (Liraglutide) 0.6 Mg/0.1 Ml Pen.injctr 0.6 Mg SQ DAILY Carvedilol 6.25 Mg Tablet 1 Tab PO BID Clonidine Hcl 0.2 Mg Tablet 0.2 Mg PO TID Combigan Eye Drops (Brimonidine Tartrate/Timolol) 5 Ml Drops 5 Ml OP BID Latanoprost 2.5 Ml Drops 1 Drop EACHEYE QHS Levemir (Insulin Detemir) 100 Unit/1 Ml Vial 45 Unit SQ HS Lipitor (Atorvastatin Calcium) 20 Mg Tablet 20 Mg PO HS Potassium Chloride 10 Meq Tablet.er 10 Meq PO DAILY Sucralfate 1 Gm Tablet 1 Gm PO QID Flonase (Fluticasone Propionate) 16 Gm [place].susp 2 [place] NS DAILY Acetaminophen 500 Mg Tablet 500 Mg PO PRN TID PRN Prevacid (Lansoprazole) 30 Mg Capsule.dr 30 Mg PO DAILY Metformin Hcl 500 Mg Tablet 1,000 Mg PO BIDWMEALS Novolog Flexpen (Insulin Aspart) 100 Unit/1 Ml Insuln.pen 8 Unit SQ TIDAC Vitals/I & O Vital Sign - Last 24 Hours 03/11/20 03/11/20 03/11/20 03/11/20 11:00 14:26 15:00 19:43 Temp 98.1 97.5 97.3 98.1 97.5 97.3 Pulse 64 61 63 65 Resp 20 20 18 B/P (MAP) 148/64 (92) 125/55 124/55 (78) 122/66 (84) Pulse Ox 100 100 97 O2 Delivery Room Air Room Air Room Air 03/11/20 03/11/20 03/11/20 03/11/20 20:05 21:26 21:26 22:57 Temp 97.6 97.6 Pulse 65 65 69 Resp 18 B/P (MAP) 122/66 122/66 114/64 (81) Pulse Ox 93 O2 Delivery Room Air Room Air 03/12/20 03/12/20 03/12/20 03/12/20 02:57 07:28 08:00 08:23 Temp 97.8 98.0 97.8 98.0 Pulse 57 61 61 Resp 18 18 B/P (MAP) 100/43 (62) 136/55 (82) 136/55 Pulse Ox 95 97 O2 Delivery Room Air Room Air Room Air 03/12/20 03/12/20 08:24 08:24 Pulse 61 61 B/P (MAP) 136/55 136/55 Intake and Output 03/11/20 03/11/20 03/12/20 15:00 23:00 07:00 Intake Total 700 ml 0 ml Output Total 450 ml 1000 ml 350 ml Balance -450 ml -300 ml -350 ml Justicifation of Admission Dx: Justifications for Admission: Justification of Admission Dx: Yes Altered Mental Status: Altered Mental Status FULBRIGHT,TESFAYE W MD Mar 12, 2020 09:44
--- NOTE | 2020-03-12 09:52 | PDOC ---
CARDIO Progress Notes Date and Time Date of Service 03/12/20 Time of Evaluation 1045 Subjective Subjective: No Chest Pain, No shortness of breath, No Palpitations Vitals Vitals Vital Signs Date Time Temp Pulse Resp B/P (MAP) Pulse Ox O2 Delivery O2 Flow Rate FiO2 03/12/20 08:24 61 136/55 03/12/20 08:00 Room Air 03/12/20 07:28 98.0 18 97 98.0 Weight Weight [ ] Input and Output Intake and Output Intake and Output 03/12/20 07:00 Intake Total 700 ml Output Total 1800 ml Balance -1100 ml Intake Oral 700 ml Output Urine Total 1800 ml # Bowel Movements 1 Laboratory Labs Laboratory Tests Test 03/11/20 11:39 03/11/20 16:49 03/11/20 18:57 03/11/20 21:04 Glucose (Fingerstick) 190 mg/dL (70-99) 99 mg/dL (70-99) 110 mg/dL (70-99) 122 mg/dL (70-99) Test 03/12/20 07:18 Glucose (Fingerstick) 136 mg/dL (70-99) Microbiology Micro Microbiology 03/10/20 Urine Culture - Final, Complete Physical Exam HEENT: Neck Supple W Full Motion Chest: Symmetric LUNGS: Clear to Auscultation Heart: RRR, no thrills Abdomen: Soft N/T Extremities: No Edema Neurology: alert, oriented, follow commands Assessment Assessment 1. Syncope; No acute events on tele Most probable secondary to hypoglycemia. No acute arrhythmias noted on tele overnight 2. Chest pain; atypical. AMI rule out. Echo with preserved LV systolic function, no WMA. Left atrium is mildly dilated. 3. CKD; CR stable 4. Mediastinal mass; new finding 5. Hypertension; controlled 5. Hyperlipidemia Recommendations ASA, statin, BB Consider outpatient event monitor and ischemic evaluation Outpatient w/u of medialstinal mass Supportive care Justicifation of Admission Dx: Justifications for Admission: Justification of Admission Dx: Yes Altered Mental Status: Altered Mental Status JONG ERIC APRN Mar 12, 2020 09:52
[2020-03-12 10:29] VITALS: BP 123/53
--- NOTE | 2020-03-12 13:50 | NUR ---
SS following up with discharge planning. SS reviewed pt chart and discussed with pt RN. Pt is currently on room air. PT/OT recommended home with home healthcare. COVID19 pending. SS met with pt to discuss home healthcare. Pt reported that she has Adult Services through her Medicaid coming to her home to help her. No other services requested at this time. SS will continue to follow for discharge planning.
[2020-03-12 14:40] VITALS: BP 98/49
--- NOTE | 2020-03-12 14:48 | PDOC3 ---
Discharge Summary Date of Admission: Mar 10, 2020 Date of Discharge: Mar 12, 2020 Follow-Up: 3-5 days Admitting Diagnosis comment: DISCHARGE DX Assessment/Plan Impression: Syncope, UNWITNESSED , LIKELY SEC TO HYPOGLYCEMIA No acute intracranial pathology. BY CT HEAD SUPER MORBID OBESITY Mediastinal mass right paratracheal lymphadenopathy has developed superimposed on pre- existing calcified lymph nodes. Correlate to exclude lymphoma or metastatic disease. by CTA CHEST 03-09 Syncope probably related to relative hypoglycemia, no evidence of a primary neurological issue. Diabetic peripheral neuropathy Longstanding gait disorder New mediastinal mass, dr givens with address as out patient plan ADMITTED [facility] BED Cardiology consult PULM CONSULT NEUROCHECKS Q 4 HRS DVT prophylaxis ECHO ASA Neurology consult orthostatic bp tid PT/OT D/W RN D/C WITH HOME HEALTH TODAY D/C PLANNING 35 MIN Justifications for Admission Other Justification TESFAYE BRUNO MD Mar 10, 2020 11:29 may require EBUS as an outpatient History of Present Illness History of Present Illness Identification/Chief Complaint Chief Complaint seen in er with syncpe 60 year old female brought in by EMS after syncopal episode. Patient states that she was feeling unwell and checked her blood sugar which was 73. Patient states her blood sugar usually runs in the 200-300's. Went to try to eat some food and was sitting there went to get up and thinks is when she syncopized. Says when she was on the floor she felt sweaty. Patient also states that she thinks she might had a heart attack 9 days ago but was not seen for it. Patient states she was having chest pain, back pain, jaw pain, right arm and finger tingling. She denies any chest pain at this time. Bit but did have pain in her back and right arm. Denies any prior history of [place], but had a scan that showed some plaques on some of her vessels.. Was alone unsure how long she was passed out. Past Medical History Past Medical History Past Medical History Past Medical History: Bronchitis, Diabetes-Type II, GERD, Glaucoma, Hypertension, Other Additional Past Medical Histor: Seasonal allergies,hiatal hernia,LOW KIDNEY FUNCTION,H/A,CELLULITIS Past Surgical History: , Other Additional Past Surgical Histo: BLADDER SLING; ablasion to uterus; right knee, L TIB/FIB FX Smoking Status: Never Smoker Alcohol Use: None Drug Use: None fhx obesity Cardiovascular: HTN, Hyperlipidemia Pulmonary: No pertinent hx CENTRAL NERVOUS SYSTEM: Periperal neuropathy GI: GERD Heme/Onc: Anemia NOS Hepatobiliary: No pertinent hx Psych: Anxiety Musculoskeletal: Osteoarthritis, Other Renal/: Chronic renal insuff Endocrine: Diabetes Past Surgical History Past Surgical History: No pertinent history Family History Family History: Diabetes, Hypertension Social History Smoke: No ALCOHOL: none Drugs: None Current Problem List Problem List Problems Medical Problems: (1) Mediastinal mass Status: Acute (2) Syncope Vitals Vitals Vital Signs Date Time Temp Pulse Resp B/P (MAP) Pulse Ox O2 Delivery O2 Flow Rate FiO2 03/12/20 08:24 61 136/55 03/12/20 08:00 Room Air 03/12/20 07:28 98.0 18 97 98.0 Physical Exam General: Alert, Oriented X3, Cooperative, No acute distress, Other Heart: Regular rate, Normal S1 Lungs: Clear Abdomen: Normal bowel sounds, Soft, No tenderness, Other (obese) Extremities: No clubbing, No cyanosis, Normal pulses, Other (1+ bilateral LE edema ) Skin: No significant lesion FINAL DIAGNOSIS Problems Medical Problems: (1) Mediastinal mass Status: Acute (2) Syncope Status: Acute Brief Hospital Course Ms. Nowak is a 60 old [sex] who presented with [SYNCOPE ] CONDITION AT DISCHARGE: Improved Discharge Medications Current Medications Iohexol (Omnipaque 350 Mg/ml) 75 ml 1X ONCE IV Last administered on 03/10/20at 00:44; Start 03/10/20 at 00:15; Stop 03/10/20 at 00:16; Status DC Info (CONTRAST GIVEN -- Rx MONITORING) 1 each PRN DAILY PRN MC SEE COMMENTS; Start 03/10/20 at 00:15; Stop 03/12/20 at 00:14; Status DC Ondansetron HCl (Zofran) 4 mg PRN Q8HRS PRN IV NAUSEA/VOMITING; Start 03/10/20 at 02:00; Stop 03/11/20 at 01:59; Status DC Fentanyl Citrate (Fentanyl 2ml Vial) 50 mcg PRN Q1HR PRN IV PAIN; Start 03/10/20 at 02:00; Stop 03/11/20 at 01:59; Status DC Sodium Chloride 1,000 ml @ 100 mls/hr Q10H IV Last administered on 03/10/20 03:05; Start 03/10/20 at 02:30; Stop 03/10/20 at 18:40; Status DC Aspirin (Ecotrin) 81 mg DAILYWBKFT PO Last administered on 03/12/20 08:24; Start 03/11/20 at 08:00 Acetaminophen (Tylenol) 500 mg PRN TID PRN PO PAIN; Start 03/10/20 at 12:00 Albuterol Sulfate (Ventolin Neb Soln) 2.5 mg PRN Q4HRS PRN NEB wheezing; Start 03/10/20 at 12:00 Amlodipine Besylate (Norvasc) 10 mg DAILY PO Last administered on 03/12/20 08:24; Start 03/10/20 at 13:00 Atorvastatin Calcium (Lipitor) 20 mg HS PO Last administered on 03/11/20 21:26; Start 03/10/20 at 21:00 Carvedilol (Coreg) 6.25 mg BID PO Last administered on 03/12/20 08:24; Start 03/10/20 at 21:00 Clonidine HCl (Catapres) 0.2 mg TID PO Last administered on 03/12/20 08:23; Start 03/10/20 at 14:00 Fluticasone Propionate (Flonase) 2 spray DAILY NS Last administered on 03/12/20 08:26; Start 03/11/20 at 09:00 Furosemide (Lasix) 40 mg DAILY PO Last administered on 03/12/20 08:24; Start 03/10/20 at 13:00 Latanoprost (Xalatan) 1 drop QHS OU Last administered on 03/11/20 21:25; Start 03/10/20 at 21:00 Metformin HCl (Glucophage) 1,000 mg BIDWMEALS PO Last administered on 03/12/20 08:23; Start 03/10/20 at 17:00 Polyethylene Glycol (miraLAX PACKET) 17 gm DAILY PO Last administered on 03/12/20 08:22; Start 03/10/20 at 13:00 Sucralfate (Carafate) 1 gm QID PO Last administered on 03/12/20 12:25; Start 03/10/20 at 13:00 Brimonidine Tartrate (Alphagan) 1 drop BID OU Last administered on 03/12/20 08:26; Start 03/10/20 at 21:00 Insulin Human Lispro (HumaLOG) 8 units TIDWMEALS SQ Last administered on 03/12/20 12:30; Start 03/10/20 at 17:00 Insulin Glargine (Lantus Syringe) 45 unit QHS SQ Last administered on 03/11/20 21:49; Start 03/10/20 at 21:00 Lansoprazole (Prevacid) 30 mg DAILY PO Last administered on 03/12/20 08:24; Start 03/10/20 at 13:00 Potassium Chloride (Klor-Con) 10 meq DAILYWBKFT PO Last administered on 03/12/20 08:25; Start 03/10/20 at 13:00 Timolol Maleate (Timoptic 0.5% [facility]) 1 drop BID OU Last administered on 03/12/20 08:26; Start 03/10/20 at 21:00 Zolpidem Tartrate (Ambien) 5 mg PRN QHS PRN PO INSOMNIA Last administered on 03/10/20 22:06; Start 03/10/20 at 18:45 Active Scripts Active Lasix (Furosemide) 40 Mg Tablet 1 Tab PO DAILY 14 Days Miralax (Polyethylene Glycol 3350) 17 Gm Powd.pack 1 Packet PO DAILY Reported Proair Hfa Inhaler (Albuterol Sulfate) 8.5 Gm Hfa.aer.ad 2 Puff IH PRN Q4-6HRS PRN 21 Days Meloxicam 15 Mg Tablet 1 Tab PO DAILY Amlodipine Besylate 10 Mg Tablet 1 Tab PO DAILY Victoza 3-Johnson (Liraglutide) 0.6 Mg/0.1 Ml Pen.injctr 0.6 Mg SQ DAILY Carvedilol 6.25 Mg Tablet 1 Tab PO BID Clonidine Hcl 0.2 Mg Tablet 0.2 Mg PO TID Combigan Eye Drops (Brimonidine Tartrate/Timolol) 5 Ml Drops 5 Ml OP BID Latanoprost 2.5 Ml Drops 1 Drop EACHEYE QHS Levemir (Insulin Detemir) 100 Unit/1 Ml Vial 45 Unit SQ HS Lipitor (Atorvastatin Calcium) 20 Mg Tablet 20 Mg PO HS Potassium Chloride 10 Meq Tablet.er 10 Meq PO DAILY Sucralfate 1 Gm Tablet 1 Gm PO QID Flonase (Fluticasone Propionate) 16 Gm [place].susp 2 [place] NS DAILY Acetaminophen 500 Mg Tablet 500 Mg PO PRN TID PRN Prevacid (Lansoprazole) 30 Mg Capsule.dr 30 Mg PO DAILY Metformin Hcl 500 Mg Tablet 1,000 Mg PO BIDWMEALS Novolog Flexpen (Insulin Aspart) 100 Unit/1 Ml Insuln.pen 8 Unit SQ TIDAC Vital Signs Vital Signs Date Time Temp Pulse Resp B/P (MAP) Pulse Ox O2 Delivery O2 Flow Rate FiO2 03/12/20 14:40 97.8 66 18 98/49 (65) 98 Room Air 97.8 Labs Laboratory Tests Test 03/10/20 16:40 03/10/20 20:53 03/11/20 07:19 03/11/20 07:20 Glucose (Fingerstick) 261 mg/dL (70-99) 187 mg/dL (70-99) 147 mg/dL (70-99) White Blood Count 7.3 x10^3/uL (4.0-11.0) Red Blood Count 4.82 x10^6/uL (3.50-5.40) Hemoglobin 12.0 g/dL (12.0-15.5) Hematocrit 37.1 % (36.0-47.0) Mean Corpuscular Volume 77 fL (79-100) Mean Corpuscular Hemoglobin 25 pg (25-35) Mean Corpuscular Hemoglobin Concent 32 g/dL (31-37) Red Cell Distribution Width 16.5 % (11.5-14.5) Platelet Count 281 x10^3/uL (140-400) Neutrophils (%) (Auto) 48 % (31-73) Lymphocytes (%) (Auto) 40 % (24-48) Monocytes (%) (Auto) 7 % (0-9) Eosinophils (%) (Auto) 4 % (0-3) Basophils (%) (Auto) 1 % (0-3) Neutrophils # (Auto) 3.5 x10^3/uL (1.8-7.7) Lymphocytes # (Auto) 2.9 x10^3/uL (1.0-4.8) Monocytes # (Auto) 0.5 x10^3/uL (0.0-1.1) Eosinophils # (Auto) 0.3 x10^3/uL (0.0-0.7) Basophils # (Auto) 0.1 x10^3/uL (0.0-0.2) Sodium Level 143 mmol/L (136-145) Potassium Level 3.8 mmol/L (3.5-5.1) Chloride Level 104 mmol/L (98-107) Carbon Dioxide Level 29 mmol/L (21-32) Anion Gap 10 (6-14) Blood Urea Nitrogen 19 mg/dL (7-20) Creatinine 1.1 mg/dL (0.6-1.0) Estimated GFR (Cockcroft-Gault) 61.5 Glucose Level 146 mg/dL (70-99) Calcium Level 9.1 mg/dL (8.5-10.1) Test 03/11/20 11:39 03/11/20 16:49 03/11/20 18:57 03/11/20 21:04 Glucose (Fingerstick) 190 mg/dL (70-99) 99 mg/dL (70-99) 110 mg/dL (70-99) 122 mg/dL (70-99) Test 03/12/20 07:18 03/12/20 11:24 Glucose (Fingerstick) 136 mg/dL (70-99) 164 mg/dL (70-99) Laboratory Tests Test 03/11/20 16:49 03/11/20 18:57 03/11/20 21:04 03/12/20 07:18 Glucose (Fingerstick) 99 mg/dL (70-99) 110 mg/dL (70-99) 122 mg/dL (70-99) 136 mg/dL (70-99) Test 03/12/20 11:24 Glucose (Fingerstick) 164 mg/dL (70-99) Allergies Allergies Coded Allergies Type Severity Reaction Last Updated Verified Sulfa (Sulfonamide Antibiotics) Allergy Intermediate 07/28/17 Yes lisinopril Allergy Intermediate 01/05/16 Yes metoclopramide Allergy Intermediate 01/05/16 Yes pantoprazole Allergy Intermediate 07/28/17 Yes Disposition/Orders: D/C to Home w/ HH Justicifation of Admission Dx: Justifications for Admission: Justification of Admission Dx: Yes Altered Mental Status: Altered Mental Status TESFAYE BRUNO MD Mar 12, 2020 14:48
[2020-03-12] MEDS ORDERED: ASPI-886 PO (14:50)
--- NOTE | 2020-03-12 14:51 | SNU/HH DC ---
DISCHARGE WITH HOME HEALTH DISCHARGE INFORMATION: Final Diagnosis: Problems Medical Problems: (1) Mediastinal mass Status: Acute (2) Syncope Status: Acute Condition on Discharge: Stable CODE STATUS: Code Status: Full HOME HEALTH: Face to Face: I certify this patient is under my care and that I, or a nurse practitioner or physician's assistant store director working with me, had a face to face encounter that meets the physician face to face encounter requirements with this patient on []. Medical Complications: DM, Falls RN For Eval/Treatment: Yes Physical Therapy For: Evalulation/Treatment Occupational Therapy For: Evaluation/Treatment Speech Language Pathology For: Evaluation/Treatment Home Health Aide For: Self-care CERNER ANALYST For: Community Resources Pt Meets Homebound Status: Fatigue w/ amb., Limited distance walking POST DISCHARGE ORDERS: Activity Instructions for Disc: Activity as tolerated DIET AFTER DISCHARGE: ADA CHECKS AFTER DISCHARGE: Checks after discharge: Check blood sugar, ac/hs, Check your Temp as needed FOLLOW-UP: PCP to follow Home Health: OWN PCP TREATMENT/EQUIPMENT ORDERS: Adaptive Equipment Issued: None CERTIFICATION STATEMENT: Certification Statement: Certification Statement: Based on the above finding, I certify that this patient is confined to the home and needs intermittent custodial care, physical therapy and/or speech therapy, or continues to need occupational therapy.~ This patient is under my care, and I have initiated the establishment of the plan of care.~ This patient will be followed by myself or a community physician who will periodically review the plan of care. Home Meds Active Scripts Aspirin (ASPIRIN EC) 81 Mg Tablet., 81 MG PO DAILYWBK for HEART HEALTH for 30 Days, #30 TAB.SR Prov:TESFAYE BRUNO MD 03/12/20 Furosemide (LASIX) 40 Mg Tablet, 1 TAB PO DAILY for 14 Days, #14 TAB 1 Refill Prov:VALENTIN CRUZ MD 06/26/17 Polyethylene Glycol 3350 (MIRALAX) 17 Gm Powd.pack, 1 PACKET PO DAILY, #30 PACKET 3 Refills Prov:BRENDAN BARNES APRN 09/14/16 Reported Medications Albuterol Sulfate (PROAIR HFA INHALER) 8.5 Gm Hfa.aer.ad, 2 PUFF IH PRN Q4-6HRS PRN for wheezing for 21 Days, #1 INHALER 0 Refills 03/10/20 Amlodipine Besylate (AMLODIPINE BESYLATE) 10 Mg Tablet, 1 TAB PO DAILY for HTN 03/10/20 Liraglutide (VICTOZA 3-RYLEY) 0.6 Mg/0.1 Ml Pen.injctr, 0.6 MG SQ DAILY for DM, EACH 03/10/20 Carvedilol (Carvedilol) 6.25 Mg Tablet, 1 TAB PO BID for HTN 03/10/20 Clonidine Hcl (CLONIDINE HCL) 0.2 Mg Tablet, 0.2 MG PO TID for HTN 03/10/20 Brimonidine Tartrate/Timolol (COMBIGAN EYE DROPS) 5 Ml Drops, 5 ML OP BID for Glaucoma, DROP 06/25/17 Latanoprost (LATANOPROST) 2.5 Ml Drops, 1 DROP EACHEYE QHS for Glaucoma, #7.5 ML 3 Refills 06/25/17 Insulin Detemir (LEVEMIR) 100 Unit/1 Ml Vial, 45 UNIT SQ HS for DM, VIAL 01/05/16 Atorvastatin Calcium (LIPITOR) 20 Mg Tablet, 20 MG PO HS for FOR CHOLESTEROL, #30 TAB 0 Refills 01/05/16 Potassium Chloride (POTASSIUM CHLORIDE) 10 Meq Tablet.er, 10 MEQ PO DAILY, TAB 12/05/13 Sucralfate (SUCRALFATE) 1 Gm Tablet, 1 GM PO QID 12/05/13 Fluticasone Propionate (FLONASE) 16 Gm [place].susp, 2 SPRAY NS DAILY, SPRAYS 12/05/13 Acetaminophen (ACETAMINOPHEN) 500 Mg Tablet, 500 MG PO PRN TID PRN for PAIN 12/05/13 Lansoprazole (PREVACID) 30 Mg Capsule.dr, 30 MG PO DAILY, TAB 12/05/13 Metformin Hcl (METFORMIN HCL) 500 Mg Tablet, 1000 MG PO BIDWMEALS for DM, TAB 0 Refills 12/05/13 Insulin Aspart (NOVOLOG FLEXPEN) 100 Unit/1 Ml Insuln.pen, 8 UNIT SQ TIDAC for DM, SYR 12/05/13 Discontinued Reported Medications Meloxicam (MELOXICAM) 15 Mg Tablet, 1 TAB PO DAILY for ARTHRITIS 03/10/20 TESFAYE BRUNO MD Mar 12, 2020 14:51
--- NOTE | 2020-03-12 16:41 | NUR ---
Discharge Note: RUSLAN CALERO Discharge instructions and discharge home medications reviewed with Patient and a copy given. All questions have been answered and understanding verbalized. The following instructions and handouts were given: Syncope and ASA Discontinued IV line Patient discharged to home with self care via private vehicle
== END 2020-03-12 16:49 | disposition home health service (06) | DRG 74 ==
LOC: ER 20:57 → 2 SOUTH 03-10 01:51
PROVIDERS: ADMIT Internal Medicine; ATTEND Internal Medicine
DX: G90.8 Other disorders of autonomic nervous system (principal); Z68.43 Body mass index [BMI] 50.0-59.9, adult; E11.649 Type 2 diabetes mellitus with hypoglycemia without coma; E11.42 Type 2 diabetes mellitus with diabetic polyneuropathy; F41.9 Anxiety disorder, unspecified; H40.9 Unspecified glaucoma; K21.9 Gastro-esophageal reflux disease without esophagitis; M19.90 Unspecified osteoarthritis, unspecified site; E78.5 Hyperlipidemia, unspecified; N18.9 Chronic kidney disease, unspecified; I12.9 Hypertensive chronic kidney disease with stage 1 through stage 4 chronic kidney disease, or unspecified chronic kidney disease; E11.22 Type 2 diabetes mellitus with diabetic chronic kidney disease; E66.01 Morbid (severe) obesity due to excess calories; Z96.641 Presence of right artificial hip joint; J30.9 Allergic rhinitis, unspecified; J42 Unspecified chronic bronchitis; R59.0 Localized enlarged lymph nodes; D86.9 Sarcoidosis, unspecified; I25.2 Old myocardial infarction; Z85.72 Personal history of non-Hodgkin lymphomas; Z88.2 Allergy status to sulfonamides; Z88.8 Allergy status to other drugs, medicaments and biological substances; Z83.3 Family history of diabetes mellitus; Z82.5 Family history of asthma and other chronic lower respiratory diseases; Z82.49 Family history of ischemic heart disease and other diseases of the circulatory system
CPT/HCPCS: 36415; 70450; 71045; 71275; 72125; 80048; 80053; 80061; 81001; 82962; 83605; 83735; 83880; 84443; 84484; 85025; 85379; 85610; 87086; 93005; 93306; 94640; 99285; J1815; J7030; Q9967; U0003; 97110-GP; 97116-GP; 97530-GP; 97535-GO; G0378

== ENCOUNTER → 2020-04-21 | Outpatient (CLI) | payer OTHER ==
[~2020-04-21] MED LIST changes: +ALBU2.5V8 IH; +ASPI-886 PO; +CARV6.253 PO; -CLIN300C8 PO; +CLIN300C9 PO; +CLON0.2T PO; +LIRA0.6P2 SQ; +MELO15TA23 PO
--- NOTE | 2020-04-22 09:51 | RAD ---
CT chest without contrast dated 04/21/2020. Comparison made to 03/10/2020. 12/06/2013. Clinical data indication: Follow-up lymphadenopathy. TECHNIQUE: Continues axial imaging the chest performed without the administration of intravenous contrast. One or more of the following individualized dose reduction techniques were utilized for this examinat ion: 1. Automated exposure control 2. Adjustment of the mA and/or kV according to patient size 3. Use of iterative reconstruction technique. FINDINGS: There is partially calcified soft tissue mass at the upper right mediastinum and right paratracheal r egion that is not significantly changed from prior study. The soft tissue component laterally measure s about 2.2 cm short axis, unchanged. There are also calcified right hilar lymph nodes with additiona l mildly enlarged lymph nodes at the right supraclavicular region and upper mediastinum near the thor acic inlet. No apparent hilar or axillary lymphadenopathy. Thyroid gland is unremarkable. Heart size is mildly enlarged. No pericardial effusion. Coronary artery calcifications. Central airways are patent. Lungs are clear. No consolidation or pleural effusion. There are a few sc attered calcified granuloma. Previously described right middle lobe opacity has nearly completely res olved with some residual linear opacity in the region. Images of the upper abdomen are unremarkable. Multilevel spondylosis. IMPRESSION: 1. Upper mediastinal and right paratracheal lymphadenopathy is stable from the most recent exam, jacinto carver from the 2014 study. Primary malignancy, metastatic disease or lymphoma is still not excluded . PET/CT would better evaluate. 2. Previously described right middle lobe opacity has largely resolved. There is minimal residual sca rring in the region. 3. Old granulomatous disease 4. Coronary artery calcifications. Electronically signed by: Aung Hodge MD (04/22/2020 9:48 AM) [place] [id number]
== END ==
LOC: CT 10:16
PROVIDERS: ATTEND Internal Medicine Pulmonary Disease
DX: J98.4 Other disorders of lung (principal); I51.7 Cardiomegaly; I25.10 Atherosclerotic heart disease of native coronary artery without angina pectoris; R59.9 Enlarged lymph nodes, unspecified
CPT/HCPCS: 71250

== ENCOUNTER → 2020-07-07 | Outpatient (CLI) | payer OTHER ==
[~2020-07-07] MED LIST changes: -CLIN150C14 PO; +CLIN150C15 PO
--- NOTE | 2020-07-07 15:42 | RAD ---
EXAM: CT Chest without IV contrast INDICATION: Reason: SARCOID, ABNORMAL CT / Spl. Instructions: / History: TECHNIQUE: Multi-detector row CT images were acquired from the thoracic inlet through the upper abdo men without the use of IV contrast. Sagittal and coronal images were acquired from the transaxial luke a. All CT scans performed at this facility utilize dose optimization techniques as appropriate to the exam, including the following: Automated exposure control and adjustment of the mA and/or KV accordi ng to patient size (this includes techniques or standardized protocols for targeted exams where dose is indication/reason for exam). COMPARISON: CT chest without IV contrast of 04/21/2020 FINDINGS: The absence of IV contrast limits evaluation of soft tissue pathology. CARDIOVASCULAR: Unremarkable MEDIASTINUM & RJ: Right hilar and paratracheal lymphadenopathy is redemonstrated with calcification s. Largest soft tissue component of this process measures 2.3 cm mediolateral by 2.9 cm anterior-post erior, not significantly changed in the interval and on this examination, this shows subtle periphera l calcifications. LUNGS: Calcified right upper lobe pulmonary nodule measuring 6 mm is noted in the periphery near the minor fissure. Respiratory motion artifact degrades detail but no additional pulmonary nodules are id entified. No pulmonary infiltrate or other focal abnormality otherwise noted. PLEURAL SPACE: No pleural effusions or pneumothorax. OSSEOUS & SOFT TISSUE: Unremarkable ABDOMEN: The visualized portions of the upper abdomen are unremarkable. IMPRESSION: Stable partly calcified right hilar and mediastinal adenopathy, compatible with the clinical diagnosi s of sarcoidosis. No fibrotic changes in the lungs with a calcified granuloma in the right upper lobe noted. Electronically signed by: Akila Banerjee MD (07/07/2020 3:39 PM) [id number]
== END ==
LOC: CT 11:05
PROVIDERS: ATTEND Internal Medicine Pulmonary Disease
DX: R91.1 Solitary pulmonary nodule (principal)
CPT/HCPCS: 71250

== ENCOUNTER 2020-07-20 02:59 | Emergency (ER) | payer OTHER ==
[~2020-07-20] VITALS: Ht 154.9 cm; Wt 127.3 kg
--- NOTE | 2020-07-20 03:36 | PHYS DOC ---
Past Medical History Past Medical History: Bronchitis, Diabetes-Type II, GERD, Glaucoma, High Cholesterol, Hypertension, Other Additional Past Medical Histor: Seasonal allergies,hiatal hernia,LOW KIDNEY FUNCTION,H/A,CELLULITIS Past Surgical History: , Other Additional Past Surgical Histo: BLADDER SLING; ablasion to uterus; right knee, L TIB/FIB FX, L LUMPECTOMY Smoking Status: Never Smoker Alcohol Use: None Drug Use: None General Adult EDM: Chief Complaint: UPPER EXTREMITY PAIN HPI: HPI: Patient is a 60 year old -[place] Citizen female with past medical history of hypertension, hyperlipidemia, and diabetes type 2, presents for bilateral arm pain and burning sensation of the lips. Patient reports that starting from 7 PM last night after dinner she started feeling dull ache in the bicep region of both arms more pronounced in the right side. The pain was localized and was rated as 3 out of 10 in severity. Patient tried some aspirin without symptomatic relief. At the same time with arm pain patient is starting to having burning sensation of the lips and very dry mouth. She drinks some water but it did not help her. Patient reports that she had a similar episode a few days ago, at that time the pain was gone after a few hours. Patient is concerned of an MS and called emergency services. Patient denies any chest pain, shortness of air, abdominal pain, change in lower extremity swelling, or cough. Patient is her own historian. Review of Systems: Review of Systems: Review of systems: Constitutional symptoms- No fever, no chills. Eyes- No Discharge, No Visual Loss Respiratory symptoms- No shortness of breath, No wheezing, No Dyspnea on Exertion Cardiovascular Systems; No chest pain, No Palpitations, No syncope Gastrointestinal symptoms: NO abdominal pain, no nausea, no vomiting or diarrhea. Genitourinary symptoms: No dysuria. Musculoskeletal symptoms: Bilateral arm pain more pronounced in the right side, alongside with right-sided back pain. NEUROLOGICAL Symptoms: No headache, no generalized weakness; No focal Weakness Heart Score: C/O Chest Pain: No HEART Score for Chest Pain: HEART Score for Chest Pain Response (Comments) Value History Slighlty/Non-Suspicious 0 ECG Normal 0 Age >45 - < 65 1 Risk Factors >3 Risk Factors or Hx CAD 2 Troponin < Normal Limit 0 Total 3 Risk Factors: Risk Factors: DM, Current or recent (<one month) smoker, HTN, HLP, family histo ry of CAD, obesity. Risk Scores: Score 0 - 3: 2.5% MACE over next 6 weeks - Discharge Home Score 4 - 6: 20.3% MACE over next 6 weeks - Admit for Clinical Observation Score 7 - 10: 72.7% MACE over next 6 weeks - Early Invasive Strategies Allergies: Allergies: Allergies Coded Allergies Type Severity Reaction Last Updated Verified Sulfa (Sulfonamide Antibiotics) Allergy Intermediate 07/28/17 Yes lisinopril Allergy Intermediate 01/05/16 Yes metoclopramide Allergy Intermediate 01/05/16 Yes pantoprazole Allergy Intermediate 07/28/17 Yes Physical Exam: PE: General: alert, no acute distress. Skin: warm, dry and intact. Head:: Normocephalic, atraumatic. Mouth; oral cavity moist without discharge, no erythema ulcer or other lesion visualized on the lips Neck: Trachea midline. Eyes: EOMI, Normal conjunctiva, No drainage CARDIOVASCULAR: Regular rate and rhythm RESPIRATORY: No respiratory distress Back: Full range of motion. MUSCULOSKELETAL: Increased tenderness in the right and left bicep upon p alpation. GASTROINTESTINAL: Abdomen soft without rebound or guarding. NEUROLOGICAL: Alert and noted to person, place and time. No neurological deficits observed Psychiatric: Cooperative. Normal judgment Current Patient Data: Vital Signs: Vital Signs Date Time Temp Pulse Resp B/P (MAP) Pulse Ox O2 Delivery O2 Flow Rate FiO2 07/20/20 02:59 97.6 60 18 133/63 (86) 95 Room Air 97.6 EKG: EKG: [] EKG performed at 336 hours heart rate [address] elevation no ST depression no acute MS Radiology/Procedures: Radiology/Procedures: [] Course & Med Decision Making: Course & Med Decision Making Pertinent Labs and Imaging studies reviewed. (See chart for details) [] Patient was evaluated for chief complaint. Patient states she is concerned that she might be having a heart attack. EKG within normal limits troponin negative. Patient's exam not consistent with a heart attack. Patient was discharged home with instruction to follow-up with primary care physician. Vladimir Disclaimer: Vladimir Disclaimer: This electronic medical record was generated, in whole or in part, using a voice recognition dictation system. Departure Departure Impression: Primary Impression: Arm pain Disposition: 01 DC HOME SELF CARE/HOMELESS Condition: STABLE Referrals: DAWIT OWENS JR, MD (PCP) Patient Instructions: Musculoskeletal Pain TAO CRUZ DO Jul 20, 2020 03:36
[2020-07-20 04:34] VITALS: BP 166/77
--- NOTE | 2020-07-20 05:05 | EKG ---
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
== END 2020-07-20 04:45 | disposition home or self-care (01) ==
LOC: ER 02:59
DX: M79.601 Pain in right arm (principal); M79.602 Pain in left arm; R20.8 Other disturbances of skin sensation; E11.9 Type 2 diabetes mellitus without complications; K21.9 Gastro-esophageal reflux disease without esophagitis; E78.00 Pure hypercholesterolemia, unspecified; E11.39 Type 2 diabetes mellitus with other diabetic ophthalmic complication; H40.9 Unspecified glaucoma; H42 Glaucoma in diseases classified elsewhere; I10 Essential (primary) hypertension; Z98.890 Other specified postprocedural states; Z88.2 Allergy status to sulfonamides; Z88.8 Allergy status to other drugs, medicaments and biological substances; Z88.6 Allergy status to analgesic agent
CPT/HCPCS: 36415; 84484; 93005; 99284

== ENCOUNTER 2020-11-27 13:11 | Emergency (ER) | payer OTHER ==
[~2020-11-27] VITALS: Ht 154.9 cm; Wt 122.7 kg
[2020-11-27 13:51] LABS: BASO # 0.1 x10^3/uL (0.0-0.2); BASO % 1 % (0-3); EOS # 0.1 x10^3/uL (0.0-0.7); EOS % 2 % (0-3); HEMATOCRIT 36.2 % (36.0-47.0); HEMOGLOBIN 11.7 g/dL (12.0-15.5); LYMPH # 1.6 x10^3/uL (1.0-4.8); LYMPH % 26 % (24-48); MEAN CORPUSCULAR HEMOGLOBIN 25 pg (25-35); MEAN CORPUSCULAR HGB CONC 32 g/dL (31-37); MEAN CORPUSCULAR VOLUME 78 fL (79-100); MONO # 0.5 x10^3/uL (0.0-1.1); MONO % 8 % (0-9); NEUT # 3.8 x10^3/uL (1.8-7.7); NEUT % 63 % (31-73); PLATELET COUNT 286 x10^3/uL (140-400); RED BLOOD COUNT 4.62 x10^6/uL (3.50-5.40); RED CELL DISTRIBUTION WIDTH 15.5 % (11.5-14.5)
--- NOTE | 2020-11-27 14:26 | RAD ---
XR CHEST 1V History: Chest pain Comparison: CT chest 07/07/2020. Chest x-ray 09/11/2018 Technique: Portable AP radiograph of the chest. Findings: The lungs are adequately inflated. No airspace consolidation, pleural effusion or pneumothorax. There is enlarged mediastinal adenopathy consistent with history of sarcoid disease. There is cardiomegaly and cephalization of pulmonary vasculature. Degenerative changes of the shoulders and spine. No acut e osseous abnormalities. Soft tissues are unremarkable. Impression: 1. Cardiomegaly and pulmonary vascular congestion. 2. Calcified adenopathy consistent with history of sarcoid. Electronically signed by: Castro Rios MD (11/27/2020 2:24 PM) [facility]
[2020-11-27 15:25] LABS: BILIRUBIN,URINE NEGATIVE (NEG); CLARITY,URINE CLOUDY; COLOR,URINE YELLOW; NITRITE,URINE NEGATIVE (NEG); PROTEIN,URINE NEGATIVE (NEG-TRACE); UROBILINOGEN,URINE 0.2 mg/dL (0.2 mg/dL)
[2020-11-27 15:40] LABS: BACTERIA,URINE MANY /HPF (0-FEW); WBC,URINE 20-40 /HPF (0-4)
[2020-11-27 15:41] LABS: RBC,URINE 0 /HPF (0-2)
[2020-11-27 17:18] LABS: CALCIUM 9.5 mg/dL (8.5-10.1); GFR 68.7; POTASSIUM 4.2 mmol/L (3.5-5.1)
[2020-11-27 17:26] LABS: ALBUMIN 3.1 g/dL (3.4-5.0); ALBUMIN/GLOBULIN RATIO 0.7 (1.0-1.7); MAGNESIUM 2.2 mg/dL (1.8-2.4); TOTAL BILIRUBIN 0.3 mg/dL (0.2-1.0); TOTAL PROTEIN 7.3 g/dL (6.4-8.2)
[2020-11-27] MEDS ORDERED: CONTRAST GIVEN. MC PRN (17:30)
[2020-11-27] MEDS ORDERED: IOHEXOL 350 MG/ML 100 ML VIAL. IV ONE (17:30)
--- NOTE | 2020-11-27 17:59 | RAD ---
Exam: CT of chest and abdomen with contrast INDICATION: Upper back pain TECHNIQUE: Sequential axial images through the chest and abdomen obtained following the administratio n 100 mL of Omni 350 IV contrast. Sagittal and coronal reformatted images were reconstructed from the axial data and reviewed. Exposure: One or more of the following in the visualized dose reduction techniques were utilized for this examination: 1. Automated exposure control 2. Adjustment of the MA and/or KV according to patient size 3. Use of iterative of reconstructive technique Comparisons: 07/07/2020 FINDINGS: Visualized portions of the thyroid are unremarkable. Enlarged right paratracheal lymph node, is again seen which is partially calcified stable when compared to the prior study. Heart size is normal. No pericardial effusion. Thoracic aorta has a normal course and caliber. Pulmon ventura artery is not enlarged. No pulmonary embolus identified within the main, lobar or segmental pulmo nary Airways are patent. No consolidation or pneumothorax. There is subtle patchy groundglass opacity in t he lungs bilaterally. No suspicious lung nodules. No pleural effusion or thickening. Liver, spleen, pancreas, gallbladder and adrenals are unremarkable. No perinephric inflammation or hydronephrosis. No renal or ureteral calculi are identified within the [id number]. Visualized portions of the large and small bowel are unremarkable. No free intra-abdominal air or flu id. No obstruction. Abdominal aorta has a normal course and caliber. No enlarged intra-abdominal lymph nodes are identified. No suspicious osseous lesions or acute fractures IMPRESSION: 1. Normal appearance of the aorta without evidence for aneurysm or dissection. 2. Stable chronic findings as described above. Electronically signed by: Cece Styles MD (11/27/2020 5:57 PM) [facility]
--- NOTE | 2020-11-27 18:26 | ED.ADGEN ---
Past Medical History Past Medical History: Bronchitis, Diabetes-Type II, GERD, Glaucoma, High Cholesterol, Hypertension, Other Additional Past Medical Histor: Seasonal allergies,hiatal hernia,LOW KIDNEY FUNCTION,H/A,CELLULITIS,obesity Past Surgical History: , Other Additional Past Surgical Histo: BLADDER SLING; ablasion to uterus; right knee, L TIB/FIB FX, L LUMPECTOMY Smoking Status: Never Smoker Alcohol Use: None Drug Use: None General Adult EDM: Chief Complaint: BACK PAIN - NO INJURY HPI: HPI: Patient is a 60 year old AA female who presents emergency department with complaints of upper back pain for the last 3 or 4 days. Patient states her primary care doctor sent her to the ER to have a cardiac work-up. Patient denies any injury or recent fall. She denies any shortness of breath, chest pain, syncope, palpitations, abdominal pain, nausea, vomiting, diarrhea, fever, cough, or body aches. Patient states that her hands have felt tingly and numb intermittently at times. She reports a frontal headache and right ear pain but denies any decreased hearing or vision changes. She reports that her back pain is worse with movement and palpation, it is relieved at rest. Patient reports history of lymphedema in her right lower extremity, she denies any increased swelling. Patient currently denies any pain. Patient states she has received both doses of the Covid immunization made by [employer] and denies any known exposure to COVID-19. Review of Systems: Review of Systems: Complete ROS is negative unless otherwise noted in HPI. Current Medications: Current Medications Medications (Trade) Dose Ordered Sig/Ren Start Time Stop Time Status Last Admin Dose Admin Info (CONTRAST GIVEN -- Rx MONITORING) 1 each PRN DAILY PRN 11/27/20 17:30 11/27/20 20:05 DC Iohexol (Omnipaque 350 Mg/ml) 100 ml 1X ONCE 11/27/20 17:30 11/27/20 17:31 DC 11/27/20 17:34 100 ML Allergies: Allergies: Allergies Coded Allergies Type Severity Reaction Last Updated Verified Sulfa (Sulfonamide Antibiotics) Allergy Intermediate rash 11/27/20 Yes lisinopril Allergy Intermediate 11/27/20 Yes metoclopramide Allergy Intermediate 11/27/20 Yes pantoprazole Allergy Intermediate 11/27/20 Yes Physical Exam: PE: See Above Constitutional: Well developed, well nourished, no acute distress, non-toxic appearance obese. [] HENT: Normocephalic, atraumatic, bilateral external ears normal, nose normal. [] Eyes: PERRLA, EOMI, conjunctiva normal, no discharge. [] Neck: Normal range of motion, no stridor. [] Cardiovascular:Heart rate regular rhythm Lungs & Thorax: Respirations even and unlabored, no retractions, no respiratory distress Abdomen: soft, no tenderness, no palpable mass, no rebound tenderness, no guarding Back: Right thoracic paraspinal tenderness to palpation, no bony tenderness or deformity, no lumbar tenderness Skin: Warm, dry, no erythema, no rash. [] Extremities: No cyanosis, ROM intact, 2+ edema RLE, 1+ edema LLE, sensation intact Neurologic: Alert and oriented X 3, normal motor, normal sensory, no focal deficits noted. [] Psychologic: Affect normal, judgement normal, mood normal. [] Current Patient Data: Labs: Laboratory Tests Test 11/27/20 13:40 11/27/20 15:12 11/27/20 16:50 White Blood Count 6.0 x10^3/uL (4.0-11.0) Red Blood Count 4.62 x10^6/uL (3.50-5.40) Hemoglobin 11.7 g/dL (12.0-15.5) L Hematocrit 36.2 % (36.0-47.0) Mean Corpuscular Volume 78 fL (79-100) L Mean Corpuscular Hemoglobin 25 pg (25-35) Mean Corpuscular Hemoglobin Concent 32 g/dL (31-37) Red Cell Distribution Width 15.5 % (11.5-14.5) H Platelet Count 286 x10^3/uL (140-400) Neutrophils (%) (Auto) 63 % (31-73) Lymphocytes (%) (Auto) 26 % (24-48) Monocytes (%) (Auto) 8 % (0-9) Eosinophils (%) (Auto) 2 % (0-3) Basophils (%) (Auto) 1 % (0-3) Neutrophils # (Auto) 3.8 x10^3/uL (1.8-7.7) Lymphocytes # (Auto) 1.6 x10^3/uL (1.0-4.8) Monocytes # (Auto) 0.5 x10^3/uL (0.0-1.1) Eosinophils # (Auto) 0.1 x10^3/uL (0.0-0.7) Basophils # (Auto) 0.1 x10^3/uL (0.0-0.2) Urine Collection Type Void Urine Color Yellow Urine Clarity Cloudy Urine pH 6.0 (<5.0-8.0) Urine Specific Delia 1.020 (1.000-1.030) Urine Protein Negative mg/dL (NEG-TRACE) Urine Glucose (UA) Negative mg/dL (NEG) Urine Ketones (Stick) Negative mg/dL (NEG) Urine Blood Negative (NEG) Urine Nitrite Negative (NEG) Urine Bilirubin Negative (NEG) Urine Urobilinogen Dipstick 0.2 mg/dL (0.2 mg/dL) Urine Leukocyte Esterase Trace (NEG) Urine RBC 0 /HPF (0-2) Urine WBC 20-40 /HPF (0-4) Urine Squamous Epithelial Cells Mod /LPF Urine Bacteria Many /HPF (0-FEW) Sodium Level 142 mmol/L (136-145) Potassium Level 4.2 mmol/L (3.5-5.1) Chloride Level 104 mmol/L (98-107) Carbon Dioxide Level 29 mmol/L (21-32) Anion Gap 9 (6-14) Blood Urea Nitrogen 18 mg/dL (7-20) Creatinine 1.0 mg/dL (0.6-1.0) Estimated GFR (Cockcroft-Gault) 68.7 BUN/Creatinine Ratio 18 (6-20) Glucose Level 89 mg/dL (70-99) Calcium Level 9.5 mg/dL (8.5-10.1) Magnesium Level 2.2 mg/dL (1.8-2.4) Total Bilirubin 0.3 mg/dL (0.2-1.0) Aspartate Amino Transferase (AST) 12 U/L (15-37) L Alanine Aminotransferase (ALT) 23 U/L (14-59) Alkaline Phosphatase 148 U/L (46-116) H Creatine Kinase 94 U/L (26-192) Creatine Kinase MB (Mass) 1.1 ng/mL (0.0-3.6) Creatine Kinase MB Relative Index 1.2 % (0-4) Troponin I Quantitative < 0.017 ng/mL (0.000-0.055) Total Protein 7.3 g/dL (6.4-8.2) Albumin 3.1 g/dL (3.4-5.0) L Albumin/Globulin Ratio 0.7 (1.0-1.7) L Lipase 164 U/L (73-393) Laboratory Tests 11/27/20 13:40 Laboratory Tests 11/27/20 16:50 Vital Signs: Vital Signs Date Time Temp Pulse Resp B/P (MAP) Pulse Ox O2 Delivery O2 Flow Rate FiO2 11/27/20 18:30 62 119/59 (79) 100 Room Air 11/27/20 16:00 20 11/27/20 13:28 98.1 98.1 EKG: EK-sinus rhythm with leftward axis, rate 69, no STEMI, read by Dr. Tony[] Heart Score: C/O Chest Pain: No Radiology/Procedures: Radiology/Procedures: PROCEDURE: CT ANGIOGRAPHY CHEST ABDOMEN Exam: CT of chest and abdomen with contrast INDICATION: Upper back pain TECHNIQUE: Sequential axial images through the chest and abdomen obtained following the administration 100 mL of Omni 350 IV contrast. Sagittal and c oronal reformatted images were reconstructed from the axial data and reviewed. Exposure: One or more of the following in the visualized dose reduction techniques were utilized for this examination: 1. Automated exposure control 2. Adjustment of the MA and/or KV according to patient size 3. Use of iterative of reconstructive technique Comparisons: 07/07/2020 FINDINGS: Visualized portions of the thyroid are unremarkable. Enlarged right paratracheal lymph node, is again seen which is partially calcified stable when compared to the prior study. Heart size is normal. No pericardial effusion. Thoracic aorta has a normal course and caliber. Pulmonary artery is not enlarged. No pulmonary embolus identified within the main, lobar or segmental pulmonary Airways are patent. No consolidation or pneumothorax. There is subtle patchy groundglass opacity in the lungs bilaterally. No suspicious lung nodules. No pleural effusion or thickening. Liver, spleen, pancreas, gallbladder and adrenals are unremarkable. No perinephric inflammation or hydronephrosis. No renal or ureteral calculi are identified within the [id number]. Visualized portions of the large and small bowel are unremarkable. No free intra-abdominal air or fluid. No obstruction. Abdominal aorta has a normal course and caliber. No enlarged intra-abdominal lymph nodes are identified. No suspicious osseous lesions or acute fractures IMPRESSION: 1. Normal appearance of the aorta without evidence for aneurysm or dissec tion.[] PROCEDURE: CHEST AP ONLY XR CHEST 1V History: Chest pain Comparison: CT chest 07/07/2020. Chest x-ray 09/11/2018 Technique: Portable AP radiograph of the chest. Findings: The lungs are adequately inflated. No airspace consolidation, pleural effusion or pneumothorax. There is enlarged mediastinal adenopathy consistent with history of sarcoid disease. There is cardiomegaly and cephalization of pulmonary vasculature. Degenerative changes of the shoulders and spine. No acute osseous abnormalities. Soft tissues are unremarkable. Impression: 1. Cardiomegaly and pulmonary vascular congestion. 2. Calcified adenopathy consistent with history of sarcoid. Electronically signed by: Castro Rios MD (11/27/2020 2:24 PM) [facility] Course & Med Decision Making: Course & Med Decision Making Pertinent Labs and Imaging studies reviewed. (See chart for details) 60-year-old female sent by her primary care doctor for evaluation after calling him in reporting upper back pain. EKG revealed no acute findings. Chest x-ray revealed a Calcified adenopathy consistent with history of sarcoid, CT angio of the patient's chest/abdomen was secondary to her diarrhea almost resolved. CT angio failed to review any abnormal findings in the patient's any acute process. CBC is unremarkable; CMP is unremarkable. Troponin is not elevated. UA r evealed 20-40 white blood cells and many bacteria moderate squamous cells, moderate for urinary tract infection with Keflex. Prescription was written for Flexeril and Keflex. I encouraged patient to follow-up with her primary care doctor in 1 to 2 days for reevaluation, return to the ER if symptoms worsen or fever develop. Her vital signs are stable throughout her emergency department stay. Patient verbalized an understanding of home care, medications, follow-up, and return to ED instructions and was in agreement with the plan of care. Royaon Disclaimer: Vladimir Disclaimer: This electronic medical record was generated, in whole or in part, using a voice recognition dictation system. Departure Departure Impression: Primary Impression: Pain, upper back Additional Impression: UTI (urinary tract infection) Disposition: HOME / SELF CARE / HOMELESS Condition: STABLE Referrals: BURES JR,DAWIT J MD (PCP) Patient Instructions: Back Pain, Adult, Lamz-cu-Subg, Urinary Tract Infection, [id number]-[id number] Additional Instructions: Fill prescription(s) and take as directed. Avoid bladder irritants such as caffeine, carbonation, and spicy foods. Increase clear fluids. Follow up with your primary care doctor in 1-2 days, return to the ER if symptoms worsen or fever develops. Scripts Cephalexin (CEPHALEXIN) 500 Mg Tablet 1 TAB PO BID for 7 Days, #14 TAB 0 Refills Prov: DANNY AYOUB APRN 11/27/20 Cyclobenzaprine Hcl (CYCLOBENZAPRINE HCL) 10 Mg Tablet 1 TAB PO TID PRN for PAIN for 7 Days, #21 TAB 0 Refills Prov: DANNY AYOUB APRN 11/27/20 Problem Qualifiers Additional Impression: UTI (urinary tract infection) Urinary tract infection type: site unspecified Hematuria presence: without hematuria Qualified Codes: N39.0 - Urinary tract infection, site not specified DANNY AYOUB PSYCHOLOGY PROFESSOR Nov 27, 2020 18:26
[2020-11-27 18:30] VITALS: BP 119/59
[2020-11-27] MEDS ORDERED: CYCL10TA2 PO (18:44)
[2020-11-27] MEDS ORDERED: CEPH500T PO (18:46)
== END 2020-11-27 19:55 | disposition home or self-care (01) ==
LOC: ER 13:11
DX: N39.0 Urinary tract infection, site not specified (principal); K21.9 Gastro-esophageal reflux disease without esophagitis; E78.00 Pure hypercholesterolemia, unspecified; I10 Essential (primary) hypertension; E11.39 Type 2 diabetes mellitus with other diabetic ophthalmic complication; H40.9 Unspecified glaucoma; R07.89 Other chest pain; Z98.890 Other specified postprocedural states; Z88.1 Allergy status to other antibiotic agents; Z88.2 Allergy status to sulfonamides; Z88.6 Allergy status to analgesic agent; Z88.8 Allergy status to other drugs, medicaments and biological substances
CPT/HCPCS: 36415; 71045; 71275; 74175; 80053; 81001; 82553; 83690; 83735; 84484; 85025; 87086; 93005; 99285; Q9967

== ENCOUNTER 2021-01-24 12:22 | Emergency (ER) | payer OTHER ==
[~2021-01-24] VITALS: Ht 154.9 cm; Wt 122.0 kg
[~2021-01-24 12:22] MED LIST changes: +CEPH500T PO; -CLIN150C15 PO; +CLIN150C16 PO; -DOXY100C2 PO; +DOXY100C3 PO
[2021-01-24] MEDS ORDERED: fentaNYL PF VIAL 100 MCG/2 ML VIAL IVP ONE (12:45)
[2021-01-24] MEDS ORDERED: IV NORMAL SALINE 500ML BAG 500 ML IV ONE (12:45)
--- NOTE | 2021-01-24 12:53 | PHYS DOC ---
Past Medical History Past Medical History: Bronchitis, Diabetes-Type II, GERD, Glaucoma, High Cholesterol, Hypertension, Other Additional Past Medical Histor: Seasonal allergies,hiatal hernia,LOW KIDNEY FUNCTION,H/A,CELLULITIS,obesity (MARIANNE JACOBSEN CHIEF LIFESTYLE OFFICER) Past Surgical History: , Other Additional Past Surgical Histo: BLADDER SLING; ablasion to uterus; right knee, L TIB/FIB FX, L LUMPECTOMY (MARIANNE JACOBSEN CHIEF LIFESTYLE OFFICER) Smoking Status: Never Smoker Alcohol Use: None Drug Use: None (MARIANNE JACOBSEN CHIEF LIFESTYLE OFFICER) General Adult EDM: Chief Complaint: URINARY FREQUENCY HPI: HPI: Patient is a 60 year old female who presents with 1 week of urinary frequency and left flank pain. She states she was here on November 27 and diagnosed with a urinary tract infection and given Keflex. She states she finished that antibiotic. She denies fever, nausea, vomiting, diarrhea, abdominal pain, chest pain, shortness of breath, cough, headache, dizziness, fall, injury to her back. Patient has a history of obesity, hiatal hernia, diabetes, hypertension, high cholesterol, glaucoma, low kidney function, cellulitis. She rates her pain a 5 out of 10. (MARIANNE JACOBSEN CHIEF LIFESTYLE OFFICER) Review of Systems: Review of Systems: Constitutional: Denies fever or chills. [] Eyes: Denies change in visual acuity. [] HENT: Denies nasal congestion or sore throat. [] Respiratory: Denies cough or shortness of breath. [] Cardiovascular: Denies chest pain or edema. [] GI: Left side of abdominal pain, denies nausea, vomiting, bloody stools or diarrhea. [] : Denies dysuria. + Urinary frequency [] Musculoskeletal: + Left flank back pain or denies joint pain. [] Integument: Denies rash. [] Neurologic: Denies headache, focal weakness or sensory changes. [] Endocrine: Denies polyuria or polydipsia. [] Lymphatic: Denies swollen glands. [] Psychiatric: Denies depression or anxiety. [] (MARIANNE JACOBSEN CHIEF LIFESTYLE OFFICER) Heart Score: C/O Chest Pain: No Risk Factors: Risk Factors: DM, Current or recent (<one month) smoker, HTN, HLP, family history of CAD, obesity. Risk Scores: Score 0 - 3: 2.5% MACE over next 6 weeks - Discharge Home Score 4 - 6: 20.3% MACE over next 6 weeks - Admit for Clinical Observation Score 7 - 10: 72.7% MACE over next 6 weeks - Early Invasive Strategies (MARIANNE JACOBSEN APRN) Current Medications: Current Medications Medications (Trade) Dose Ordered Sig/Ren Start Time Stop Time Status Last Admin Dose Admin Fentanyl Citrate (Fentanyl 2ml Vial) 25 mcg 1X ONCE 01/24/21 12:45 01/24/21 12:51 DC Sodium Chloride 500 ml @ 500 mls/hr 1X ONCE 01/24/21 12:45 01/24/21 13:44 (MARIANNE JACOBSEN APRN) Allergies: Allergies: Allergies Coded Allergies Type Severity Reaction Last Updated Verified Sulfa (Sulfonamide Antibiotics) Allergy Intermediate rash 11/27/20 Yes lisinopril Allergy Intermediate 11/27/20 Yes metoclopramide Allergy Intermediate 11/27/20 Yes pantoprazole Allergy Intermediate 11/27/20 Yes (MARIANNE JACOBSEN APRN) Physical Exam: PE: Constitutional: Well developed, well nourished, no acute distress, non-toxic appearance. [] HENT: Normocephalic, atraumatic, bilateral external ears normal, oropharynx moist, no oral exudates, nose normal. [] Eyes: PERRLA, EOMI, conjunctiva normal, no discharge. [] Neck: Normal range of motion, no tenderness, supple, no stridor. [] Cardiovascular:Heart rate regular rhythm, no murmur [] Lungs & Thorax: Bilateral breath sounds clear to auscultation [] Abdomen: Bowel sounds normal, soft, no tenderness, no masses, no pulsatile masses. [] Skin: Warm, dry, no erythema, no rash. [] Back: No tenderness, no CVA tenderness. [] Extremities: No tenderness, no cyanosis, no clubbing, ROM intact, no edema. [] Neurologic: Alert and oriented X 3, normal motor function, normal sensory function, no focal deficits noted. [] Psychologic: Affect normal, judgement normal, mood normal. [] Normal physical exam (MARIANNE JACOBSEN APRN) Current Patient Data: Vital Signs: Vital Signs Date Time Temp Pulse Resp B/P (MAP) Pulse Ox O2 Delivery O2 Flow Rate FiO2 01/24/21 14:11 76 158/71 (100) 96 Room Air 01/24/21 13:41 84 149/70 (96) 97 Room Air 01/24/21 13:32 90 136/65 (88) 98 Room Air 01/24/21 13:11 88 139/65 (89) 97 Room Air 01/24/21 12:49 98.7 100 16 133/67 (89) 95 Room Air 98.7 (MARC GUAN DO) EKG: EKG: [] (MARIANNE JACOBSEN APRN) Radiology/Procedures: Radiology/Procedures: [] Impression: [facility] [address] [place] [address] IMAGING REPORT Signed PATIENT: RUSLAN CALERO ACCOUNT: [id number] : 1960 LOCATION: ER AGE: 60 SEX: F EXAM STATUS: REG ER ORD. PHYSICIAN: MARIANNE JACOBSEN APRN REASON: urinary frequency with left flank pain PROCEDURE: CT ABDOMEN PELVIS WO CONTRAST CT ABDOMEN+PELVIS WO INDICATION: Reason: urinary frequency with left flank pain / Spl. Instructions: / History: EXAM: Noncontrast CT of the abdomen and pelvis. Coronal and sagittal reformatted images were performed. PQRS compliance statement: One or more of the following individualized dose reduction techniques were utilized for this examination: 1. Automated exposure control 2. Adjustment of the mA and/or kV according to patient size 3. Use of iterative reconstruction technique COMPARISON: None FINDINGS: No free air, free fluid, or fluid collection. Lower chest: The visualized lower lungs are aerated. No pleural or pericardial effusion. ABDOMEN: Liver: The noncontrast liver is homogeneous in attenuation. Gallbladder and biliary: Normal gallbladder without radiopaque stone. Normal caliber bile ducts. Spleen: Normal spleen. Pancreas: The noncontrast pancreas is homogeneous in attenuation without peripancreatic inflammatory changes. Adrenal glands: Normal adrenal glands. Kidneys and ureters: No opaque urinary calculi. No hydronephrosis. GI tract: The stomach is decompressed and poorly evaluated. Normal caliber small bowel and colon. Normal appendix. Vascular structures: Normal caliber abdominal aorta. Mild aortoiliac atherosclerotic disease. Lymph nodes: No lymphadenopathy in the abdomen or pelvis. PELVIS: Genitourinary system: Normal bladder. Uterus is present. SKELETAL STRUCTURES AND SOFT TISSUES: Degenerative changes of the spine. Grade 1 anterolisthesis at L4-5 due to severe facet arthropathy. Large fat-containing umbilical hernia IMPRESSION: No acute findings. No hydronephrosis or opaque urinary calculi. Electronically signed by: Milly Quan MD (01/24/2021 2:01 PM) [facility] DICTATED and SIGNED BY: MILLY QUAN MD DATE: 01/24/21 [id number] (MARIANNE JACOBSEN APRN) Course & Med Decision Making: Course & Med Decision Making Pertinent Labs and Imaging studies reviewed. (See chart for details) See HPI. Alert and oriented x4. Walks with a walker. Speaks in full clear sentences. No CVA tenderness. Abdomen soft and nontender. Morbidly obese. Blood work unremarkable. Urine shows no signs of infection. CT shows no acute findings. Patient to follow-up with primary care provider. [] (MARIANNE JACOBSEN APRN) Course & Med Decision Making I was available in the emergency department and agree with plan, vitals improved. (MARC GUAN DO) Dragon Disclaimer: Dragon Disclaimer: This electronic medical record was generated, in whole or in part, using a voice recognition dictation system. (MARIANNE JACOBSEN APRN) Departure Departure Impression: Primary Impression: Urinary symptom or sign Disposition: HOME / SELF CARE / HOMELESS Condition: STABLE Referrals: DAWIT OWENS JR, MD (PCP) Patient Instructions: Urinary Frequency Additional Instructions: Follow-up with your primary care provider soon as possible. Continue taking all your medications as prescribed. Take antibiotic as prescribed and with food. If your pain worsens or you develop a fever or vomiting return to emergency room. Scripts Nitrofurantoin Monohyd/M-Cryst (MACROBID 100 MG CAPSULE) 100 Mg Capsule 1 CAP PO BID for 7 Days, #14 CAP 0 Refills Prov: MARIANNE JACOBSEN APRN 01/24/21 MARIANNE JACOBSEN APRN Jan 24, 2021 12:53 MARC GUAN DO Jan 25, 2021 06:08
[2021-01-24 12:56] LABS: BILIRUBIN,URINE NEGATIVE (NEG); CLARITY,URINE CLEAR; COLOR,URINE YELLOW; NITRITE,URINE NEGATIVE (NEG); PROTEIN,URINE NEGATIVE (NEG-TRACE); UROBILINOGEN,URINE 0.2 mg/dL (0.2 mg/dL)
[2021-01-24 13:09] LABS: BACTERIA,URINE MANY /HPF (0-FEW); RBC,URINE OCC /HPF (0-2)
[2021-01-24 13:19] LABS: BASO # 0.1 x10^3/uL (0.0-0.2); BASO % 1 % (0-3); EOS # 0.1 x10^3/uL (0.0-0.7); EOS % 2 % (0-3); HEMATOCRIT 35.6 % (36.0-47.0); HEMOGLOBIN 11.8 g/dL (12.0-15.5); LYMPH % 28 % (24-48); MEAN CORPUSCULAR HEMOGLOBIN 26 pg (25-35); MEAN CORPUSCULAR HGB CONC 33 g/dL (31-37); MEAN CORPUSCULAR VOLUME 78 fL (79-100); MONO # 0.6 x10^3/uL (0.0-1.1); MONO % 8 % (0-9); NEUT # 4.4 x10^3/uL (1.8-7.7); NEUT % 61 % (31-73); PLATELET COUNT 294 x10^3/uL (140-400); RED BLOOD COUNT 4.59 x10^6/uL (3.50-5.40); RED CELL DISTRIBUTION WIDTH 15.5 % (11.5-14.5); WHITE BLOOD COUNT 7.1 x10^3/uL (4.0-11.0)
[2021-01-24 13:28] LABS: CALCIUM 9.3 mg/dL (8.5-10.1); CREATININE 1.1 mg/dL (0.6-1.0); GFR 61.5; POTASSIUM 3.9 mmol/L (3.5-5.1)
[2021-01-24 13:33] LABS: ALBUMIN 3.1 g/dL (3.4-5.0); ALBUMIN/GLOBULIN RATIO 0.7 (1.0-1.7); TOTAL BILIRUBIN 0.4 mg/dL (0.2-1.0); TOTAL PROTEIN 7.6 g/dL (6.4-8.2)
--- NOTE | 2021-01-24 14:03 | RAD ---
CT ABDOMEN+PELVIS WO INDICATION: Reason: urinary frequency with left flank pain / Spl. Instructions: / History: EXAM: Noncontrast CT of the abdomen and pelvis. Coronal and sagittal reformatted images were perform ed. PQRS compliance statement: One or more of the following individualized dose reduction techniques were utilized for this examinat ion: 1. Automated exposure control 2. Adjustment of the mA and/or kV according to patient size 3. Use of iterative reconstruction technique COMPARISON: None FINDINGS: No free air, free fluid, or fluid collection. Lower chest: The visualized lower lungs are aerated. No pleural or pericardial effusion. ABDOMEN: Liver: The noncontrast liver is homogeneous in attenuation. Gallbladder and biliary: Normal gallbladder without radiopaque stone. Normal caliber bile ducts. Spleen: Normal spleen. Pancreas: The noncontrast pancreas is homogeneous in attenuation without peripancreatic inflammatory changes. Adrenal glands: Normal adrenal glands. Kidneys and ureters: No opaque urinary calculi. No hydronephrosis. GI tract: The stomach is decompressed and poorly evaluated. Normal caliber small bowel and colon. Nor mal appendix. Vascular structures: Normal caliber abdominal aorta. Mild aortoiliac atherosclerotic disease. Lymph nodes: No lymphadenopathy in the abdomen or pelvis. PELVIS: Genitourinary system: Normal bladder. Uterus is present. SKELETAL STRUCTURES AND SOFT TISSUES: Degenerative changes of the spine. Grade 1 anterolisthesis at L 4-5 due to severe facet arthropathy. Large fat-containing umbilical hernia IMPRESSION: No acute findings. No hydronephrosis or opaque urinary calculi. Electronically signed by: Ben Quan MD (01/24/2021 2:01 PM) [facility]
[2021-01-24 14:11] VITALS: BP 158/71
[2021-01-24] MEDS ORDERED: NITR100C62 PO (14:15)
== END 2021-01-24 14:52 | disposition home or self-care (01) ==
LOC: ER 12:22
DX: R35.0 Frequency of micturition (principal); R10.9 Unspecified abdominal pain; E11.39 Type 2 diabetes mellitus with other diabetic ophthalmic complication; H40.9 Unspecified glaucoma; K21.9 Gastro-esophageal reflux disease without esophagitis; E78.00 Pure hypercholesterolemia, unspecified; I10 Essential (primary) hypertension; Z88.1 Allergy status to other antibiotic agents; Z88.2 Allergy status to sulfonamides; Z88.6 Allergy status to analgesic agent; Z88.8 Allergy status to other drugs, medicaments and biological substances
CPT/HCPCS: 36415; 74176; 80053; 81001; 83880; 85025; 87086; 96361; 96374; 99284; J3010; J7040; 99285-25

== ENCOUNTER 2021-08-26 00:05 | Inpatient (IN) | payer OTHER ==
[~2021-08-26] VITALS: Ht 152.4 cm; Wt 121.0 kg
[~2021-08-26 00:05] MED LIST changes: +CLIN-94 PO; -CLIN300C9 PO; +CYCL10TA19 PO; -CYCL10TA2 PO; -FLUC100T4 PO; +FLUC100T6 PO
[2021-08-26] MEDS ORDERED: IV NORMAL SALINE 500ML BAG 500 ML IV ONE (00:30)
[2021-08-26 00:34] LABS: BASO # 0.1 x10^3/uL (0.0-0.2); BASO % 1 % (0-3); EOS # 0.1 x10^3/uL (0.0-0.7); EOS % 2 % (0-3); HEMATOCRIT 35.9 % (36.0-47.0); HEMOGLOBIN 12.2 g/dL (12.0-15.5); LYMPH # 3.1 x10^3/uL (1.0-4.8); LYMPH % 35 % (24-48); MEAN CORPUSCULAR HEMOGLOBIN 27 pg (25-35); MEAN CORPUSCULAR HGB CONC 34 g/dL (31-37); MEAN CORPUSCULAR VOLUME 80 fL (79-100); MONO # 0.7 x10^3/uL (0.0-1.1); MONO % 8 % (0-9); NEUT # 4.7 x10^3/uL (1.8-7.7); NEUT % 54 % (31-73); PLATELET COUNT 264 x10^3/uL (140-400); RED CELL DISTRIBUTION WIDTH 15.2 % (11.5-14.5); WHITE BLOOD COUNT 8.8 x10^3/uL (4.0-11.0)
[2021-08-26 00:45] LABS: CALCIUM 9.2 mg/dL (8.5-10.1); CREATININE 1.2 mg/dL (0.6-1.0); GFR 55.4; POTASSIUM 3.8 mmol/L (3.5-5.1)
[2021-08-26 00:50] LABS: ALBUMIN 3.5 g/dL (3.4-5.0); ALBUMIN/GLOBULIN RATIO 0.8 (1.0-1.7); TOTAL BILIRUBIN 0.2 mg/dL (0.2-1.0)
--- NOTE | 2021-08-26 00:59 | RAD ---
AP chest x-ray COMPARISON: CTA chest November 27, 2020: HISTORY: Syncope. FINDINGS: Cardiomegaly stable. Masslike enlargement and right paratracheal mediastinum stable prior C T imaging which corresponded to a large partially calcified mass or bulky adenopathy on prior CT imag ing. No pneumothorax, pulmonary opacities or pleural effusions. Lateral right upper lobe calcified gr anuloma stable. Bones unremarkable. IMPRESSION: No acute process. Prominence of the right paratracheal mediastinum stable prior CT imagin g as described above. Electronically signed by: Luís Young MD (08/26/2021 12:57 AM) [facility]
--- NOTE | 2021-08-26 01:54 | PHYS DOC ---
Past Medical History Past Medical History: Bronchitis, Diabetes-Type II, GERD, Glaucoma, High Cholesterol, Hypertension, Other Additional Past Medical Histor: Seasonal allergies,hiatal hernia,LOW KIDNEY FUNCTION,H/A,CELLULITIS,obesity Past Surgical History: No Surgical History Additional Past Surgical Histo: BLADDER SLING; ablation to uterus; right knee, L TIB/FIB FX, L LUMPECTOMY Smoking Status: Never Smoker Alcohol Use: None Drug Use: None Adult General Chief Complaint Chief Complaint: SYNCOPE HPI HPI The patient is a 61-year-old female with a history of morbid obesity, hypertension, hyperlipidemia and insulin-dependent diabetes. She presents for evaluation of an apparent brief syncopal episode occurring prior to arrival at home. Patient reports that she took 32 units of Lantus instead of 30 units of Lantus (her typical home dose) and thereafter began feeling a little bit lightheaded. She was concerned her blood sugar was low and ate some chips but that did not help. She then had a brief syncopal episode. She woke up on the ground and called EMS. Upon EMS arrival they got her up and moved her to their cot and measured a bradycardic heart rate (they reported a heart rate of 25). Rhythm strips reviewed and show sinus bradycardia. Over the course of a couple of minutes the bradycardia resolved and upon arrival patient's heart rate is in the 60s. Patient states she was feeling well earlier today. She specifically denies fev ers, nausea or vomiting, upper respiratory congestion/rhinorrhea, cough, sore throat, shortness of breath or chest pain of any kind prior to, during or after the episode in question, abdominal pain of any kind, flank pain, midline back pain, dysuria, hematuria, polyuria or oliguria, changes in bowel habits, pain or swelling to arms or legs. Patient notes a mild headache. She does not believe she hit her head during her syncopal episode. She denies focal or lateralizing weakness, numbness or tingling, neck stiffness/pain/meningismus, vision changes. Patient is alert, pleasantly and appropriately interactive and in no acute distress, moving all extremities, with appropriate vital signs upon initial evaluation here in the emergency department. Triage EKG is unremarkable and nonischemic. Review of Systems Review of Systems A 12 point review of systems was completed and was negative except where noted in HPI above. Current Medications Current Medications Current Medications Medications (Trade) Dose Ordered Sig/Ren Start Time Stop Time Status Last Admin Dose Admin Sodium Chloride 500 ml @ 500 mls/hr 1X ONCE 08/26/21 00:30 08/26/21 01:29 DC 08/26/21 01:11 500 MLS/HR Allergies Allergies Allergies Coded Allergies Type Severity Reaction Last Updated Verified Sulfa (Sulfonamide Antibiotics) Allergy Intermediate rash 11/27/20 Yes lisinopril Allergy Intermediate 11/27/20 Yes metoclopramide Allergy Intermediate 11/27/20 Yes pantoprazole Allergy Intermediate 11/27/20 Yes Physical Exam Physical Exam 61-year-old female appearing nontoxic and in no acute distress. Head is normocephalic and atraumatic. Neck is supple and nontender. Oropharynx is moist. Lungs are clear to auscultation at all stations. There is a normal S1 and S2 without rubs or gallops and capillary refill is appropriate globally. Abdomen is soft, nontender and nondistended. Skin is warm and dry without cyanosis, clubbing or edema. Psychiatrically, the patient demonstrates appropriate mood and affect and is alert. Evaluation of the extremities reveals BUEs and BLEs neurovascularly intact distally with strength out of 5, sensation intact light touch in all nerve distributions, radial, DP and PT pulses 2+ bilaterally, capillary refill less than 2 seconds, hands and feet warm and well-perfused. No dependent peripheral edema distally. No calf tenderness or swelling bilaterally. Homans test is negative bilaterally. Neurologically, cranial nerves II through XII are intact and there are no lateralizing deficits seen. Speech is normal. Language is normal. Coordination is normal. There is no dysmetria [id number] or [id number] bilaterally. Strength is 5 out of 5 at all joints of bilateral upper and lower extremities. Sensation is intact light touch in bilateral upper and lower extremities. Patient ambulates with a narrow, steady, non-ataxic gait here in the emergency department and is alert and oriented x4. Current Patient Data Vital Signs Vital Signs Date Time Temp Pulse Resp B/P (MAP) Pulse Ox O2 Delivery O2 Flow Rate FiO2 08/26/21 00:10 97.4 64 16 134/65 (88) 100 Room Air 97.4 Lab Values Laboratory Tests Test 08/26/21 00:20 08/26/21 00:33 White Blood Count 8.8 x10^3/uL (4.0-11.0) Red Blood Count 4.50 x10^6/uL (3.50-5.40) Hemoglobin 12.2 g/dL (12.0-15.5) Hematocrit 35.9 % (36.0-47.0) L Mean Corpuscular Volume 80 fL (79-100) Mean Corpuscular Hemoglobin 27 pg (25-35) Mean Corpuscular Hemoglobin Concent 34 g/dL (31-37) Red Cell Distribution Width 15.2 % (11.5-14.5) H Platelet Count 264 x10^3/uL (140-400) Neutrophils (%) (Auto) 54 % (31-73) Lymphocytes (%) (Auto) 35 % (24-48) Monocytes (%) (Auto) 8 % (0-9) Eosinophils (%) (Auto) 2 % (0-3) Basophils (%) (Auto) 1 % (0-3) Neutrophils # (Auto) 4.7 x10^3/uL (1.8-7.7) Lymphocytes # (Auto) 3.1 x10^3/uL (1.0-4.8) Monocytes # (Auto) 0.7 x10^3/uL (0.0-1.1) Eosinophils # (Auto) 0.1 x10^3/uL (0.0-0.7) Basophils # (Auto) 0.1 x10^3/uL (0.0-0.2) Sodium Level 139 mmol/L (136-145) Potassium Level 3.8 mmol/L (3.5-5.1) Chloride Level 104 mmol/L (98-107) Carbon Dioxide Level 27 mmol/L (21-32) Anion Gap 8 (6-14) Blood Urea Nitrogen 23 mg/dL (7-20) H Creatinine 1.2 mg/dL (0.6-1.0) H Estimated GFR (Cockcroft-Gault) 55.4 BUN/Creatinine Ratio 19 (6-20) Glucose Level 117 mg/dL (70-99) H Calcium Level 9.2 mg/dL (8.5-10.1) Total Bilirubin 0.2 mg/dL (0.2-1.0) Aspartate Amino Transferase (AST) 19 U/L (15-37) Alanine Aminotransferase (ALT) 35 U/L (14-59) Alkaline Phosphatase 149 U/L (46-116) H Troponin I High Sensitivity 7 ng/L (4-50) XZ-Uos-A-Type Natriuretic Peptide 81 pg/mL (0-124) Total Protein 8.0 g/dL (6.4-8.2) Albumin 3.5 g/dL (3.4-5.0) Albumin/Globulin Ratio 0.8 (1.0-1.7) L Glucose (Fingerstick) 114 mg/dL (70-99) H Laboratory Tests 08/26/21 00:20 Laboratory Tests 08/26/21 00:20 EKG EKG Sinus rhythm, rate 77, no acute ST elevation or depression, SC 196, QRS 86, QTc 461, EP interpretation. Nonischemic tracing, intervals appropriate. Radiology/Procedures Radiology/Procedures AP chest x-ray COMPARISON: CTA chest November 27, 2020: HISTORY: Syncope. FINDINGS: Cardiomegaly stable. Masslike enlargement and right paratracheal mediastinum stable prior CT imaging which corresponded to a large partially c alcified mass or bulky adenopathy on prior CT imaging. No pneumothorax, pulmonary opacities or pleural effusions. Lateral right upper lobe calcified granuloma stable. Bones unremarkable. IMPRESSION: No acute process. Prominence of the right paratracheal mediastinum stable prior CT imaging as described above. Electronically signed by: Wilbur Young MD (08/26/2021 12:57 AM) [facility] DICTATED and SIGNED BY: WILBUR YOUNG MD DATE: 08/26/21 0054 Course & Med Decision Making Course & Med Decision Making Work-up unremarkable. Patient resting comfortably in no acute distress on reassessment. Vital signs appropriate on the monitor. No recurrence of bradycardia. Suspect that the patient had a vasovagal episode when she was raised up off the ground by EMS. In view of elderly comorbid female with a syncopal episode prehospital and reported somewhat protracted sinus bradycardia during EMS transport, will bring in for further care, to include telemetry monitoring and cardiology consultation. Review of records does show that the patient had a similar admission for syncopal episode in 2019. Unclear if she had any bradycardia at that time. Dr. Llanes graciously accepts for telemetry admission. Urinalysis still pending at time of admission. Dragon Disclaimer Dragon Disclaimer This electronic medical record was generated, in whole or in part, using a voice recognition dictation system. Departure Departure Impression: Primary Impression: Syncope and collapse Additional Impression: Bradycardia with less than 30 beats per minute Disposition: ADMITTED INPATIENT Condition: STABLE Referrals: DAWIT OWENS JR, MD (PCP) Problem Qualifiers WENDIE JALLOH MD Aug 26, 2021 01:54
[2021-08-26] MEDS ORDERED: IV NORMAL SALINE 1000ML BAG 1,000 ML IV SCH (02:00)
[2021-08-26] MEDS ORDERED: ONDANSETRON PF 4 MG/2 ML VIAL. IVP PRN (02:00)
[2021-08-26 03:36] LABS: BACTERIA,URINE MODERATE /HPF (0-FEW); RBC,URINE 0 /HPF (0-2)
[2021-08-26 05:10] VITALS: BP 145/69
--- NOTE | 2021-08-26 05:27 | RAD ---
CT head without contrast PQRS statement: CT scans at this facility use dose reduction including either automated exposure cont rol, iterative reconstructions, and /or weight based radiation dosing via mA and kV modification when appropriate to reduce radiation dose to as low as reasonably achievable. HISTORY: Syncope, fall, head injury. FINDINGS: No intracranial hemorrhage, mass or hydrocephalus. Dense calcifications of the anterior fal x cerebri. Several subcentimeter hypodense lesions in the bilateral basal ganglia and right thalamus may represent age-indeterminate lacunar ischemic infarcts, stable. There are scattered hypoattenuatin g lesions of the cerebral periventricular white matter which could represent areas of age-indetermina te microvascular ischemic injury, stable. Changes of demyelinating disease is also a consideration. O rbits, mastoids and bones are unremarkable. IMPRESSION: No acute traumatic intracranial CT abnormality. Stable exam. Electronically signed by: Luís Young MD (08/26/2021 5:24 AM) [facility]
--- NOTE | 2021-08-26 06:00 | NUR ---
Pt arrived to unit per cart pt assisted to bed with minimal assistance. Tele monitor applied to pt pt denied pain at this time assessment completed call light placed in reach bed alarm set will resume care and continue to monitor pt.
[2021-08-26] MEDS ORDERED: INSU100I13 SQ (06:25)
[2021-08-26 07:00] VITALS: BP 135/64
[2021-08-26] MEDS: ASPIRIN ENTERIC COATED 81 MG TABLET.DR. PO SCH (10:01)
[2021-08-26] MEDS: TIMOLOL 0.5% OPHTH SOLUTION 5ML BOTTLE. OU SCH ×3 (10:01→21:18)
[2021-08-26] MEDS: metFORMIN 500 MG TABLET PO SCH ×2 (10:01→16:43)
[2021-08-26] MEDS: BRIMONIDINE 0.2% OPHTH SOLUTION 5ML BOTTLE. OU SCH ×2 (10:01→21:16)
[2021-08-26] MEDS: LANSOPRAZOLE 30 MG TAB.RAP.DR PO SCH (10:01)
[2021-08-26] MEDS: POLYETHYLENE GLYCOL 3350 17 GM PACKET. PO SCH (10:02)
--- NOTE | 2021-08-26 10:05 | PDOC2 ---
JONG ERIC MARINE ENGINEER 08/26/21 1005: CARDIAC CONSULT DATE OF CONSULT Date of Consult DATE: 08/26/21 TIME: 09:50 REASON FOR CONSULT Reason for Consult: syncope, bradycardia REFERRING PHYSICIAN Referring Physician: Dr. Gamble SOURCE Source: Chart review, Patient HISTORY OF PRESENT ILLNESS HISTORY OF PRESENT ILLNESS This is a 61 yo female who presented secondary to brief syncopal episode at home. Patient has a history of diabetes, hypertension, hyperlipidemia. Reports that her blood sugar was 90, but though it would go up so she took 32 units of Lantus rather than her usual 30 units of Lantus yesterday evening. Did not eat much following. Got in the shower. After the shower, she began feeling lightheaded. Was concerned that her blood sugar was low so she ate some chips and sat down on a stool. This did not improved her symptoms and she subsequently has brief syncopal episode. She woke up on the ground and called EMS. EMS noted HR reportedly of 25. This bradycardia was very brief and HR improve to 60 ranged. HR continued to be in the 60's upon arrival to the ED. EKG by EMS shows SR with HR 60 and 62. Patient reports no injury and does not think she hit her head. Reports feeling well yesterday and denies any recent dizziness, diaphoresis, shortness of breath, chest pain, nausea/vomiting, or fatigue. HR lowest 48 overnight. Presently nearr 60. HR does increase to mid 70's with activity. BB has been held. Was seen by our service for similar episode in 2019. Cardiac workup was unrevealing. Episode felt to be due to hypoglycemia. PAST MEDICAL HISTORY Past Medical History Cardiovascular: HTN, Hyperlipidemia CENTRAL NERVOUS SYSTEM: Periperal neuropathy GI: GERD Heme/Onc: Anemia NOS Psych: Anxiety Renal/: Chronic renal insuff Endocrine: Diabetes PAST SURGICAL HISTORY Past Surgical History Total hip replacement (right), Other (right shoulder surgery, bladder sling) FAMILY HISTORY Family History: Heart Disease SOCIAL HISTORY Social History Smoke: No ALCOHOL: none Drugs: None Lives; alone CURRENT MEDICATIONS CURRENT MEDICATIONS Current Medications Medications (Trade) Dose Ordered Sig/Ren Route PRN Reason Start Time Stop Time Status Last Admin Dose Admin Sodium Chloride 500 ml @ 500 mls/hr 1X ONCE IV 08/26/21 00:30 08/26/21 01:29 DC 08/26/21 01:11 Sodium Chloride 1,000 ml @ 75 mls/hr [id number] IV 08/26/21 02:00 08/27/21 01:59 08/26/21 02:00 ALLERGIES ALLERGIES: Coded Allergies: Sulfa (Sulfonamide Antibiotics) (Verified Allergy, Intermediate, rash, 11/27/20) lisinopril (Verified Allergy, Intermediate, 11/27/20) metoclopramide (Verified Allergy, Intermediate, 11/27/20) pantoprazole (Verified Allergy, Intermediate, 11/27/20) " pt reports I don't know, I'm just supposed to not take it" ROS Review of System 14 point ROS conducted with pertinent positive noted above in HPI PHYSICAL EXAM PHYSICAL EXAM General: Alert, Oriented X3, Cooperative, No acute distress, Other HEENT: Atraumatic Lungs: Clear to auscultation, Normal air movement Heart: Regular rate (SR/SB) Abdomen: Soft, Other (obese) Extremities: Normal pulses, Other (1+ bilateral LE edema ) Skin: No significant lesion Neuro: Sensation intact Psych/Mental Status: Mental status NL, Mood NL MUSCULOSKELETAL: Osteoarthritic changes both hands VITALS/I&O VITALS/I&O: Vital Signs Date Time Temp Pulse Resp B/P (MAP) Pulse Ox O2 Delivery O2 Flow Rate FiO2 08/26/21 07:36 Room Air 08/26/21 07:00 97.2 53 19 135/64 (87) 98 97.2 I & O 08/25/21 08/25/21 08/26/21 15:00 23:00 07:00 Output Total 400 ml Balance -400 ml LABS Lab: Laboratory Tests Test 08/26/21 00:20 08/26/21 00:33 08/26/21 02:50 08/26/21 03:05 White Blood Count 8.8 x10^3/uL (4.0-11.0) Red Blood Count 4.50 x10^6/uL (3.50-5.40) Hemoglobin 12.2 g/dL (12.0-15.5) Hematocrit 35.9 % (36.0-47.0) L Mean Corpuscular Volume 80 fL (79-100) Mean Corpuscular Hemoglobin 27 pg (25-35) Mean Corpuscular Hemoglobin Concent 34 g/dL (31-37) Red Cell Distribution Width 15.2 % (11.5-14.5) H Platelet Count 264 x10^3/uL (140-400) Neutrophils (%) (Auto) 54 % (31-73) Lymphocytes (%) (Auto) 35 % (24-48) Monocytes (%) (Auto) 8 % (0-9) Eosinophils (%) (Auto) 2 % (0-3) Basophils (%) (Auto) 1 % (0-3) Neutrophils # (Auto) 4.7 x10^3/uL (1.8-7.7) Lymphocytes # (Auto) 3.1 x10^3/uL (1.0-4.8) Monocytes # (Auto) 0.7 x10^3/uL (0.0-1.1) Eosinophils # (Auto) 0.1 x10^3/uL (0.0-0.7) Basophils # (Auto) 0.1 x10^3/uL (0.0-0.2) Sodium Level 139 mmol/L (136-145) Potassium Level 3.8 mmol/L (3.5-5.1) Chloride Level 104 mmol/L (98-107) Carbon Dioxide Level 27 mmol/L (21-32) Anion Gap 8 (6-14) Blood Urea Nitrogen 23 mg/dL (7-20) H Creatinine 1.2 mg/dL (0.6-1.0) H Estimated GFR (Cockcroft-Gault) 55.4 BUN/Creatinine Ratio 19 (6-20) Glucose Level 117 mg/dL (70-99) H Calcium Level 9.2 mg/dL (8.5-10.1) Total Bilirubin 0.2 mg/dL (0.2-1.0) Aspartate Amino Transferase (AST) 19 U/L (15-37) Alanine Aminotransferase (ALT) 35 U/L (14-59) Alkaline Phosphatase 149 U/L (46-116) H Troponin I High Sensitivity 7 ng/L (4-50) 7 ng/L (4-50) NU-Tez-S-Type Natriuretic Peptide 81 pg/mL (0-124) Total Protein 8.0 g/dL (6.4-8.2) Albumin 3.5 g/dL (3.4-5.0) Albumin/Globulin Ratio 0.8 (1.0-1.7) L Glucose (Fingerstick) 114 mg/dL (70-99) H Urine Collection Type Unknown Urine Color (Auto) Light yellow Urine Turbidity Clear Urine pH (Auto) 5.5 (<5.0-8.0) Urine Specific [place] 1.015 (1.000-1.030) Urine Protein (Auto) Negative mg/dL (Negative) Urine Glucose (Auto)(UA) Negative mg/dL (Negative) Urine Ketones (Auto) Negative mg/dL (Negative) Urine Blood (Auto) Negative (Negative) Urine Nitrite Negative (Negative) Urine Bilirubin (Auto) Negative (Negative) Urine Urobilinogen (Auto) Normal mg/dL (Normal) Urine Leukocyte Esterase (Auto) Negative (Negative) Urine RBC 0 /HPF (0-2) Urine WBC 5-10 /HPF (0-4) Urine Squamous Epithelial Cells Many /LPF Urine Bacteria Moderate /HPF (0-FEW) Urine Mucus Marked /LPF Test 08/26/21 06:30 08/26/21 07:43 Troponin I High Sensitivity 7 ng/L (4-50) Glucose (Fingerstick) 184 mg/dL (70-99) H Laboratory Tests 08/26/21 00:20 Laboratory Tests 08/26/21 00:20 ECHOCARDIOGRAM ECHOCARDIOGRAM <Conclusion> The left ventricle is normal size. The left ventricular systolic function is normal and the ejection fraction is within normal range. The Ejection Fraction is 55-60%. Doppler and Color Flow revealed no significant aortic regurgitation. There is no significant aortic valvular stenosis. Doppler and Color Flow revealed no mitral valve regurgitation noted. Doppler and Color Flow revealed no tricuspid valve regurgitation noted. Doppler and Color Flow revealed trace pulmonic valvular regurgitation. DATE: 03/11/20 1247 ASSESSMENT/PLAN ASSESSMENT/PLAN 1. Syncope; hypoglycemia vs bradyarrhythmia. Similar episode 03/28. Cardiac workup unrevealing. [place] to be due to hypoglycemia 2. Diabetes, II with hypoglycemia 3. Sinus bradycardia; HR reportedly 25 upon EMS arrival for brief period. EMS EKG shows SR with HR 60. Lowest 48 overnight on tele. Presently near 60. Appro priate chronotropic response with activity. Echo 03/28 with preserved LV systolic function, no WMA 4. CKD; CR stable 5. Hypertension; controlled 6. Hyperlipidemia Recommendations Hold Coreg, clonidine Avoid AV missy blocking agents Monitor tele Add hydralazine ASA, statin Outpatient event monitor and ischemic evaluation Supportive care DESHAUN PETE MD 08/28/21 1255: CARDIAC CONSULT ASSESSMENT/PLAN ASSESSMENT/PLAN Late entry for 08/26/2021 Patient seen and examined. Agree with above nurse practitioner note JONG ERIC APRN Aug 26, 2021 10:05 DESHAUN PETE MD Aug 28, 2021 12:55
--- NOTE | 2021-08-26 10:06 | PDOC1 ---
History and Physical Date of Service: DOS: DATE: 08/26/21 TIME: 09:56 Chief Complaint: Chief Complain: syncope History of Present Illness: HPI: Patient is a 61-year-old -N[place]ian female presented to the emergency room overnight due to syncopal episode at home. Patient reports she was doing well yesterday took her blood sugar and she thought it was a little bit elevated so she took 32 units of insulin instead of her usual 30. She took a shower after that and after getting out of the shower is feeling very dizzy and lightheaded. Was concerned it was her sugar so she went to her kitchen doing some chips. Had no improvement in her dizziness thus try to get back to her kitchen for more food and said she got dizzy and everything went black and she had a syncopal episode. Denies hitting her head. When she awoke she thinks it was just a few minutes later unable to get up off the floor so she contacted EMS. When EMS arrived they left her to the stretcher and upon taking vitals he was noted to have a heart rate of only 25. This did resolve up into the 60s heart rate on transport here. Patient says she thinks she had a similar episode like this before and was caused by taking too much insulin. Work-up in emergency room pretty unremarkable Past Medical/Surgical History: PMH/PSH: Past Medical History: Bronchitis, Diabetes-Type II, GERD, Glaucoma, High Cholesterol, Hypertension Additional Past Medical Histor: Seasonal allergies,hiatal hernia,LOW KIDNEY FUNCTION,H/A,CELLULITIS,obesity Additional Past Surgical Histo: BLADDER SLING; ablation to uterus; right knee, L TIB/FIB FX, L LUMPECTOMY Smoking Status: Never Smoker Alcohol Use: None Drug Use: None Allergies: Allergies: Coded Allergies: Sulfa (Sulfonamide Antibiotics) (Verified Allergy, Intermediate, rash, 11/27/20) lisinopril (Verified Allergy, Intermediate, 11/27/20) metoclopramide (Verified Allergy, Intermediate, 11/27/20) pantoprazole (Verified Allergy, Intermediate, 11/27/20) " pt reports I don't know, I'm just supposed to not take it" Family History: Family History: Diabetes Current Medications: Current Medications Current Medications Sodium Chloride 500 ml @ 500 mls/hr 1X ONCE IV Last administered on 08/26/21at 01:11; Start 08/26/21 at 00:30; Stop 08/26/21 at 01:29; Status DC Ondansetron HCl (Zofran) 4 mg PRN Q8HRS PRN IVP NAUSEA/VOMITING; Start 08/26/21 at 02:00; Stop 08/27/21 at 01:59 Sodium Chloride 1,000 ml @ 75 mls/hr [id number] IV Last administered on 08/26/21at 02:00; Start 08/26/21 at 02:00; Stop 08/27/21 at 01:59 Amlodipine Besylate (Norvasc) 10 mg DAILY PO ; Start 08/26/21 at 10:30 Aspirin (Ecotrin) 81 mg DAILYWBKFT PO ; Start 08/26/21 at 10:30 Atorvastatin Calcium (Lipitor) 20 mg HS PO ; Start 08/26/21 at 21:00 Clonidine HCl (Catapres) 0.2 mg TID PO ; Start 08/26/21 at 14:00 Latanoprost (Xalatan) 1 drop QHS OU ; Start 08/26/21 at 21:00 Metformin HCl (Glucophage) 1,000 mg BIDWMEALS PO ; Start 08/26/21 at 10:30 Polyethylene Glycol (miraLAX PACKET) 17 gm DAILY PO ; Start 08/26/21 at 10:30 Sucralfate (Carafate) 1 gm QID PO ; Start 08/26/21 at 13:00 Non-Formulary Medication (Brimonidine Tartrate/Timolol (Combigan Eye Drops)) 5 ml BID OP ; Start 08/26/21 at 21:00; Status UNV Insulin Human Lispro (HumaLOG) 10 units TIDWMEALS SQ ; Start 08/26/21 at 12:00 Insulin Glargine (Lantus Syringe) 30 unit QHS SQ ; Start 08/26/21 at 21:00 Lansoprazole (Prevacid) 30 mg DAILYAC PO ; Start 08/26/21 at 10:30 Brimonidine Tartrate (Alphagan) 1 drop BID OU ; Start 08/26/21 at 10:30 Timolol Maleate (Timoptic 0.5% Oph) 1 drop BID OU ; Start 08/26/21 at 10:30 Active Scripts Active Cyclobenzaprine Hcl 10 Mg Tablet 1 Tab PO TID PRN 7 Days Aspirin Ec (Aspirin) 81 Mg Tablet.dr 81 Mg PO DAILYWBKFT 30 Days Lasix (Furosemide) 40 Mg Tablet 1 Tab PO DAILY 14 Days Miralax (Polyethylene Glycol 3350) 17 Gm Powd.pack 1 Packet PO DAILY Reported Lantus Solostar (Insulin Glargine,Hum.rec.anlog) 100 Unit/1 Ml Insuln.pen 30 Unit SQ QHS Proair Hfa Inhaler (Albuterol Sulfate) 8.5 Gm Hfa.aer.ad 2 Puff IH PRN Q4-6HRS PRN 21 Days Amlodipine Besylate 10 Mg Tablet 1 Tab PO DAILY Victoza 3-Johnson (Liraglutide) 0.6 Mg/0.1 Ml Pen.injctr 0.6 Mg SQ DAILY Carvedilol 6.25 Mg Tablet 1 Tab PO BID Clonidine Hcl 0.2 Mg Tablet 0.2 Mg PO TID Combigan Eye Drops (Brimonidine Tartrate/Timolol) 5 Ml Drops 5 Ml OP BID Latanoprost 2.5 Ml Drops 1 Drop EACHEYE QHS Lipitor (Atorvastatin Calcium) 20 Mg Tablet 20 Mg PO HS Sucralfate 1 Gm Tablet 1 Gm PO QID Acetaminophen 500 Mg Tablet 500 Mg PO PRN TID PRN Prevacid (Lansoprazole) 30 Mg Capsule.dr 30 Mg PO DAILY Metformin Hcl 500 Mg Tablet 1,000 Mg PO BIDWMEALS Novolog Flexpen (Insulin Aspart) 100 Unit/1 Ml Insuln.pen 10 Unit SQ TIDAC ROS: Review of Systems Review of System Listed in HPI 14 point review of systems was negative Physical Exam: Vital Signs: Vital Signs Date Time Temp Pulse Resp B/P (MAP) Pulse Ox O2 Delivery O2 Flow Rate FiO2 08/26/21 07:36 Room Air 08/26/21 07:00 97.2 53 19 135/64 (87) 98 97.2 Physcial Exam: GEN: No apparent distress. Alert and oriented obese HEENT: Normal cephalic, atraumatic, external auditory canals are patent EYES: Extraocular muscles are intact, pupil are equally round and reactive to light and accommodation MUSCULOSKELETAL: Well developed , well nourished, range of motion limited by habitus ENDOCRINE: No thyromegaly was palpated LYMPHATICS: No cervical chain or axillary nodes were noted HEMATOPOIETIC: No bruising NECK: Supple, no JVD, no thyromegaly was noted LUNGS: Clear to auscultation in all lung [place] without rhonchi or wheezing HEART: RRR, S!, S2 present. Peripheral pulses intact, no obvious murmurs noted ABDOMEN: Soft, nontender. Positive bowel sounds, no organomegaly, normal bowel sounds EXTREMITIES: Without clubbing, cyanosis, or edema. Pedal pulses intact. Negative Homans sign NEUROLOGIC: Normal speech and tone. A&O x 3, moves all extremities, no obvious focal deficits PSYCHIATRIC: Normal affect, normal mood. Stable SKIN: No ulcerations or rashes, good skin turgor, no jaundice VASCULAR: Good capillary refill, neurovascular bundle appears to be intact Labs: Labs: Laboratory Tests Test 08/26/21 00:20 08/26/21 00:33 08/26/21 02:50 08/26/21 03:05 White Blood Count 8.8 x10^3/uL (4.0-11.0) Red Blood Count 4.50 x10^6/uL (3.50-5.40) Hemoglobin 12.2 g/dL (12.0-15.5) Hematocrit 35.9 % (36.0-47.0) Mean Corpuscular Volume 80 fL (79-100) Mean Corpuscular Hemoglobin 27 pg (25-35) Mean Corpuscular Hemoglobin Concent 34 g/dL (31-37) Red Cell Distribution Width 15.2 % (11.5-14.5) Platelet Count 264 x10^3/uL (140-400) Neutrophils (%) (Auto) 54 % (31-73) Lymphocytes (%) (Auto) 35 % (24-48) Monocytes (%) (Auto) 8 % (0-9) Eosinophils (%) (Auto) 2 % (0-3) Basophils (%) (Auto) 1 % (0-3) Neutrophils # (Auto) 4.7 x10^3/uL (1.8-7.7) Lymphocytes # (Auto) 3.1 x10^3/uL (1.0-4.8) Monocytes # (Auto) 0.7 x10^3/uL (0.0-1.1) Eosinophils # (Auto) 0.1 x10^3/uL (0.0-0.7) Basophils # (Auto) 0.1 x10^3/uL (0.0-0.2) Sodium Level 139 mmol/L (136-145) Potassium Level 3.8 mmol/L (3.5-5.1) Chloride Level 104 mmol/L (98-107) Carbon Dioxide Level 27 mmol/L (21-32) Anion Gap 8 (6-14) Blood Urea Nitrogen 23 mg/dL (7-20) Creatinine 1.2 mg/dL (0.6-1.0) Estimated GFR (Cockcroft-Gault) 55.4 BUN/Creatinine Ratio 19 (6-20) Glucose Level 117 mg/dL (70-99) Calcium Level 9.2 mg/dL (8.5-10.1) Total Bilirubin 0.2 mg/dL (0.2-1.0) Aspartate Amino Transf (AST/SGOT) 19 U/L (15-37) Alanine Aminotransferase (ALT/SGPT) 35 U/L (14-59) Alkaline Phosphatase 149 U/L (46-116) Troponin I High Sensitivity 7 ng/L (4-50) 7 ng/L (4-50) IR-Puh-J-Type Natriuretic Peptide 81 pg/mL (0-124) Total Protein 8.0 g/dL (6.4-8.2) Albumin 3.5 g/dL (3.4-5.0) Albumin/Globulin Ratio 0.8 (1.0-1.7) Glucose (Fingerstick) 114 mg/dL (70-99) Urine Collection Type Unknown Urine Color (Auto) Light yellow Urine Turbidity Clear Urine pH (Auto) 5.5 (<5.0-8.0) Urine Specific [place] 1.015 (1.000-1.030) Urine Protein (Auto) Negative mg/dL (Negative) Urine Glucose (Auto)(UA) Negative mg/dL (Negative) Urine Ketones (Auto) Negative mg/dL (Negative) Urine Blood (Auto) Negative (Negative) Urine Nitrite Negative (Negative) Urine Bilirubin (Auto) Negative (Negative) Urine Urobilinogen (Auto) Normal mg/dL (Normal) Urine Leukocyte Esterase (Auto) Negative (Negative) Urine RBC 0 /HPF (0-2) Urine WBC 5-10 /HPF (0-4) Urine Squamous Epithelial Cells Many /LPF Urine Bacteria Moderate /HPF (0-FEW) Urine Mucus Marked /LPF Test 08/26/21 06:30 08/26/21 07:43 Troponin I High Sensitivity 7 ng/L (4-50) Glucose (Fingerstick) 184 mg/dL (70-99) Laboratory Tests Test 08/26/21 00:20 08/26/21 00:33 08/26/21 02:50 08/26/21 03:05 White Blood Count 8.8 x10^3/uL (4.0-11.0) Red Blood Count 4.50 x10^6/uL (3.50-5.40) Hemoglobin 12.2 g/dL (12.0-15.5) Hematocrit 35.9 % (36.0-47.0) Mean Corpuscular Volume 80 fL (79-100) Mean Corpuscular Hemoglobin 27 pg (25-35) Mean Corpuscular Hemoglobin Concent 34 g/dL (31-37) Red Cell Distribution Width 15.2 % (11.5-14.5) Platelet Count 264 x10^3/uL (140-400) Neutrophils (%) (Auto) 54 % (31-73) Lymphocytes (%) (Auto) 35 % (24-48) Monocytes (%) (Auto) 8 % (0-9) Eosinophils (%) (Auto) 2 % (0-3) Basophils (%) (Auto) 1 % (0-3) Neutrophils # (Auto) 4.7 x10^3/uL (1.8-7.7) Lymphocytes # (Auto) 3.1 x10^3/uL (1.0-4.8) Monocytes # (Auto) 0.7 x10^3/uL (0.0-1.1) Eosinophils # (Auto) 0.1 x10^3/uL (0.0-0.7) Basophils # (Auto) 0.1 x10^3/uL (0.0-0.2) Sodium Level 139 mmol/L (136-145) Potassium Level 3.8 mmol/L (3.5-5.1) Chloride Level 104 mmol/L (98-107) Carbon Dioxide Level 27 mmol/L (21-32) Anion Gap 8 (6-14) Blood Urea Nitrogen 23 mg/dL (7-20) Creatinine 1.2 mg/dL (0.6-1.0) Estimated GFR (Cockcroft-Gault) 55.4 BUN/Creatinine Ratio 19 (6-20) Glucose Level 117 mg/dL (70-99) Calcium Level 9.2 mg/dL (8.5-10.1) Total Bilirubin 0.2 mg/dL (0.2-1.0) Aspartate Amino Transf (AST/SGOT) 19 U/L (15-37) Alanine Aminotransferase (ALT/SGPT) 35 U/L (14-59) Alkaline Phosphatase 149 U/L (46-116) Troponin I High Sensitivity 7 ng/L (4-50) 7 ng/L (4-50) GR-Acf-E-Type Natriuretic Peptide 81 pg/mL (0-124) Total Protein 8.0 g/dL (6.4-8.2) Albumin 3.5 g/dL (3.4-5.0) Albumin/Globulin Ratio 0.8 (1.0-1.7) Glucose (Fingerstick) 114 mg/dL (70-99) Urine Collection Type Unknown Urine Color (Auto) Light yellow Urine Turbidity Clear Urine pH (Auto) 5.5 (<5.0-8.0) Urine Specific [place] 1.015 (1.000-1.030) Urine Protein (Auto) Negative mg/dL (Negative) Urine Glucose (Auto)(UA) Negative mg/dL (Negative) Urine Ketones (Auto) Negative mg/dL (Negative) Urine Blood (Auto) Negative (Negative) Urine Nitrite Negative (Negative) Urine Bilirubin (Auto) Negative (Negative) Urine Urobilinogen (Auto) Normal mg/dL (Normal) Urine Leukocyte Esterase (Auto) Negative (Negative) Urine RBC 0 /HPF (0-2) Urine WBC 5-10 /HPF (0-4) Urine Squamous Epithelial Cells Many /LPF Urine Bacteria Moderate /HPF (0-FEW) Urine Mucus Marked /LPF Test 08/26/21 06:30 08/26/21 07:43 Troponin I High Sensitivity 7 ng/L (4-50) Glucose (Fingerstick) 184 mg/dL (70-99) Assessment/Plan Assessment/Plan Syncopal episode likely secondary to hypoglycemia due to overdose of insulin, symptomatic bradycardia, history GERD hypertension hyperlipidemia -Presented after syncopal episode at home after seemingly too much insulin. Notable bradycardia in the 20s -Work-up in ER including lab work and imaging pretty unremarkable -Given symptomatic bradycardia cardiology consulted in emergency room -Uses walker at home says she gets around just fine with that -With bradycardia hold home Coreg -Other home meds as indicated -Close management of blood glucose -DVT prophylaxis -Diabetic diet Justifications for Admission Other Justification BENJY ROMERO MD Aug 26, 2021 10:06
[2021-08-26 10:59] VITALS: BP 144/70
[2021-08-26] MEDS: SUCRALFATE 1 GM TABLET. PO SCH ×3 (12:11→21:16)
[2021-08-26] MEDS: INSULIN LISPRO 300 UNITS/3 ML VIAL. SQ SCH ×2 (12:13→16:47)
[2021-08-26] MEDS ORDERED: cloNIDine HCL 0.2 MG TABLET PO SCH (14:00)
[2021-08-26 15:00] VITALS: BP 138/66
[2021-08-26] MEDS ORDERED: ACETAMINOPHEN 325 MG TABLET. PO PRN (15:00)
[2021-08-26 19:37] VITALS: BP 140/53
--- NOTE | 2021-08-26 19:50 | NUR ---
Pt in bed assessment completed vss pt denied pain at this time but c/o itching will resume care and continue to monitor pt. Call light i n reach.
[2021-08-26] MEDS ORDERED: NON FORMULARY ITEM (Brimonidine Tartrate/Timolol (Combigan Eye Drops) 5 ML) OP SCH (21:00)
[2021-08-26] MEDS ORDERED: ATORVASTATIN CALCIUM 20 MG TABLET PO SCH (21:00)
[2021-08-26] MEDS ORDERED: INSULIN GLARGINE SYRINGE. SQ SCH (21:00)
[2021-08-26] MEDS: LATANOPROST 0.005% OPHTH SOLUTION 2.5ML BOTTLE. OU SCH ×2 (21:18→22:50)
[2021-08-26 22:07] VITALS: BP 142/62
[2021-08-26] MEDS ORDERED: diphenhydrAMINE HCL 25 MG CAPSULE PO PRN (23:15)
[2021-08-26] MEDS ORDERED: MICONAZOLE NITRATE 2% TOPICAL CREAM 30GM TUBE. TP PRN (23:15)
[2021-08-27 02:11] VITALS: BP 135/69
[2021-08-27] MEDS: LANSOPRAZOLE 30 MG TAB.RAP.DR PO SCH (06:16)
[2021-08-27 06:23] LABS: CALCIUM 9.7 mg/dL (8.5-10.1); GFR 68.4; POTASSIUM 3.9 mmol/L (3.5-5.1)
[2021-08-27 06:24] LABS: BASO % 1 % (0-3); EOS # 0.1 x10^3/uL (0.0-0.7); EOS % 2 % (0-3); HEMOGLOBIN 13.6 g/dL (12.0-15.5); LYMPH # 1.8 x10^3/uL (1.0-4.8); LYMPH % 27 % (24-48); MEAN CORPUSCULAR HEMOGLOBIN 26 pg (25-35); MEAN CORPUSCULAR HGB CONC 32 g/dL (31-37); MEAN CORPUSCULAR VOLUME 80 fL (79-100); MONO # 0.4 x10^3/uL (0.0-1.1); MONO % 7 % (0-9); NEUT # 4.2 x10^3/uL (1.8-7.7); NEUT % 64 % (31-73); PLATELET COUNT 315 x10^3/uL (140-400); RED BLOOD COUNT 5.27 x10^6/uL (3.50-5.40); RED CELL DISTRIBUTION WIDTH 15.5 % (11.5-14.5); WHITE BLOOD COUNT 6.6 x10^3/uL (4.0-11.0)
[2021-08-27 07:00] VITALS: BP 156/76
[2021-08-27] MEDS: INSULIN LISPRO 300 UNITS/3 ML VIAL. SQ SCH ×2 (08:00→11:32)
[2021-08-27] MEDS: BRIMONIDINE 0.2% OPHTH SOLUTION 5ML BOTTLE. OU SCH (09:00)
[2021-08-27] MEDS: POLYETHYLENE GLYCOL 3350 17 GM PACKET. PO SCH (09:00)
[2021-08-27] MEDS: TIMOLOL 0.5% OPHTH SOLUTION 5ML BOTTLE. OU SCH (09:00)
[2021-08-27] MEDS: ASPIRIN ENTERIC COATED 81 MG TABLET.DR. PO SCH (09:03)
[2021-08-27] MEDS: SUCRALFATE 1 GM TABLET. PO SCH ×2 (09:03→11:31)
[2021-08-27] MEDS: metFORMIN 500 MG TABLET PO SCH (09:03)
--- NOTE | 2021-08-27 10:32 | EKG ---
[facility] [address] [place] [address] Test Date: 2021-08-26 Test Time: 01:16:18 Pat Name: RUSLAN CALERO Department: Room: Gender: F Manager Wireless: : 1960 Requested By: WENDIE JALLOH Order Number: [id number] Reading MD: Measurements Intervals [place] Rate: 77 P: 59 VA: 196 QRS: 10 QRSD: 86 T: 26 QT: 406 QTc: 461 Interpretive Statements SINUS RHYTHM NORMAL ECG RI6.02 No previous ECG available for comparison
[2021-08-27 11:00] VITALS: BP 169/94
--- NOTE | 2021-08-27 11:22 | PDOC ---
JONG ERIC FISH ROD MAKER 08/27/21 1122: CARDIO Progress Notes Date and Time Date of Service 08/27/21 Time of Evaluation 1120 Subjective Subjective: No Chest Pain, No shortness of breath, No Palpitations, No Dizziness Vitals Vitals Vital Signs Date Time Temp Pulse Resp B/P (MAP) Pulse Ox O2 Delivery O2 Flow Rate FiO2 08/27/21 09:05 65 156/76 08/27/21 08:00 Room Air 08/27/21 07:00 98.2 19 100 98.2 Weight Weight [ ] Input and Output Intake and Output Intake and Output 08/27/21 07:00 Intake Total 2170 ml Output Total 2950 ml Balance -780 ml Intake Oral 1420 ml IV Total 750 ml Output Urine Total 2950 ml # Voids 1 Laboratory Labs Laboratory Tests Test 08/26/21 11:50 08/26/21 16:44 08/26/21 19:39 08/27/21 02:05 Glucose (Fingerstick) 112 mg/dL (70-99) 84 mg/dL (70-99) 77 mg/dL (70-99) 142 mg/dL (70-99) Test 08/27/21 05:50 08/27/21 07:48 08/27/21 11:09 White Blood Count 6.6 x10^3/uL (4.0-11.0) Red Blood Count 5.27 x10^6/uL (3.50-5.40) Hemoglobin 13.6 g/dL (12.0-15.5) Hematocrit 42.0 % (36.0-47.0) Mean Corpuscular Volume 80 fL (79-100) Mean Corpuscular Hemoglobin 26 pg (25-35) Mean Corpuscular Hemoglobin Concent 32 g/dL (31-37) Red Cell Distribution Width 15.5 % (11.5-14.5) Platelet Count 315 x10^3/uL (140-400) Neutrophils (%) (Auto) 64 % (31-73) Lymphocytes (%) (Auto) 27 % (24-48) Monocytes (%) (Auto) 7 % (0-9) Eosinophils (%) (Auto) 2 % (0-3) Basophils (%) (Auto) 1 % (0-3) Neutrophils # (Auto) 4.2 x10^3/uL (1.8-7.7) Lymphocytes # (Auto) 1.8 x10^3/uL (1.0-4.8) Monocytes # (Auto) 0.4 x10^3/uL (0.0-1.1) Eosinophils # (Auto) 0.1 x10^3/uL (0.0-0.7) Basophils # (Auto) 0.0 x10^3/uL (0.0-0.2) Sodium Level 140 mmol/L (136-145) Potassium Level 3.9 mmol/L (3.5-5.1) Chloride Level 102 mmol/L (98-107) Carbon Dioxide Level 28 mmol/L (21-32) Anion Gap 10 (6-14) Blood Urea Nitrogen 14 mg/dL (7-20) Creatinine 1.0 mg/dL (0.6-1.0) Estimated GFR (Cockcroft-Gault) 68.4 Glucose Level 148 mg/dL (70-99) Calcium Level 9.7 mg/dL (8.5-10.1) Glucose (Fingerstick) 141 mg/dL (70-99) 174 mg/dL (70-99) Microbiology Micro Microbiology 08/26/21 Urine Culture - Final, Complete Physical Exam HEENT: Neck Supple W Full Motion Chest: Symmetric LUNGS: Clear to Auscultation Heart: RRR Abdomen: Soft N/T, Other (obese) Extremities: No Edema Neurology: alert, oriented, follow commands Assessment Assessment 1. Syncope; hypoglycemia vs bradyarrhythmia. Similar episode 03/28. Cardiac workup unrevealing. [place] to be due to hypoglycemia 2. Diabetes, II with hypoglycemia 3. Sinus bradycardia; HR reportedly 25 upon EMS arrival for brief period. EMS EKG shows SR with HR 60. Lowest 47 overnight on tele. No pauses. Presently near 60. Echo 03/28 with preserved LV systolic function, no WMA 4. CKD; CR stable 5. Hypertension; controlled 6. Hyperlipidemia Recommendations Avoid AV missy blocking agents ASA, statin therapy Outpatient event monitor and ischemic evaluation as arranged Supportive care Follow up in our office with Dr. Ames as scheduled Justicifation of Admission Dx: Justifications for Admission: Justification of Admission Dx: Yes Altered Mental Status: Altered Mental Status DESHAUN AMES MD 08/28/21 1259: CARDIO Progress Notes Plan Plan Late entry for 08/27/2021 Patient seen and examined. I agree with above nurse practitioner note. JONG ERIC APRN Aug 27, 2021 11:22 DESHAUN AMES MD Aug 28, 2021 12:59
[2021-08-27] MEDS ORDERED: HYDR-2869 PO (12:31)
--- NOTE | 2021-08-27 13:08 | NUR ---
SS following for discharge planning. SS reviewed pt chart and discussed with pt RN. Pt is from home and is currently on room air. Cardiology following. Discharge order on the chart for home with self care.
--- NOTE | 2021-08-27 19:03 | PDOC3 ---
[facility]-Discharge Summary Date of Admission: Date of Admission: Aug 26, 2021 Date of Discharge: Date of Discharge: Aug 27, 2021 Admission Diagnosis: Admitting Diagnosis: Syncope Discharge Diagnosis: Discharge Diagnosis: Same Consults: Consults: Cardiology Hospital Course: Hospital Course: Patient is a 61-year-old -Wallis[place] female presented to the emergency room overnight due to syncopal episode at home. Patient reports she was doing well yesterday took her blood sugar and she thought it was a little bit elevated so she took 32 units of insulin instead of her usual 30. She took a shower after that and after getting out of the shower is feeling very dizzy and lightheaded. Was concerned it was her sugar so she went to her kitchen doing some chips. Had no improvement in her dizziness thus try to get back to her kitchen for more food and said she got dizzy and everything went black and she had a syncopal episode. Denies hitting her head. When she awoke she thinks it was just a few minutes later unable to get up off the floor so she contacted EMS. When EMS arrived they left her to the stretcher and upon taking vitals he was noted to have a heart rate of only 25. This did resolve up into the 60s heart rate on transport here. Patient says she thinks she had a similar episode like this before and was caused by taking too much insulin. Work-up in emergency room pretty unremarkable 08/27 Patient evaluated examined at bedside. Resting in bed said symptoms much improved. No dizziness. Sinus rhythm. Discussed cardiology team. Okay to discharge home today. Greater than 30 minutes spent on discharge. 20 minutes advance care planning. Disposition: Disposition/Orders: D/C to Home Activity: Activity: Resume previous activity Diet: Diet: Cardiac Medications: Home Meds Active Scripts Hydralazine Hcl (HYDRALAZINE HCL) 50 Mg Tablet, 100 MG PO BID for htn for 60 Days, #240 TAB Prov:BENJY ROMERO MD 08/27/21 Cyclobenzaprine Hcl (CYCLOBENZAPRINE HCL) 10 Mg Tablet, 1 TAB PO TID PRN for PAIN for 7 Days, #21 TAB 0 Refills Prov:DANNY AYOUB TRAINS SERVICE CONDUCTOR 11/27/20 Aspirin (ASPIRIN EC) 81 Mg Tablet., 81 MG PO DAILYWBK for HEART HEALTH for 30 Days, #30 TAB.SR Prov:TESFAYE BRUNO MD 03/12/20 Furosemide (LASIX) 40 Mg Tablet, 1 TAB PO DAILY for 14 Days, #14 TAB 1 Refill Prov:VALENTIN CRUZ MD 06/26/17 Polyethylene Glycol 3350 (MIRALAX) 17 Gm Powd.pack, 1 PACKET PO DAILY, #30 PACKET 3 Refills Prov:MIKEDoraBRENDAN TRAINS SERVICE CONDUCTOR 09/14/16 Reported Medications Insulin Glargine,Hum.rec.anlog (LANTUS SOLOSTAR) 100 Unit/1 Ml Insuln.pen, 30 UNIT SQ QHS for , #15 ML 3 Refills 08/26/21 Albuterol Sulfate (PROAIR HFA INHALER) 8.5 Gm Hfa.aer.ad, 2 PUFF IH PRN Q4-6HRS PRN for wheezing for 21 Days, #1 INHALER 0 Refills 03/10/20 Amlodipine Besylate (AMLODIPINE BESYLATE) 10 Mg Tablet, 1 TAB PO DAILY for HTN 03/10/20 Liraglutide (VICTOZA 3-JOHNSON) 0.6 Mg/0.1 Ml Pen.injctr, 0.6 MG SQ DAILY for DM, EACH 03/10/20 Brimonidine Tartrate/Timolol (COMBIGAN EYE DROPS) 5 Ml Drops, 5 ML OP BID for Glaucoma, DROP 06/25/17 Latanoprost (LATANOPROST) 2.5 Ml Drops, 1 DROP EACHEYE QHS for Glaucoma, #7.5 ML 3 Refills 06/25/17 Atorvastatin Calcium (LIPITOR) 20 Mg Tablet, 20 MG PO HS for FOR CHOLESTEROL, #30 TAB 0 Refills 01/05/16 Sucralfate (SUCRALFATE) 1 Gm Tablet, 1 GM PO QID 12/05/13 Acetaminophen (ACETAMINOPHEN) 500 Mg Tablet, 500 MG PO PRN TID PRN for PAIN 12/05/13 Lansoprazole (PREVACID) 30 Mg Capsule.dr, 30 MG PO DAILY, TAB 12/05/13 Metformin Hcl (METFORMIN HCL) 500 Mg Tablet, 1000 MG PO BIDWMEALS for DM, TAB 0 Refills 12/05/13 Insulin Aspart (NOVOLOG FLEXPEN) 100 Unit/1 Ml Insuln.pen, 10 UNIT SQ TIDAC for DM, SYR 12/05/13 Discontinued Reported Medications Carvedilol (Carvedilol) 6.25 Mg Tablet, 1 TAB PO BID for HTN 03/10/20 Clonidine Hcl (CLONIDINE HCL) 0.2 Mg Tablet, 0.2 MG PO TID for HTN 03/10/20 Potassium Chloride (POTASSIUM CHLORIDE) 10 Meq Tablet.er, 10 MEQ PO DAILY, TAB 12/05/13 Fluticasone Propionate (FLONASE) 16 Gm [place].susp, 2 SPRAY NS DAILY, SPRAYS 12/05/13 Scheduled Amlodipine Besylate (Amlodipine Besylate), 1 TAB PO DAILY, (Reported) Aspirin (Aspirin Ec), 81 MG PO DAILYWBKFT Atorvastatin Calcium (Lipitor), 20 MG PO HS, (Reported) Brimonidine Tartrate/Timolol (Combigan Eye Drops), 5 ML OP BID, (Reported) Furosemide (Lasix), 1 TAB PO DAILY Hydralazine Hcl (Hydralazine Hcl), 100 MG PO BID Insulin Aspart (Novolog Flexpen), 10 UNIT SQ TIDAC, (Reported) Insulin Glargine,Hum.rec.anlog (Lantus Solostar), 30 UNIT SQ QHS, (Reported) Lansoprazole (Prevacid), 30 MG PO DAILY, (Reported) Latanoprost (Latanoprost), 1 DROP EACHEYE QHS, (Reported) Liraglutide (Victoza 3-Johnson), 0.6 MG SQ DAILY, (Reported) Metformin Hcl (Metformin Hcl), 1,000 MG PO BIDWMEALS, (Reported) Polyethylene Glycol 3350 (Miralax), 1 PACKET PO DAILY Sucralfate (Sucralfate), 1 GM PO QID, (Reported) Scheduled PRN Acetaminophen (Acetaminophen), 500 MG PO PRN TID PRN for PAIN, (Reported) Albuterol Sulfate (Proair Hfa Inhaler), 2 PUFF IH PRN Q4-6HRS PRN for wheezing, (Reported) Cyclobenzaprine Hcl (Cyclobenzaprine Hcl), 1 TAB PO TID PRN for PAIN Discontinued Medications Carvedilol (Carvedilol), 1 TAB PO BID, (Reported) Clonidine Hcl (Clonidine Hcl), 0.2 MG PO TID, (Reported) Fluticasone Propionate (Flonase), 2 SPRAY NS DAILY, (Reported) Potassium Chloride (Potassium Chloride), 10 MEQ PO DAILY, (Reported) Justicifation of Admission Dx: Justifications for Admission: Justification of Admission Dx: Yes Altered Mental Status: Altered Mental Status BENJY ROMERO MD Aug 27, 2021 19:03
== END 2021-08-27 14:18 | disposition home or self-care (01) | DRG 918 ==
LOC: ER 00:05 → 6 SOUTH 01:55
PROVIDERS: ADMIT Internal Medicine; ATTEND Internal Medicine
DX: T38.3X1A Poisoning by insulin and oral hypoglycemic [antidiabetic] drugs, accidental (unintentional), initial encounter (principal); Z68.43 Body mass index [BMI] 50.0-59.9, adult; E11.649 Type 2 diabetes mellitus with hypoglycemia without coma; E11.22 Type 2 diabetes mellitus with diabetic chronic kidney disease; E78.00 Pure hypercholesterolemia, unspecified; E78.5 Hyperlipidemia, unspecified; I12.9 Hypertensive chronic kidney disease with stage 1 through stage 4 chronic kidney disease, or unspecified chronic kidney disease; N18.9 Chronic kidney disease, unspecified; Z79.4 Long term (current) use of insulin; Z83.3 Family history of diabetes mellitus; Z96.641 Presence of right artificial hip joint; E66.01 Morbid (severe) obesity due to excess calories; F41.9 Anxiety disorder, unspecified; K21.9 Gastro-esophageal reflux disease without esophagitis; R00.1 Bradycardia, unspecified; Z88.8 Allergy status to other drugs, medicaments and biological substances
CPT/HCPCS: 36415; 70450; 71045; 80048; 80053; 81001; 82962; 83880; 84443; 84484; 85025; 87086; 93005; 96360; 96361; J1815; J7030; J7040; 99285-25; G0378; Q0163

== ENCOUNTER 2021-08-31 21:03 | Inpatient (IN) | payer OTHER ==
[~2021-08-31] VITALS: Ht 152.4 cm; Wt 117.5 kg
[~2021-08-31 21:03] MED LIST changes: +HYDR-2869 PO; +INSU100I13 SQ
--- NOTE | 2021-08-31 21:51 | EKG ---
[facility] [address] [place] [address] Test Date: 2021-08-31 Test Time: 21:26:26 Pat Name: RUSLAN CALERO Department: Room: Gender: F Rippler: : 1960 Requested By: BENITA DAWKINS Order Number: [id number] Reading MD: Denver Yeager Measurements Intervals [place] Rate: 113 P: 48 OR: 120 QRS: -10 QRSD: 74 T: 31 QT: 352 QTc: 489 Interpretive Statements SINUS TACHYCARDIA LEFT ATRIAL ABNORMALITY Electronically Signed On 09-02-2021 16:50:05 CDT by Denver Yeager
[2021-08-31 22:07] LABS: BASO # 0.1 x10^3/uL (0.0-0.2); BASO % 1 % (0-3); EOS # 0.1 x10^3/uL (0.0-0.7); EOS % 1 % (0-3); HEMATOCRIT 35.8 % (36.0-47.0); HEMOGLOBIN 11.7 g/dL (12.0-15.5); LYMPH # 1.7 x10^3/uL (1.0-4.8); LYMPH % 20 % (24-48); MEAN CORPUSCULAR HEMOGLOBIN 26 pg (25-35); MEAN CORPUSCULAR HGB CONC 33 g/dL (31-37); MEAN CORPUSCULAR VOLUME 79 fL (79-100); MONO # 0.8 x10^3/uL (0.0-1.1); MONO % 9 % (0-9); NEUT # 5.9 x10^3/uL (1.8-7.7); NEUT % 69 % (31-73); PLATELET COUNT 270 x10^3/uL (140-400); RED BLOOD COUNT 4.52 x10^6/uL (3.50-5.40); RED CELL DISTRIBUTION WIDTH 15.3 % (11.5-14.5); WHITE BLOOD COUNT 8.6 x10^3/uL (4.0-11.0)
--- NOTE | 2021-08-31 22:12 | PHYS DOC ---
Past Medical History Past Medical History: Bronchitis, Diabetes-Type II, GERD, Glaucoma, High Cholesterol, Hypertension, Other Additional Past Medical Histor: Seasonal allergies,hiatal hernia,LOW KIDNEY FUNCTION,H/A,CELLULITIS,obesity Past Surgical History: No Surgical History Additional Past Surgical Histo: BLADDER SLING; ablation to uterus; right knee, L TIB/FIB FX, L LUMPECTOMY Smoking Status: Never Smoker Alcohol Use: None Drug Use: None General Adult HPI: HPI: Patient is a 61-year-old female that presented today via [facility] with complaint of right arm, right chest, and right back pain that started earlier today. Patient states that she was here 5 days ago and admitted for bradycardia, she states that the bradycardia was related to hypoglycemia that she was experiencing, they changed her medications on her DC'd a beta-joseluis started some hydralazine for blood pressure control, she stated that she was discharged a few days later and she stated today starting earlier she is unsure of what time she started having some right arm right chest wall pain. Patient denies shortness of breath or fever and chills. Review of Systems: Review of Systems: Constitutional: Denies fever or chills. [] Eyes: Denies change in visual acuity. [] HENT: Denies nasal congestion or sore throat. [] Respiratory: Denies cough or shortness of breath. [] Cardiovascular: Right chest pain denies edema. [] GI: Denies abdominal pain, nausea, vomiting, bloody stools or diarrhea. [] : Denies dysuria. [] Musculoskeletal: Right arm right back pain Integument: Denies rash. [] Neurologic: Denies headache, focal weakness or sensory changes. [] Endocrine: Denies polyuria or polydipsia. [] Lymphatic: Denies swollen glands. [] Psychiatric: Denies depression or anxiety. [] Heart Score: C/O Chest Pain: Yes HEART Score for Chest Pain: HEART Score for Chest Pain Response (Comments) Value History Highly Suspicious 2 ECG Normal 0 Age >45 - < 65 1 Risk Factors >3 Risk Factors or Hx CAD 2 Troponin < Normal Limit 0 Total 5 Risk Factors: Risk Factors: DM, Current or recent (<one month) smoker, HTN, HLP, family history of CAD, obesity. Risk Scores: Score 0 - 3: 2.5% MACE over next 6 weeks - Discharge Home Score 4 - 6: 20.3% MACE over next 6 weeks - Admit for Clinical Observation Score 7 - 10: 72.7% MACE over next 6 weeks - Early Invasive Strategies Allergies: Allergies: Allergies Coded Allergies Type Severity Reaction Last Updated Verified Sulfa (Sulfonamide Antibiotics) Allergy Intermediate rash 11/27/20 Yes lisinopril Allergy Intermediate 11/27/20 Yes metoclopramide Allergy Intermediate 11/27/20 Yes pantoprazole Allergy Intermediate 11/27/20 Yes Physical Exam: PE: Constitutional: Obese female and moderate distress nontoxic in appearance HENT: Normocephalic, atraumatic, bilateral external ears normal, oropharynx moist, no oral exudates, nose normal. [] Eyes: PERRLA, EOMI, conjunctiva normal, no discharge. [] Neck: Normal range of motion, no tenderness, supple, no stridor. [] Cardiovascular:Heart rate regular rhythm, no murmur [] Lungs & Thorax: Bilateral breath sounds clear to auscultation [] Abdomen: Bowel sounds normal, soft, no tenderness, no masses, no pulsatile masses. [] Skin: Warm, dry, no erythema, no rash. [] Back: No tenderness, no CVA tenderness. [] Extremities: Patient has 4+ edema in her legs due to lymphedema, peripheral pulses are 2+ in all 4 extremities, right arm appears more swollen than left, she is pretty tender when touching the arm and palpating the arm radial pulse in that arm is 2+ with sensory intact distal to the pain Neurologic: Alert and oriented X 3, normal motor function, normal sensory function, no focal deficits noted. [] Psychologic: Affect normal, judgement normal, mood normal. [] Current Patient Data: Labs: Laboratory Tests Test 08/31/21 21:54 White Blood Count 8.6 x10^3/uL Red Blood Count 4.52 x10^6/uL Hemoglobin 11.7 g/dL Hematocrit 35.8 % Mean Corpuscular Volume 79 fL Mean Corpuscular Hemoglobin 26 pg Mean Corpuscular Hemoglobin Concent 33 g/dL Red Cell Distribution Width 15.3 % Platelet Count 270 x10^3/uL Neutrophils (%) (Auto) 69 % Lymphocytes (%) (Auto) 20 % Monocytes (%) (Auto) 9 % Eosinophils (%) (Auto) 1 % Basophils (%) (Auto) 1 % Neutrophils # (Auto) 5.9 x10^3/uL Lymphocytes # (Auto) 1.7 x10^3/uL Monocytes # (Auto) 0.8 x10^3/uL Eosinophils # (Auto) 0.1 x10^3/uL Basophils # (Auto) 0.1 x10^3/uL Prothrombin Time 13.9 SEC Prothromb Time International Ratio 1.1 Activated Partial Thromboplast Time 30 SEC D-Dimer (Bernadette) 0.49 ug/mlFEU Sodium Level 141 mmol/L Potassium Level 3.8 mmol/L Chloride Level 103 mmol/L Carbon Dioxide Level 24 mmol/L Anion Gap 14 Blood Urea Nitrogen 23 mg/dL Creatinine 1.1 mg/dL Estimated GFR (Cockcroft-Gault) 61.3 BUN/Creatinine Ratio 21 Glucose Level 164 mg/dL Lactic Acid Level 1.5 mmol/L Calcium Level 8.8 mg/dL Phosphorus Level 4.1 mg/dL Magnesium Level 1.6 mg/dL Total Bilirubin 0.4 mg/dL Aspartate Amino Transf (AST/SGOT) 23 U/L Alanine Aminotransferase (ALT/SGPT) 39 U/L Alkaline Phosphatase 129 U/L Troponin I High Sensitivity 11 ng/L VK-Lgd-B-Type Natriuretic Peptide 36 pg/mL Total Protein 7.3 g/dL Albumin 3.5 g/dL Albumin/Globulin Ratio 0.9 Lipase 228 U/L Current Medications Medications (Trade) Dose Ordered Sig/Ren Route PRN Reason Start Time Stop Time Status Last Admin Dose Admin Iohexol (Omnipaque 350 Mg/ml) 100 ml 1X ONCE IV 08/31/21 23:00 08/31/21 23:01 DC 08/31/21 22:43 Info (CONTRAST GIVEN -- Rx MONITORING) 1 each PRN DAILY PRN MC SEE COMMENTS 08/31/21 22:45 09/02/21 22:44 Magnesium Oxide (Magnesium Oxide) 2,000 mg 1X ONCE PO 08/31/21 23:00 08/31/21 23:01 DC 08/31/21 23:45 Vital Signs: Vital Signs Date Time Temp Pulse Resp B/P (MAP) Pulse Ox O2 Delivery O2 Flow Rate FiO2 08/31/21 21:37 112 24 150/73 (98) 97 Room Air 4/25/22 21:24 112 33 158/73 (101) 98 Room Air 08/31/21 21:09 112 17 155/66 (95) 98 Room Air 08/31/21 21:05 97.7 113 22 144/110 (121) 97 Room Air 97.7 EKG: EKG: EKG done at [address] Torres at 2127 shows sinus tachycardia at a rate of 113 with a SC interval of 120 ms with a QTC of 489 ms no STEMI [] Radiology/Procedures: Radiology/Procedures: REASON: SOA;OMNI 350,100ML-PT UNCOOPERATIVE-EXAM LIMITED PROCEDURE: CT ANGIOGRAPHY CHEST CTA Chest with and without contrast: Clinical History: Reason: SOA;OMNI 350,100ML-PT UNCOOPERATIVE-EXAM LIMITED / Spl. Instructions: / History: Shortness of breath. Axial helical images of the chest were obtained before and after the administration of 100 cc of IV Optiray 350 and timed appropriately for a pulmonary arterial study. Conventional axial reconstruction was performed in addition to coronal, sagittal and bilateral oblique MIP (maximum intensity projection). This study was ordered to detect possible pulmonary embolism. COMPARISON: November 27, 2020 FINDINGS: There is poor opacification of the segmental and subsegmental pulmonary arteries. There is no central embolism. There is a large calcified paratracheal lymph node on the right seen previously. The lungs and pleural margins are clear. The thoracic aorta appears normal. Impression: 1. Large partially calcified right peritracheal lymph node seen previously. 2. Poorly opacified pulmonary arteries limits sensitivity for a possible pulmonary embolism. End of impression PQRS Compliance Statement: One or more of the following individualized dose reduction techniques were utilized for this examination: 1. Automated exposure control 2. Adjustment of the mA and/or kV according to patient size 3. Use of iterative reconstruction technique Electronically signed by: Lopez Desai III, MD (08/31/2021 10:49 PM) [facility] REASON: pain and swelling in arm PROCEDURE: VENOUS UPPER EXTREMITY RIGHT Right upper Extremity Venous Doppler Ultrasound History: Reason: pain and swelling in arm / Spl. Instructions: / History: Comparison: None Procedure: Color flow, duplex, spectral analysis and 2D images are obtained with and without compression in the area of the deep and superficial venous structures of the upper , specifically the axillary, brachials, radial and ulnar deep veins and the superficial basilic and cephalic veins. Color Doppler and venous waveform analysis was also applied to the left jugular and subclavian vein. Findings: There is normal duplex flow, color flow and compressibility of all visualized vein segments. No evidence of deep venous thrombus is present. Impression: Normal venous Doppler ultrasound with no evidence of DVT. Electronically signed by: Lopez Desai III, MD (08/31/2021 11:30 PM) [facility] REASON: SOA PROCEDURE: PORTABLE CHEST 1V Exam: Chest one view INDICATION: Short of air TECHNIQUE: Frontal view of the chest Comparisons: 08/26/2021 FINDINGS: The cardiomediastinal silhouette and pulmonary vessels are within normal limits. Stable appearance of the mediastinum The lung and pleural spaces are clear. IMPRESSION: No acute cardiopulmonary process. Electronically signed by: Cece Styles MD (08/31/2021 10:32 PM) [facility] [] Course & Med Decision Making: Course & Med Decision Making Pertinent Labs and Imaging studies reviewed. (See chart for details) 0002 I reviewed case with Dr torres and he thinks it is safer to admit the patient due to low magnesium the patient continues to have chest pain, I have spoken to patient regarding this and she is agreeable to admitting for observation overnight for further evaluation by the medical staff in the morning. Patient will be placed on telemetry and will have magnesium replaced with troponin serially to be done. Dragon Disclaimer: Dragjenna Disclaimer: This electronic medical record was generated, in whole or in part, using a voice recognition dictation system. Departure Departure Impression: Primary Impression: Hypomagnesemia Additional Impression: Chest pain Qualified Codes: R07.9 - Chest pain, unspecified Disposition: ADMITTED INPATIENT Admitting Physician: AKI Condition: STABLE Referrals: DAWIT OWENS JR, MD (PCP) BENITA DAWKINS APRN Aug 31, 2021 22:12
[2021-08-31 22:15] LABS: PROTHROMBIN TIME PATIENT 13.9 SEC (11.7-14.0)
[2021-08-31 22:18] LABS: CALCIUM 8.8 mg/dL (8.5-10.1); CREATININE 1.1 mg/dL (0.6-1.0); GFR 61.3; POTASSIUM 3.8 mmol/L (3.5-5.1)
[2021-08-31 22:33] LABS: ALBUMIN 3.5 g/dL (3.4-5.0); ALBUMIN/GLOBULIN RATIO 0.9 (1.0-1.7); MAGNESIUM 1.6 mg/dL (1.8-2.4); TOTAL BILIRUBIN 0.4 mg/dL (0.2-1.0); TOTAL PROTEIN 7.3 g/dL (6.4-8.2)
--- NOTE | 2021-08-31 22:35 | RAD ---
Exam: Chest one view INDICATION: Short of air TECHNIQUE: Frontal view of the chest Comparisons: 08/26/2021 FINDINGS: The cardiomediastinal silhouette and pulmonary vessels are within normal limits. Stable appearance of the mediastinum The lung and pleural spaces are clear. IMPRESSION: No acute cardiopulmonary process. Electronically signed by: Cece Styles MD (08/31/2021 10:32 PM) LOI
[2021-08-31] MEDS ORDERED: CONTRAST GIVEN. MC PRN (22:45)
--- NOTE | 2021-08-31 22:52 | RAD ---
CTA Chest with and without contrast: Clinical History: Reason: SOA;OMNI 350,100ML-PT UNCOOPERATIVE-EXAM LIMITED / Spl. Instructions: / Hi story: Shortness of breath. Axial helical images of the chest were obtained before and after the administration of 100 cc of IV O ptiray 350 and timed appropriately for a pulmonary arterial study. Conventional axial reconstruction was performed in addition to coronal, sagittal and bilateral oblique MIP (maximum intensity projecti on). This study was ordered to detect possible pulmonary embolism. COMPARISON: November 27, 2020 FINDINGS: There is poor opacification of the segmental and subsegmental pulmonary arteries. There is no central embolism. There is a large calcified paratracheal lymph node on the right seen previously. The lungs and pleural margins are clear. The thoracic aorta appears normal. Impression: 1. Large partially calcified right peritracheal lymph node seen previously. 2. Poorly opacified pulmonary arteries limits sensitivity for a possible pulmonary embolism. End of impression PQRS Compliance Statement: One or more of the following individualized dose reduction techniques were utilized for this examinat ion: 1. Automated exposure control 2. Adjustment of the mA and/or kV according to patient size 3. Use of iterative reconstruction technique Electronically signed by: Lopez Desai III, MD (08/31/2021 10:49 PM) [facility]
[2021-08-31] MEDS ORDERED: MAGNESIUM OXIDE 400 MG TABLET PO ONE (23:00)
[2021-08-31] MEDS ORDERED: IOHEXOL 350 MG/ML 100 ML VIAL. IV ONE (23:00)
--- NOTE | 2021-08-31 23:33 | RAD ---
Right upper Extremity Venous Doppler Ultrasound History: Reason: pain and swelling in arm / Spl. Instructions: / History: Comparison: None Procedure: Color flow, duplex, spectral analysis and 2D images are obtained with and without compress ion in the area of the deep and superficial venous structures of the upper , specifically the axillar y, brachials, radial and ulnar deep veins and the superficial basilic and cephalic veins. Color Doppl er and venous waveform analysis was also applied to the left jugular and subclavian vein. Findings: There is normal duplex flow, color flow and compressibility of all visualized vein segments. No evide nce of deep venous thrombus is present. Impression: Normal venous Doppler ultrasound with no evidence of DVT. Electronically signed by: Lopez Desai III, MD (08/31/2021 11:30 PM) [facility]
[2021-09-01 00:03] LABS: D-DIMER 0.49 ug/mlFEU (0.00-0.50)
[2021-09-01] MEDS ORDERED: fentaNYL PF VIAL 100 MCG/2 ML VIAL IVP PRN (00:15)
[2021-09-01 00:16] LABS: BACTERIA,URINE MOD /HPF (0-FEW); RBC,URINE OCC /HPF (0-2)
[2021-09-01] MEDS ORDERED: IV NORMAL SALINE 1000ML BAG 1,000 ML IV ONE (00:30)
[2021-09-01] MEDS ORDERED: fentaNYL PF VIAL 100 MCG/2 ML VIAL IVP ONE (00:30)
[2021-09-01 02:15] VITALS: BP 146/78
[2021-09-01] MEDS ORDERED: IOHEXOL 350 MG/ML 100 ML VIAL. ONE (04:47)
[2021-09-01 07:00] VITALS: BP 166/75
[2021-09-01] MEDS ORDERED: IV DEXTROSE 5% 250 ML BAG. IV PRN (07:00)
[2021-09-01] MEDS ORDERED: DEXTROSE 50% 25 GM / 50ML DISP.SYRIN. IV PRN (07:00)
[2021-09-01] MEDS ORDERED: ACETAMINOPHEN 325 MG TABLET. PO PRN ×2 (07:00→11:00)
[2021-09-01] MEDS ORDERED: guaiFENesin DM 200MG/20MG 10 ML SYRUP PO PRN (07:00)
[2021-09-01] MEDS ORDERED: traMADol 50 MG TABLET PO PRN (07:00)
[2021-09-01] MEDS ORDERED: hydrALAZINE 20 MG/ML VIAL. IVP PRN (07:00)
[2021-09-01] MEDS ORDERED: NITROGLYCERIN SUBLINGUAL 0.4 MG BOTTLE OF 25. SL PRN (07:00)
[2021-09-01] MEDS ORDERED: ALBUTEROL SULFATE 2.5 MG/3 ML NEBU. INH PRN (07:00)
[2021-09-01] MEDS ORDERED: ONDANSETRON PF 4 MG/2 ML VIAL. IVP PRN ×2 (07:00→11:00)
[2021-09-01] MEDS: INSULIN LISPRO 300 UNITS/3 ML VIAL. SQ SCH ×4 (07:30→21:00)
[2021-09-01 07:40] LABS: CREATININE 0.9 mg/dL (0.6-1.0); GFR 77.3; MAGNESIUM 1.7 mg/dL (1.8-2.4); POTASSIUM 3.7 mmol/L (3.5-5.1)
[2021-09-01] MEDS: ASPIRIN ENTERIC COATED 81 MG TABLET.DR. PO SCH (09:07)
[2021-09-01] MEDS: POLYETHYLENE GLYCOL 3350 17 GM PACKET. PO SCH (09:07)
[2021-09-01] MEDS: SUCRALFATE 1 GM TABLET. PO SCH ×4 (09:08→22:55)
[2021-09-01] MEDS: LANSOPRAZOLE 30 MG TAB.RAP.DR PO SCH (09:08)
[2021-09-01] MEDS: TIMOLOL 0.5% OPHTH SOLUTION 5ML BOTTLE. OU SCH ×2 (09:11→21:00)
[2021-09-01] MEDS: BRIMONIDINE 0.2% OPHTH SOLUTION 5ML BOTTLE. OU SCH ×2 (09:11→21:00)
--- NOTE | 2021-09-01 10:35 | PDOC2 ---
[facility] EM[facility]GENCY ROOM TECH 09/01/21 1035: CARDIAC CONSULT DATE OF CONSULT Date of Consult DATE: 09/01/21 TIME: 10:05 REASON FOR CONSULT Reason for Consult: Chest pain REFERRING PHYSICIAN Referring Physician: Queenie SOURCE Source: Chart review, Patient HISTORY OF PRESENT ILLNESS HISTORY OF PRESENT ILLNESS This is a pleasant 61 yo female admitted for complains of right shoulder pain. Reports that she felt that her right shoulder was bigger than her left should when she looked at in the mirror which now is better but still noted to be stiff in that region per palpation. This was throbbing at some point which is now absent and also had pain to her right arm and scapular region which all are no absent and no restriction with her mobility. No falls or any recent injury, No passing out. No midchest pain or tightness. She was worried that it was her heart hence she came to ED. No palpitations or frequent dizziness. She has received her MCOT but has not placed it yet. PAST MEDICAL HISTORY Past Medical History Cardiovascular: HTN, Hyperlipidemia, syncope deemed related to hypoglycemia CENTRAL NERVOUS SYSTEM: Peripheral neuropathy GI: GERD Heme/Onc: Anemia NOS Psych: Anxiety Renal/: Chronic renal insuff Endocrine: Diabetes PAST SURGICAL HISTORY Past Surgical History Total hip replacement (right), Other (right shoulder surgery, bladder sling) FAMILY HISTORY Family History: Heart Disease SOCIAL HISTORY Smoke: No ALCOHOL: none Drugs: None CURRENT MEDICATIONS CURRENT MEDICATIONS Current Medications Medications (Trade) Dose Ordered Sig/Ren Route PRN Reason Start Time Stop Time Status Last Admin Dose Admin Iohexol (Omnipaque 350 Mg/ml) 100 ml 1X ONCE IV 08/31/21 23:00 08/31/21 23:01 DC 08/31/21 22:43 Magnesium Oxide (Magnesium Oxide) 2,000 mg 1X ONCE PO 08/31/21 23:00 08/31/21 23:01 DC 08/31/21 23:45 Sodium Chloride 1,000 ml @ 999 mls/hr 1X ONCE IV 09/01/21 00:30 09/01/21 01:30 DC 09/01/21 01:51 Fentanyl Citrate (Fentanyl 2ml Vial) 50 mcg 1X ONCE IVP 09/01/21 00:30 09/01/21 00:31 DC 09/01/21 01:53 Amlodipine Besylate (Norvasc) 10 mg DAILY PO 09/01/21 09:00 09/01/21 09:08 Aspirin (Ecotrin) 81 mg DAILYWBKFT PO 09/01/21 08:00 09/01/21 09:07 Hydralazine HCl (Apresoline) 100 mg BID PO 09/01/21 09:00 09/01/21 09:08 Polyethylene Glycol (miraLAX PACKET) 17 gm DAILY PO 09/01/21 09:00 09/01/21 09:07 Sucralfate (Carafate) 1 gm QID PO 09/01/21 09:00 09/01/21 09:08 Brimonidine Tartrate (Alphagan) 1 drop BID OU 09/01/21 09:00 09/01/21 09:11 Lansoprazole (Prevacid) 30 mg DAILY07 PO 09/01/21 08:00 09/01/21 09:08 Timolol Maleate (Timoptic 0.5% Ophth) 1 drop BID OU 09/01/21 09:00 09/01/21 09:11 ALLERGIES ALLERGIES: Coded Allergies: Sulfa (Sulfonamide Antibiotics) (Verified Allergy, Intermediate, rash, 11/27/20) lisinopril (Verified Allergy, Intermediate, 11/27/20) metoclopramide (Verified Allergy, Intermediate, 11/27/20) pantoprazole (Verified Allergy, Intermediate, 11/27/20) " pt reports I don't know, I'm just supposed to not take it" ROS Review of System 14 point ROS evaluated with pertinent positives noted per HPI PHYSICAL EXAM General: Alert, Oriented X3, Cooperative, No acute distress HEENT: Atraumatic, Mucous membr. moist/pink Lungs: Clear to auscultation, Normal air movement Heart: Regular rate (SR), Normal S1, Normal S2, No murmurs Abdomen: Soft, No tenderness Extremities: No cyanosis, No edema Skin: No breakdown, No significant lesion Neuro: Normal speech, Sensation intact Psych/Mental Status: Mental status NL, Mood NL MUSCULOSKELETAL: Osteoarthritic changes both hands VITALS/I&O VITALS/I&O: Vital Signs Date Time Temp Pulse Resp B/P (MAP) Pulse Ox O2 Delivery O2 Flow Rate FiO2 09/01/21 09:08 89 166/75 09/01/21 07:00 98.0 18 96 Room Air 98.0 I & O0 08/31/21 08/31/21 09/01/21 15:00 23:00 07:00 Output Total 300 ml Balance -300 ml LABS Lab: Laboratory Tests Test 08/31/21 21:54 08/31/21 23:43 09/01/21 01:00 09/01/21 03:35 White Blood Count 8.6 x10^3/uL (4.0-11.0) Red Blood Count 4.52 x10^6/uL (3.50-5.40) Hemoglobin 11.7 g/dL (12.0-15.5) L Hematocrit 35.8 % (36.0-47.0) L Mean Corpuscular Volume 79 fL (79-100) Mean Corpuscular Hemoglobin 26 pg (25-35) Mean Corpuscular Hemoglobin Concent 33 g/dL (31-37) Red Cell Distribution Width 15.3 % (11.5-14.5) H Platelet Count 270 x10^3/uL (140-400) Neutrophils (%) (Auto) 69 % (31-73) Lymphocytes (%) (Auto) 20 % (24-48) L Monocytes (%) (Auto) 9 % (0-9) Eosinophils (%) (Auto) 1 % (0-3) Basophils (%) (Auto) 1 % (0-3) Neutrophils # (Auto) 5.9 x10^3/uL (1.8-7.7) Lymphocytes # (Auto) 1.7 x10^3/uL (1.0-4.8) Monocytes # (Auto) 0.8 x10^3/uL (0.0-1.1) Eosinophils # (Auto) 0.1 x10^3/uL (0.0-0.7) Basophils # (Auto) 0.1 x10^3/uL (0.0-0.2) Prothrombin Time 13.9 SEC (11.7-14.0) Prothrombin Time INR 1.1 (0.8-1.1) Activated Partial Thromboplast Time 30 SEC (24-38) D-Dimer (Bernadette) 0.49 ug/mlFEU (0.00-0.50) Sodium Level 141 mmol/L (136-145) 142 mmol/L (136-145) Potassium Level 3.8 mmol/L (3.5-5.1) 3.7 mmol/L (3.5-5.1) Chloride Level 103 mmol/L (98-107) 105 mmol/L (98-107) Carbon Dioxide Level 24 mmol/L (21-32) 25 mmol/L (21-32) Anion Gap 14 (6-14) 12 (6-14) Blood Urea Nitrogen 23 mg/dL (7-20) H 19 mg/dL (7-20) Creatinine 1.1 mg/dL (0.6-1.0) H 0.9 mg/dL (0.6-1.0) Estimated GFR (Cockcroft-Gault) 61.3 77.3 BUN/Creatinine Ratio 21 (6-20) H Glucose Level 164 mg/dL (70-99) H 133 mg/dL (70-99) H Lactic Acid Level 1.5 mmol/L (0.4-2.0) Calcium Level 8.8 mg/dL (8.5-10.1) 9.0 mg/dL (8.5-10.1) Phosphorus Level 4.1 mg/dL (2.6-4.7) Magnesium Level 1.6 mg/dL (1.8-2.4) L 1.7 mg/dL (1.8-2.4) L Total Bilirubin 0.4 mg/dL (0.2-1.0) Aspartate Amino Transferase (AST) 23 U/L (15-37) Alanine Aminotransferase (ALT) 39 U/L (14-59) Alkaline Phosphatase 129 U/L (46-116) H Troponin I High Sensitivity 11 ng/L (4-50) 13 ng/L (4-50) 15 ng/L (4-50) BX-Ens-V-Type Natriuretic Peptide 36 pg/mL (0-124) Total Protein 7.3 g/dL (6.4-8.2) Albumin 3.5 g/dL (3.4-5.0) Albumin/Globulin Ratio 0.9 (1.0-1.7) L Lipase 228 U/L (73-393) Urine Collection Type Unknown Urine Color (Auto) Yellow Urine Turbidity Clear Urine pH (Auto) 5.5 (<5.0-8.0) Urine Specific [place] >1.050 (1.000-1.030) Urine Protein (Auto) Negative mg/dL (Negative) Urine Glucose (Auto)(UA) Negative mg/dL (Negative) Urine Ketones (Auto) Negative mg/dL (Negative) Urine Blood (Auto) Negative (Negative) Urine Nitrite (Auto) Negative (Negative) Urine Bilirubin (Auto) Negative (Negative) Urine Urobilinogen (Auto) Normal mg/dL (Normal) Urine Leukocyte Esterase (Auto) Negative (Negative) Urine RBC Occ /HPF (0-2) Urine WBC 1-4 /HPF (0-4) Urine Squamous Epithelial Cells Mod /LPF Urine Bacteria Mod /HPF (0-FEW) Urine Mucus Mod /LPF Test 09/01/21 08:06 Glucose (Fingerstick) 138 mg/dL (70-99) H Laboratory Tests 08/31/21 21:54 Laboratory Tests 08/31/21 21:54 09/01/21 03:35 ECHOCARDIOGRAM ECHOCARDIOGRAM <Conclusion> The left ventricle is normal size. The left ventricular systolic function is normal and the ejection fraction is within normal range. The Ejection Fraction is 55-60%. Doppler and Color Flow revealed no significant aortic regurgitation. There is no significant aortic valvular stenosis. Doppler and Color Flow revealed no mitral valve regurgitation noted. Doppler and Color Flow revealed no tricuspid valve regurgitation noted. Doppler and Color Flow revealed trace pulmonic valvular regurgitation. DATE: 03/11/20 1247 ASSESSMENT/PLAN ASSESSMENT/PLAN 1. Atypical chest pain: noncardiac. MSK related 2. Diabetes 2 3. Hx of Sinus bradycardia: Maintaining SR, no periods of bradycardia 4. Hx of syncope: recent- deemed r/t to hypoglycemia 5. CKD: possibly stage 3 6. Hypertension: labile 7. Hyperlipidemia 8. Mild hypomagnesemia Recommendations 1. Restart BP meds. Continue with secondary prevention measures. Replace Mg 2. MCOT pending 3. Will consider for outpt stress test 4. Follow up in office as scheduled DESHAUN PETE MD 09/02/211952: CARDIAC CONSULT ASSESSMENT/PLAN ASSESSMENT/PLAN Late entry for 09/01/2021 Patient seen and examined. Agree with above nurse practitioner note. Supportive care. MELY MARTIN APRN Sep 01, 2021 10:35 DESHAUN PETE MD Sep 02, 2021 19:53
--- NOTE | 2021-09-01 10:47 | PDOC1 ---
History and Physical Date of Admission Date of Admission DATE: 09/01/21 TIME: 10:46 Identification/Chief Complaint Chief Complaint Chest pain Source Source: Chart review, Patient History of Present Illness History of Present Illness Patient is a 61-year-old female with past medical history DM2, GERD, HTN, HLD, who presents to the ED with complaints of right-sided chest pain, right back pain, right shoulder pain, and right arm pain. She describes her pain as dull, and at the time of my evaluation her pain is improved with pain medications. She denies any aggravating or alleviating factors, and she does believe that her pain may be related to the way she slept on her right side. Patient was here 5 days ago for bradycardia, her Coreg and clonidine was discontinued, and she was discharged home on hydralazine. Labs on admission showed hemoglobin 11.7, hematocrit 35.8, BUN 23, creatinine 1.1, CBG 164, magnesium 1.6, D-dimer 0.49, high-sensitivity troponins 11, 13, and 15. Chest x-ray did not show any acute process. CTA chest showed large partially calcified right peritracheal lymph node, seen previously; poorly opacified pulmonary arteries limited sensitivity for a possible pulmonary embolism. Right upper extremity ultrasound was negative for DVT. Patient was admitted for further medical management. Past Medical History Cardiovascular: HTN, Hyperlipidemia Pulmonary: Bronchitis CENTRAL NERVOUS SYSTEM: Periperal neuropathy GI: GERD Heme/Onc: Anemia NOS Hepatobiliary: No pertinent hx Psych: Anxiety Musculoskeletal: Osteoarthritis Renal/: Chronic renal insuff, Urinary Incontinence Endocrine: Diabetes, Other Past Surgical History Past Surgical History: Total hip replacement, Other Family History Family History: Heart Disease Social History Smoke: No ALCOHOL: none Drugs: None Current Problem List Problem List Problems Medical Problems: (1) Chest pain Status: Acute (2) Hypomagnesemia Status: Acute Current Medications Current Medications Current Medications Iohexol (Omnipaque 350 Mg/ml) 100 ml 1X ONCE IV Last administered on 08/31/21at 22:43; Start 08/31/21 at 23:00; Stop 08/31/21 at 23:01; Status DC Info (CONTRAST GIVEN -- Rx MONITORING) 1 each PRN DAILY PRN MC SEE COMMENTS; Start 08/31/21 at 22:45; Stop 09/02/21 at 22:44 Magnesium Oxide (Magnesium Oxide) 2,000 mg 1X ONCE PO Last administered on 08/31/21at 23:45; Start 08/31/21 at 23:00; Stop 08/31/21 at 23:01; Status DC Sodium Chloride 1,000 ml @ 999 mls/hr 1X ONCE IV Last administered on 09/01/21at 01:51; Start 09/01/21 at 00:30; Stop 09/01/21 at 01:30; Status DC Fentanyl Citrate (Fentanyl 2ml Vial) 50 mcg 1X ONCE IVP Last administered on 09/01/21at 01:53; Start 09/01/21 at 00:30; Stop 09/01/21 at 00:31; Status DC Fentanyl Citrate (Fentanyl 2ml Vial) 50 mcg PRN Q2HR PRN IVP SEVERE PAIN 7-10; Start 09/01/21 at 00:15; Stop 09/02/21 at 00:14 Iohexol (Omnipaque 350 Mg/ml) 100 ml STK-MED ONCE .ROUTE ; Start 09/01/21 at 04:47; Stop 09/01/21 at 04:47; Status DC Hydralazine HCl (Apresoline Inj) 10 mg PRN Q4HRS PRN IVP ELEVATED BP, SEE COMMENTS; Start 09/01/21 at 07:00 Nitroglycerin (Nitrostat) 0.4 mg PRN Q5MIN PRN SL CHEST PAIN; Start 09/01/21 at 07:00 Acetaminophen (Tylenol) 650 mg PRN Q6HRS PRN PO MILD PAIN / TEMP > 100.3'F; Start 09/01/21 at 07:00 Ondansetron HCl (Zofran) 4 mg PRN Q4HRS PRN IVP NAUSEA/VOMITING 1st choice; Start 09/01/21 at 07:00 Tramadol HCl (Ultram) 50 mg PRN Q6HRS PRN PO MODERATE PAIN 4-6; Start 09/01/21 at 07:00 Guaifenesin (Robitussin Dm) 10 ml PRN Q6HRS PRN PO COUGH; Start 09/01/21 at 07:00 Albuterol Sulfate (Ventolin Neb Soln) 2.5 mg PRN Q4HRS PRN INH wheezing; Start 09/01/21 at 07:00 Amlodipine Besylate (Norvasc) 10 mg DAILY PO Last administered on 09/01/21at 09:08; Start 09/01/21 at 09:00 Aspirin (Ecotrin) 81 mg DAILYWBKFT PO Last administered on 09/01/21at 09:07; Start 09/01/21 at 08:00 Atorvastatin Calcium (Lipitor) 20 mg HS PO ; Start 09/01/21 at 21:00 Hydralazine HCl (Apresoline) 100 mg BID PO Last administered on 09/01/21at 09:08; Start 09/01/21 at 09:00 Latanoprost (Xalatan) 1 drop QHS OU ; Start 09/01/21 at 21:00 Polyethylene Glycol (miraLAX PACKET) 17 gm DAILY PO Last administered on 09/01/21at 09:07; Start 09/01/21 at 09:00 Sucralfate (Carafate) 1 gm QID PO Last administered on 09/01/21at 09:08; Start 09/01/21 at 09:00 Brimonidine Tartrate (Alphagan) 1 drop BID OU Last administered on 09/01/21at 09:11; Start 09/01/21 at 09:00 Insulin Glargine (Lantus Syringe) 30 unit QHS SQ ; Start 09/01/21 at 21:00 Lansoprazole (Prevacid) 30 mg DAILY07 PO Last administered on 09/01/21at 09:08; Start 09/01/21 at 08:00 Insulin Human Lispro (HumaLOG) 0-9 UNITS TIDACHC SQ ; Start 09/01/21 at 07:30 Dextrose (Dextrose 50%-Water Syringe) 12.5 gm PRN Q15MIN PRN IV SEE COMMENTS; Start 09/01/21 at 07:00 Dextrose (Iv Dextrose 5%) 250 ml PRN Q15MIN PRN IV SEE COMMENTS; Start 09/01/21 at 07:00 Timolol Maleate (Timoptic 0.5% [facility]) 1 drop BID OU Last administered on 09/01/21at 09:11; Start 09/01/21 at 09:00 Magnesium Sulfate 50 ml @ 25 mls/hr 1X ONCE IV ; Start 09/01/21 at 11:00; Stop 09/01/21 at 12:59 Active Scripts Active Hydralazine Hcl 50 Mg Tablet 100 Mg PO BID 60 Days Cyclobenzaprine Hcl 10 Mg Tablet 1 Tab PO TID PRN 7 Days Aspirin Ec (Aspirin) 81 Mg Tablet.dr 81 Mg PO DAILYWBKFT 30 Days Lasix (Furosemide) 40 Mg Tablet 1 Tab PO DAILY 14 Days Miralax (Polyethylene Glycol 3350) 17 Gm Powd.pack 1 Packet PO DAILY Reported Lantus Solostar (Insulin Glargine,Hum.rec.anlog) 100 Unit/1 Ml Insuln.pen 30 Unit SQ QHS Proair Hfa Inhaler (Albuterol Sulfate) 8.5 Gm Hfa.aer.ad 2 Puff IH PRN Q4-6HRS PRN 21 Days Amlodipine Besylate 10 Mg Tablet 1 Tab PO DAILY Victoza 3-Johnson (Liraglutide) 0.6 Mg/0.1 Ml Pen.injctr 0.6 Mg SQ DAILY Combigan Eye Drops (Brimonidine Tartrate/Timolol) 5 Ml Drops 5 Ml OP BID Latanoprost 2.5 Ml Drops 1 Drop EACHEYE QHS Lipitor (Atorvastatin Calcium) 20 Mg Tablet 20 Mg PO HS Sucralfate 1 Gm Tablet 1 Gm PO QID Acetaminophen 500 Mg Tablet 500 Mg PO PRN TID PRN Prevacid (Lansoprazole) 30 Mg Capsule.dr 30 Mg PO DAILY Metformin Hcl 500 Mg Tablet 1,000 Mg PO BIDWMEALS Novolog Flexpen (Insulin Aspart) 100 Unit/1 Ml Insuln.pen 10 Unit SQ TIDAC Allergies Allergies: Coded Allergies: Sulfa (Sulfonamide Antibiotics) (Verified Allergy, Intermediate, rash, 11/27/20) lisinopril (Verified Allergy, Intermediate, 11/27/20) metoclopramide (Verified Allergy, Intermediate, 11/27/20) pantoprazole (Verified Allergy, Intermediate, 11/27/20) " pt reports I don't know, I'm just supposed to not take it" ROS Review of System GENERAL: No history of weight change, weakness or fevers. SKIN: No bruising, hair changes or rashes. EYES: No blurred, double or loss of vision. NOSE AND THROAT: No history of nosebleeds, hoarseness or sore throat. HEART: Right chest pain. Denies palpitations. LUNGS: Denies cough, hemoptysis, wheezing or shortness of breath. GASTROINTESTINAL: Denies nausea, vomiting, abdominal pain. GENITOURINARY: Denies dysuria, frequency, urgency, hematuria. NEUROLOGIC: Denies history of numbness, tingling, tremor or weakness. PSYCHIATRIC: Denies anxiety, denies depression. ENDOCRINE: No history of heat or cold intolerance, polyuria or polydipsia. EXTREMITIES: Right arm pain. Denies muscle weakness, pain on walking or stiffness. Physical Exam Physical Exam General: Alert, Oriented X3, Cooperative, mild distress. Morbidly obese. HEENT: PERRLA, EOMI Lungs: Decreased breath sounds bilaterally, Normal air movement Heart: RRR, no murmurs Cardiovascular: S1, S2 Abdomen: Normal bowel sounds, Soft, No tenderness Extremities: No clubbing, No cyanosis Skin: No rashes, No significant lesion Neuro: Normal speech, Normal tone, Sensation intact Psych/Mental Status: Mental status NL, Mood NL Vitals Vitals Vital Signs Date Time Temp Pulse Resp B/P (MAP) Pulse Ox O2 Delivery O2 Flow Rate FiO2 09/01/21 09:08 89 166/75 09/01/21 08:00 Room Air 09/01/21 07:00 98.0 18 96 98.0 Labs Labs Laboratory Tests Test 08/31/21 21:54 08/31/21 23:43 09/01/21 01:00 09/01/21 03:35 White Blood Count 8.6 x10^3/uL (4.0-11.0) Red Blood Count 4.52 x10^6/uL (3.50-5.40) Hemoglobin 11.7 g/dL (12.0-15.5) Hematocrit 35.8 % (36.0-47.0) Mean Corpuscular Volume 79 fL (79-100) Mean Corpuscular Hemoglobin 26 pg (25-35) Mean Corpuscular Hemoglobin Concent 33 g/dL (31-37) Red Cell Distribution Width 15.3 % (11.5-14.5) Platelet Count 270 x10^3/uL (140-400) Neutrophils (%) (Auto) 69 % (31-73) Lymphocytes (%) (Auto) 20 % (24-48) Monocytes (%) (Auto) 9 % (0-9) Eosinophils (%) (Auto) 1 % (0-3) Basophils (%) (Auto) 1 % (0-3) Neutrophils # (Auto) 5.9 x10^3/uL (1.8-7.7) Lymphocytes # (Auto) 1.7 x10^3/uL (1.0-4.8) Monocytes # (Auto) 0.8 x10^3/uL (0.0-1.1) Eosinophils # (Auto) 0.1 x10^3/uL (0.0-0.7) Basophils # (Auto) 0.1 x10^3/uL (0.0-0.2) Prothrombin Time 13.9 SEC (11.7-14.0) Prothromb Time International Ratio 1.1 (0.8-1.1) Activated Partial Thromboplast Time 30 SEC (24-38) D-Dimer (Bernadette) 0.49 ug/mlFEU (0.00-0.50) Sodium Level 141 mmol/L (136-145) 142 mmol/L (136-145) Potassium Level 3.8 mmol/L (3.5-5.1) 3.7 mmol/L (3.5-5.1) Chloride Level 103 mmol/L (98-107) 105 mmol/L (98-107) Carbon Dioxide Level 24 mmol/L (21-32) 25 mmol/L (21-32) Anion Gap 14 (6-14) 12 (6-14) Blood Urea Nitrogen 23 mg/dL (7-20) 19 mg/dL (7-20) Creatinine 1.1 mg/dL (0.6-1.0) 0.9 mg/dL (0.6-1.0) Estimated GFR (Cockcroft-Gault) 61.3 77.3 BUN/Creatinine Ratio 21 (6-20) Glucose Level 164 mg/dL (70-99) 133 mg/dL (70-99) Lactic Acid Level 1.5 mmol/L (0.4-2.0) Calcium Level 8.8 mg/dL (8.5-10.1) 9.0 mg/dL (8.5-10.1) Phosphorus Level 4.1 mg/dL (2.6-4.7) Magnesium Level 1.6 mg/dL (1.8-2.4) 1.7 mg/dL (1.8-2.4) Total Bilirubin 0.4 mg/dL (0.2-1.0) Aspartate Amino Transf (AST/SGOT) 23 U/L (15-37) Alanine Aminotransferase (ALT/SGPT) 39 U/L (14-59) Alkaline Phosphatase 129 U/L (46-116) Troponin I High Sensitivity 11 ng/L (4-50) 13 ng/L (4-50) 15 ng/L (4-50) OX-Ydy-D-Type Natriuretic Peptide 36 pg/mL (0-124) Total Protein 7.3 g/dL (6.4-8.2) Albumin 3.5 g/dL (3.4-5.0) Albumin/Globulin Ratio 0.9 (1.0-1.7) Lipase 228 U/L (73-393) Urine Collection Type Unknown Urine Color (Auto) Yellow Urine Turbidity Clear Urine pH (Auto) 5.5 (<5.0-8.0) Urine Specific [place] >1.050 (1.000-1.030) Urine Protein (Auto) Negative mg/dL (Negative) Urine Glucose (Auto)(UA) Negative mg/dL (Negative) Urine Ketones (Auto) Negative mg/dL (Negative) Urine Blood (Auto) Negative (Negative) Urine Nitrite (Auto) Negative (Negative) Urine Bilirubin (Auto) Negative (Negative) Urine Urobilinogen (Auto) Normal mg/dL (Normal) Urine Leukocyte Esterase (Auto) Negative (Negative) Urine RBC Occ /HPF (0-2) Urine WBC 1-4 /HPF (0-4) Urine Squamous Epithelial Cells Mod /LPF Urine Bacteria Mod /HPF (0-FEW) Urine Mucus Mod /LPF Test 09/01/21 08:06 Glucose (Fingerstick) 138 mg/dL (70-99) Laboratory Tests Test 08/31/21 21:54 08/31/21 23:43 09/01/21 01:00 09/01/21 03:35 White Blood Count 8.6 x10^3/uL (4.0-11.0) Red Blood Count 4.52 x10^6/uL (3.50-5.40) Hemoglobin 11.7 g/dL (12.0-15.5) Hematocrit 35.8 % (36.0-47.0) Mean Corpuscular Volume 79 fL (79-100) Mean Corpuscular Hemoglobin 26 pg (25-35) Mean Corpuscular Hemoglobin Concent 33 g/dL (31-37) Red Cell Distribution Width 15.3 % (11.5-14.5) Platelet Count 270 x10^3/uL (140-400) Neutrophils (%) (Auto) 69 % (31-73) Lymphocytes (%) (Auto) 20 % (24-48) Monocytes (%) (Auto) 9 % (0-9) Eosinophils (%) (Auto) 1 % (0-3) Basophils (%) (Auto) 1 % (0-3) Neutrophils # (Auto) 5.9 x10^3/uL (1.8-7.7) Lymphocytes # (Auto) 1.7 x10^3/uL (1.0-4.8) Monocytes # (Auto) 0.8 x10^3/uL (0.0-1.1) Eosinophils # (Auto) 0.1 x10^3/uL (0.0-0.7) Basophils # (Auto) 0.1 x10^3/uL (0.0-0.2) Prothrombin Time 13.9 SEC (11.7-14.0) Prothromb Time International Ratio 1.1 (0.8-1.1) Activated Partial Thromboplast Time 30 SEC (24-38) D-Dimer (Bernadette) 0.49 ug/mlFEU (0.00-0.50) Sodium Level 141 mmol/L (136-145) 142 mmol/L (136-145) Potassium Level 3.8 mmol/L (3.5-5.1) 3.7 mmol/L (3.5-5.1) Chloride Level 103 mmol/L (98-107) 105 mmol/L (98-107) Carbon Dioxide Level 24 mmol/L (21-32) 25 mmol/L (21-32) Anion Gap 14 (6-14) 12 (6-14) Blood Urea Nitrogen 23 mg/dL (7-20) 19 mg/dL (7-20) Creatinine 1.1 mg/dL (0.6-1.0) 0.9 mg/dL (0.6-1.0) Estimated GFR (Cockcroft-Gault) 61.3 77.3 BUN/Creatinine Ratio 21 (6-20) Glucose Level 164 mg/dL (70-99) 133 mg/dL (70-99) Lactic Acid Level 1.5 mmol/L (0.4-2.0) Calcium Level 8.8 mg/dL (8.5-10.1) 9.0 mg/dL (8.5-10.1) Phosphorus Level 4.1 mg/dL (2.6-4.7) Magnesium Level 1.6 mg/dL (1.8-2.4) 1.7 mg/dL (1.8-2.4) Total Bilirubin 0.4 mg/dL (0.2-1.0) Aspartate Amino Transf (AST/SGOT) 23 U/L (15-37) Alanine Aminotransferase (ALT/SGPT) 39 U/L (14-59) Alkaline Phosphatase 129 U/L (46-116) Troponin I High Sensitivity 11 ng/L (4-50) 13 ng/L (4-50) 15 ng/L (4-50) YF-Dfe-M-Type Natriuretic Peptide 36 pg/mL (0-124) Total Protein 7.3 g/dL (6.4-8.2) Albumin 3.5 g/dL (3.4-5.0) Albumin/Globulin Ratio 0.9 (1.0-1.7) Lipase 228 U/L (73-393) Urine Collection Type Unknown Urine Color (Auto) Yellow Urine Turbidity Clear Urine pH (Auto) 5.5 (<5.0-8.0) Urine Specific [place] >1.050 (1.000-1.030) Urine Protein (Auto) Negative mg/dL (Negative) Urine Glucose (Auto)(UA) Negative mg/dL (Negative) Urine Ketones (Auto) Negative mg/dL (Negative) Urine Blood (Auto) Negative (Negative) Urine Nitrite (Auto) Negative (Negative) Urine Bilirubin (Auto) Negative (Negative) Urine Urobilinogen (Auto) Normal mg/dL (Normal) Urine Leukocyte Esterase (Auto) Negative (Negative) Urine RBC Occ /HPF (0-2) Urine WBC 1-4 /HPF (0-4) Urine Squamous Epithelial Cells Mod /LPF Urine Bacteria Mod /HPF (0-FEW) Urine Mucus Mod /LPF Test 09/01/21 08:06 Glucose (Fingerstick) 138 mg/dL (70-99) Images Images PATIENT: RUSLAN CALERO ACCOUNT: [id number] : 1960 LOCATION: ER AGE: 61 SEX: F EXAM STATUS: REG ER ORD. PHYSICIAN: BENITA DAWKINS APRN REASON: SOA;OMNI 350,100ML-PT UNCOOPERATIVE-EXAM LIMITED PROCEDURE: CT ANGIOGRAPHY CHEST CTA Chest with and without contrast: Clinical History: Reason: SOA;OMNI 350,100ML-PT UNCOOPERATIVE-EXAM LIMITED / Spl. Instructions: / History: Shortness of breath. Axial helical images of the chest were obtained before and after the administration of 100 cc of IV Optiray 350 and timed appropriately for a pulmonary arterial study. Conventional axial reconstruction was performed in addition to coronal, sagittal and bilateral oblique MIP (maximum intensity projection). This study was ordered to detect possible pulmonary embolism. COMPARISON: November 27, 2020 FINDINGS: There is poor opacification of the segmental and subsegmental pulmonary arteries. There is no central embolism. There is a large calcified paratracheal lymph node on the right seen previously. The lungs and pleural margins are clear. The thoracic aorta appears normal. Impression: 1. Large partially calcified right peritracheal lymph node seen previously. 2. Poorly opacified pulmonary arteries limits sensitivity for a possible pulmonary embolism. PATIENT: RUSLAN CALERO ACCOUNT: [id number] : 1960 LOCATION: ER AGE: 61 SEX: F EXAM STATUS: REG ER ORD. PHYSICIAN: BENITA DAWKINS APRN REASON: pain and swelling in arm PROCEDURE: VENOUS UPPER EXTREMITY RIGHT Right upper Extremity Venous Doppler Ultrasound History: Reason: pain and swelling in arm / Spl. Instructions: / History: Comparison: None Procedure: Color flow, duplex, spectral analysis and 2D images are obtained with and without compression in the area of the deep and superficial venous structures of the upper , specifically the axillary, brachials, radial and ulnar deep veins and the superficial basilic and cephalic veins. Color Doppler and venous waveform analysis was also applied to the left jugular and subclavian vein. Findings: There is normal duplex flow, color flow and compressibility of all visualized vein segments. No evidence of deep venous thrombus is present. Impression: Normal venous Doppler ultrasound with no evidence of DVT. VTE Prophylaxis Ordered VTE Prophylaxis Devices: No VTE Pharmacological Prophylaxi: Yes Assessment/Plan Assessment/Plan Atypical chest pain Hypomagnesemia History of GERD DM2 HTN HLD Plan: Consultation placed to cardiology Based on troponins and EKG acute NH ruled out; will defer to cardiology for further evaluation. Resume home medications FEN - ADA diet PPX - Heparin FULL CODE/surrogate decision-maker is her daughter (Kian Landrum) Dispo - inpatient for above Justifications for Admission Other Justification MILA DE LUNA MD Sep 01, 2021 10:47
[2021-09-01 11:00] VITALS: BP 117/58
[2021-09-01] MEDS ORDERED: MAGNESIUM SULFATE 2GM 50 ML IV ONE (11:00)
[2021-09-01] MEDS ORDERED: MAG HYDROX/ALUMINUM HYD/SIMETH 30 ML ORAL.SUSP PO PRN (11:00)
[2021-09-01] MEDS ORDERED: HYDROcodone/APAP 5/325MG 1 TAB TABLET PO PRN (11:00)
[2021-09-01] MEDS ORDERED: ZOLPIDEM 5 MG TABLET. PO PRN (11:00)
[2021-09-01] MEDS ORDERED: MORPHINE SULFATE 2 MG/ML INJ. IV PRN (11:00)
[2021-09-01 15:00] VITALS: BP 128/60
[2021-09-01] MEDS: HEPARIN for SUB-Q USE 5,000 UNIT/ML VIAL. SQ SCH ×2 (15:08→22:51)
--- NOTE | 2021-09-01 16:14 | NUR ---
SS following for discharge planning. SS reviewed pt chart and discussed with pt RN. Pt is from home and is currently on room air. Cardiology following. PT recommended home. SS will continue to follow for discharge planning.
[2021-09-01 20:09] VITALS: BP 178/85
[2021-09-01] MEDS ORDERED: LATANOPROST 0.005% OPHTH SOLUTION 2.5ML BOTTLE. OU SCH (21:00)
[2021-09-01] MEDS ORDERED: ATORVASTATIN CALCIUM 20 MG TABLET PO SCH (21:00)
[2021-09-01] MEDS ORDERED: INSULIN GLARGINE SYRINGE. SQ SCH (21:00)
[2021-09-01 23:48] VITALS: BP 135/65
[2021-09-02 02:59] VITALS: BP 127/62
[2021-09-02] MEDS: LANSOPRAZOLE 30 MG TAB.RAP.DR PO SCH (06:29)
[2021-09-02] MEDS: HEPARIN for SUB-Q USE 5,000 UNIT/ML VIAL. SQ SCH ×2 (06:29→14:00)
[2021-09-02 07:00] VITALS: BP 176/78
[2021-09-02] MEDS: TIMOLOL 0.5% OPHTH SOLUTION 5ML BOTTLE. OU SCH (08:59)
[2021-09-02] MEDS: BRIMONIDINE 0.2% OPHTH SOLUTION 5ML BOTTLE. OU SCH (08:59)
[2021-09-02] MEDS: ASPIRIN ENTERIC COATED 81 MG TABLET.DR. PO SCH (09:00)
[2021-09-02] MEDS: POLYETHYLENE GLYCOL 3350 17 GM PACKET. PO SCH (09:00)
[2021-09-02] MEDS: SUCRALFATE 1 GM TABLET. PO SCH ×3 (09:00→17:00)
[2021-09-02] MEDS: INSULIN LISPRO 300 UNITS/3 ML VIAL. SQ SCH ×3 (09:50→17:18)
[2021-09-02 11:00] VITALS: BP 136/84
--- NOTE | 2021-09-02 13:32 | PDOC ---
[employer] PROGRESS NOTE Date of Service DOS: DATE: 09/02/21 TIME: 13:31 Chief Complaint Chief Complaint Atypical chest pain Hypomagnesemia History of GERD DM2 HTN HLD History of Present Illness History of Present Illness 09/02: Patient's chest pain has improved. She is eager to discharge home. She can follow-up with cardiology for outpatient stress test. Greater than 30 minutes spent managing the discharge of this patient. Vitals/I&O Vitals/I&O: Vital Signs Date Time Temp Pulse Resp B/P (MAP) Pulse Ox O2 Delivery O2 Flow Rate FiO2 09/02/21 11:00 98.0 92 16 136/84 (101) 96 Room Air 98.0 I & O 09/01/21 09/01/21 09/02/21 15:00 23:00 07:00 Intake Total 230 ml 300 ml Output Total 825 ml 100 ml Balance -595 ml 200 ml Physical Exam General: Alert, Oriented X3, Cooperative, No acute distress Heart: Regular rate (SR), Normal S1, Normal S2, No murmurs Lungs: Clear Abdomen: Soft, No tenderness Extremities: No cyanosis, No edema Skin: No breakdown, No significant lesion Labs Labs: Laboratory Tests Test 09/01/21 17:08 09/01/21 20:55 09/02/21 08:19 09/02/21 11:58 Glucose (Fingerstick) 173 mg/dL (70-99) 206 mg/dL (70-99) 172 mg/dL (70-99) 208 mg/dL (70-99) Assessment and Plan Assessmemt and Plan Problems Medical Problems: (1) Chest pain Status: Acute (2) Hypomagnesemia Status: Acute Comment Review of Relevant I have reviewed the following items oh (where applicable) has been applied. Medications: Current Medications Medications (Trade) Dose Ordered Sig/Ren Route PRN Reason Start Time Stop Time Status Last Admin Dose Admin Atorvastatin Calcium (Lipitor) 20 mg HS PO 09/01/21 21:00 09/01/21 22:56 Latanoprost (Xalatan) 1 drop QHS OU 09/01/21 21:00 09/01/21 22:55 Insulin Glargine (Lantus Syringe) 30 unit QHS SQ 09/01/21 21:00 09/01/21 23:08 Heparin Sodium (Porcine) (Heparin Sodium) 5,000 unit Q8HRS SQ 09/01/21 14:00 09/02/21 06:29 Justifications for Admission Other Justification MILA DE LUNA MD Sep 02, 2021 13:32
--- NOTE | 2021-09-02 13:33 | PDOC3 ---
Discharge Summary Visit Information Date of Admission: Sep 01, 2021 Date of Discharge: Sep 02, 2021 Final Diagnosis Problems Medical Problems: (1) Chest pain Status: Acute (2) Hypomagnesemia Status: Acute Brief Hospital Course Allergies Allergies Coded Allergies Type Severity Reaction Last Updated Verified Sulfa (Sulfonamide Antibiotics) Allergy Intermediate rash 11/27/20 Yes lisinopril Allergy Intermediate 11/27/20 Yes metoclopramide Allergy Intermediate 11/27/20 Yes pantoprazole Allergy Intermediate 11/27/20 Yes Vital Signs Vital Signs Date Time Temp Pulse Resp B/P (MAP) Pulse Ox O2 Delivery O2 Flow Rate FiO2 09/02/21 11:00 98.0 92 16 136/84 (101) 96 Room Air 98.0 Lab Results Laboratory Tests Test 08/31/21 21:54 08/31/21 23:43 09/01/21 01:00 09/01/21 03:35 White Blood Count 8.6 x10^3/uL (4.0-11.0) Red Blood Count 4.52 x10^6/uL (3.50-5.40) Hemoglobin 11.7 g/dL (12.0-15.5) Hematocrit 35.8 % (36.0-47.0) Mean Corpuscular Volume 79 fL (79-100) Mean Corpuscular Hemoglobin 26 pg (25-35) Mean Corpuscular Hemoglobin Concent 33 g/dL (31-37) Red Cell Distribution Width 15.3 % (11.5-14.5) Platelet Count 270 x10^3/uL (140-400) Neutrophils (%) (Auto) 69 % (31-73) Lymphocytes (%) (Auto) 20 % (24-48) Monocytes (%) (Auto) 9 % (0-9) Eosinophils (%) (Auto) 1 % (0-3) Basophils (%) (Auto) 1 % (0-3) Neutrophils # (Auto) 5.9 x10^3/uL (1.8-7.7) Lymphocytes # (Auto) 1.7 x10^3/uL (1.0-4.8) Monocytes # (Auto) 0.8 x10^3/uL (0.0-1.1) Eosinophils # (Auto) 0.1 x10^3/uL (0.0-0.7) Basophils # (Auto) 0.1 x10^3/uL (0.0-0.2) Prothrombin Time 13.9 SEC (11.7-14.0) Prothromb Time International Ratio 1.1 (0.8-1.1) Activated Partial Thromboplast Time 30 SEC (24-38) D-Dimer (Bernadette) 0.49 ug/mlFEU (0.00-0.50) Sodium Level 141 mmol/L (136-145) 142 mmol/L (136-145) Potassium Level 3.8 mmol/L (3.5-5.1) 3.7 mmol/L (3.5-5.1) Chloride Level 103 mmol/L (98-107) 105 mmol/L (98-107) Carbon Dioxide Level 24 mmol/L (21-32) 25 mmol/L (21-32) Anion Gap 14 (6-14) 12 (6-14) Blood Urea Nitrogen 23 mg/dL (7-20) 19 mg/dL (7-20) Creatinine 1.1 mg/dL (0.6-1.0) 0.9 mg/dL (0.6-1.0) Estimated GFR (Cockcroft-Gault) 61.3 77.3 BUN/Creatinine Ratio 21 (6-20) Glucose Level 164 mg/dL (70-99) 133 mg/dL (70-99) Lactic Acid Level 1.5 mmol/L (0.4-2.0) Calcium Level 8.8 mg/dL (8.5-10.1) 9.0 mg/dL (8.5-10.1) Phosphorus Level 4.1 mg/dL (2.6-4.7) Magnesium Level 1.6 mg/dL (1.8-2.4) 1.7 mg/dL (1.8-2.4) Total Bilirubin 0.4 mg/dL (0.2-1.0) Aspartate Amino Transf (AST/SGOT) 23 U/L (15-37) Alanine Aminotransferase (ALT/SGPT) 39 U/L (14-59) Alkaline Phosphatase 129 U/L (46-116) Troponin I High Sensitivity 11 ng/L (4-50) 13 ng/L (4-50) 15 ng/L (4-50) YH-Zdn-N-Type Natriuretic Peptide 36 pg/mL (0-124) Total Protein 7.3 g/dL (6.4-8.2) Albumin 3.5 g/dL (3.4-5.0) Albumin/Globulin Ratio 0.9 (1.0-1.7) Lipase 228 U/L (73-393) Urine Collection Type Unknown Urine Color (Auto) Yellow Urine Turbidity Clear Urine pH (Auto) 5.5 (<5.0-8.0) Urine Specific [place] >1.050 (1.000-1.030) Urine Protein (Auto) Negative mg/dL (Negative) Urine Glucose (Auto)(UA) Negative mg/dL (Negative) Urine Ketones (Auto) Negative mg/dL (Negative) Urine Blood (Auto) Negative (Negative) Urine Nitrite (Auto) Negative (Negative) Urine Bilirubin (Auto) Negative (Negative) Urine Urobilinogen (Auto) Normal mg/dL (Normal) Urine Leukocyte Esterase (Auto) Negative (Negative) Urine RBC Occ /HPF (0-2) Urine WBC 1-4 /HPF (0-4) Urine Squamous Epithelial Cells Mod /LPF Urine Bacteria Mod /HPF (0-FEW) Urine Mucus Mod /LPF Test 09/01/21 08:06 09/01/21 11:26 09/01/21 17:08 09/01/21 20:55 Glucose (Fingerstick) 138 mg/dL (70-99) 229 mg/dL (70-99) 173 mg/dL (70-99) 206 mg/dL (70-99) Test 09/02/21 08:19 09/02/21 11:58 Glucose (Fingerstick) 172 mg/dL (70-99) 208 mg/dL (70-99) Laboratory Tests Test 09/01/21 17:08 09/01/21 20:55 09/02/21 08:19 09/02/21 11:58 Glucose (Fingerstick) 173 mg/dL (70-99) 206 mg/dL (70-99) 172 mg/dL (70-99) 208 mg/dL (70-99) Brief Hospital Course Ms. Nowak is a 61 old female who presented with atypical chest pain, hypomagnesemia. Consultation was placed to cardiology. Troponins were trended and not significantly elevated. She was recommended to follow-up with cardiology as outpatient for stress test. Discharge Information Condition at Discharge: Improved Disposition/Orders: D/C to Home Scheduled Amlodipine Besylate (Amlodipine Besylate) 10 Mg Tablet, 1 TAB PO DAILY for HTN, (Reported) Entered as Reported by: MAGGIE ANYA on 03/10/20 0322 Last Action: Continued on 09/01/21 07 by BENJY MARTINEZ MD Aspirin (Aspirin Ec) 81 Mg Tablet.dr, 81 [facility], #30 Prescribed by: TESFAYE BRUNO MD on 03/12/20 1450 Last Action: Continued on 09/01/21 07 by BENJY MARTINEZ MD Atorvastatin Calcium (Lipitor) 20 Mg Tablet, 20 MG PO HS for FOR CHOLESTEROL, #30 Ref 0 (Reported) Entered as Reported by: MARILYN HANSON on 01/05/16 0749 Last Action: Continued on 09/01/21699 by BENJY MARTINEZ MD Brimonidine Tartrate/Timolol (Combigan Eye Drops) 5 Ml Drops, 5 ML OP BID for Glaucoma, (Reported) Entered as Reported by: CHRISTI BRICEÑO on 06/25/17 192 Last Action: Converted on 09/01/21 07 by BENJY MARTINEZ MD Furosemide (Lasix) 40 Mg Tablet, 1 TAB PO DAILY for 14 Days, #14 Ref 1 Prescribed by: VALENTIN CRUZ on 06/26/17 0744 Last Action: Reviewed on 09/01/21 0156 by JEANINE RODRIGUEZ Hydralazine Hcl (Hydralazine Hcl) 50 Mg Tablet, 100 MG PO BID for htn for 60 Days, #240 Prescribed by: BENJY ROMERO MD on 08/27/21 1231 Last Action: Continued on 09/01/21 07 by BENJY MARTINEZ MD Insulin Aspart (Novolog Flexpen) 100 Unit/1 Ml Insuln.pen, 10 UNIT SQ TIDAC for DM, (Reported) Entered as Reported by: Ameena Gandhi on 12/05/132115 Last Action: Reviewed on 09/01/21 0156 by JEANINE RODRIGUEZ Insulin Glargine,Hum.rec.anlog (Lantus Solostar) 100 Unit/1 Ml Insuln.pen, 30 UNIT SQ QHS for , #15 Ref 3 (Reported) Entered as Reported by: Yani Pike on 08/26/21624 Last Action: Converted on 09/01/21704 by BENJY MARTINEZ MD Lansoprazole (Prevacid) 30 Mg Capsule.dr, 30 MG PO DAILY, (Reported) Entered as Reported by: Ameena Gandhi on 12/05/132115 Last Action: Converted on 09/01/21704 by BENJY MARTINEZ MD Latanoprost (Latanoprost) 2.5 Ml Drops, 1 DROP EACHEYE QHS for Glaucoma, #7.5 Ref 3 (Reported) Entered as Reported by: CHRISTI BRICEÑO on 06/25/171927 Last Action: Continued on 09/01/21699 by BENJY MARTINEZ MD Liraglutide (Victoza 3-Johnson) 0.6 Mg/0.1 Ml Pen.injctr, 0.6 MG SQ DAILY for DM, (Reported) Entered as Reported by: MAGGIE JOYNER on 03/10/20321 Last Action: Reviewed on 09/01/21156 by JEANINE RODRIGUEZ Metformin Hcl (Metformin Hcl) 500 Mg Tablet, 1,000 MG PO BIDWMEALS for DM, Ref 0 (Reported) Entered as Reported by: Ameena Gandhi on 12/05/132115 Last Action: Reviewed on 09/01/21156 by JEANINE RODRIGUEZ Polyethylene Glycol 3350 (Miralax) 17 Gm Powd.pack, 1 PACKET PO DAILY, #30 Ref 3 Prescribed by: Estelita Pina APRN on 09/14/16 1507 Last Action: Continued on 09/01/21699 by BENJY MARTINEZ MD Sucralfate (Sucralfate) 1 Gm Tablet, 1 GM PO QID, (Reported) Entered as Reported by: Ameena Gandhi on 12/05/132115 Last Action: Continued on 09/01/21699 by BENJY MARTINEZ MD Scheduled PRN Acetaminophen (Acetaminophen) 500 Mg Tablet, 500 MG PO PRN TID PRN for PAIN, (Reported) Entered as Reported by: Ameena Gandhi on 12/05/132115 Last Action: Reviewed on 09/01/21153 by JEANINE RODRIGUEZ Albuterol Sulfate (Proair Hfa Inhaler) 8.5 Gm Hfa.aer.ad, 2 PUFF IH PRN Q4-6HRS PRN for wheezing for 21 Days, #1 Ref 0 (Reported) Entered as Reported by: MAGGIE JOYNER on 03/10/20321 Last Action: Continued on 09/01/21 07 by BENJY MARTINEZ MD Cyclobenzaprine Hcl (Cyclobenzaprine Hcl) 10 Mg Tablet, 1 TAB PO TID PRN for PAIN for 7 Days, #21 Ref 0 Prescribed by: DANNY AYOUB APRN on 11/27/201843 Last Action: Reviewed on 09/01/21155 by JEANINE RODRIGUEZ Discontinued Medications Carvedilol (Carvedilol) 6.25 Mg Tablet, 1 TAB PO BID for HTN, (Reported) Entered as Reported by: MAGGIE JOYNER on 03/10/20321 Clonidine Hcl (Clonidine Hcl) 0.2 Mg Tablet, 0.2 MG PO TID for HTN, (Reported) Entered as Reported by: MAGGIE JOYNER on 03/10/20321 Fluticasone Propionate (Flonase) 16 Gm [place].susp, 2 SPRAY NS DAILY, (Reported) Entered as Reported by: Ameena Gandhi on 12/05/132115 Potassium Chloride (Potassium Chloride) 10 Meq Tablet.er, 10 MEQ PO DAILY, (Reported) Entered as Reported by: Ameena Gandhi on 12/05/132115 Justicifation of Admission Dx: Justifications for Admission: Justification of Admission Dx: Yes Altered Mental Status: Altered Mental Status MILA DE LUNA MD Sep 02, 2021 13:33
--- NOTE | 2021-09-02 14:56 | NUR ---
SS following up with discharge planning. SS reviewed pt chart and discussed with pt RN. Pt is currently on room air. Discharge order on the chart for home with self care. Pt requesting transportation to home. Pt will discharge today via [facility] ambulance at 1630. Pt and pt's RN notified.
== END 2021-09-02 17:40 | disposition home or self-care (01) | DRG 313 ==
LOC: ER 21:03 → 6 SOUTH 09-01 00:02
PROVIDERS: ADMIT Internal Medicine; ATTEND Internal Medicine
DX: R07.89 Other chest pain (principal); Z68.43 Body mass index [BMI] 50.0-59.9, adult; Z79.01 Long term (current) use of anticoagulants; E11.22 Type 2 diabetes mellitus with diabetic chronic kidney disease; E78.00 Pure hypercholesterolemia, unspecified; E78.5 Hyperlipidemia, unspecified; E83.42 Hypomagnesemia; H40.9 Unspecified glaucoma; I12.9 Hypertensive chronic kidney disease with stage 1 through stage 4 chronic kidney disease, or unspecified chronic kidney disease; N18.9 Chronic kidney disease, unspecified; Z96.641 Presence of right artificial hip joint; E66.9 Obesity, unspecified; F41.9 Anxiety disorder, unspecified; E11.40 Type 2 diabetes mellitus with diabetic neuropathy, unspecified; K21.9 Gastro-esophageal reflux disease without esophagitis; M19.90 Unspecified osteoarthritis, unspecified site; Z88.2 Allergy status to sulfonamides; Z79.4 Long term (current) use of insulin; Z79.84 Long term (current) use of oral hypoglycemic drugs; Z79.899 Other long term (current) drug therapy; Z88.8 Allergy status to other drugs, medicaments and biological substances; Z82.49 Family history of ischemic heart disease and other diseases of the circulatory system; E66.01 Morbid (severe) obesity due to excess calories
CPT/HCPCS: 36415; 71045; 71275; 80048; 80053; 81001; 82962; 83605; 83690; 83735; 83880; 84100; 84484; 85025; 85379; 85610; 85730; 87040; 93005; 93971; 96361; 96374; J1644; J1815; J3010; J3475; J7030; Q9967; 97535-GO; 99285-25; G0378